=== PATIENT | male | born 1950 | race Caucasian/White ===

== ENCOUNTER 2021-02-21 09:32 | Outpatient (REF) | payer MEDICARE, SELFPAY ==
[2021-02-21 10:58] LABS: MANUAL DIFF FLAG NO
[2021-02-21 11:00] LABS: Basophils Percent Auto 0.7 % (0-2); Eosinophils Absolute Auto 0.1 X10*3/uL (0.0-0.4); Eosinophils Percent Auto 1.5 % (0-4); Hematocrit 41.5 % (42.0-52.0); Hemoglobin 13.9 g/dl (14.0-18.0); Imm Gran Abs Auto 0.01 X10*3/uL (0.00-0.03); Imm Gran Pct Auto 0.2 % (0.0-0.4); Lymphocytes Absolute Auto 1.3 X10*3/uL (1.2-4.9); Lymphocytes Percent Auto 23.9 % (20-40); Mean Corpuscular HGB Conc 33.5 g/dl (31.0-36.0); Mean Corpuscular Hemoglobin 29.6 pg (27.0-33.0); Mean Corpuscular Volume 88.5 fL (80.0-98.0); Mean Platelet Volume 9.7 fL (9.4-12.4); Monocytes Absolute Auto 0.5 X10*3/uL (0.1-1.2); Monocytes Percent Auto 9.1 % (2-11); Neutrophils Absolute Auto 3.5 x10*3/uL (2.0-8.3); Neutrophils Percent Auto 64.6 % (45-73); Platelet Count 215 X10*3/uL (160-400); Red Blood Count 4.69 X10*6/uL (4.60-5.80); Red Cell Distribution Width 12.7 % (11.0-16.0); White Blood Count 5.5 X10*3/uL (4.8-10.8)
[2021-02-21 11:37] LABS: Alanine Aminotransferase 19 U/L (0-40); Albumin Level 4.3 g/dL (3.5-5.0); Alkaline Phosphatase 79 U/L (39-117); Anion Gap 11 (12-20); Aspartate Amino Transferase 19 U/L (5-37); Bilirubin Total 0.6 mg/dL (0.0-1.0); Blood Urea Nitrogen 24 mg/dL (9-16); Calcium 9.6 mg/dL (8.4-10.2); Carbon Dioxide 28 mmol/L (22-29); Chloride 104 mmol/L (96-108); Cholesterol 222 mg/dL; Estimated Glomerular Filt Rate > 60; Glucose Random 83 mg/dL (60-115); HDL Cholesterol 56 mg/dL; LDL Cholesterol Calculated 150 mg/dl; Potassium 4.4 mmol/L (3.3-5.1); Sodium 139 mmol/L (135-145); Total Protein 7.1 g/dL (6.5-8.0); Triglycerides 84 mg/dL
[2021-02-21 11:46] LABS: Prostate Specific Antigen 0.96 ng/mL (<0.05-4.0); Thyroid Stimulating Hormone 1.16 uIU/mL (0.32-4.0); Vitamin D 25-OH Total 52.1 ng/mL (>30)
[2021-02-21 11:47] LABS: ~HepC Num1 0.11 S/CO (0.00-0.79); ~Hepatitis C Antibody Nonreactive (Nonreactive)
[2021-02-21 12:00] LABS: Vitamin B12 850 pg/mL (200-900)
== END 2021-02-21 09:33 | disposition home or self-care (01) ==
LOC: HO.MANLDS 09:32
PROVIDERS: PCP Internal Medicine; Visit Provider Internal Medicine
DX: Z00.00 Encounter for general adult medical examination without abnormal findings (principal); Z12.5 Encounter for screening for malignant neoplasm of prostate
CPT/HCPCS: 36415; 80053; 80061; 82306; 82607; 84153; 84443; 85025; 86803

== ENCOUNTER 2024-07-18 21:19 | Inpatient (IN) | payer MEDICARE, SELFPAY ==
--- NOTE | ~2024-07-18 | XR_ITS ---
CLINICAL HISTORY: SIRS 1 view chest x-ray Comparison: None provided Findings: The lungs are clear. Heart size is normal. No acute fracture. IMPRESSION: 1. No acute findings. This document has been electronically signed by: Marques Morales MD on 11/28/2024 18:56:22
--- NOTE | ~2024-07-18 | US_ITS ---
EXAMINATION: US TRIPLEX LOWER EXTREMITY, BILATERAL CLINICAL INFORMATION: COMPARISON: None available. TECHNIQUE: Color-flow triplex imaging with spectral analysis and compression Doppler were performed on the bilateral lower extremities. FINDINGS: Respiratory variation, normal compression and augmented flow are noted throughout the bilateral lower extremities. The visualized common femoral vein, superficial femoral vein, profunda femoral vein, popliteal vein and posterior tibial venous segments show no evidence of deep venous thrombosis bilaterally. Peroneal veins are not demonstrated. There is no Hough's cyst. US/US venous duplex LE BI IMPRESSION: No evidence of deep venous thrombosis involving the bilateral lower extremities. Electronically signed by: Mason Lorenzo MD 10/08/2024 03:21 PM EDT
--- NOTE | ~2024-07-18 | CT_ITS ---
CLINICAL HISTORY: worsening AMS weeks, wobbly gate CT head without contrast Comparison: None Findings: Scattered subcortical and periventricular hypoattenuation, likely in keeping with chronic small vessel ischemic disease. Global parenchymal volume loss with disproportionate prominence of the ventricles and CSF spaces, can be seen in the setting of normal pressure hydrocephalus and should be correlated clinically. No acute territorial infarction, intracranial hemorrhage or midline shift. Lacunar infarcts in the basal ganglia. The visualized paranasal sinuses and mastoid air cells are normal. The orbits are unremarkable. There is no acute fracture. IMPRESSION: 1. No acute intracranial hemorrhage or territorial infarction. 2. Additional findings as described. This document has been electronically signed by: Aurelio Sofia MD on 07/19/2024 00:17:07
[2024-07-18 21:26] VITALS: BP 130/68; BP 134/80; PULSE 60; PULSE 94; RESP 16; TEMP 36.8; O2SAT 100; O2SAT 98; BMI 24.4
[2024-07-18 21:30] VITALS: BP 130/68; PULSE 94; RESP 16; TEMP 36.8; O2SAT 98
[2024-07-18 21:48] LABS: MANUAL DIFF FLAG NO
[2024-07-18 21:49] LABS: Hematocrit 36.9 % (42.0-52.0); Hemoglobin 12.5 g/dl (14.0-18.0); Imm Gran Abs Auto 0.02 X10*3/uL (0.00-0.03); Imm Gran Pct Auto 0.3 % (0.0-0.4); Lymphocytes Absolute Auto 1.0 X10*3/uL (1.2-4.9); Mean Corpuscular HGB Conc 33.9 g/dl (31.0-36.0); Mean Corpuscular Hemoglobin 29.0 pg (27.0-33.0); Mean Corpuscular Volume 85.6 fL (80.0-98.0); NRBC Abs Auto 0.000 X10*3/uL (0.0-0.012); NRBC Pct Auto 0.0 /100WBC (0.0-0.2); Platelet Count 322 X10*3/uL (160-400); Red Blood Count 4.31 X10*6/uL (4.60-5.80); White Blood Count 6.6 X10*3/uL (4.8-10.8)
[2024-07-18 22:01] LABS: Anion Gap 12 (12-20); Blood Urea Nitrogen 21 mg/dL (9-16); Calcium 9.2 mg/dL (8.4-10.2); Carbon Dioxide 28 mmol/L (22-29); Chloride 108 mmol/L (96-108); Creatinine Clr Calc Pharmacy 87.5; Estimated Glomerular Filt Rate > 60; Potassium 4.1 mmol/L (3.3-5.1); Sodium 144 mmol/L (135-145)
--- NOTE | 2024-07-18 22:30 | PC.NURSE ---
Jaquan Segura [facility] [phone]
[2024-07-18 22:47] LABS: Appearance Urine Clear; Glucose Urine UA Negative (Negative); PH 6.5 (5.0-9.0); Specific Gravity - Urine 1.020 (1.005-1.025)
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
[2024-07-18 23:34] VITALS: BP 133/76; PULSE 58; RESP 16; TEMP 36.5; O2SAT 98
--- NOTE | 2024-07-19 | ECG_ITS ---
Test Reason : BH CLEAREANCE Blood Pressure : */* mmHG Vent. Rate : 56 BPM Atrial Rate : 56 BPM P-R Int : 160 ms QRS Dur : 90 ms QT Int : 420 ms P-R-T Axes : 14 -10 61 degrees QTcB Int : 405 ms Sinus bradycardia with Premature atrial complexes Otherwise normal ECG No previous ECGs available Referred By: Natacha Alves Electronically Signed By: RADHA DREW
[2024-07-19 04:17] VITALS: BP 121/52; PULSE 54; RESP 16; O2SAT 97
[2024-07-19 11:28] VITALS: BP 113/72; PULSE 88; RESP 18; TEMP 36.6; O2SAT 100
--- NOTE | 2024-07-19 11:28 | PC.NURSE ---
Ate well for breakfast, calm and cooperative, ambulated with staff assist on unit, resting comfortably in bed at this time
--- NOTE | 2024-07-19 12:36 | PC.NURSE ---
report given to Caitlyn on [facility]
[2024-07-19 14:15] VITALS: BP 119/69; PULSE 68; RESP 18; TEMP 36; O2SAT 100
[2024-07-19 14:50] VITALS: BMI 24.4
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
[2024-07-19 20:00] VITALS: BP 128/68; PULSE 76; RESP 18; TEMP 36.4; O2SAT 98
[2024-07-20 07:43] LABS: Cholesterol 187 mg/dL (<200); HDL Cholesterol 58 mg/dL (>40); Triglycerides 59 mg/dL (<150)
[2024-07-20 07:54] LABS: Free T4 (Free Thyroxine) 0.97 ng/dL (0.71-1.85); Thyroid Stimulating Hormone 0.98 uIU/mL (0.32-4.0)
[2024-07-20 08:08] LABS: Folate 11.8 ng/mL (> or = 4.0); Vitamin B12 1167 pg/mL (200-900)
[2024-07-20 08:37] VITALS: BP 106/69; PULSE 70; RESP 18; TEMP 36.3; O2SAT 100
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
[2024-07-20 11:06] LABS: Alanine Aminotransferase 26 U/L (0-40); Albumin Level 3.6 g/dL (3.5-5.0); Alkaline Phosphatase 75 U/L (39-117); Anion Gap 12 (12-20); Aspartate Amino Transferase 14 U/L (5-37); Blood Urea Nitrogen 29 mg/dL (9-16); Calcium 9.1 mg/dL (8.4-10.2); Carbon Dioxide 26 mmol/L (22-29); Chloride 106 mmol/L (96-108); Creatinine Clr Calc Pharmacy 64.2; Estimated Glomerular Filt Rate > 60; Potassium 4.4 mmol/L (3.3-5.1); Sodium 140 mmol/L (135-145); Total Protein 6.4 g/dL (6.5-8.0)
[2024-07-20 20:00] VITALS: BP 123/58; PULSE 69; RESP 18; TEMP 36.5; O2SAT 96
[2024-07-21 09:02] VITALS: BP 97/55; PULSE 67; RESP 16; TEMP 36.6; O2SAT 97
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
[2024-07-21 20:00] VITALS: BP 111/57; PULSE 63; RESP 16; TEMP 36.8; O2SAT 97
[2024-07-22 08:00] VITALS: BP 114/62; PULSE 73; RESP 16; TEMP 36.6; O2SAT 96
--- NOTE | 2024-07-22 16:41 | P.PNPSI_ITS ---
Subjective Subjective Date of Service: 07/22/24 Reason For Visit: dementia w/ behavioral disturbance Subjective Notes: Section 12B Interim History: Pt slept through the night. He continues with one to one due to unsteady gait, he is somewhat resistant to care, combative. He is taking medications as prescribed. BP on lower side, minimal oral fluid intake. not on any BP medications. when approached not very talkative, staring at times. poverty of thought Review of Systems Review of Systems Patient has no complaints, patient has history of dementia Yes Other (Dementia) Mental Status Exam Mental Status Exam Narrative: Appearance: wearing hospital gown, fair hygiene, in NAD Behavior: guarded, somewhat irritable Psychomotor: no agitation or retardation noted Speech: mostly mumbling, regular rate/rhythm, soft tone, minimally spontaneous TP: poverty of thought TC: feeling tired Mood: okay Affect: tired SI: none HI: none VH/AH: no overt signs Delusions: no overt signs but confabulating Insight/judgment: impaired x 2. memory/cog: alert oriented only to person. Diagnostics Vital Signs (24Hr): Vital Signs - 24 hr 07/21/24 20:00 07/22/24 08:00 Temperature 98.2 F 97.9 F Pulse Rate 63 73 Respiratory Rate 16 16 Blood Pressure 111/57 L 114/62 Pulse Oximetry 97 96 Oxygen Delivery Method Room Air Room Air BMI result Body Mass Index 24.4 Labs 07/18/24 21:40 07/23/24 10:52 Medications Medications Current Medications Acetaminophen (Acetaminophen 325 Mg Tablet) 650 mg PO Q6H PRN PRN Reason: Headache/Pain, Scale 1-10 Al Hydroxide/Mg Hydroxide (Magnesium Hydrox/Alum Hydrox 30 Ml Oral.Susp) 30 ml PO Q6H PRN PRN Reason: Heartburn/Nausea Donepezil HCl (Donepezil Hcl 10 Mg Tablet) 10 mg PO DAILY [facility] Last Admin: 07/22/24 08:59 Dose: 10 mg Magnesium Hydroxide (Milk Of Magnesia 30 Ml Oral.Susp) 30 ml PO DAILY PRN PRN Reason: Constipation Olanzapine (Olanzapine 5 Mg Tablet) 5 mg PO BID [facility] Last Admin: 07/22/24 08:59 Dose: 5 mg Olanzapine (Olanzapine Odt 10 Mg Tab.Rapdis) 5 mg TRANSLINGU Q4H PRN PRN Reason: agitation Trazodone HCl (Trazodone Hcl 50 Mg Tablet) 50 mg PO BEDTIME MRX1 PRN PRN Reason: Insomnia Last Admin: 07/21/24 21:23 Dose: 50 mg Allergies Allergies Allergy/AdvReac Type Severity Reaction Status Date / Time No Known Allergies Allergy Verified 07/18/24 21:28 Assessment & Plan Assessment & Plan (1) Major neurocognitive disorder: Status: Acute Code(s): F03.90 - Unspecified dementia, unspecified severity, without behavioral disturbance, psychotic disturbance, mood disturbance, and anxiety Plan Mr. Segura is a 73 year-old male with hx of dementia, appears AD type who was brought by family [place] [facility] [place] due to increase combative behaviors attempting to choke while she was providing support with ADLs. He has also eloped home in the past, being loss for 6 hrs and then presenting with hypothermia. This narrative writer attempted to call twice with no response nor able to leave message. Continue current medications including olanzapine 5mg po BID. Aricept at bedtime, instead of daily. PLAN 07/21 continue tx. 07/22 continue tx. on [id number] up on 07/23 may need to file. Reason for continued inpatient stay Substantial Risk for: inability to function Time Spent With Patient Time: Total time managing care of this patient today ____ minutes.
[2024-07-22] MEDS: OLANZapine ODT 10 MG TAB.RAPDIS 5 MG TRANSLINGU (18:56)
--- NOTE | 2024-07-22 19:01 | PC.NURSE ---
Having behavioral issues wanting to put himself on the floor given PRN danica
[2024-07-22 20:00] VITALS: BP 121/79; PULSE 89; RESP 20; TEMP 37.1; O2SAT 96
--- NOTE | 2024-07-22 21:51 | PC.NURSE ---
Addendum entered by Ryan Zavaleta RN 07/23/24 03:29: DOC aware Original Note: at 1999 patient was restless, disorganized and agitated towards sitter, HR 132-141, 121/79, r20, 98.7 SAO2 95%@RA, he had gotten zyprexa 5mg PO PRN at 1856, and was given regularly scheduled zyprexa 5mg PO and PRN trazodone 50, 2034 HR down to 89, SA 96%, patient resting
--- NOTE | 2024-07-22 21:59 | PC.NURSE ---
at 2119 sitter reported patient restless, undressing, hot, 99.8f, given tylenol 650mg PO and trazodone 50mg repeat dose, 2199 patient resting 98.1f
[2024-07-23 09:14] VITALS: BP 94/50; PULSE 60; RESP 16; TEMP 36.5; O2SAT 98
[2024-07-23 11:20] LABS: Alanine Aminotransferase 18 U/L (0-40); Albumin Level 3.6 g/dL (3.5-5.0); Alkaline Phosphatase 72 U/L (39-117); Anion Gap 11 (12-20); Aspartate Amino Transferase 42 U/L (5-37); Blood Urea Nitrogen 24 mg/dL (9-16); Calcium 9.4 mg/dL (8.4-10.2); Carbon Dioxide 25 mmol/L (22-29); Chloride 109 mmol/L (96-108); Creatinine Clr Calc Pharmacy 85.4; Estimated Glomerular Filt Rate > 60; Potassium 3.9 mmol/L (3.3-5.1); Sodium 141 mmol/L (135-145); Total Protein 6.4 g/dL (6.5-8.0)
--- NOTE | 2024-07-23 16:00 | HO.PSYCHPN ---
Subjective Subjective Date of Service: 07/24/24 Reason For Visit: dementia w/ behavioral disturbance Subjective Notes: Section 12B Interim History: Pt slept through the night. He appears less combative with direct care, minimally verbal, one word answer at times unrelated to question asked. He appeared more unsteady after receiving olanzapine. Low BP, not orthostatic, difficult to assess if feeling dizzy or light headed due to advanced dementia. Continue one to one due to risk for fall. not able to show capacity to appoint healthcare proxy. need filing for guardianship. Review of Systems Review of Systems None currently Yes Unobtainable due to mental status and Other (Dementia) Mental Status Exam Mental Status Exam Narrative: Appearance: wearing hospital gown, fair hygiene, in NAD Behavior: guarded, somewhat irritable Psychomotor: no agitation or retardation noted Speech: mostly mumbling, regular rate/rhythm, soft tone, minimally spontaneous TP: poverty of thought TC: feeling tired Mood: okay Affect: tired SI: none HI: none VH/AH: no overt signs Delusions: no overt signs but confabulating Insight/judgment: impaired x 2. memory/cog: alert oriented only to person. Diagnostics Vital Signs (24Hr): Vital Signs - 24 hr 07/22/24 20:00 07/23/24 09:14 Temperature 98.8 F 97.7 F Pulse Rate 89 60 Respiratory Rate 20 16 Blood Pressure 121/79 94/50 L Pulse Oximetry 96 98 Oxygen Delivery Method Room Air Room Air BMI result Body Mass Index 24.4 Labs 07/18/24 21:40 07/23/24 10:52 Labs: Laboratory Results - last 48 hr 07/23/24 10:52 Sodium 141 Potassium 3.9 Chloride 109 H Carbon Dioxide 25 Anion Gap 11 L BUN 24 H Creatinine 0.82 Estim Creat Clear Calc 85.4 Estimated GFR > 60 Random Glucose 84 Calcium 9.4 Total Bilirubin 0.6 AST 42 H ALT 18 Alkaline Phosphatase 72 Total Protein 6.4 L Albumin 3.6 Medications Medications Current Medications Acetaminophen (Acetaminophen 325 Mg Tablet) 650 mg PO Q6H PRN PRN Reason: Headache/Pain, Scale 1-10 Last Admin: 07/22/24 21:33 Dose: 650 mg Al Hydroxide/Mg Hydroxide (Magnesium Hydrox/Alum Hydrox 30 Ml Oral.Susp) 30 ml PO Q6H PRN PRN Reason: Heartburn/Nausea Donepezil HCl (Donepezil Hcl 10 Mg Tablet) 10 mg PO DAILY [facility] Last Admin: 07/23/24 09:20 Dose: 10 mg Magnesium Hydroxide (Milk Of Magnesia 30 Ml Oral.Susp) 30 ml PO DAILY PRN PRN Reason: Constipation Olanzapine (Olanzapine Odt 10 Mg Tab.Rapdis) 5 mg TRANSLINGU Q4H PRN PRN Reason: agitation Last Admin: 07/22/24 18:56 Dose: 5 mg Olanzapine (Olanzapine 5 Mg Tablet) 5 mg PO TID [facility] Last Admin: 07/23/24 15:12 Dose: 5 mg Trazodone HCl (Trazodone Hcl 50 Mg Tablet) 50 mg PO BEDTIME MRX1 PRN PRN Reason: Insomnia Last Admin: 07/22/24 21:34 Dose: 50 mg Allergies Allergies Allergy/AdvReac Type Severity Reaction Status Date / Time No Known Allergies Allergy Verified 07/18/24 21:28 Assessment & Plan Assessment & Plan (1) Major neurocognitive disorder: Status: Acute Code(s): F03.90 - Unspecified dementia, unspecified severity, without behavioral disturbance, psychotic disturbance, mood disturbance, and anxiety Plan Mr. Segura is a 73 year-old male with hx of dementia, appears AD type who was brought by family [place] [facility] due to increase combative behaviors attempting to choke while she was providing support with ADLs. He has also eloped home in the past, being loss for 6 hrs and then presenting with hypothermia. 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 Continue current medications including olanzapine 5mg po BID. Aricept at bedtime, instead of daily. PLAN 07/21 continue tx. 07/22 continue tx. on [id number] up on 07/23 may need to file. 07/23 continue tx. 07/24 switch olanzapine to seroquel as it appears more unsteady with olanzapine. encourage oral intake. Reason for continued inpatient stay Substantial Risk for: inability to function Time Spent With Patient Time: Total time managing care of this patient today ____ minutes.
[2024-07-23 20:00] VITALS: BP 112/68; PULSE 70; RESP 18; TEMP 36.6; O2SAT 97
[2024-07-24 08:00] VITALS: BP 101/60; PULSE 67; RESP 18; TEMP 36.4; O2SAT 98
[2024-07-24 09:05] VITALS: BMI 20.8
[2024-07-24 09:37] VITALS: BP 106/61; PULSE 60
[2024-07-24 20:00] VITALS: BP 123/65; PULSE 66; RESP 16; TEMP 36.8; O2SAT 96
[2024-07-25 08:20] VITALS: BP 92/60; PULSE 72; RESP 20; TEMP 36.8; O2SAT 98
--- NOTE | 2024-07-25 12:33 | P.PNPSI_ITS ---
Subjective Subjective Date of Service: 07/25/24 Reason For Visit: dementia w/ behavioral disturbance Interim History: Pt seen, reviewed with the team. Hot Sealing Machine Operator visiting today. Pt walking today with assistance. Change to Seroquel from Olanzapine appears to be tolerated without adverse effects. No sx of acute distress. Review of Systems Review of Systems None currently Mental Status Exam Mental Status Exam Patient Appearance: Appropriate Patient Orientation: Person Level of Consciousness: Alert Patient Behavior: Cooperative Mood Description: Calm and Constricted Affect Description: Constricted Patient Cognition Impaired: Yes Ability to Follow Directions: Fair Memory Description: Remote Impaired, Immediate Impaired and Recent Impaired Judgement: Poor Diagnostics Vital Signs (24Hr): Vital Signs - 24 hr 07/24/24 20:00 07/25/24 08:20 Temperature 98.2 F 98.2 F Pulse Rate 66 72 Respiratory Rate 16 20 Blood Pressure 123/65 92/60 Pulse Oximetry 96 98 Oxygen Delivery Method Room Air Room Air BMI result Body Mass Index 20.8 Labs 07/18/24 21:40 07/23/24 10:52 Medications Medications Current Medications Acetaminophen (Acetaminophen 325 Mg Tablet) 650 mg PO Q6H PRN PRN Reason: Headache/Pain, Scale 1-10 Last Admin: 07/22/24 21:33 Dose: 650 mg Al Hydroxide/Mg Hydroxide (Magnesium Hydrox/Alum Hydrox 30 Ml Oral.Susp) 30 ml PO Q6H PRN PRN Reason: Heartburn/Nausea Donepezil HCl (Donepezil Hcl 10 Mg Tablet) 10 mg PO DAILY [facility] Last Admin: 07/25/24 08:26 Dose: 10 mg Magnesium Hydroxide (Milk Of Magnesia 30 Ml Oral.Susp) 30 ml PO DAILY PRN PRN Reason: Constipation Quetiapine Fumarate (Quetiapine Fumarate 50 Mg Tablet) 50 mg PO BID [facility] Last Admin: 07/25/24 08:27 Dose: 50 mg Quetiapine Fumarate (Quetiapine Fumarate 50 Mg Tablet) 50 mg PO Q6H PRN PRN Reason: agitation Trazodone HCl (Trazodone Hcl 50 Mg Tablet) 50 mg PO BEDTIME MRX1 PRN PRN Reason: Insomnia Last Admin: 07/23/24 20:10 Dose: 50 mg Allergies Allergies Allergy/AdvReac Type Severity Reaction Status Date / Time No Known Allergies Allergy Verified 07/18/24 21:28 Assessment & Plan Assessment & Plan (1) Major neurocognitive disorder: Status: Acute Code(s): F03.90 - Unspecified dementia, unspecified severity, without behavioral disturbance, psychotic disturbance, mood disturbance, and anxiety Plan Mr. Segura is a 73 year-old male with hx of dementia, appears AD type who was brought by family to [facility] due to increase combative behaviors attempting to choke while she was providing support with ADLs. He has also eloped home in the past, being loss for 6 hrs and then presenting with hypothermia. This teletypewriter installer attempted to call twice with no response nor able to leave message. Continue current medications including olanzapine 5mg po BID. Aricept at bedtime, instead of daily. PLAN 07/21 continue tx. 07/22 continue tx. on [id number] up on 07/23 may need to file. 07/25 Continue tx Reason for continued inpatient stay Substantial Risk for: rapid decompensation Time Spent With Patient Time: Total time managing care of this patient today ____ minutes.
[2024-07-25 20:00] VITALS: BP 123/67; PULSE 75; RESP 16; TEMP 36.6; O2SAT 98
--- NOTE | 2024-07-26 05:55 | P.PNPSI_ITS ---
Subjective Subjective Date of Service: 07/26/24 Reason For Visit: dementia w/ behavioral disturbance Interim History: Pt seen in milieu with his one to one, reviewed with the team. He is looking at a magazine and watching television. He is calm, without agitation or behavioral dyscontrol. Team reports he does not recognize or recall his daughter when she visited. Team reports he does agitate when care is provided Review of Systems Review of Systems Yes Unobtainable due to mental status Mental Status Exam Mental Status Exam Patient Appearance: Appropriate Patient Orientation: Person Level of Consciousness: Alert Patient Behavior: Cooperative Mood Description: Calm and Constricted Affect Description: Constricted Patient Cognition Impaired: Yes Ability to Follow Directions: Fair Memory Description: Remote Impaired, Immediate Impaired and Recent Impaired Judgement: Poor Diagnostics Vital Signs (24Hr): Vital Signs - 24 hr 07/25/24 08:20 07/25/24 20:00 Temperature 98.2 F 97.8 F Pulse Rate 72 75 Respiratory Rate 20 16 Blood Pressure 92/60 123/67 Pulse Oximetry 98 98 Oxygen Delivery Method Room Air Room Air BMI result Body Mass Index 20.8 Labs 07/18/24 21:40 07/23/24 10:52 Medications Medications Current Medications Acetaminophen (Acetaminophen 325 Mg Tablet) 650 mg PO Q6H PRN PRN Reason: Headache/Pain, Scale 1-10 Last Admin: 07/22/24 21:33 Dose: 650 mg Al Hydroxide/Mg Hydroxide (Magnesium Hydrox/Alum Hydrox 30 Ml Oral.Susp) 30 ml PO Q6H PRN PRN Reason: Heartburn/Nausea Donepezil HCl (Donepezil Hcl 10 Mg Tablet) 10 mg PO DAILY [facility] Last Admin: 07/25/24 08:26 Dose: 10 mg Magnesium Hydroxide (Milk Of Magnesia 30 Ml Oral.Susp) 30 ml PO DAILY PRN PRN Reason: Constipation Quetiapine Fumarate (Quetiapine Fumarate 50 Mg Tablet) 50 mg PO BID [facility] Last Admin: 07/25/24 21:24 Dose: 50 mg Quetiapine Fumarate (Quetiapine Fumarate 50 Mg Tablet) 50 mg PO Q6H PRN PRN Reason: agitation Trazodone HCl (Trazodone Hcl 50 Mg Tablet) 50 mg PO BEDTIME MRX1 PRN PRN Reason: Insomnia Last Admin: 07/23/24 20:10 Dose: 50 mg Allergies Allergies Allergy/AdvReac Type Severity Reaction Status Date / Time No Known Allergies Allergy Verified 07/18/24 21:28 Assessment & Plan Assessment & Plan (1) Major neurocognitive disorder: Status: Acute Code(s): F03.90 - Unspecified dementia, unspecified severity, without behavioral disturbance, psychotic disturbance, mood disturbance, and anxiety Plan Mr. Segura is a 73 year-old male with hx of dementia, appears AD type who was brought by family [place] [facility] due to increase combative behaviors attempting to choke while she was providing support with ADLs. He has also eloped home in the past, being loss for 6 hrs and then presenting with hypothermia. This caption writer attempted to call twice with no response nor able to leave message. Continue current medications including olanzapine 5mg po BID. Aricept at bedtime, instead of daily. PLAN 07/21 continue tx. 07/22 continue tx. on [id number] up on 07/23 may need to file. 07/25 Continue tx 07/26 Continue tx Reason for continued inpatient stay Substantial Risk for: rapid decompensation Time Spent With Patient Time: Total time managing care of this patient today ____ minutes.
[2024-07-26 07:52] VITALS: BP 113/64; PULSE 89; RESP 20; TEMP 36.9; O2SAT 98
[2024-07-26 20:00] VITALS: BP 130/69; PULSE 85; RESP 18; TEMP 37.3; O2SAT 96
[2024-07-27 08:00] VITALS: BP 117/66; PULSE 74; RESP 18; TEMP 36.8; O2SAT 97
--- NOTE | 2024-07-27 11:14 | P.PNPSI_ITS ---
Subjective Subjective Date of Service: 07/24/24 Reason For Visit: dementia w/ behavioral disturbance Subjective Notes: Conditional Voluntary Interim History: Late entry 07/24/2024: Pt slept through the night. He appears less combative with direct care, minimally verbal, one word answer at times unrelated to question asked. He appeared more unsteady after receiving olanzapine. Low BP, not orthostatic, difficult to assess if feeling dizzy or light headed due to advanced dementia. Continue one to one due to risk for fall. not able to show capacity to appoint healthcare proxy. need filing for guardianship. Review of Systems Review of Systems None currently Yes Unobtainable due to mental status and Other (Dementia) Mental Status Exam Mental Status Exam Narrative: Appearance: wearing hospital gown, fair hygiene, in NAD Behavior: guarded, somewhat irritable Psychomotor: no agitation or retardation noted Speech: mostly mumbling, regular rate/rhythm, soft tone, minimally spontaneous TP: poverty of thought TC: feeling tired Mood: okay Affect: tired SI: none HI: none VH/AH: no overt signs Delusions: no overt signs but confabulating Insight/judgment: impaired x 2. memory/cog: alert oriented only to person. Diagnostics Vital Signs (24Hr): Vital Signs - 24 hr 07/26/24 20:00 Temperature 99.2 F Pulse Rate 85 Respiratory Rate 18 Blood Pressure 130/69 Pulse Oximetry 96 Oxygen Delivery Method Room Air BMI result Body Mass Index 20.8 Labs 07/18/24 21:40 07/23/24 10:52 Medications Medications Current Medications Acetaminophen (Acetaminophen 325 Mg Tablet) 650 mg PO Q6H PRN PRN Reason: Headache/Pain, Scale 1-10 Last Admin: 07/22/24 21:33 Dose: 650 mg Al Hydroxide/Mg Hydroxide (Magnesium Hydrox/Alum Hydrox 30 Ml Oral.Susp) 30 ml PO Q6H PRN PRN Reason: Heartburn/Nausea Donepezil HCl (Donepezil Hcl 10 Mg Tablet) 10 mg PO DAILY [facility] Last Admin: 07/27/24 10:33 Dose: 10 mg Magnesium Hydroxide (Milk Of Magnesia 30 Ml Oral.Susp) 30 ml PO DAILY PRN PRN Reason: Constipation Quetiapine Fumarate (Quetiapine Fumarate 50 Mg Tablet) 50 mg PO BID [facility] Last Admin: 07/27/24 10:33 Dose: 50 mg Quetiapine Fumarate (Quetiapine Fumarate 50 Mg Tablet) 50 mg PO Q6H PRN PRN Reason: agitation Last Admin: 07/27/24 00:24 Dose: 50 mg Trazodone HCl (Trazodone Hcl 50 Mg Tablet) 50 mg PO BEDTIME MRX1 PRN PRN Reason: Insomnia Last Admin: 07/27/24 00:23 Dose: 50 mg Allergies Allergies Allergy/AdvReac Type Severity Reaction Status Date / Time No Known Allergies Allergy Verified 07/18/24 21:28 Assessment & Plan Assessment & Plan (1) Major neurocognitive disorder: Status: Acute Code(s): F03.90 - Unspecified dementia, unspecified severity, without behavioral disturbance, psychotic disturbance, mood disturbance, and anxiety Plan Mr. Segura is a 73 year-old male with hx of dementia, appears AD type who was brought by family to [facility] due to increase combative behaviors attempting to choke while she was providing support with ADLs. He has also eloped home in the past, being loss for 6 hrs and then presenting with hypothermia. This keno writer attempted to call twice with no response nor able to leave message. Continue current medications including olanzapine 5mg po BID. Aricept at bedtime, instead of daily. PLAN 07/21 continue tx. 07/22 continue tx. on [id number] up on 07/23 may need to file. 07/23 continue tx. 07/24 switch olanzapine to seroquel as it appears more unsteady with olanzapine. encourage oral intake. Reason for continued inpatient stay Substantial Risk for: inability to function Time Spent With Patient Time: Total time managing care of this patient today ____ minutes.
--- NOTE | 2024-07-27 11:32 | HO.PSYCHPN ---
Subjective Subjective Date of Service: 07/27/24 Reason For Visit: dementia w/ behavioral disturbance Subjective Notes: Section 7 Interim History: Pt slept through the night. He has been taking medications. He was off one to one for less than 30 minutes but presented as very disorganized defecating outside the toilet. He was again placed on one to one. He is taking medications as prescribed. VS stable. more stable gait. Review of Systems Review of Systems None currently Yes Unobtainable due to mental status and Other (Dementia) Mental Status Exam Mental Status Exam Narrative: Appearance: wearing hospital gown, fair hygiene, in NAD Behavior: guarded, somewhat irritable Psychomotor: no agitation or retardation noted Speech: mostly mumbling, regular rate/rhythm, soft tone, minimally spontaneous TP: poverty of thought TC: feeling tired Mood: okay Affect: tired SI: none HI: none VH/AH: no overt signs Delusions: no overt signs but confabulating Insight/judgment: impaired x 2. memory/cog: alert oriented only to person. Diagnostics Vital Signs (24Hr): Vital Signs - 24 hr 07/26/24 20:00 07/27/24 08:00 Temperature 99.2 F 98.2 F Pulse Rate 85 74 Respiratory Rate 18 18 Blood Pressure 130/69 117/66 Pulse Oximetry 96 97 Oxygen Delivery Method Room Air Room Air BMI result Body Mass Index 20.8 Labs 07/18/24 21:40 07/23/24 10:52 Medications Medications Current Medications Acetaminophen (Acetaminophen 325 Mg Tablet) 650 mg PO Q6H PRN PRN Reason: Headache/Pain, Scale 1-10 Last Admin: 07/22/24 21:33 Dose: 650 mg Al Hydroxide/Mg Hydroxide (Magnesium Hydrox/Alum Hydrox 30 Ml Oral.Susp) 30 ml PO Q6H PRN PRN Reason: Heartburn/Nausea Donepezil HCl (Donepezil Hcl 10 Mg Tablet) 10 mg PO DAILY [facility] Last Admin: 07/27/24 10:33 Dose: 10 mg Magnesium Hydroxide (Milk Of Magnesia 30 Ml Oral.Susp) 30 ml PO DAILY PRN PRN Reason: Constipation Quetiapine Fumarate (Quetiapine Fumarate 50 Mg Tablet) 50 mg PO BID [facility] Last Admin: 07/27/24 10:33 Dose: 50 mg Quetiapine Fumarate (Quetiapine Fumarate 50 Mg Tablet) 50 mg PO Q6H PRN PRN Reason: agitation Last Admin: 07/27/24 00:24 Dose: 50 mg Trazodone HCl (Trazodone Hcl 50 Mg Tablet) 50 mg PO BEDTIME MRX1 PRN PRN Reason: Insomnia Last Admin: 07/27/24 00:23 Dose: 50 mg Allergies Allergies Allergy/AdvReac Type Severity Reaction Status Date / Time No Known Allergies Allergy Verified 07/18/24 21:28 Assessment & Plan Assessment & Plan (1) Major neurocognitive disorder: Status: Acute Code(s): F03.90 - Unspecified dementia, unspecified severity, without behavioral disturbance, psychotic disturbance, mood disturbance, and anxiety Plan Mr. Segura is a 73 year-old male with hx of dementia, appears AD type who was brought by family [place] [facility] due to increase combative behaviors attempting to choke while she was providing support with ADLs. He has also eloped home in the past, being loss for 6 hrs and then presenting with hypothermia. 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 Continue current medications including olanzapine 5mg po BID. Aricept at bedtime, instead of daily. PLAN 07/21 continue tx. 07/22 continue tx. on [id number] up on 07/23 may need to file. 07/23 continue tx. 07/24 switch olanzapine to seroquel as it appears more unsteady with olanzapine. encourage oral intake. 07/27 continue tx. Reason for continued inpatient stay Substantial Risk for: inability to function Time Spent With Patient Time: Total time managing care of this patient today ____ minutes.
[2024-07-27 20:00] VITALS: BP 129/69; PULSE 67; RESP 16; TEMP 37.1; O2SAT 98
[2024-07-28 08:00] VITALS: BP 116/76; PULSE 86; RESP 18; TEMP 36.6; O2SAT 97
--- NOTE | 2024-07-28 10:15 | HO.PSYCHPN ---
Subjective Subjective Date of Service: 07/28/24 Reason For Visit: dementia w/ behavioral disturbance Subjective Notes: Section 7 Interim History: Pt slept through the night. he was awake for meals. No combative behaviors. he does appear slightly somnolent during the day after breakfast. will monitor sedation with medications. Minimal spontaneous speech. Will complete certificate for guardianship. VS stable, increase oral intake. Diagnostics Vital Signs (24Hr): Vital Signs - 24 hr 07/27/24 20:00 Temperature 98.7 F Pulse Rate 67 Respiratory Rate 16 Blood Pressure 129/69 Pulse Oximetry 98 Oxygen Delivery Method Room Air BMI result Body Mass Index 20.8 Labs 07/18/24 21:40 07/23/24 10:52 Medications Medications Current Medications Acetaminophen (Acetaminophen 325 Mg Tablet) 650 mg PO Q6H PRN PRN Reason: Headache/Pain, Scale 1-10 Last Admin: 07/22/24 21:33 Dose: 650 mg Al Hydroxide/Mg Hydroxide (Magnesium Hydrox/Alum Hydrox 30 Ml Oral.Susp) 30 ml PO Q6H PRN PRN Reason: Heartburn/Nausea Donepezil HCl (Donepezil Hcl 10 Mg Tablet) 10 mg PO DAILY [facility] Last Admin: 07/28/24 08:48 Dose: 10 mg Magnesium Hydroxide (Milk Of Magnesia 30 Ml Oral.Susp) 30 ml PO DAILY PRN PRN Reason: Constipation Quetiapine Fumarate (Quetiapine Fumarate 50 Mg Tablet) 50 mg PO BID [facility] Last Admin: 07/28/24 08:49 Dose: 50 mg Quetiapine Fumarate (Quetiapine Fumarate 50 Mg Tablet) 50 mg PO Q6H PRN PRN Reason: agitation Last Admin: 07/27/24 00:24 Dose: 50 mg Trazodone HCl (Trazodone Hcl 50 Mg Tablet) 50 mg PO BEDTIME MRX1 PRN PRN Reason: Insomnia Last Admin: 07/27/24 21:03 Dose: 50 mg Allergies Allergies Allergy/AdvReac Type Severity Reaction Status Date / Time No Known Allergies Allergy Verified 07/18/24 21:28 Assessment & Plan Assessment & Plan (1) Major neurocognitive disorder: Status: Acute Code(s): F03.90 - Unspecified dementia, unspecified severity, without behavioral disturbance, psychotic disturbance, mood disturbance, and anxiety Plan Mr. Segura is a 73 year-old male with hx of dementia, appears AD type who was brought by family to [facility] due to increase combative behaviors attempting to choke while she was providing support with ADLs. He has also eloped home in the past, being loss for 6 hrs and then presenting with hypothermia. 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 Continue current medications including olanzapine 5mg po BID. Aricept at bedtime, instead of daily. PLAN 07/21 continue tx. 07/22 continue tx. on [id number] up on 07/23 may need to file. 07/23 continue tx. 07/24 switch olanzapine to seroquel as it appears more unsteady with olanzapine. encourage oral intake. 07/27 continue tx. 07/28 continue tx. Reason for continued inpatient stay Substantial Risk for: inability to function Time Spent With Patient Time: Total time managing care of this patient today ____ minutes.
[2024-07-28 20:00] VITALS: BP 127/61; PULSE 84; RESP 18; TEMP 37.2; O2SAT 96
[2024-07-29 08:00] VITALS: BP 111/55; PULSE 78; RESP 18; TEMP 37; O2SAT 97
--- NOTE | 2024-07-29 10:14 | PC.NURSE ---
Patient sleeping at am, VSS, breathing regular, unlabored. Leatha Mullins notified, stated, to give am meds when awake, hold Seroquel. Will continue to monitor.
--- NOTE | 2024-07-29 10:23 | P.PNPSI_ITS ---
Subjective Subjective Date of Service: 07/29/24 Reason For Visit: dementia w/ behavioral disturbance Subjective Notes: Section 7 Healthcare Proxy: No Interim History: Pt slept through the night. He woke up a but later in the morning, held seroquel as he has been presenting as more somnolent during the day. Seen later, appeared with brighter affect. Minimal verbal output, but appeared brighter and calm. He has derailment (answers with one word unrelated to question asked). He had breakfast, and improved oral intake. Diagnostics Vital Signs (24Hr): Vital Signs - 24 hr 07/28/24 20:00 07/29/24 08:00 Temperature 98.9 F 98.6 F Pulse Rate 84 78 Respiratory Rate 18 18 Blood Pressure 127/61 111/55 L Pulse Oximetry 96 97 Oxygen Delivery Method Room Air Room Air BMI result Body Mass Index 20.8 Labs 07/18/24 21:40 07/23/24 10:52 Medications Medications Current Medications Acetaminophen (Acetaminophen 325 Mg Tablet) 650 mg PO Q6H PRN PRN Reason: Headache/Pain, Scale 1-10 Last Admin: 07/22/24 21:33 Dose: 650 mg Al Hydroxide/Mg Hydroxide (Magnesium Hydrox/Alum Hydrox 30 Ml Oral.Susp) 30 ml PO Q6H PRN PRN Reason: Heartburn/Nausea Donepezil HCl (Donepezil Hcl 10 Mg Tablet) 10 mg PO DAILY [facility] Last Admin: 07/28/24 08:48 Dose: 10 mg Magnesium Hydroxide (Milk Of Magnesia 30 Ml Oral.Susp) 30 ml PO DAILY PRN PRN Reason: Constipation Memantine (Memantine Hcl 5 Mg Tablet) 5 mg PO DAILY [facility] Quetiapine Fumarate (Quetiapine Fumarate 50 Mg Tablet) 50 mg PO BID [facility] Last Admin: 07/28/24 21:09 Dose: 50 mg Quetiapine Fumarate (Quetiapine Fumarate 50 Mg Tablet) 50 mg PO Q6H PRN PRN Reason: agitation Last Admin: 07/27/24 00:24 Dose: 50 mg Trazodone HCl (Trazodone Hcl 50 Mg Tablet) 50 mg PO BEDTIME PRN PRN Reason: Insomnia Allergies Allergies Allergy/AdvReac Type Severity Reaction Status Date / Time No Known Allergies Allergy Verified 07/18/24 21:28 Assessment & Plan Assessment & Plan (1) Major neurocognitive disorder: Status: Acute Code(s): F03.90 - Unspecified dementia, unspecified severity, without behavioral disturbance, psychotic disturbance, mood disturbance, and anxiety Plan Mr. Segura is a 73 year-old male with hx of dementia, appears AD type who was brought by family to [facility] due to increase combative behaviors attempting to choke while she was providing support with ADLs. He has also eloped home in the past, being loss for 6 hrs and then presenting with hypothermia. 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 Continue current medications including olanzapine 5mg po BID. Aricept at bedtime, instead of daily. PLAN 07/21 continue tx. 07/22 continue tx. on [id number] up on 07/23 may need to file. 07/23 continue tx. 07/24 switch olanzapine to seroquel as it appears more unsteady with olanzapine. encourage oral intake. 07/27 continue tx. 07/28 continue tx. 07/29 moved seroquel to 1200, 2100, monitor oversedation. Appeared brighter affect today, not combative. completed paperwork to [employer] for guardianship/conservatorship/erin s/s to advanced dementia. Reason for continued inpatient stay Substantial Risk for: inability to function Time Spent With Patient Time: Total time managing care of this patient today ____ minutes.
[2024-07-29 20:00] VITALS: BP 105/56; PULSE 71; RESP 17; TEMP 36.9; O2SAT 93
[2024-07-30 08:00] VITALS: BP 125/76; PULSE 88; RESP 18; TEMP 36.8; O2SAT 96
[2024-07-30 10:27] VITALS: BMI 21.0
--- NOTE | 2024-07-30 16:27 | P.PNPSI_ITS ---
Subjective Subjective Date of Service: 07/30/24 Reason For Visit: dementia w/ behavioral disturbance Interim History: asking for water. otherwise good. Mental Status Exam Mental Status Exam Narrative: Appearance: wearing hospital gown, fair hygiene, in NAD Behavior: guarded Psychomotor: no agitation or retardation noted Speech: mostly mumbling, regular rate/rhythm, soft tone, minimally spontaneous TP: poverty of thought TC: feeling thirsty Mood: okay Affect: tired SI: none expressed HI: none expressed VH/AH: no overt signs Delusions: no overt signs Insight/judgment: impaired x 2. memory/cog: alert oriented only to person. Diagnostics Vital Signs (24Hr): Vital Signs - 24 hr 07/29/24 20:00 07/30/24 08:00 Temperature 98.4 F 98.2 F Pulse Rate 71 88 Respiratory Rate 17 18 Blood Pressure 105/56 L 125/76 Pulse Oximetry 93 96 Oxygen Delivery Method Room Air Room Air BMI result Body Mass Index 21.0 Labs 07/18/24 21:40 07/23/24 10:52 Medications Medications Current Medications Acetaminophen (Acetaminophen 325 Mg Tablet) 650 mg PO Q6H PRN PRN Reason: Headache/Pain, Scale 1-10 Last Admin: 07/22/24 21:33 Dose: 650 mg Al Hydroxide/Mg Hydroxide (Magnesium Hydrox/Alum Hydrox 30 Ml Oral.Susp) 30 ml PO Q6H PRN PRN Reason: Heartburn/Nausea Donepezil HCl (Donepezil Hcl 10 Mg Tablet) 10 mg PO BEDTIME [facility] Magnesium Hydroxide (Milk Of Magnesia 30 Ml Oral.Susp) 30 ml PO DAILY PRN PRN Reason: Constipation Memantine (Memantine Hcl 5 Mg Tablet) 5 mg PO DAILY [facility] Last Admin: 07/30/24 09:10 Dose: 5 mg Quetiapine Fumarate (Quetiapine Fumarate 50 Mg Tablet) 50 mg PO Q6H PRN PRN Reason: agitation Last Admin: 07/27/24 00:24 Dose: 50 mg Quetiapine Fumarate (Quetiapine Fumarate 50 Mg Tablet) 50 mg PO BID@1200,2100 [facility] Last Admin: 07/30/24 12:06 Dose: 50 mg Trazodone HCl (Trazodone Hcl 50 Mg Tablet) 50 mg PO BEDTIME PRN PRN Reason: Insomnia Allergies Allergies Allergy/AdvReac Type Severity Reaction Status Date / Time No Known Allergies Allergy Verified 07/18/24 21:28 Assessment & Plan Assessment & Plan (1) Major neurocognitive disorder: Status: Acute Code(s): F03.90 - Unspecified dementia, unspecified severity, without behavioral disturbance, psychotic disturbance, mood disturbance, and anxiety Plan Mr. Segura is a 73 year-old male with hx of dementia, appears AD type who was brought by family to [facility] due to increase combative behaviors attempting to choke while she was providing support with ADLs. He has also eloped home in the past, being loss for 6 hrs and then presenting with hypothermia. 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 Continue current medications including olanzapine 5mg po BID. Aricept at bedtime, instead of daily. PLAN 07/21 continue tx. 07/22 continue tx. on [id number] up on 07/23 may need to file. 07/23 continue tx. 07/24 switch olanzapine to seroquel as it appears more unsteady with olanzapine. encourage oral intake. 07/27 continue tx. 07/28 continue tx. 07/29 moved seroquel to 1200, 2100, monitor oversedation. Appeared brighter affect today, not combative. completed paperwork to will for guardianship/conservatorship/erin s/s to advanced dementia. 07/30: resting post prandially. thirsty. continue current mgmt. Reason for continued inpatient stay Substantial Risk for: inability to function Time Spent With Patient Time: Total time managing care of this patient today ____ minutes.
[2024-07-30 20:00] VITALS: BP 100/60; PULSE 71; RESP 16; TEMP 37.2; O2SAT 97
[2024-07-31 08:16] VITALS: BP 155/71; PULSE 76; RESP 20; TEMP 36.9; O2SAT 97
--- NOTE | 2024-07-31 14:37 | HO.PSYCHPN ---
Subjective Subjective Date of Service: 07/31/24 Reason For Visit: dementia w/ behavioral disturbance Interim History: paucity of thought. incr JOSE. per staff, slept 8 hours. awaiting guardian consent. Mental Status Exam Mental Status Exam Narrative: Appearance: wearing own attire, fair hygiene, in NAD Behavior: guarded Psychomotor: retardation noted Speech: mostly mumbling, regular rate/rhythm, soft tone, minimally spontaneous TP: poverty of thought TC: unclear Mood: okay Affect: tired SI: none expressed HI: none expressed VH/AH: no overt signs Delusions: no overt signs Insight/judgment: impaired x 2. memory/cog: alert oriented only to person. Diagnostics Vital Signs (24Hr): Vital Signs - 24 hr 07/30/24 20:00 07/31/24 08:16 Temperature 99 F 98.4 F Pulse Rate 71 76 Respiratory Rate 16 20 Blood Pressure 100/60 155/71 H Pulse Oximetry 97 97 Oxygen Delivery Method Room Air Room Air BMI result Body Mass Index 21.0 Labs 07/18/24 21:40 07/23/24 10:52 Medications Medications Current Medications Acetaminophen (Acetaminophen 325 Mg Tablet) 650 mg PO Q6H PRN PRN Reason: Headache/Pain, Scale 1-10 Last Admin: 07/22/24 21:33 Dose: 650 mg Al Hydroxide/Mg Hydroxide (Magnesium Hydrox/Alum Hydrox 30 Ml Oral.Susp) 30 ml PO Q6H PRN PRN Reason: Heartburn/Nausea Donepezil HCl (Donepezil Hcl 10 Mg Tablet) 10 mg PO BEDTIME [facility] Last Admin: 07/30/24 20:17 Dose: 10 mg Magnesium Hydroxide (Milk Of Magnesia 30 Ml Oral.Susp) 30 ml PO DAILY PRN PRN Reason: Constipation Memantine (Memantine Hcl 5 Mg Tablet) 5 mg PO DAILY [facility] Last Admin: 07/31/24 08:18 Dose: 5 mg Quetiapine Fumarate (Quetiapine Fumarate 50 Mg Tablet) 50 mg PO Q6H PRN PRN Reason: agitation Last Admin: 07/27/24 00:24 Dose: 50 mg Quetiapine Fumarate (Quetiapine Fumarate 50 Mg Tablet) 50 mg PO BID@1200,2100 [facility] Last Admin: 07/31/24 12:30 Dose: 50 mg Trazodone HCl (Trazodone Hcl 50 Mg Tablet) 50 mg PO BEDTIME PRN PRN Reason: Insomnia Allergies Allergies Allergy/AdvReac Type Severity Reaction Status Date / Time No Known Allergies Allergy Verified 07/18/24 21:28 Assessment & Plan Assessment & Plan (1) Major neurocognitive disorder: Status: Acute Code(s): F03.90 - Unspecified dementia, unspecified severity, without behavioral disturbance, psychotic disturbance, mood disturbance, and anxiety Plan Mr. Segura is a 73 year-old male with hx of dementia, appears AD type who was brought by family to [facility] due to increase combative behaviors attempting to choke while she was providing support with ADLs. He has also eloped home in the past, being loss for 6 hrs and then presenting with hypothermia. 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 Continue current medications including olanzapine 5mg po BID. Aricept at bedtime, instead of daily. PLAN 07/21 continue tx. 07/22 continue tx. on [id number] up on 07/23 may need to file. 07/23 continue tx. 07/24 switch olanzapine to seroquel as it appears more unsteady with olanzapine. encourage oral intake. 07/27 continue tx. 07/28 continue tx. 07/29 moved seroquel to 1200, 2100, monitor oversedation. Appeared brighter affect today, not combative. completed paperwork to [employer] for guardianship/conservatorship/erin s/s to advanced dementia. 07/30: resting post prandially. thirsty. continue current mgmt. 07/31: PMR, paucity of thought. continue current mgmt. Reason for continued inpatient stay Substantial Risk for: inability to function Time Spent With Patient Time: Total time managing care of this patient today ____ minutes.
[2024-07-31 20:00] VITALS: BP 101/66; PULSE 78; RESP 18; TEMP 36.8; O2SAT 96
[2024-08-01 08:00] VITALS: BP 142/82; PULSE 76; RESP 18; TEMP 36.7; O2SAT 96
--- NOTE | 2024-08-01 16:30 | HO.PSYCHPN ---
Subjective Subjective Date of Service: 08/01/24 Reason For Visit: dementia w/ behavioral disturbance Interim History: met with patient; discussed with team Mild hypertension; otherwise Vitals WNL Difficult with which to engage. On one-to-one; flat affect; cooperative Mental Status Exam Mental Status Exam Narrative: Appearance: wearing own attire, fair hygiene, in NAD Behavior: calm Psychomotor: retardation noted Speech: mostly mumbling, regular rate/rhythm, soft tone, minimally spontaneous TP: poverty of thought TC: unclear Mood: Affect: calm SI: none expressed HI: none expressed VH/AH: no overt signs Delusions: no overt signs Insight/judgment: impaired x 2. memory/cog: alert oriented only to person. Diagnostics Vital Signs (24Hr): Vital Signs - 24 hr 07/31/24 20:00 08/01/24 08:00 Temperature 98.2 F 98.1 F Pulse Rate 78 76 Respiratory Rate 18 18 Blood Pressure 101/66 142/82 H Pulse Oximetry 96 96 Oxygen Delivery Method Room Air Room Air BMI result Body Mass Index 21.0 Labs 08/19/24 07:26 08/19/24 07:26 Medications Medications Current Medications Acetaminophen (Acetaminophen 325 Mg Tablet) 650 mg PO Q6H PRN PRN Reason: Headache/Pain, Scale 1-10 Last Admin: 07/22/24 21:33 Dose: 650 mg Al Hydroxide/Mg Hydroxide (Magnesium Hydrox/Alum Hydrox 30 Ml Oral.Susp) 30 ml PO Q6H PRN PRN Reason: Heartburn/Nausea Donepezil HCl (Donepezil Hcl 10 Mg Tablet) 10 mg PO BEDTIME [facility] Last Admin: 07/31/24 20:45 Dose: 10 mg Magnesium Hydroxide (Milk Of Magnesia 30 Ml Oral.Susp) 30 ml PO DAILY PRN PRN Reason: Constipation Memantine (Memantine Hcl 5 Mg Tablet) 5 mg PO DAILY [facility] Last Admin: 08/01/24 08:36 Dose: 5 mg Quetiapine Fumarate (Quetiapine Fumarate 50 Mg Tablet) 50 mg PO Q6H PRN PRN Reason: agitation Last Admin: 07/27/24 00:24 Dose: 50 mg Quetiapine Fumarate (Quetiapine Fumarate 50 Mg Tablet) 50 mg PO BID@1200,2100 [facility] Last Admin: 08/01/24 13:39 Dose: 50 mg Trazodone HCl (Trazodone Hcl 50 Mg Tablet) 50 mg PO BEDTIME PRN PRN Reason: Insomnia Allergies Allergies Allergy/AdvReac Type Severity Reaction Status Date / Time No Known Allergies Allergy Verified 07/18/24 21:28 Assessment & Plan Assessment & Plan (1) Major neurocognitive disorder: Status: Acute Code(s): F03.90 - Unspecified dementia, unspecified severity, without behavioral disturbance, psychotic disturbance, mood disturbance, and anxiety Plan Mr. Segura is a 73 year-old male with hx of dementia, appears AD type who was brought by family to [facility] due to increase combative behaviors attempting to choke while she was providing support with ADLs. He has also eloped home in the past, being loss for 6 hrs and then presenting with hypothermia. 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 Continue current medications including olanzapine 5mg po BID. Aricept at bedtime, instead of daily. PLAN 07/21 continue tx. 07/22 continue tx. on [id number] up on 07/23 may need to file. 07/23 continue tx. 07/24 switch olanzapine to seroquel as it appears more unsteady with olanzapine. encourage oral intake. 07/27 continue tx. 07/28 continue tx. 07/29 moved seroquel to 1200, 2100, monitor oversedation. Appeared brighter affect today, not combative. completed paperwork to [employer] for guardianship/conservatorship/erin s/s to advanced dementia. 07/30: resting post prandially. thirsty. continue current mgmt. 07/31: PMR, paucity of thought. continue current mgmt. 08/01: Patient mumbles some in audible things on inquiry; staff reports stable; continue treatment plan Reason for continued inpatient stay Substantial Risk for: inability to function Time Spent With Patient Time: Total time managing care of this patient today ____ minutes.
[2024-08-01 20:00] VITALS: BP 105/60; PULSE 68; RESP 16; TEMP 37.1; O2SAT 94
[2024-08-02 08:00] VITALS: BP 92/54; PULSE 73; RESP 14; TEMP 36.4; O2SAT 98
[2024-08-02 09:06] VITALS: BP 94/59; PULSE 91; RESP 20; TEMP 36.7; O2SAT 98
[2024-08-02 20:00] VITALS: BP 123/58; PULSE 70; RESP 18; TEMP 36.7; O2SAT 98
--- NOTE | 2024-08-02 21:19 | P.PNPSI_ITS ---
Subjective Subjective Date of Service: 08/02/24 Reason For Visit: dementia w/ behavioral disturbance Interim History: Met with patient; discussed with team No change in presentation. Limited engagement Mental Status Exam Mental Status Exam Narrative: Appearance: wearing own attire, fair hygiene, in NAD Behavior: calm Psychomotor: retardation noted Speech: mostly mumbling, regular rate/rhythm, soft tone, minimally spontaneous TP: poverty of thought TC: unclear Mood: Affect: calm SI: none expressed HI: none expressed VH/AH: no overt signs Delusions: no overt signs Insight/judgment: impaired x 2. memory/cog: alert oriented only to person. Diagnostics Vital Signs (24Hr): Vital Signs - 24 hr 08/02/24 08:00 08/02/24 09:06 Temperature 97.5 F 98.0 F Pulse Rate 73 91 Respiratory Rate 14 20 Blood Pressure 92/54 L 94/59 L Pulse Oximetry 98 98 Oxygen Delivery Method Room Air Room Air BMI result Body Mass Index 21.0 Labs 08/19/24 07:26 08/19/24 07:26 Medications Medications Current Medications Acetaminophen (Acetaminophen 325 Mg Tablet) 650 mg PO Q6H PRN PRN Reason: Headache/Pain, Scale 1-10 Last Admin: 07/22/24 21:33 Dose: 650 mg Al Hydroxide/Mg Hydroxide (Magnesium Hydrox/Alum Hydrox 30 Ml Oral.Susp) 30 ml PO Q6H PRN PRN Reason: Heartburn/Nausea Donepezil HCl (Donepezil Hcl 10 Mg Tablet) 10 mg PO BEDTIME [facility] Last Admin: 08/02/24 20:29 Dose: 10 mg Magnesium Hydroxide (Milk Of Magnesia 30 Ml Oral.Susp) 30 ml PO DAILY PRN PRN Reason: Constipation Memantine (Memantine Hcl 5 Mg Tablet) 5 mg PO DAILY [facility] Last Admin: 08/02/24 09:03 Dose: 5 mg Quetiapine Fumarate (Quetiapine Fumarate 50 Mg Tablet) 50 mg PO Q6H PRN PRN Reason: agitation Last Admin: 07/27/24 00:24 Dose: 50 mg Quetiapine Fumarate (Quetiapine Fumarate 50 Mg Tablet) 50 mg PO BID@1200,2100 [facility] Last Admin: 08/02/24 20:29 Dose: 50 mg Trazodone HCl (Trazodone Hcl 50 Mg Tablet) 50 mg PO BEDTIME PRN PRN Reason: Insomnia Allergies Allergies Allergy/AdvReac Type Severity Reaction Status Date / Time No Known Allergies Allergy Verified 07/18/24 21:28 Assessment & Plan Assessment & Plan (1) Major neurocognitive disorder: Status: Acute Code(s): F03.90 - Unspecified dementia, unspecified severity, without behavioral disturbance, psychotic disturbance, mood disturbance, and anxiety Plan Mr. Segura is a 73 year-old male with hx of dementia, appears AD type who was brought by family to [facility] due to increase combative behaviors attempting to choke while she was providing support with ADLs. He has also eloped home in the past, being loss for 6 hrs and then presenting with hypothermia. 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 Continue current medications including olanzapine 5mg po BID. Aricept at bedtime, instead of daily. PLAN 07/21 continue tx. 07/22 continue tx. on [id number] up on 07/23 may need to file. 07/23 continue tx. 07/24 switch olanzapine to seroquel as it appears more unsteady with olanzapine. encourage oral intake. 07/27 continue tx. 07/28 continue tx. 07/29 moved seroquel to 1200, 2100, monitor oversedation. Appeared brighter affect today, not combative. completed paperwork to [employer] for guardianship/conservatorship/erin s/s to advanced dementia. 07/30: resting post prandially. thirsty. continue current mgmt. 07/31: PMR, paucity of thought. continue current mgmt. 08/01: Patient mumbles some in audible things on inquiry; staff reports stable; continue treatment plan 08/02: No change in presentation; continue treatment plan Reason for continued inpatient stay Substantial Risk for: inability to function Time Spent With Patient Time: Total time managing care of this patient today ____ minutes.
[2024-08-03 08:22] VITALS: BP 108/64; PULSE 72; RESP 16; TEMP 36.8; O2SAT 96
--- NOTE | 2024-08-03 08:57 | HO.PSYCHPN ---
Subjective Subjective Date of Service: 08/03/24 Reason For Visit: dementia w/ behavioral disturbance Subjective Notes: Section 7 Interim History: Pt slept most of the night. He has not had any combative behaviors but dementia is very advanced. He is not oriented to place, month nor situation. almost mute, single word answer and eventually smiles at this service writer advisor briefly. He is taking medications as prescribed. SBP in 90's. He continues on close obs due to confusion. Review of Systems Review of Systems None currently Yes Unobtainable due to mental status and Other (Dementia) Mental Status Exam Mental Status Exam Narrative: Appearance: wearing own attire, fair hygiene, in NAD Behavior: guarded Psychomotor: retardation noted Speech: mostly mumbling, regular rate/rhythm, soft tone, minimally spontaneous TP: poverty of thought TC: unclear Mood: okay Affect: tired SI: none expressed HI: none expressed VH/AH: no overt signs Delusions: no overt signs Insight/judgment: impaired x 2. memory/cog: alert oriented only to person. Diagnostics Vital Signs (24Hr): Vital Signs - 24 hr 08/02/24 09:06 08/02/24 20:00 08/03/24 08:22 Temperature 98.0 F 98.1 F 98.2 F Pulse Rate 91 70 72 Respiratory Rate 20 18 16 Blood Pressure 94/59 L 123/58 L 108/64 Pulse Oximetry 98 98 96 Oxygen Delivery Method Room Air Room Air Room Air BMI result Body Mass Index 21.0 Labs 07/18/24 21:40 07/23/24 10:52 Medications Medications Current Medications Acetaminophen (Acetaminophen 325 Mg Tablet) 650 mg PO Q6H PRN PRN Reason: Headache/Pain, Scale 1-10 Last Admin: 07/22/24 21:33 Dose: 650 mg Al Hydroxide/Mg Hydroxide (Magnesium Hydrox/Alum Hydrox 30 Ml Oral.Susp) 30 ml PO Q6H PRN PRN Reason: Heartburn/Nausea Donepezil HCl (Donepezil Hcl 10 Mg Tablet) 10 mg PO BEDTIME [facility] Last Admin: 08/02/24 20:29 Dose: 10 mg Magnesium Hydroxide (Milk Of Magnesia 30 Ml Oral.Susp) 30 ml PO DAILY PRN PRN Reason: Constipation Memantine (Memantine Hcl 5 Mg Tablet) 5 mg PO DAILY [facility] Last Admin: 08/03/24 08:23 Dose: 5 mg Quetiapine Fumarate (Quetiapine Fumarate 50 Mg Tablet) 50 mg PO Q6H PRN PRN Reason: agitation Last Admin: 07/27/24 00:24 Dose: 50 mg Quetiapine Fumarate (Quetiapine Fumarate 50 Mg Tablet) 50 mg PO BID@1200,2100 [facility] Last Admin: 08/02/24 20:29 Dose: 50 mg Trazodone HCl (Trazodone Hcl 50 Mg Tablet) 50 mg PO BEDTIME PRN PRN Reason: Insomnia Allergies Allergies Allergy/AdvReac Type Severity Reaction Status Date / Time No Known Allergies Allergy Verified 07/18/24 21:28 Assessment & Plan Assessment & Plan (1) Major neurocognitive disorder: Status: Acute Code(s): F03.90 - Unspecified dementia, unspecified severity, without behavioral disturbance, psychotic disturbance, mood disturbance, and anxiety Plan Mr. Segura is a 73 year-old male with hx of dementia, appears AD type who was brought by family to [facility] ED due to increase combative behaviors attempting to choke while she was providing support with ADLs. He has also eloped home in the past, being loss for 6 hrs and then presenting with hypothermia. This service writer advisor attempted to call twice with no response nor able to leave message. Continue current medications including olanzapine 5mg po BID. Aricept at bedtime, instead of daily. PLAN 07/21 continue tx. 07/22 continue tx. on [id number] up on 07/23 may need to file. 07/23 continue tx. 07/24 switch olanzapine to seroquel as it appears more unsteady with olanzapine. encourage oral intake. 07/27 continue tx. 07/28 continue tx. 07/29 moved seroquel to 1200, 2100, monitor oversedation. Appeared brighter affect today, not combative. completed paperwork to e for guardianship/conservatorship/erin s/s to advanced dementia. 07/30: resting post prandially. thirsty. continue current mgmt. 07/31: PMR, paucity of thought. continue current mgmt. 08/01: Patient mumbles some in audible things on inquiry; staff reports stable; continue treatment plan 08/02: No change in presentation; continue treatment plan 08/03 continue tx. guardianship and conservatorship filed, needed for placement at this time. Reason for continued inpatient stay Substantial Risk for: inability to function Time Spent With Patient Time: Total time managing care of this patient today ____ minutes.
[2024-08-03 20:00] VITALS: BP 125/60; PULSE 63; RESP 16; TEMP 36.3; O2SAT 94
[2024-08-04 08:00] VITALS: BP 98/57; PULSE 72; RESP 16; TEMP 36.6; O2SAT 99
--- NOTE | 2024-08-04 14:22 | HO.PSYCHPN ---
Subjective Subjective Date of Service: 08/04/24 Reason For Visit: dementia w/ behavioral disturbance Subjective Notes: Conditional Voluntary Healthcare Proxy: Yes Interim History: Pt slept most of the night. He continues to be on a one to one due to unsteady gait. He smiles, minimal verbal output. expressive aphasia noted. No behavioral concerns. Taking medications as prescribed. Review of Systems Review of Systems None currently Yes Unobtainable due to mental status and Other (Dementia) Mental Status Exam Mental Status Exam Narrative: Appearance: wearing own attire, fair hygiene, in NAD Behavior: guarded Psychomotor: retardation noted Speech: mostly mumbling, regular rate/rhythm, soft tone, minimally spontaneous TP: poverty of thought TC: unclear Mood: okay Affect: tired SI: none expressed HI: none expressed VH/AH: no overt signs Delusions: no overt signs Insight/judgment: impaired x 2. memory/cog: alert oriented only to person. Diagnostics Vital Signs (24Hr): Vital Signs - 24 hr 08/03/24 20:00 08/04/24 08:00 Temperature 97.4 F 97.9 F Pulse Rate 63 72 Respiratory Rate 16 16 Blood Pressure 125/60 98/57 L Pulse Oximetry 94 99 Oxygen Delivery Method Room Air Room Air BMI result Body Mass Index 21.0 Labs 07/18/24 21:40 07/23/24 10:52 Medications Medications Current Medications Acetaminophen (Acetaminophen 325 Mg Tablet) 650 mg PO Q6H PRN PRN Reason: Headache/Pain, Scale 1-10 Last Admin: 07/22/24 21:33 Dose: 650 mg Al Hydroxide/Mg Hydroxide (Magnesium Hydrox/Alum Hydrox 30 Ml Oral.Susp) 30 ml PO Q6H PRN PRN Reason: Heartburn/Nausea Donepezil HCl (Donepezil Hcl 10 Mg Tablet) 10 mg PO BEDTIME [facility] Last Admin: 08/03/24 20:35 Dose: 10 mg Magnesium Hydroxide (Milk Of Magnesia 30 Ml Oral.Susp) 30 ml PO DAILY PRN PRN Reason: Constipation Memantine (Memantine Hcl 5 Mg Tablet) 5 mg PO DAILY [facility] Last Admin: 08/04/24 08:43 Dose: 5 mg Quetiapine Fumarate (Quetiapine Fumarate 50 Mg Tablet) 50 mg PO Q6H PRN PRN Reason: agitation Last Admin: 07/27/24 00:24 Dose: 50 mg Quetiapine Fumarate (Quetiapine Fumarate 50 Mg Tablet) 50 mg PO BID@1200,2100 [facility] Last Admin: 08/04/24 11:35 Dose: 50 mg Trazodone HCl (Trazodone Hcl 50 Mg Tablet) 50 mg PO BEDTIME PRN PRN Reason: Insomnia Last Admin: 08/03/24 20:39 Dose: 50 mg Allergies Allergies Allergy/AdvReac Type Severity Reaction Status Date / Time No Known Allergies Allergy Verified 07/18/24 21:28 Assessment & Plan Assessment & Plan (1) Major neurocognitive disorder: Status: Acute Code(s): F03.90 - Unspecified dementia, unspecified severity, without behavioral disturbance, psychotic disturbance, mood disturbance, and anxiety Plan Mr. Segura is a 73 year-old male with hx of dementia, appears AD type who was brought by family to [facility] ED due to increase combative behaviors attempting to choke while she was providing support with ADLs. He has also eloped home in the past, being loss for 6 hrs and then presenting with hypothermia. 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 Continue current medications including olanzapine 5mg po BID. Aricept at bedtime, instead of daily. PLAN 07/21 continue tx. 07/22 continue tx. on [id number] up on 07/23 may need to file. 07/23 continue tx. 07/24 switch olanzapine to seroquel as it appears more unsteady with olanzapine. encourage oral intake. 07/27 continue tx. 07/28 continue tx. 07/29 moved seroquel to 1200, 2100, monitor oversedation. Appeared brighter affect today, not combative. completed paperwork to [facility] for guardianship/conservatorship/erin s/s to advanced dementia. 07/30: resting post prandially. thirsty. continue current mgmt. 07/31: PMR, paucity of thought. continue current mgmt. 08/01: Patient mumbles some in audible things on inquiry; staff reports stable; continue treatment plan 08/02: No change in presentation; continue treatment plan 08/03 continue tx. guardianship and conservatorship filed, needed for placement at this time. 08/04 continue tx. Reason for continued inpatient stay Substantial Risk for: inability to function Time Spent With Patient Time: Total time managing care of this patient today ____ minutes.
[2024-08-04 20:00] VITALS: BP 122/60; PULSE 70; RESP 16; TEMP 36.6; O2SAT 96
--- NOTE | 2024-08-05 11:09 | P.PNPSI_ITS ---
Subjective Subjective Date of Service: 08/05/24 Reason For Visit: dementia w/ behavioral disturbance Interim History: Pt slept through the night. He has denies any physical concerns. not oriented to place, month or situation. He has been taking medications as prescribed. No behavioral concerns. Eating and sleeping well. although weight seems to have gone down since admission. will consult process control specialist. Diagnostics Vital Signs (24Hr): Vital Signs - 24 hr 08/04/24 20:00 Temperature 97.8 F Pulse Rate 70 Respiratory Rate 16 Blood Pressure 122/60 Pulse Oximetry 96 Oxygen Delivery Method Room Air BMI result Body Mass Index 21.0 Labs 07/18/24 21:40 07/23/24 10:52 Medications Medications Current Medications Acetaminophen (Acetaminophen 325 Mg Tablet) 650 mg PO Q6H PRN PRN Reason: Headache/Pain, Scale 1-10 Last Admin: 07/22/24 21:33 Dose: 650 mg Al Hydroxide/Mg Hydroxide (Magnesium Hydrox/Alum Hydrox 30 Ml Oral.Susp) 30 ml PO Q6H PRN PRN Reason: Heartburn/Nausea Donepezil HCl (Donepezil Hcl 10 Mg Tablet) 10 mg PO BEDTIME [facility] Last Admin: 08/04/24 20:16 Dose: 10 mg Magnesium Hydroxide (Milk Of Magnesia 30 Ml Oral.Susp) 30 ml PO DAILY PRN PRN Reason: Constipation Memantine (Memantine Hcl 5 Mg Tablet) 5 mg PO DAILY [facility] Last Admin: 08/04/24 08:43 Dose: 5 mg Quetiapine Fumarate (Quetiapine Fumarate 50 Mg Tablet) 50 mg PO Q6H PRN PRN Reason: agitation Last Admin: 07/27/24 00:24 Dose: 50 mg Quetiapine Fumarate (Quetiapine Fumarate 50 Mg Tablet) 50 mg PO BID@1200,2100 [facility] Last Admin: 08/04/24 20:16 Dose: 50 mg Trazodone HCl (Trazodone Hcl 50 Mg Tablet) 50 mg PO BEDTIME PRN PRN Reason: Insomnia Last Admin: 08/04/24 20:16 Dose: 50 mg Allergies Allergies Allergy/AdvReac Type Severity Reaction Status Date / Time No Known Allergies Allergy Verified 07/18/24 21:28 Assessment & Plan Assessment & Plan (1) Major neurocognitive disorder: Status: Acute Code(s): F03.90 - Unspecified dementia, unspecified severity, without behavioral disturbance, psychotic disturbance, mood disturbance, and anxiety Plan Mr. Segura is a 73 year-old male with hx of dementia, appears AD type who was brought by family [place] [facility] [place] due to increase combative behaviors attempting to choke while she was providing support with ADLs. He has also eloped home in the past, being loss for 6 hrs and then presenting with hypothermia. This chart writer attempted to call twice with no response nor able to leave message. Continue current medications including olanzapine 5mg po BID. Aricept at bedtime, instead of daily. PLAN 07/21 continue tx. 07/22 continue tx. on [id number] up on 07/23 may need to file. 07/23 continue tx. 07/24 switch olanzapine to seroquel as it appears more unsteady with olanzapine. encourage oral intake. 07/27 continue tx. 07/28 continue tx. 07/29 moved seroquel to 1200, 2100, monitor oversedation. Appeared brighter affect today, not combative. completed paperwork to [employer] for guardianship/conservatorship/erin s/s to advanced dementia. 07/30: resting post prandially. thirsty. continue current mgmt. 07/31: PMR, paucity of thought. continue current mgmt. 08/01: Patient mumbles some in audible things on inquiry; staff reports stable; continue treatment plan 08/02: No change in presentation; continue treatment plan 08/03 continue tx. guardianship and conservatorship filed, needed for placement at this time. 08/04 continue tx. 08/05 continue tx. Reason for continued inpatient stay Substantial Risk for: inability to function Time Spent With Patient Time: Total time managing care of this patient today ____ minutes.
--- NOTE | 2024-08-05 11:34 | P.PNIM_ITS ---
Subjective Subjective Date of Service: 08/05/24 Interval History: 73-year-old male with past medical history of dementia with behavioral disturbance, past medical history of DVT was admitted to the geropsych unit for further care. He was brought to the ED by his family for aggressive behavior On exam he is quiet and cooperative, denies any pain. No concerns from nursing. Guardianship and conservator have been filed due to need for long-term care placement. Review of Systems Review of systems limited due to dementia. Physical Exam 2 Vital Signs: Vital Signs: Last Vital Signs Temp 97.8 F 08/04/24 20:00 Pulse 70 08/04/24 20:00 Resp 16 08/04/24 20:00 BP 122/60 08/04/24 20:00 Pulse Ox 96 08/04/24 20:00 O2 Del Method Room Air 08/04/24 20:00 BMI result Body Mass Index 21.0 CONST: Alert, in NAD. Resting in bed. HEENT: Normocephalic, atraumatic, MMM RESP: Lungs clear, RRR even and regular HEART:,RRR, S1, S2. No murmur, no edema GI:Abdomen Soft NT, ND. + BS times four :Deferred SKIN: Warm dry and intact, no visible lesions or rashes NEURO:Moves all extremities. PSYCH: Normal affect Objective Data Active Medications Acetaminophen (Acetaminophen 325 Mg Tablet) 650 mg PO Q6H PRN PRN Reason: Headache/Pain, Scale 1-10 Last Admin: 07/22/24 21:33 Dose: 650 mg Documented By: ASHLEIGH Al Hydroxide/Mg Hydroxide (Magnesium Hydrox/Alum Hydrox 30 Ml Oral.Susp) 30 ml PO Q6H PRN PRN Reason: Heartburn/Nausea Donepezil HCl (Donepezil Hcl 10 Mg Tablet) 10 mg PO BEDTIME [facility] Last Admin: 08/04/24 20:16 Dose: 10 mg Documented By: RAFIA Magnesium Hydroxide (Milk Of Magnesia 30 Ml Oral.Susp) 30 ml PO DAILY PRN PRN Reason: Constipation Memantine (Memantine Hcl 5 Mg Tablet) 5 mg PO DAILY [facility] Last Admin: 08/04/24 08:43 Dose: 5 mg Documented By: LJ Quetiapine Fumarate (Quetiapine Fumarate 50 Mg Tablet) 50 mg PO Q6H PRN PRN Reason: agitation Last Admin: 07/27/24 00:24 Dose: 50 mg Documented By: ASHLEIGH Quetiapine Fumarate (Quetiapine Fumarate 50 Mg Tablet) 50 mg PO BID@1200,2100 [facility] Last Admin: 08/04/24 20:16 Dose: 50 mg Documented By: RAFIA Trazodone HCl (Trazodone Hcl 50 Mg Tablet) 50 mg PO BEDTIME PRN PRN Reason: Insomnia Last Admin: 08/04/24 20:16 Dose: 50 mg Documented By: RAFIA Labs 07/18/24 21:40 07/23/24 10:52 Assessment and Plan (1) Dementia: Status: Acute Plan Dementia with behavioral disturbance/ Alzheimer's type Continue memantine and donepezil Management per psych team Quality Stroke Does the patient have a stroke diagnosis?: No VTE Prior VTE?: Yes VTE Risk Level:: Medical - low VTE Device Contraindication: Treatment Not Indicated VTE Drug Contraindication: Treatment Not Indicated
[2024-08-05] MEDS: Magnesium Hydrox/Alum Hydrox 30 ML ORAL.SUSP PO (12:28)
[2024-08-05 12:30] VITALS: BP 163/84; PULSE 66; RESP 16; TEMP 36.2; O2SAT 97
[2024-08-05 20:00] VITALS: BP 123/63; PULSE 63; RESP 17; TEMP 36.1; O2SAT 95
[2024-08-06 07:55] VITALS: BP 92/57; PULSE 77; RESP 16; TEMP 36.6; O2SAT 100
[2024-08-06 12:54] VITALS: BMI 22.6
--- NOTE | 2024-08-06 16:48 | P.PNPSI_ITS ---
Subjective Subjective Date of Service: 08/06/24 Reason For Visit: dementia w/ behavioral disturbance Subjective Notes: Section 7 Interim History: Pt slept through the night. He was out during the day. He is eating well. weight up from 70 Kg to 75Kg. In no distress, minimal verbal output. VS stable. Review of Systems Review of Systems Review of systems limited due to dementia. Yes Unobtainable due to mental status and Other (Dementia) Mental Status Exam Mental Status Exam Narrative: Appearance: wearing own attire, fair hygiene, in NAD Behavior: guarded Psychomotor: retardation noted Speech: mostly mumbling, regular rate/rhythm, soft tone, minimally spontaneous TP: poverty of thought TC: unclear Mood: okay Affect: tired SI: none expressed HI: none expressed VH/AH: no overt signs Delusions: no overt signs Insight/judgment: impaired x 2. memory/cog: alert oriented only to person. Patient Appearance: Appropriate Patient Orientation: Person Level of Consciousness: Alert Patient Behavior: Cooperative Mood Description: Calm and Constricted Affect Description: Constricted Patient Cognition Impaired: Yes Ability to Follow Directions: Fair Memory Description: Remote Impaired, Immediate Impaired and Recent Impaired Diagnostics Vital Signs (24Hr): Vital Signs - 24 hr 08/05/24 20:00 08/06/24 07:55 Temperature 96.9 F 98 F Pulse Rate 63 77 Respiratory Rate 17 16 Blood Pressure 123/63 92/57 L Pulse Oximetry 95 100 Oxygen Delivery Method Room Air Room Air BMI result Body Mass Index 22.6 Labs 07/18/24 21:40 07/23/24 10:52 Medications Medications Current Medications Acetaminophen (Acetaminophen 325 Mg Tablet) 650 mg PO Q6H PRN PRN Reason: Headache/Pain, Scale 1-10 Last Admin: 07/22/24 21:33 Dose: 650 mg Al Hydroxide/Mg Hydroxide (Magnesium Hydrox/Alum Hydrox 30 Ml Oral.Susp) 30 ml PO Q6H PRN PRN Reason: Heartburn/Nausea Last Admin: 08/05/24 12:28 Dose: 30 ml Donepezil HCl (Donepezil Hcl 5 Mg Tablet) 5 mg PO BEDTIME [facility] Magnesium Hydroxide (Milk Of Magnesia 30 Ml Oral.Susp) 30 ml PO DAILY PRN PRN Reason: Constipation Memantine (Memantine Hcl 5 Mg Tablet) 5 mg PO DAILY [facility] Last Admin: 08/06/24 08:04 Dose: 5 mg Quetiapine Fumarate (Quetiapine Fumarate 50 Mg Tablet) 50 mg PO Q6H PRN PRN Reason: agitation Last Admin: 07/27/24 00:24 Dose: 50 mg Quetiapine Fumarate (Quetiapine Fumarate 50 Mg Tablet) 50 mg PO BID@1200,2100 [facility] Last Admin: 08/06/24 11:43 Dose: 50 mg Trazodone HCl (Trazodone Hcl 50 Mg Tablet) 50 mg PO BEDTIME PRN PRN Reason: Insomnia Last Admin: 08/05/24 20:18 Dose: 50 mg Allergies Allergies Allergy/AdvReac Type Severity Reaction Status Date / Time No Known Allergies Allergy Verified 07/18/24 21:28 Assessment & Plan Assessment & Plan (1) Major neurocognitive disorder: Status: Acute Code(s): F03.90 - Unspecified dementia, unspecified severity, without behavioral disturbance, psychotic disturbance, mood disturbance, and anxiety Plan Mr. Segura is a 73 year-old male with hx of dementia, appears AD type who was brought by family to [facility] ED due to increase combative behaviors attempting to choke while she was providing support with ADLs. He has also eloped home in the past, being loss for 6 hrs and then presenting with hypothermia. This mortgage or loan underwriter attempted to call twice with no response nor able to leave message. Continue current medications including olanzapine 5mg po BID. Aricept at bedtime, instead of daily. PLAN 07/21 continue tx. 07/22 continue tx. on [id number] up on 07/23 may need to file. 07/23 continue tx. 07/24 switch olanzapine to seroquel as it appears more unsteady with olanzapine. encourage oral intake. 07/27 continue tx. 07/28 continue tx. 07/29 moved seroquel to 1200, 2100, monitor oversedation. Appeared brighter affect today, not combative. completed paperwork to e for guardianship/conservatorship/erin s/s to advanced dementia. 07/30: resting post prandially. thirsty. continue current mgmt. 07/31: PMR, paucity of thought. continue current mgmt. 08/01: Patient mumbles some in audible things on inquiry; staff reports stable; continue treatment plan 08/02: No change in presentation; continue treatment plan 08/03 continue tx. guardianship and conservatorship filed, needed for placement at this time. 08/04 continue tx. 08/05 continue tx. 08/06 continue tx. Reason for continued inpatient stay Substantial Risk for: inability to function Time Spent With Patient Time: Total time managing care of this patient today ____ minutes.
[2024-08-06 20:00] VITALS: BP 124/60; PULSE 69; RESP 16; TEMP 37.1; O2SAT 96
[2024-08-07 09:00] VITALS: BP 117/53; PULSE 74; RESP 15; TEMP 36.3; O2SAT 100
--- NOTE | 2024-08-07 11:10 | HO.PSYCHPN ---
Subjective Subjective Date of Service: 08/07/24 Reason For Visit: dementia w/ behavioral disturbance Subjective Notes: Section 7 Interim History: Pt slept through the night. He was out during the day. He is eating well. He is on a one to one as he is very confused and not able to find bathroom. In no distress, minimal verbal output. VS stable. Review of Systems Review of Systems Review of systems limited due to dementia. Yes Unobtainable due to mental status and Other (Dementia) Mental Status Exam Mental Status Exam Narrative: Appearance: wearing own attire, fair hygiene, in NAD Behavior: guarded Psychomotor: retardation noted Speech: mostly mumbling, regular rate/rhythm, soft tone, minimally spontaneous TP: poverty of thought TC: unclear Mood: okay Affect: tired SI: none expressed HI: none expressed VH/AH: no overt signs Delusions: no overt signs Insight/judgment: impaired x 2. memory/cog: alert oriented only to person. Diagnostics Vital Signs (24Hr): Vital Signs - 24 hr 08/06/24 20:00 08/07/24 09:00 Temperature 98.8 F 97.3 F Pulse Rate 69 74 Respiratory Rate 16 15 Blood Pressure 124/60 117/53 L Pulse Oximetry 96 100 Oxygen Delivery Method Room Air Room Air BMI result Body Mass Index 22.6 Labs 07/18/24 21:40 07/23/24 10:52 Medications Medications Current Medications Acetaminophen (Acetaminophen 325 Mg Tablet) 650 mg PO Q6H PRN PRN Reason: Headache/Pain, Scale 1-10 Last Admin: 07/22/24 21:33 Dose: 650 mg Al Hydroxide/Mg Hydroxide (Magnesium Hydrox/Alum Hydrox 30 Ml Oral.Susp) 30 ml PO Q6H PRN PRN Reason: Heartburn/Nausea Last Admin: 08/05/24 12:28 Dose: 30 ml Donepezil HCl (Donepezil Hcl 5 Mg Tablet) 5 mg PO BEDTIME [facility] Last Admin: 08/06/24 20:41 Dose: 5 mg Magnesium Hydroxide (Milk Of Magnesia 30 Ml Oral.Susp) 30 ml PO DAILY PRN PRN Reason: Constipation Memantine (Memantine Hcl 5 Mg Tablet) 5 mg PO DAILY [facility] Last Admin: 08/07/24 09:01 Dose: 5 mg Quetiapine Fumarate (Quetiapine Fumarate 50 Mg Tablet) 50 mg PO Q6H PRN PRN Reason: agitation Last Admin: 07/27/24 00:24 Dose: 50 mg Quetiapine Fumarate (Quetiapine Fumarate 50 Mg Tablet) 50 mg PO BID@1200,2100 [facility] Last Admin: 08/06/24 20:41 Dose: 50 mg Trazodone HCl (Trazodone Hcl 50 Mg Tablet) 50 mg PO BEDTIME PRN PRN Reason: Insomnia Last Admin: 08/07/24 03:17 Dose: 50 mg Allergies Allergies Allergy/AdvReac Type Severity Reaction Status Date / Time No Known Allergies Allergy Verified 07/18/24 21:28 Assessment & Plan Assessment & Plan (1) Major neurocognitive disorder: Status: Acute Code(s): F03.90 - Unspecified dementia, unspecified severity, without behavioral disturbance, psychotic disturbance, mood disturbance, and anxiety Plan Mr. Segura is a 73 year-old male with hx of dementia, appears AD type who was brought by family [place] [facility] [place] due to increase combative behaviors attempting to choke while she was providing support with ADLs. He has also eloped home in the past, being loss for 6 hrs and then presenting with hypothermia. This designer writer attempted to call twice with no response nor able to leave message. Continue current medications including olanzapine 5mg po BID. Aricept at bedtime, instead of daily. PLAN 07/21 continue tx. 07/22 continue tx. on [id number] up on 07/23 may need to file. 07/23 continue tx. 07/24 switch olanzapine to seroquel as it appears more unsteady with olanzapine. encourage oral intake. 07/27 continue tx. 07/28 continue tx. 07/29 moved seroquel to 1200, 2100, monitor oversedation. Appeared brighter affect today, not combative. completed paperwork to e for guardianship/conservatorship/erin s/s to advanced dementia. 07/30: resting post prandially. thirsty. continue current mgmt. 07/31: PMR, paucity of thought. continue current mgmt. 08/01: Patient mumbles some in audible things on inquiry; staff reports stable; continue treatment plan 08/02: No change in presentation; continue treatment plan 08/03 continue tx. guardianship and conservatorship filed, needed for placement at this time. 08/04 continue tx. 08/05 continue tx. 08/06 continue tx. 08/07 continue tx. Reason for continued inpatient stay Substantial Risk for: inability to function Time Spent With Patient Time: Total time managing care of this patient today ____ minutes.
--- NOTE | 2024-08-07 14:22 | MHC.CLN ---
NUTRITION CONSULT FOR WEIGHT LOSS. WEIGHT FROM ED 07/18=81.6 KG WITH SAME WEIGHT RECORDED 07/19. WEIGHT ON 07/24=69.67 KG APPEARS TO BE ACTUAL WEIGHT OBTAINED ON [facility]. PATIENT WITH HX VERY GOOD INTAKE SINCE ADM TO UNIT WITH MOST MEALS 100%. CURRENT WEIGHT SUPPORTS VERY GOOD PO INTAKE WITH WEIGHT GAIN SINCE 07/24 +8.4%. DIET=REGULAR. NO ADDITIONAL NUTRITION INTERVENTIONS.
[2024-08-07 20:00] VITALS: BP 107/56; PULSE 73; RESP 18; TEMP 36.9; O2SAT 95
[2024-08-08 08:00] VITALS: BP 103/69; PULSE 78; RESP 20; TEMP 36.6; O2SAT 98
--- NOTE | 2024-08-08 10:03 | P.PNPSI_ITS ---
Subjective Subjective Date of Service: 08/08/24 Reason For Visit: dementia w/ behavioral disturbance Interim History: Pt slept through the night. Patient visible in the milieu. Minimal verbal interaction. 1:1 observation for confusion. No complaints. Takes medications when crushed with apple sauce. VS stable. Review of Systems Review of Systems Review of systems limited due to dementia. Yes Unobtainable due to mental status and Other (Dementia) Mental Status Exam Mental Status Exam Narrative: Appearance: wearing own attire, fair hygiene, in NAD Behavior: guarded Psychomotor: retardation noted Speech: mostly mumbling, regular rate/rhythm, soft tone, minimally spontaneous TP: poverty of thought TC: unclear Mood: okay Affect: tired SI: none expressed HI: none expressed VH/AH: no overt signs Delusions: no overt signs Insight/judgment: impaired x 2. memory/cog: alert oriented only to person. Patient Appearance: Appropriate Patient Orientation: Person Level of Consciousness: Alert Patient Behavior: Cooperative Mood Description: Calm and Constricted Affect Description: Constricted Patient Cognition Impaired: Yes Ability to Follow Directions: Fair Memory Description: Remote Impaired, Immediate Impaired and Recent Impaired Diagnostics Vital Signs (24Hr): Vital Signs - 24 hr 08/07/24 20:00 08/08/24 08:00 Temperature 98.4 F 97.9 F Pulse Rate 73 78 Respiratory Rate 18 20 Blood Pressure 107/56 L 103/69 Pulse Oximetry 95 98 Oxygen Delivery Method Room Air Room Air BMI result Body Mass Index 22.6 Labs 07/18/24 21:40 07/23/24 10:52 Medications Medications Current Medications Acetaminophen (Acetaminophen 325 Mg Tablet) 650 mg PO Q6H PRN PRN Reason: Headache/Pain, Scale 1-10 Last Admin: 07/22/24 21:33 Dose: 650 mg Al Hydroxide/Mg Hydroxide (Magnesium Hydrox/Alum Hydrox 30 Ml Oral.Susp) 30 ml PO Q6H PRN PRN Reason: Heartburn/Nausea Last Admin: 08/05/24 12:28 Dose: 30 ml Donepezil HCl (Donepezil Hcl 5 Mg Tablet) 5 mg PO BEDTIME [facility] Last Admin: 08/07/24 21:20 Dose: 5 mg Magnesium Hydroxide (Milk Of Magnesia 30 Ml Oral.Susp) 30 ml PO DAILY PRN PRN Reason: Constipation Memantine (Memantine Hcl 5 Mg Tablet) 5 mg PO DAILY [facility] Last Admin: 08/08/24 09:06 Dose: 5 mg Quetiapine Fumarate (Quetiapine Fumarate 50 Mg Tablet) 50 mg PO Q6H PRN PRN Reason: agitation Last Admin: 07/27/24 00:24 Dose: 50 mg Quetiapine Fumarate (Quetiapine Fumarate 50 Mg Tablet) 50 mg PO BID@1200,2100 [facility] Last Admin: 08/07/24 21:15 Dose: 50 mg Trazodone HCl (Trazodone Hcl 50 Mg Tablet) 50 mg PO BEDTIME PRN PRN Reason: Insomnia Last Admin: 08/07/24 03:17 Dose: 50 mg Allergies Allergies Allergy/AdvReac Type Severity Reaction Status Date / Time No Known Allergies Allergy Verified 07/18/24 21:28 Assessment & Plan Assessment & Plan (1) Major neurocognitive disorder: Status: Acute Code(s): F03.90 - Unspecified dementia, unspecified severity, without behavioral disturbance, psychotic disturbance, mood disturbance, and anxiety Plan Mr. Segura is a 73 year-old male with hx of dementia, appears AD type who was brought by family to [facility] ED due to increase combative behaviors attempting to choke while she was providing support with ADLs. He has also eloped home in the past, being loss for 6 hrs and then presenting with hypothermia. 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 Continue current medications including olanzapine 5mg po BID. Aricept at bedtime, instead of daily. PLAN 07/21 continue tx. 07/22 continue tx. on [id number] up on 07/23 may need to file. 07/23 continue tx. 07/24 switch olanzapine to seroquel as it appears more unsteady with olanzapine. encourage oral intake. 07/27 continue tx. 07/28 continue tx. 07/29 moved seroquel to 1200, 2100, monitor oversedation. Appeared brighter affect today, not combative. completed paperwork to will for guardianship/conservatorship/erin s/s to advanced dementia. 07/30: resting post prandially. thirsty. continue current mgmt. 07/31: PMR, paucity of thought. continue current mgmt. 08/01: Patient mumbles some in audible things on inquiry; staff reports stable; continue treatment plan 08/02: No change in presentation; continue treatment plan 08/03 continue tx. guardianship and conservatorship filed, needed for placement at this time. 08/04 continue tx. 08/05 continue tx. 08/06 continue tx. 08/07 continue tx. 08/08: continue current management and treatment plan. Reason for continued inpatient stay Substantial Risk for: inability to function and rapid decompensation Time Spent With Patient Time: Total time managing care of this patient today ____ minutes.
[2024-08-08 20:00] VITALS: BP 124/63; PULSE 68; RESP 18; TEMP 37.1; O2SAT 98
[2024-08-09 08:00] VITALS: BP 111/55; PULSE 82; RESP 16; TEMP 36.3; O2SAT 97
--- NOTE | 2024-08-09 14:44 | HO.PSYCHPN ---
Subjective Subjective Date of Service: 08/09/24 Reason For Visit: dementia w/ behavioral disturbance Interim History: Pt slept through the night. Patient visible in the milieu. Says he is feeling fine today. Mood good . Eating and drinking well. No SI. Minimal verbal interaction. 1:1 observation for confusion. No complaints. Takes medications when crushed with apple sauce. VS stable. Review of Systems Review of Systems Review of systems limited due to dementia. Yes Unobtainable due to mental status and Other (Dementia) Mental Status Exam Mental Status Exam Narrative: Appearance: wearing own attire, fair hygiene, in NAD Behavior: guarded Psychomotor: retardation noted Speech: mostly mumbling, regular rate/rhythm, soft tone, minimally spontaneous TP: poverty of thought TC: unclear Mood: okay Affect: tired SI: none expressed HI: none expressed VH/AH: no overt signs Delusions: no overt signs Insight/judgment: impaired x 2. memory/cog: alert oriented only to person. Patient Appearance: Appropriate Patient Orientation: Person Level of Consciousness: Alert Patient Behavior: Cooperative Mood Description: Calm and Constricted Affect Description: Constricted Patient Cognition Impaired: Yes Ability to Follow Directions: Fair Memory Description: Remote Impaired, Immediate Impaired and Recent Impaired Diagnostics Vital Signs (24Hr): Vital Signs - 24 hr 08/08/24 20:00 08/09/24 08:00 Temperature 98.8 F 97.4 F Pulse Rate 68 82 Respiratory Rate 18 16 Blood Pressure 124/63 111/55 L Pulse Oximetry 98 97 Oxygen Delivery Method Room Air Room Air BMI result Body Mass Index 22.6 Labs 07/18/24 21:40 07/23/24 10:52 Medications Medications Current Medications Acetaminophen (Acetaminophen 325 Mg Tablet) 650 mg PO Q6H PRN PRN Reason: Headache/Pain, Scale 1-10 Last Admin: 07/22/24 21:33 Dose: 650 mg Al Hydroxide/Mg Hydroxide (Magnesium Hydrox/Alum Hydrox 30 Ml Oral.Susp) 30 ml PO Q6H PRN PRN Reason: Heartburn/Nausea Last Admin: 08/05/24 12:28 Dose: 30 ml Donepezil HCl (Donepezil Hcl 5 Mg Tablet) 5 mg PO BEDTIME [facility] Last Admin: 08/08/24 20:48 Dose: 5 mg Magnesium Hydroxide (Milk Of Magnesia 30 Ml Oral.Susp) 30 ml PO DAILY PRN PRN Reason: Constipation Memantine (Memantine Hcl 5 Mg Tablet) 5 mg PO DAILY [facility] Last Admin: 08/09/24 09:03 Dose: 5 mg Quetiapine Fumarate (Quetiapine Fumarate 50 Mg Tablet) 50 mg PO Q6H PRN PRN Reason: agitation Last Admin: 07/27/24 00:24 Dose: 50 mg Quetiapine Fumarate (Quetiapine Fumarate 50 Mg Tablet) 50 mg PO BID@1200,2100 [facility] Last Admin: 08/09/24 11:09 Dose: 50 mg Trazodone HCl (Trazodone Hcl 50 Mg Tablet) 50 mg PO BEDTIME PRN PRN Reason: Insomnia Last Admin: 08/07/24 03:17 Dose: 50 mg Allergies Allergies Allergy/AdvReac Type Severity Reaction Status Date / Time No Known Allergies Allergy Verified 07/18/24 21:28 Assessment & Plan Assessment & Plan (1) Major neurocognitive disorder: Status: Acute Code(s): F03.90 - Unspecified dementia, unspecified severity, without behavioral disturbance, psychotic disturbance, mood disturbance, and anxiety Plan Mr. Segura is a 73 year-old male with hx of dementia, appears AD type who was brought by family to [facility] ED due to increase combative behaviors attempting to choke while she was providing support with ADLs. He has also eloped home in the past, being loss for 6 hrs and then presenting with hypothermia. 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 Continue current medications including olanzapine 5mg po BID. Aricept at bedtime, instead of daily. PLAN 07/21 continue tx. 07/22 continue tx. on [id number] up on 07/23 may need to file. 07/23 continue tx. 07/24 switch olanzapine to seroquel as it appears more unsteady with olanzapine. encourage oral intake. 07/27 continue tx. 07/28 continue tx. 07/29 moved seroquel to 1200, 2100, monitor oversedation. Appeared brighter affect today, not combative. completed paperwork to [facility] for guardianship/conservatorship/erin s/s to advanced dementia. 07/30: resting post prandially. thirsty. continue current mgmt. 07/31: PMR, paucity of thought. continue current mgmt. 08/01: Patient mumbles some in audible things on inquiry; staff reports stable; continue treatment plan 08/02: No change in presentation; continue treatment plan 08/03 continue tx. guardianship and conservatorship filed, needed for placement at this time. 08/04 continue tx. 08/05 continue tx. 08/06 continue tx. 08/07 continue tx. 08/08: continue current management and treatment plan. 08/09: continue current management and treatment plan. Reason for continued inpatient stay Substantial Risk for: inability to function and rapid decompensation Time Spent With Patient Time: Total time managing care of this patient today ____ minutes.
[2024-08-09 20:00] VITALS: BP 104/59; PULSE 66; RESP 14; TEMP 36.7; O2SAT 96
--- NOTE | 2024-08-10 09:36 | P.PNPSI_ITS ---
Subjective Subjective Date of Service: 08/10/24 Reason For Visit: dementia w/ behavioral disturbance Interim History: Pt offers no complaints. Says he is feeling well. He slept through the night. Patient visible in the milieu. Reports his mood as good . Eating and drinking well. No SI. Minimal verbal interaction. 1:1 observation for confusion and fall risk. No agitation or behavioral outbursts or concerns. Takes medications when crushed with apple sauce. VS stable. Review of Systems Review of Systems Review of systems limited due to dementia. Yes Unobtainable due to mental status and Other (Dementia) Mental Status Exam Mental Status Exam Narrative: Appearance: wearing own attire, fair hygiene, in NAD Behavior: guarded Psychomotor: retardation noted Speech: mostly mumbling, regular rate/rhythm, soft tone, minimally spontaneous TP: poverty of thought TC: unclear Mood: okay Affect: tired SI: none expressed HI: none expressed VH/AH: no overt signs Delusions: no overt signs Insight/judgment: impaired x 2. memory/cog: alert oriented only to person. Patient Appearance: Appropriate Patient Orientation: Person Level of Consciousness: Alert Patient Behavior: Cooperative Mood Description: Calm and Constricted Affect Description: Constricted Patient Cognition Impaired: Yes Ability to Follow Directions: Fair Memory Description: Remote Impaired, Immediate Impaired and Recent Impaired Diagnostics Vital Signs (24Hr): Vital Signs - 24 hr 08/09/24 20:00 Temperature 98.1 F Pulse Rate 66 Respiratory Rate 14 Blood Pressure 104/59 L Pulse Oximetry 96 Oxygen Delivery Method Room Air BMI result Body Mass Index 22.6 Labs 07/18/24 21:40 07/23/24 10:52 Medications Medications Current Medications Acetaminophen (Acetaminophen 325 Mg Tablet) 650 mg PO Q6H PRN PRN Reason: Headache/Pain, Scale 1-10 Last Admin: 07/22/24 21:33 Dose: 650 mg Al Hydroxide/Mg Hydroxide (Magnesium Hydrox/Alum Hydrox 30 Ml Oral.Susp) 30 ml PO Q6H PRN PRN Reason: Heartburn/Nausea Last Admin: 08/05/24 12:28 Dose: 30 ml Donepezil HCl (Donepezil Hcl 5 Mg Tablet) 5 mg PO BEDTIME [facility] Last Admin: 08/09/24 21:28 Dose: 5 mg Loperamide HCl (Loperamide Hcl 2 Mg Capsule) 2 mg PO Q4H PRN PRN Reason: Diarrhea Magnesium Hydroxide (Milk Of Magnesia 30 Ml Oral.Susp) 30 ml PO DAILY PRN PRN Reason: Constipation Memantine (Memantine Hcl 5 Mg Tablet) 5 mg PO DAILY [facility] Last Admin: 08/09/24 09:03 Dose: 5 mg Quetiapine Fumarate (Quetiapine Fumarate 50 Mg Tablet) 50 mg PO Q6H PRN PRN Reason: agitation Last Admin: 07/27/24 00:24 Dose: 50 mg Quetiapine Fumarate (Quetiapine Fumarate 50 Mg Tablet) 50 mg PO BID@1200,2100 [facility] Last Admin: 08/09/24 21:28 Dose: 50 mg Trazodone HCl (Trazodone Hcl 50 Mg Tablet) 50 mg PO BEDTIME PRN PRN Reason: Insomnia Last Admin: 08/07/24 03:17 Dose: 50 mg Allergies Allergies Allergy/AdvReac Type Severity Reaction Status Date / Time No Known Allergies Allergy Verified 07/18/24 21:28 Assessment & Plan Assessment & Plan (1) Major neurocognitive disorder: Status: Acute Code(s): F03.90 - Unspecified dementia, unspecified severity, without behavioral disturbance, psychotic disturbance, mood disturbance, and anxiety Plan Mr. Segura is a 73 year-old male with hx of dementia, appears AD type who was brought by family to [facility] ED due to increase combative behaviors attempting to choke while she was providing support with ADLs. He has also eloped home in the past, being loss for 6 hrs and then presenting with hypothermia. 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 Continue current medications including olanzapine 5mg po BID. Aricept at bedtime, instead of daily. PLAN 07/21 continue tx. 07/22 continue tx. on [id number] up on 07/23 may need to file. 07/23 continue tx. 07/24 switch olanzapine to seroquel as it appears more unsteady with olanzapine. encourage oral intake. 07/27 continue tx. 07/28 continue tx. 07/29 moved seroquel to 1200, 2100, monitor oversedation. Appeared brighter affect today, not combative. completed paperwork to e for guardianship/conservatorship/erin s/s to advanced dementia. 07/30: resting post prandially. thirsty. continue current mgmt. 07/31: PMR, paucity of thought. continue current mgmt. 08/01: Patient mumbles some in audible things on inquiry; staff reports stable; continue treatment plan 08/02: No change in presentation; continue treatment plan 08/03 continue tx. guardianship and conservatorship filed, needed for placement at this time. 08/04 continue tx. 08/05 continue tx. 08/06 continue tx. 08/07 continue tx. 08/08: continue current management and treatment plan. 08/09: continue current management and treatment plan. 08/10: continue current management and treatment plan. Reason for continued inpatient stay Substantial Risk for: inability to function and rapid decompensation Time Spent With Patient Time: Total time managing care of this patient today ____ minutes.
[2024-08-10 09:38] VITALS: BP 111/56; PULSE 77; RESP 16; TEMP 36.9; O2SAT 100
[2024-08-10 19:57] VITALS: BP 112/59; PULSE 71; RESP 15; TEMP 36.9; O2SAT 97
--- NOTE | 2024-08-11 08:42 | P.PNPSI_ITS ---
Subjective Subjective Date of Service: 08/11/24 Reason For Visit: dementia w/ behavioral disturbance Subjective Notes: Conditional Voluntary Interim History: Pt slept through the night. He is pleasant on approach. no behavioral concerns. taking medications as prescribed. VS stable. confused at baseline, therefore, requires one to one. Review of Systems Review of Systems Review of systems limited due to dementia. Yes Unobtainable due to mental status and Other (Dementia) Mental Status Exam Mental Status Exam Narrative: Appearance: wearing own attire, fair hygiene, in NAD Behavior: guarded Psychomotor: retardation noted Speech: mostly mumbling, regular rate/rhythm, soft tone, minimally spontaneous TP: poverty of thought TC: unclear Mood: okay Affect: tired SI: none expressed HI: none expressed VH/AH: no overt signs Delusions: no overt signs Insight/judgment: impaired x 2. memory/cog: alert oriented only to person. Diagnostics Vital Signs (24Hr): Vital Signs - 24 hr 08/10/24 09:38 08/10/24 19:57 Temperature 98.4 F 98.4 F Pulse Rate 77 71 Respiratory Rate 16 15 Blood Pressure 111/56 L 112/59 L Pulse Oximetry 100 97 Oxygen Delivery Method Room Air Room Air BMI result Body Mass Index 22.6 Labs 07/18/24 21:40 07/23/24 10:52 Medications Medications Current Medications Acetaminophen (Acetaminophen 325 Mg Tablet) 650 mg PO Q6H PRN PRN Reason: Headache/Pain, Scale 1-10 Last Admin: 07/22/24 21:33 Dose: 650 mg Al Hydroxide/Mg Hydroxide (Magnesium Hydrox/Alum Hydrox 30 Ml Oral.Susp) 30 ml PO Q6H PRN PRN Reason: Heartburn/Nausea Last Admin: 08/05/24 12:28 Dose: 30 ml Donepezil HCl (Donepezil Hcl 5 Mg Tablet) 5 mg PO BEDTIME [facility] Last Admin: 08/10/24 20:03 Dose: 5 mg Loperamide HCl (Loperamide Hcl 2 Mg Capsule) 2 mg PO Q4H PRN PRN Reason: Diarrhea Magnesium Hydroxide (Milk Of Magnesia 30 Ml Oral.Susp) 30 ml PO DAILY PRN PRN Reason: Constipation Memantine (Memantine Hcl 5 Mg Tablet) 5 mg PO DAILY [facility] Last Admin: 08/10/24 09:40 Dose: 5 mg Quetiapine Fumarate (Quetiapine Fumarate 50 Mg Tablet) 50 mg PO Q6H PRN PRN Reason: agitation Last Admin: 07/27/24 00:24 Dose: 50 mg Quetiapine Fumarate (Quetiapine Fumarate 50 Mg Tablet) 50 mg PO BID@1200,2100 [facility] Last Admin: 08/10/24 20:03 Dose: 50 mg Trazodone HCl (Trazodone Hcl 50 Mg Tablet) 50 mg PO BEDTIME PRN PRN Reason: Insomnia Last Admin: 08/07/24 03:17 Dose: 50 mg Allergies Allergies Allergy/AdvReac Type Severity Reaction Status Date / Time No Known Allergies Allergy Verified 07/18/24 21:28 Assessment & Plan Assessment & Plan (1) Major neurocognitive disorder: Status: Acute Code(s): F03.90 - Unspecified dementia, unspecified severity, without behavioral disturbance, psychotic disturbance, mood disturbance, and anxiety Plan Mr. Segura is a 73 year-old male with hx of dementia, appears AD type who was brought by family to [facility] ED due to increase combative behaviors attempting to choke while she was providing support with ADLs. He has also eloped home in the past, being loss for 6 hrs and then presenting with hypothermia. 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 Continue current medications including olanzapine 5mg po BID. Aricept at bedtime, instead of daily. PLAN 07/21 continue tx. 07/22 continue tx. on [id number] up on 07/23 may need to file. 07/23 continue tx. 07/24 switch olanzapine to seroquel as it appears more unsteady with olanzapine. encourage oral intake. 07/27 continue tx. 07/28 continue tx. 07/29 moved seroquel to 1200, 2100, monitor oversedation. Appeared brighter affect today, not combative. completed paperwork to will for guardianship/conservatorship/erin s/s to advanced dementia. 07/30: resting post prandially. thirsty. continue current mgmt. 07/31: PMR, paucity of thought. continue current mgmt. 08/01: Patient mumbles some in audible things on inquiry; staff reports stable; continue treatment plan 08/02: No change in presentation; continue treatment plan 08/03 continue tx. guardianship and conservatorship filed, needed for placement at this time. 08/04 continue tx. 08/05 continue tx. 08/06 continue tx. 08/07 continue tx. 08/08: continue current management and treatment plan. 08/09: continue current management and treatment plan. 08/10: continue current management and treatment plan. 08/11 continue tx. Reason for continued inpatient stay Substantial Risk for: inability to function Time Spent With Patient Time: Total time managing care of this patient today ____ minutes.
[2024-08-11 09:15] VITALS: BP 145/61; PULSE 75; RESP 18; TEMP 36.6; O2SAT 98
[2024-08-11 20:00] VITALS: BP 110/58; PULSE 71; RESP 16; TEMP 36.4; O2SAT 94
[2024-08-12 08:00] VITALS: BP 113/67; PULSE 67; RESP 16; TEMP 36.7; O2SAT 99
--- NOTE | 2024-08-12 08:35 | HO.PSYCHPN ---
Subjective Subjective Date of Service: 08/12/24 Reason For Visit: dementia w/ behavioral disturbance Subjective Notes: Conditional Voluntary Interim History: Pt slept through the night. He is pleasant on approach. no change in presentation.no behavioral concerns. taking medications as prescribed. VS stable. confused at baseline, therefore, requires one to one. Review of Systems Review of Systems Review of systems limited due to dementia. Yes Unobtainable due to mental status and Other (Dementia) Mental Status Exam Mental Status Exam Narrative: Appearance: wearing own attire, fair hygiene, in NAD Behavior: guarded Psychomotor: retardation noted Speech: mostly mumbling, regular rate/rhythm, soft tone, minimally spontaneous TP: poverty of thought TC: unclear Mood: okay Affect: tired SI: none expressed HI: none expressed VH/AH: no overt signs Delusions: no overt signs Insight/judgment: impaired x 2. memory/cog: alert oriented only to person. Diagnostics Vital Signs (24Hr): Vital Signs - 24 hr 08/11/24 09:15 08/11/24 20:00 Temperature 98 F 97.5 F Pulse Rate 75 71 Respiratory Rate 18 16 Blood Pressure 145/61 H 110/58 L Pulse Oximetry 98 94 Oxygen Delivery Method Room Air Room Air BMI result Body Mass Index 22.6 Labs 07/18/24 21:40 07/23/24 10:52 Medications Medications Current Medications Acetaminophen (Acetaminophen 325 Mg Tablet) 650 mg PO Q6H PRN PRN Reason: Headache/Pain, Scale 1-10 Last Admin: 07/22/24 21:33 Dose: 650 mg Al Hydroxide/Mg Hydroxide (Magnesium Hydrox/Alum Hydrox 30 Ml Oral.Susp) 30 ml PO Q6H PRN PRN Reason: Heartburn/Nausea Last Admin: 08/05/24 12:28 Dose: 30 ml Donepezil HCl (Donepezil Hcl 5 Mg Tablet) 5 mg PO BEDTIME ADITYA Last Admin: 08/11/24 21:11 Dose: 5 mg Loperamide HCl (Loperamide Hcl 2 Mg Capsule) 2 mg PO Q4H PRN PRN Reason: Diarrhea Magnesium Hydroxide (Milk Of Magnesia 30 Ml Oral.Susp) 30 ml PO DAILY PRN PRN Reason: Constipation Memantine (Memantine Hcl 5 Mg Tablet) 5 mg PO DAILY ADITYA Last Admin: 08/11/24 09:16 Dose: 5 mg Quetiapine Fumarate (Quetiapine Fumarate 50 Mg Tablet) 50 mg PO Q6H PRN PRN Reason: agitation Last Admin: 07/27/24 00:24 Dose: 50 mg Quetiapine Fumarate (Quetiapine Fumarate 50 Mg Tablet) 50 mg PO BID@1200,2100 ADITYA Last Admin: 08/11/24 21:12 Dose: 50 mg Trazodone HCl (Trazodone Hcl 50 Mg Tablet) 50 mg PO BEDTIME PRN PRN Reason: Insomnia Last Admin: 08/07/24 03:17 Dose: 50 mg Allergies Allergies Allergy/AdvReac Type Severity Reaction Status Date / Time No Known Allergies Allergy Verified 07/18/24 21:28 Assessment & Plan Assessment & Plan (1) Major neurocognitive disorder: Status: Acute Code(s): F03.90 - Unspecified dementia, unspecified severity, without behavioral disturbance, psychotic disturbance, mood disturbance, and anxiety Plan Mr. Segura is a 73 year-old male with hx of dementia, appears AD type who was brought by family to [facility] due to increase combative behaviors attempting to choke while she was providing support with ADLs. He has also eloped home in the past, being loss for 6 hrs and then presenting with hypothermia. 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 Continue current medications including olanzapine 5mg po BID. Aricept at bedtime, instead of daily. PLAN 07/21 continue tx. 07/22 continue tx. on [id number] up on 07/23 may need to file. 07/23 continue tx. 07/24 switch olanzapine to seroquel as it appears more unsteady with olanzapine. encourage oral intake. 07/27 continue tx. 07/28 continue tx. 07/29 moved seroquel to 1200, 2100, monitor oversedation. Appeared brighter affect today, not combative. completed paperwork to [facility] for guardianship/conservatorship/erin s/s to advanced dementia. 07/30: resting post prandially. thirsty. continue current mgmt. 07/31: PMR, paucity of thought. continue current mgmt. 08/01: Patient mumbles some in audible things on inquiry; staff reports stable; continue treatment plan 08/02: No change in presentation; continue treatment plan 08/03 continue tx. guardianship and conservatorship filed, needed for placement at this time. 08/04 continue tx. 08/05 continue tx. 08/06 continue tx. 08/07 continue tx. 08/08: continue current management and treatment plan. 08/09: continue current management and treatment plan. 08/10: continue current management and treatment plan. 08/11 continue tx. 08/12 continue tx. Reason for continued inpatient stay Substantial Risk for: inability to function Time Spent With Patient Time: Total time managing care of this patient today ____ minutes.
[2024-08-12 20:00] VITALS: BP 95/50; PULSE 64; RESP 16; TEMP 36; O2SAT 97
[2024-08-13 08:32] VITALS: BP 145/74; PULSE 64; RESP 20; TEMP 36.6; O2SAT 97
[2024-08-13 13:52] VITALS: BMI 22.3
--- NOTE | 2024-08-13 15:22 | P.PNPSI_ITS ---
Subjective Subjective Date of Service: 08/13/24 Reason For Visit: dementia w/ behavioral disturbance Subjective Notes: Conditional Voluntary Interim History: Pt slept through the night. No changes. He is pleasant on approach. No behavioral concerns. taking medications as prescribed. VS stable. confused at baseline, therefore, requires one to one. Review of Systems Review of Systems Review of systems limited due to dementia. Yes Unobtainable due to mental status and Other (Dementia) Mental Status Exam Mental Status Exam Narrative: Appearance: wearing own attire, fair hygiene, in NAD Behavior: guarded Psychomotor: retardation noted Speech: mostly mumbling, regular rate/rhythm, soft tone, minimally spontaneous TP: poverty of thought TC: unclear Mood: okay Affect: tired SI: none expressed HI: none expressed VH/AH: no overt signs Delusions: no overt signs Insight/judgment: impaired x 2. memory/cog: alert oriented only to person. Diagnostics Vital Signs (24Hr): Vital Signs - 24 hr 08/12/24 20:00 08/13/24 08:32 Temperature 96.8 F 97.9 F Pulse Rate 64 64 Respiratory Rate 16 20 Blood Pressure 95/50 L 145/74 H Pulse Oximetry 97 97 Oxygen Delivery Method Room Air Room Air BMI result Body Mass Index 22.3 Labs 07/18/24 21:40 07/23/24 10:52 Medications Medications Current Medications Acetaminophen (Acetaminophen 325 Mg Tablet) 650 mg PO Q6H PRN PRN Reason: Headache/Pain, Scale 1-10 Last Admin: 07/22/24 21:33 Dose: 650 mg Al Hydroxide/Mg Hydroxide (Magnesium Hydrox/Alum Hydrox 30 Ml Oral.Susp) 30 ml PO Q6H PRN PRN Reason: Heartburn/Nausea Last Admin: 08/05/24 12:28 Dose: 30 ml Donepezil HCl (Donepezil Hcl 5 Mg Tablet) 5 mg PO BEDTIME ADITYA Last Admin: 08/12/24 20:57 Dose: 5 mg Loperamide HCl (Loperamide Hcl 2 Mg Capsule) 2 mg PO Q4H PRN PRN Reason: Diarrhea Magnesium Hydroxide (Milk Of Magnesia 30 Ml Oral.Susp) 30 ml PO DAILY PRN PRN Reason: Constipation Memantine (Memantine Hcl 5 Mg Tablet) 5 mg PO DAILY ADITYA Last Admin: 08/13/24 08:34 Dose: 5 mg Quetiapine Fumarate (Quetiapine Fumarate 50 Mg Tablet) 50 mg PO Q6H PRN PRN Reason: agitation Last Admin: 07/27/24 00:24 Dose: 50 mg Quetiapine Fumarate (Quetiapine Fumarate 50 Mg Tablet) 50 mg PO BID@1200,2100 ADITYA Last Admin: 08/13/24 11:51 Dose: 50 mg Trazodone HCl (Trazodone Hcl 50 Mg Tablet) 50 mg PO BEDTIME PRN PRN Reason: Insomnia Last Admin: 08/07/24 03:17 Dose: 50 mg Allergies Allergies Allergy/AdvReac Type Severity Reaction Status Date / Time No Known Allergies Allergy Verified 07/18/24 21:28 Assessment & Plan Assessment & Plan (1) Major neurocognitive disorder: Status: Acute Code(s): F03.90 - Unspecified dementia, unspecified severity, without behavioral disturbance, psychotic disturbance, mood disturbance, and anxiety Plan Mr. Segura is a 73 year-old male with hx of dementia, appears AD type who was brought by family to [facility] due to increase combative behaviors attempting to choke while she was providing support with ADLs. He has also eloped home in the past, being loss for 6 hrs and then presenting with hypothermia. 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 Continue current medications including olanzapine 5mg po BID. Aricept at bedtime, instead of daily. PLAN 07/21 continue tx. 07/22 continue tx. on [id number] up on 07/23 may need to file. 07/23 continue tx. 07/24 switch olanzapine to seroquel as it appears more unsteady with olanzapine. encourage oral intake. 07/27 continue tx. 07/28 continue tx. 07/29 moved seroquel to 1200, 2100, monitor oversedation. Appeared brighter affect today, not combative. completed paperwork to [facility] for guardianship/conservatorship/erin s/s to advanced dementia. 07/30: resting post prandially. thirsty. continue current mgmt. 07/31: PMR, paucity of thought. continue current mgmt. 08/01: Patient mumbles some in audible things on inquiry; staff reports stable; continue treatment plan 08/02: No change in presentation; continue treatment plan 08/03 continue tx. guardianship and conservatorship filed, needed for placement at this time. 08/04 continue tx. 08/05 continue tx. 08/06 continue tx. 08/07 continue tx. 08/08: continue current management and treatment plan. 08/09: continue current management and treatment plan. 08/10: continue current management and treatment plan. 08/11 continue tx. 08/12 continue tx. 08/13 continue tx. Reason for continued inpatient stay Substantial Risk for: inability to function Time Spent With Patient Time: Total time managing care of this patient today ____ minutes.
[2024-08-13 19:58] VITALS: BP 163/77; PULSE 71; RESP 16; TEMP 36.7; O2SAT 99
[2024-08-14 08:05] VITALS: BP 114/70; PULSE 68; RESP 18; TEMP 36.6; O2SAT 98
--- NOTE | 2024-08-14 11:39 | P.PNPSI_ITS ---
Subjective Subjective Date of Service: 08/14/24 Reason For Visit: dementia w/ behavioral disturbance Interim History: Pt slept through the night. No changes. He is pleasant on approach. No behavioral concerns. taking medications as prescribed. VS stable. confused at baseline, therefore, requires one to one. Review of Systems Review of Systems Review of systems limited due to dementia. Yes Unobtainable due to mental status and Other (Dementia) Mental Status Exam Mental Status Exam Narrative: Appearance: wearing own attire, fair hygiene, in NAD Behavior: guarded Psychomotor: retardation noted Speech: mostly mumbling, regular rate/rhythm, soft tone, minimally spontaneous TP: poverty of thought TC: unclear Mood: okay Affect: tired SI: none expressed HI: none expressed VH/AH: no overt signs Delusions: no overt signs Insight/judgment: impaired x 2. memory/cog: alert oriented only to person. Diagnostics Vital Signs (24Hr): Vital Signs - 24 hr 08/13/24 19:58 08/14/24 08:05 Temperature 98.1 F 97.9 F Pulse Rate 71 68 Respiratory Rate 16 18 Blood Pressure 163/77 H 114/70 Pulse Oximetry 99 98 Oxygen Delivery Method Room Air Room Air BMI result Body Mass Index 22.3 Labs 07/18/24 21:40 07/23/24 10:52 Medications Medications Current Medications Acetaminophen (Acetaminophen 325 Mg Tablet) 650 mg PO Q6H PRN PRN Reason: Headache/Pain, Scale 1-10 Last Admin: 07/22/24 21:33 Dose: 650 mg Al Hydroxide/Mg Hydroxide (Magnesium Hydrox/Alum Hydrox 30 Ml Oral.Susp) 30 ml PO Q6H PRN PRN Reason: Heartburn/Nausea Last Admin: 08/05/24 12:28 Dose: 30 ml Donepezil HCl (Donepezil Hcl 5 Mg Tablet) 5 mg PO BEDTIME ADITYA Last Admin: 08/13/24 19:56 Dose: 5 mg Loperamide HCl (Loperamide Hcl 2 Mg Capsule) 2 mg PO Q4H PRN PRN Reason: Diarrhea Magnesium Hydroxide (Milk Of Magnesia 30 Ml Oral.Susp) 30 ml PO DAILY PRN PRN Reason: Constipation Memantine (Memantine Hcl 5 Mg Tablet) 5 mg PO DAILY ADITYA Last Admin: 08/14/24 08:38 Dose: 5 mg Quetiapine Fumarate (Quetiapine Fumarate 50 Mg Tablet) 50 mg PO Q6H PRN PRN Reason: agitation Last Admin: 07/27/24 00:24 Dose: 50 mg Quetiapine Fumarate (Quetiapine Fumarate 50 Mg Tablet) 50 mg PO BID@1200,2100 ADITYA Last Admin: 08/14/24 11:14 Dose: 50 mg Trazodone HCl (Trazodone Hcl 50 Mg Tablet) 50 mg PO BEDTIME PRN PRN Reason: Insomnia Last Admin: 08/07/24 03:17 Dose: 50 mg Allergies Allergies Allergy/AdvReac Type Severity Reaction Status Date / Time No Known Allergies Allergy Verified 07/18/24 21:28 Assessment & Plan Assessment & Plan (1) Major neurocognitive disorder: Status: Acute Code(s): F03.90 - Unspecified dementia, unspecified severity, without behavioral disturbance, psychotic disturbance, mood disturbance, and anxiety Plan Mr. Segura is a 73 year-old male with hx of dementia, appears AD type who was [place] [facility] due to increase combative behaviors attempting to choke while she was providing support with ADLs. He has also eloped home in the past, being loss for 6 hrs and then presenting with hypothermia. This development writer attempted to call twice with no response nor able to leave message. Continue current medications including olanzapine 5mg po BID. Aricept at bedtime, instead of daily. PLAN 07/21 continue tx. 07/22 continue tx. on [id number] up on 07/23 may need to file. 07/23 continue tx. 07/24 switch olanzapine to seroquel as it appears more unsteady with olanzapine. encourage oral intake. 07/27 continue tx. 07/28 continue tx. 07/29 moved seroquel to 1200, 2100, monitor oversedation. Appeared brighter affect today, not combative. completed paperwork to [facility] for guardianship/conservatorship/erin s/s to advanced dementia. 07/30: resting post prandially. thirsty. continue current mgmt. 07/31: PMR, paucity of thought. continue current mgmt. 08/01: Patient mumbles some in audible things on inquiry; staff reports stable; continue treatment plan 08/02: No change in presentation; continue treatment plan 08/03 continue tx. guardianship and conservatorship filed, needed for placement at this time. 08/04 continue tx. 08/05 continue tx. 08/06 continue tx. 08/07 continue tx. 08/08: continue current management and treatment plan. 08/09: continue current management and treatment plan. 08/10: continue current management and treatment plan. 08/11 continue tx. 08/12 continue tx. 08/13 continue tx. 08/14 continue tx. Reason for continued inpatient stay Substantial Risk for: inability to function Time Spent With Patient Time: Total time managing care of this patient today ____ minutes.
[2024-08-14 19:45] VITALS: BP 116/56; PULSE 76; RESP 16; TEMP 37.3; O2SAT 94
[2024-08-15 08:00] VITALS: BP 111/60; PULSE 82; RESP 18; TEMP 36.8; O2SAT 97
--- NOTE | 2024-08-15 17:36 | HO.PSYCHPN ---
Subjective Subjective Date of Service: 08/15/24 Reason For Visit: dementia w/ behavioral disturbance Subjective Notes: Section 7 Interim History: Pt slept through the night. No changes. He is pleasant on approach. No behavioral concerns. taking medications as prescribed. VS stable. confused at baseline, therefore, requires one to one. Review of Systems Review of Systems Review of systems limited due to dementia. Yes Unobtainable due to mental status and Other (Dementia) Mental Status Exam Mental Status Exam Narrative: Appearance: wearing own attire, fair hygiene, in NAD Behavior: guarded Psychomotor: retardation noted Speech: mostly mumbling, regular rate/rhythm, soft tone, minimally spontaneous TP: poverty of thought TC: unclear Mood: okay Affect: tired SI: none expressed HI: none expressed VH/AH: no overt signs Delusions: no overt signs Insight/judgment: impaired x 2. memory/cog: alert oriented only to person. Diagnostics Vital Signs (24Hr): Vital Signs - 24 hr 08/14/24 19:45 08/15/24 08:00 Temperature 99.1 F 98.3 F Pulse Rate 76 82 Respiratory Rate 16 18 Blood Pressure 116/56 L 111/60 Pulse Oximetry 94 97 Oxygen Delivery Method Room Air Room Air BMI result Body Mass Index 22.3 Labs 07/18/24 21:40 07/23/24 10:52 Medications Medications Current Medications Acetaminophen (Acetaminophen 325 Mg Tablet) 650 mg PO Q6H PRN PRN Reason: Headache/Pain, Scale 1-10 Last Admin: 07/22/24 21:33 Dose: 650 mg Al Hydroxide/Mg Hydroxide (Magnesium Hydrox/Alum Hydrox 30 Ml Oral.Susp) 30 ml PO Q6H PRN PRN Reason: Heartburn/Nausea Last Admin: 08/05/24 12:28 Dose: 30 ml Donepezil HCl (Donepezil Hcl 5 Mg Tablet) 5 mg PO BEDTIME ADITYA Last Admin: 08/14/24 19:47 Dose: 5 mg Loperamide HCl (Loperamide Hcl 2 Mg Capsule) 2 mg PO Q4H PRN PRN Reason: Diarrhea Magnesium Hydroxide (Milk Of Magnesia 30 Ml Oral.Susp) 30 ml PO DAILY PRN PRN Reason: Constipation Memantine (Memantine Hcl 5 Mg Tablet) 5 mg PO DAILY ADITYA Last Admin: 08/15/24 09:39 Dose: 5 mg Quetiapine Fumarate (Quetiapine Fumarate 50 Mg Tablet) 50 mg PO Q6H PRN PRN Reason: agitation Last Admin: 07/27/24 00:24 Dose: 50 mg Quetiapine Fumarate (Quetiapine Fumarate 50 Mg Tablet) 50 mg PO BID@1200,2100 ADITYA Last Admin: 08/15/24 13:22 Dose: 50 mg Trazodone HCl (Trazodone Hcl 50 Mg Tablet) 50 mg PO BEDTIME PRN PRN Reason: Insomnia Last Admin: 08/07/24 03:17 Dose: 50 mg Allergies Allergies Allergy/AdvReac Type Severity Reaction Status Date / Time No Known Allergies Allergy Verified 07/18/24 21:28 Assessment & Plan Assessment & Plan (1) Major neurocognitive disorder: Status: Acute Code(s): F03.90 - Unspecified dementia, unspecified severity, without behavioral disturbance, psychotic disturbance, mood disturbance, and anxiety Plan Mr. Segura is a 73 year-old male with hx of dementia, appears AD type who was brought by family [place] [facility] due to increase combative behaviors attempting to choke while she was providing support with ADLs. He has also eloped home in the past, being loss for 6 hrs and then presenting with hypothermia. 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 Continue current medications including olanzapine 5mg po BID. Aricept at bedtime, instead of daily. PLAN 07/21 continue tx. 07/22 continue tx. on [id number] up on 07/23 may need to file. 07/23 continue tx. 07/24 switch olanzapine to seroquel as it appears more unsteady with olanzapine. encourage oral intake. 07/27 continue tx. 07/28 continue tx. 07/29 moved seroquel to 1200, 2100, monitor oversedation. Appeared brighter affect today, not combative. completed paperwork to e for guardianship/conservatorship/erin s/s to advanced dementia. 07/30: resting post prandially. thirsty. continue current mgmt. 07/31: PMR, paucity of thought. continue current mgmt. 08/01: Patient mumbles some in audible things on inquiry; staff reports stable; continue treatment plan 08/02: No change in presentation; continue treatment plan 08/03 continue tx. guardianship and conservatorship filed, needed for placement at this time. 08/04 continue tx. 08/05 continue tx. 08/06 continue tx. 08/07 continue tx. 08/08: continue current management and treatment plan. 08/09: continue current management and treatment plan. 08/10: continue current management and treatment plan. 08/11 continue tx. 08/12 continue tx. 08/13 continue tx. 08/14 continue tx. 08/15 continue tx. Reason for continued inpatient stay Substantial Risk for: inability to function Time Spent With Patient Time: Total time managing care of this patient today ____ minutes.
[2024-08-15 19:38] VITALS: BP 133/72; PULSE 70; RESP 16; TEMP 37.1; O2SAT 99
[2024-08-16 08:00] VITALS: BP 121/62; PULSE 75; RESP 18; TEMP 36.8; O2SAT 98
[2024-08-16 20:00] VITALS: BP 103/53; PULSE 72; TEMP 37.7; O2SAT 94
--- NOTE | 2024-08-16 21:45 | P.PNPSI_ITS ---
Subjective Subjective Date of Service: 08/16/24 Reason For Visit: dementia w/ behavioral disturbance Interim History: Pt slept through the night. No changes. He is pleasant on approach. No behavioral concerns. taking medications as prescribed. VS stable. confused at baseline, therefore, requires one to one. Review of Systems Review of Systems Review of systems limited due to dementia. Yes Unobtainable due to mental status and Other (Dementia) Mental Status Exam Mental Status Exam Narrative: Appearance: wearing own attire, fair hygiene, in NAD Behavior: guarded Psychomotor: retardation noted Speech: mostly mumbling, regular rate/rhythm, soft tone, minimally spontaneous TP: poverty of thought TC: unclear Mood: okay Affect: tired SI: none expressed HI: none expressed VH/AH: no overt signs Delusions: no overt signs Insight/judgment: impaired x 2. memory/cog: alert oriented only to person. Patient Appearance: Appropriate Patient Orientation: Person Level of Consciousness: Alert Patient Behavior: Cooperative Mood Description: Calm and Constricted Affect Description: Constricted Patient Cognition Impaired: Yes Ability to Follow Directions: Fair Memory Description: Remote Impaired, Immediate Impaired and Recent Impaired Diagnostics Vital Signs (24Hr): Vital Signs - 24 hr 08/16/24 08:00 08/16/24 20:00 Temperature 98.2 F 99.8 F Pulse Rate 75 72 Respiratory Rate 18 Blood Pressure 121/62 103/53 L Pulse Oximetry 98 94 Oxygen Delivery Method Room Air Room Air BMI result Body Mass Index 22.3 Labs 07/18/24 21:40 07/23/24 10:52 Medications Medications Current Medications Acetaminophen (Acetaminophen 325 Mg Tablet) 650 mg PO Q6H PRN PRN Reason: Headache/Pain, Scale 1-10 Last Admin: 07/22/24 21:33 Dose: 650 mg Al Hydroxide/Mg Hydroxide (Magnesium Hydrox/Alum Hydrox 30 Ml Oral.Susp) 30 ml PO Q6H PRN PRN Reason: Heartburn/Nausea Last Admin: 08/05/24 12:28 Dose: 30 ml Donepezil HCl (Donepezil Hcl 5 Mg Tablet) 5 mg PO BEDTIME ADTIYA Last Admin: 08/16/24 20:55 Dose: 5 mg Loperamide HCl (Loperamide Hcl 2 Mg Capsule) 2 mg PO Q4H PRN PRN Reason: Diarrhea Magnesium Hydroxide (Milk Of Magnesia 30 Ml Oral.Susp) 30 ml PO DAILY PRN PRN Reason: Constipation Memantine (Memantine Hcl 5 Mg Tablet) 5 mg PO DAILY [facility] Last Admin: 08/16/24 08:19 Dose: 5 mg Quetiapine Fumarate (Quetiapine Fumarate 50 Mg Tablet) 50 mg PO Q6H PRN PRN Reason: agitation Last Admin: 07/27/24 00:24 Dose: 50 mg Quetiapine Fumarate (Quetiapine Fumarate 50 Mg Tablet) 50 mg PO BID@1200,2100 [facility] Last Admin: 08/16/24 20:55 Dose: 50 mg Trazodone HCl (Trazodone Hcl 50 Mg Tablet) 50 mg PO BEDTIME PRN PRN Reason: Insomnia Last Admin: 08/07/24 03:17 Dose: 50 mg Allergies Allergies Allergy/AdvReac Type Severity Reaction Status Date / Time No Known Allergies Allergy Verified 07/18/24 21:28 Assessment & Plan Assessment & Plan (1) Major neurocognitive disorder: Status: Acute Code(s): F03.90 - Unspecified dementia, unspecified severity, without behavioral disturbance, psychotic disturbance, mood disturbance, and anxiety Plan Mr. Segura is a 73 year-old male with hx of dementia, appears AD type who was brought by family to [facility] due to increase combative behaviors attempting to choke while she was providing support with ADLs. He has also eloped home in the past, being loss for 6 hrs and then presenting with hypothermia. This publications writer attempted to call twice with no response nor able to leave message. Continue current medications including olanzapine 5mg po BID. Aricept at bedtime, instead of daily. PLAN 07/21 continue tx. 07/22 continue tx. on [id number] up on 07/23 may need to file. 07/23 continue tx. 07/24 switch olanzapine to seroquel as it appears more unsteady with olanzapine. encourage oral intake. 07/27 continue tx. 07/28 continue tx. 07/29 moved seroquel to 1200, 2100, monitor oversedation. Appeared brighter affect today, not combative. completed paperwork to e for guardianship/conservatorship/erin s/s to advanced dementia. 07/30: resting post prandially. thirsty. continue current mgmt. 07/31: PMR, paucity of thought. continue current mgmt. 08/01: Patient mumbles some in audible things on inquiry; staff reports stable; continue treatment plan 08/02: No change in presentation; continue treatment plan 08/03 continue tx. guardianship and conservatorship filed, needed for placement at this time. 08/04 continue tx. 08/05 continue tx. 08/06 continue tx. 08/07 continue tx. 08/08: continue current management and treatment plan. 08/09: continue current management and treatment plan. 08/10: continue current management and treatment plan. 08/11 continue tx. 08/12 continue tx. 08/13 continue tx. 08/14 continue tx. 08/15 continue tx. 08/16 continue tx. Reason for continued inpatient stay Substantial Risk for: inability to function Time Spent With Patient Time: Total time managing care of this patient today ____ minutes.
[2024-08-17 07:55] VITALS: BP 130/72; PULSE 76; RESP 18; TEMP 36.8; O2SAT 97
--- NOTE | 2024-08-17 11:11 | P.PNPSI_ITS ---
Subjective Subjective Date of Service: 08/17/24 Reason For Visit: dementia w/ behavioral disturbance Subjective Notes: Conditional Voluntary Interim History: Pt slept through the night. No changes. He is pleasant on approach. No behavioral concerns. taking medications as prescribed. VS stable. confused at baseline, therefore, requires one to one. Review of Systems Review of Systems Review of systems limited due to dementia. Yes Unobtainable due to mental status and Other (Dementia) Mental Status Exam Mental Status Exam Narrative: Appearance: wearing own attire, fair hygiene, in NAD Behavior: guarded Psychomotor: retardation noted Speech: mostly mumbling, regular rate/rhythm, soft tone, minimally spontaneous TP: poverty of thought TC: unclear Mood: okay Affect: tired SI: none expressed HI: none expressed VH/AH: no overt signs Delusions: no overt signs Insight/judgment: impaired x 2. memory/cog: alert oriented only to person. Diagnostics Vital Signs (24Hr): Vital Signs - 24 hr 08/16/24 20:00 08/17/24 07:55 Temperature 99.8 F 98.3 F Pulse Rate 72 76 Respiratory Rate 18 Blood Pressure 103/53 L 130/72 Pulse Oximetry 94 97 Oxygen Delivery Method Room Air Room Air BMI result Body Mass Index 22.3 Labs 07/18/24 21:40 07/23/24 10:52 Medications Medications Current Medications Acetaminophen (Acetaminophen 325 Mg Tablet) 650 mg PO Q6H PRN PRN Reason: Headache/Pain, Scale 1-10 Last Admin: 07/22/24 21:33 Dose: 650 mg Al Hydroxide/Mg Hydroxide (Magnesium Hydrox/Alum Hydrox 30 Ml Oral.Susp) 30 ml PO Q6H PRN PRN Reason: Heartburn/Nausea Last Admin: 08/05/24 12:28 Dose: 30 ml Donepezil HCl (Donepezil Hcl 5 Mg Tablet) 5 mg PO BEDTIME ADITYA Last Admin: 08/16/24 20:55 Dose: 5 mg Loperamide HCl (Loperamide Hcl 2 Mg Capsule) 2 mg PO Q4H PRN PRN Reason: Diarrhea Magnesium Hydroxide (Milk Of Magnesia 30 Ml Oral.Susp) 30 ml PO DAILY PRN PRN Reason: Constipation Memantine (Memantine Hcl 5 Mg Tablet) 5 mg PO DAILY ADITYA Last Admin: 08/17/24 08:16 Dose: 5 mg Quetiapine Fumarate (Quetiapine Fumarate 50 Mg Tablet) 50 mg PO Q6H PRN PRN Reason: agitation Last Admin: 07/27/24 00:24 Dose: 50 mg Quetiapine Fumarate (Quetiapine Fumarate 50 Mg Tablet) 50 mg PO BID@1200,2100 ADITYA Last Admin: 08/16/24 20:55 Dose: 50 mg Trazodone HCl (Trazodone Hcl 50 Mg Tablet) 50 mg PO BEDTIME PRN PRN Reason: Insomnia Last Admin: 08/07/24 03:17 Dose: 50 mg Allergies Allergies Allergy/AdvReac Type Severity Reaction Status Date / Time No Known Allergies Allergy Verified 07/18/24 21:28 Assessment & Plan Assessment & Plan (1) Major neurocognitive disorder: Status: Acute Code(s): F03.90 - Unspecified dementia, unspecified severity, without behavioral disturbance, psychotic disturbance, mood disturbance, and anxiety Plan Mr. Segura is a 73 year-old male with hx of dementia, appears AD type who was brought by family to [facility] ED due to increase combative behaviors attempting to choke while she was providing support with ADLs. He has also eloped home in the past, being loss for 6 hrs and then presenting with hypothermia. 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 Continue current medications including olanzapine 5mg po BID. Aricept at bedtime, instead of daily. PLAN 07/21 continue tx. 07/22 continue tx. on [id number] up on 07/23 may need to file. 07/23 continue tx. 07/24 switch olanzapine to seroquel as it appears more unsteady with olanzapine. encourage oral intake. 07/27 continue tx. 07/28 continue tx. 07/29 moved seroquel to 1200, 2100, monitor oversedation. Appeared brighter affect today, not combative. completed paperwork to e for guardianship/conservatorship/erin s/s to advanced dementia. 07/30: resting post prandially. thirsty. continue current mgmt. 07/31: PMR, paucity of thought. continue current mgmt. 08/01: Patient mumbles some in audible things on inquiry; staff reports stable; continue treatment plan 08/02: No change in presentation; continue treatment plan 08/03 continue tx. guardianship and conservatorship filed, needed for placement at this time. 08/04 continue tx. 08/05 continue tx. 08/06 continue tx. 08/07 continue tx. 08/08: continue current management and treatment plan. 08/09: continue current management and treatment plan. 08/10: continue current management and treatment plan. 08/11 continue tx. 08/12 continue tx. 08/13 continue tx. 08/14 continue tx. 08/15 continue tx. 08/16 continue tx. 08/17 continue tx. Reason for continued inpatient stay Substantial Risk for: inability to function Time Spent With Patient Time: Total time managing care of this patient today ____ minutes.
[2024-08-17 19:41] VITALS: BP 132/69; PULSE 70; RESP 16; TEMP 36.8; O2SAT 97
[2024-08-18 08:00] VITALS: BP 127/74; PULSE 74; RESP 18; TEMP 36.6; O2SAT 97
--- NOTE | 2024-08-18 16:51 | HO.PSYCHPN ---
Subjective Subjective Date of Service: 08/18/24 Reason For Visit: dementia w/ behavioral disturbance Subjective Notes: Conditional Voluntary Healthcare Proxy: Yes Interim History: Pt slept through the night. He is not oriented to place, month or situation. He is taking medications as prescribed. No behavioral concerns. VS stable. encourage fluids. Review of Systems Review of Systems Review of systems limited due to dementia. Yes Unobtainable due to mental status and Other (Dementia) Mental Status Exam Mental Status Exam Narrative: Appearance: wearing own attire, fair hygiene, in NAD Behavior: guarded Psychomotor: retardation noted Speech: mostly mumbling, regular rate/rhythm, soft tone, minimally spontaneous TP: poverty of thought TC: unclear Mood: okay Affect: tired SI: none expressed HI: none expressed VH/AH: no overt signs Delusions: no overt signs Insight/judgment: impaired x 2. memory/cog: alert oriented only to person. Diagnostics Vital Signs (24Hr): Vital Signs - 24 hr 08/17/24 19:41 08/18/24 08:00 Temperature 98.2 F 97.9 F Pulse Rate 70 74 Respiratory Rate 16 18 Blood Pressure 132/69 127/74 Pulse Oximetry 97 97 Oxygen Delivery Method Room Air Room Air BMI result Body Mass Index 22.3 Labs 08/19/24 07:26 08/19/24 07:26 Medications Medications Current Medications Acetaminophen (Acetaminophen 325 Mg Tablet) 650 mg PO Q6H PRN PRN Reason: Headache/Pain, Scale 1-10 Last Admin: 07/22/24 21:33 Dose: 650 mg Al Hydroxide/Mg Hydroxide (Magnesium Hydrox/Alum Hydrox 30 Ml Oral.Susp) 30 ml PO Q6H PRN PRN Reason: Heartburn/Nausea Last Admin: 08/05/24 12:28 Dose: 30 ml Donepezil HCl (Donepezil Hcl 5 Mg Tablet) 5 mg PO BEDTIME ADITYA Last Admin: 08/17/24 19:43 Dose: 5 mg Loperamide HCl (Loperamide Hcl 2 Mg Capsule) 2 mg PO Q4H PRN PRN Reason: Diarrhea Magnesium Hydroxide (Milk Of Magnesia 30 Ml Oral.Susp) 30 ml PO DAILY PRN PRN Reason: Constipation Memantine (Memantine Hcl 5 Mg Tablet) 5 mg PO DAILY ADITYA Last Admin: 08/18/24 07:59 Dose: 5 mg Quetiapine Fumarate (Quetiapine Fumarate 50 Mg Tablet) 50 mg PO Q6H PRN PRN Reason: agitation Last Admin: 07/27/24 00:24 Dose: 50 mg Quetiapine Fumarate (Quetiapine Fumarate 50 Mg Tablet) 50 mg PO BID@1200,2100 ADITYA Last Admin: 08/18/24 11:30 Dose: 50 mg Trazodone HCl (Trazodone Hcl 50 Mg Tablet) 50 mg PO BEDTIME PRN PRN Reason: Insomnia Last Admin: 08/07/24 03:17 Dose: 50 mg Allergies Allergies Allergy/AdvReac Type Severity Reaction Status Date / Time No Known Allergies Allergy Verified 07/18/24 21:28 Assessment & Plan Assessment & Plan (1) Major neurocognitive disorder: Status: Acute Code(s): F03.90 - Unspecified dementia, unspecified severity, without behavioral disturbance, psychotic disturbance, mood disturbance, and anxiety Plan Mr. Segura is a 73 year-old male with hx of dementia, appears AD type who was brought by family to [facility] due to increase combative behaviors attempting to choke while she was providing support with ADLs. He has also eloped home in the past, being loss for 6 hrs and then presenting with hypothermia. 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 Continue current medications including olanzapine 5mg po BID. Aricept at bedtime, instead of daily. PLAN 07/21 continue tx. 07/22 continue tx. on [id number] up on 07/23 may need to file. 07/23 continue tx. 07/24 switch olanzapine to seroquel as it appears more unsteady with olanzapine. encourage oral intake. 07/27 continue tx. 07/28 continue tx. 07/29 moved seroquel to 1200, 2100, monitor oversedation. Appeared brighter affect today, not combative. completed paperwork to will for guardianship/conservatorship/erin s/s to advanced dementia. 07/30: resting post prandially. thirsty. continue current mgmt. 07/31: PMR, paucity of thought. continue current mgmt. 08/01: Patient mumbles some in audible things on inquiry; staff reports stable; continue treatment plan 08/02: No change in presentation; continue treatment plan 08/03 continue tx. guardianship and conservatorship filed, needed for placement at this time. 08/04 continue tx. 08/05 continue tx. 08/06 continue tx. 08/07 continue tx. 08/08: continue current management and treatment plan. 08/09: continue current management and treatment plan. 08/10: continue current management and treatment plan. 08/11 continue tx. 08/12 continue tx. 08/13 continue tx. 08/14 continue tx. 08/15 continue tx. 08/16 continue tx. 08/17 continue tx. 08/18 continue tx. Reason for continued inpatient stay Substantial Risk for: inability to function Time Spent With Patient Time: Total time managing care of this patient today ____ minutes.
[2024-08-18 19:42] VITALS: BP 115/63; PULSE 69; RESP 16; TEMP 36.9; O2SAT 95
[2024-08-19 07:38] LABS: MANUAL DIFF FLAG NO
[2024-08-19 07:44] LABS: Hematocrit 35.6 % (42.0-52.0); Hemoglobin 11.4 g/dl (14.0-18.0); Imm Gran Abs Auto 0.01 X10*3/uL (0.00-0.03); Imm Gran Pct Auto 0.2 % (0.0-0.4); Lymphocytes Absolute Auto 1.1 X10*3/uL (1.2-4.9); Mean Corpuscular HGB Conc 32.0 g/dl (31.0-36.0); Mean Corpuscular Hemoglobin 28.4 pg (27.0-33.0); Mean Corpuscular Volume 88.6 fL (80.0-98.0); NRBC Abs Auto 0.000 X10*3/uL (0.0-0.012); NRBC Pct Auto 0.0 /100WBC (0.0-0.2); Platelet Count 239 X10*3/uL (160-400); Red Blood Count 4.02 X10*6/uL (4.60-5.80); White Blood Count 4.9 X10*3/uL (4.8-10.8)
[2024-08-19 07:55] VITALS: BP 127/68; PULSE 74; RESP 18; TEMP 36.6; O2SAT 97
[2024-08-19 08:09] LABS: Alanine Aminotransferase 21 U/L (0-40); Albumin Level 3.4 g/dL (3.5-5.0); Anion Gap 11 (12-20); Aspartate Amino Transferase 20 U/L (5-37); Blood Urea Nitrogen 18 mg/dL (9-16); Calcium 8.9 mg/dL (8.4-10.2); Carbon Dioxide 30 mmol/L (22-29); Chloride 107 mmol/L (96-108); Creatinine Clr Calc Pharmacy 73.3; Estimated Glomerular Filt Rate > 60; Potassium 4.3 mmol/L (3.3-5.1); Sodium 144 mmol/L (135-145); Total Protein 5.9 g/dL (6.5-8.0)
--- NOTE | 2024-08-19 12:47 | P.PNPSI_ITS ---
Subjective Subjective Date of Service: 08/19/24 Reason For Visit: dementia w/ behavioral disturbance Interim History: Pt seen, reviewed with team who report pt is improving, changing safety status from one to one to five minute checks. Pt reportedly is eating, able to sleep, responds in one word answers. Pt in bed, awake, calm, smiling when seen. Medication Compliance: Yes Side effects from medications: No Review of Systems Acute medical concerns: No Review of Systems Review of Systems Yes Unobtainable due to mental status Mental Status Exam Mental Status Exam Patient Appearance: Appropriate Patient Orientation: Person Level of Consciousness: Awake and Alert Patient Behavior: Passive Mood Description: Calm Affect Description: Calm Patient Cognition Impaired: Yes Ability to Follow Directions: Fair Speech Pattern: No Speech Memory Description: Remote Impaired Judgement: Poor Diagnostics Vital Signs (24Hr): Vital Signs - 24 hr 08/18/24 19:42 08/19/24 07:55 Temperature 98.5 F 97.9 F Pulse Rate 69 74 Respiratory Rate 16 18 Blood Pressure 115/63 127/68 Pulse Oximetry 95 97 Oxygen Delivery Method Room Air Room Air BMI result Body Mass Index 22.3 Labs 08/19/24 07:26 08/19/24 07:26 Labs: Laboratory Results - last 48 hr 08/19/24 07:26 WBC 4.9 RBC 4.02 L Hgb 11.4 L Hct 35.6 L MCV 88.6 MCH 28.4 MCHC 32.0 RDW 14.5 Plt Count 239 D MPV 9.0 L Immature Gran % (Auto) 0.2 Neut % (Auto) 60.5 Lymph % (Auto) 23.2 [place] % (Auto) 12.2 H Eos % (Auto) 3.1 Baso % (Auto) 0.8 Lymph # (Auto) 1.1 L [place] # (Auto) 0.6 Eos # (Auto) 0.2 Baso # (Auto) 0.0 Abs Immat Gran (auto) 0.01 Absolute Neuts (auto) 3.0 Absolute Nucleated RBC 0.000 Nucleated RBC % (auto) 0.0 Sodium 144 Potassium 4.3 Chloride 107 Carbon Dioxide 30 H Anion Gap 11 L BUN 18 H Creatinine 0.92 Estim Creat Clear Calc 73.3 Estimated GFR > 60 Random Glucose 87 Calcium 8.9 Total Bilirubin 0.3 AST 20 ALT 21 Total Protein 5.9 L Albumin 3.4 L Medications Medications Current Medications Acetaminophen (Acetaminophen 325 Mg Tablet) 650 mg PO Q6H PRN PRN Reason: Headache/Pain, Scale 1-10 Last Admin: 07/22/24 21:33 Dose: 650 mg Al Hydroxide/Mg Hydroxide (Magnesium Hydrox/Alum Hydrox 30 Ml Oral.Susp) 30 ml PO Q6H PRN PRN Reason: Heartburn/Nausea Last Admin: 08/05/24 12:28 Dose: 30 ml Donepezil HCl (Donepezil Hcl 5 Mg Tablet) 5 mg PO BEDTIME ADITYA Last Admin: 08/18/24 19:45 Dose: 5 mg Loperamide HCl (Loperamide Hcl 2 Mg Capsule) 2 mg PO Q4H PRN PRN Reason: Diarrhea Magnesium Hydroxide (Milk Of Magnesia 30 Ml Oral.Susp) 30 ml PO DAILY PRN PRN Reason: Constipation Memantine (Memantine Hcl 5 Mg Tablet) 5 mg PO DAILY [facility] Last Admin: 08/19/24 08:05 Dose: 5 mg Quetiapine Fumarate (Quetiapine Fumarate 50 Mg Tablet) 50 mg PO Q6H PRN PRN Reason: agitation Last Admin: 07/27/24 00:24 Dose: 50 mg Quetiapine Fumarate (Quetiapine Fumarate 50 Mg Tablet) 50 mg PO BID@1200,2100 [facility] Last Admin: 08/19/24 12:05 Dose: 50 mg Trazodone HCl (Trazodone Hcl 50 Mg Tablet) 50 mg PO BEDTIME PRN PRN Reason: Insomnia Last Admin: 08/07/24 03:17 Dose: 50 mg Allergies Allergies Allergy/AdvReac Type Severity Reaction Status Date / Time No Known Allergies Allergy Verified 07/18/24 21:28 Assessment & Plan Assessment & Plan (1) Major neurocognitive disorder: Status: Acute Code(s): F03.90 - Unspecified dementia, unspecified severity, without behavioral disturbance, psychotic disturbance, mood disturbance, and anxiety Plan Mr. Segura is a 73 year-old male with hx of dementia, appears AD type who was brought by family to [facility] [place] [facility] due to increase combative behaviors attempting to choke while she was providing support with ADLs. He has also eloped home in the past, being loss for 6 hrs and then presenting with hypothermia. This clinical writer attempted to call twice with no response nor able to leave message. Continue current medications including olanzapine 5mg po BID. Aricept at bedtime, instead of daily. PLAN 07/21 continue tx. 07/22 continue tx. on [id number] up on 07/23 may need to file. 07/23 continue tx. 07/24 switch olanzapine to seroquel as it appears more unsteady with olanzapine. encourage oral intake. 07/27 continue tx. 07/28 continue tx. 07/29 moved seroquel to 1200, 2100, monitor oversedation. Appeared brighter affect today, not combative. completed paperwork to fie for guardianship/conservatorship/erin s/s to advanced dementia. 07/30: resting post prandially. thirsty. continue current mgmt. 07/31: PMR, paucity of thought. continue current mgmt. 08/01: Patient mumbles some in audible things on inquiry; staff reports stable; continue treatment plan 08/02: No change in presentation; continue treatment plan 08/03 continue tx. guardianship and conservatorship filed, needed for placement at this time. 08/04 continue tx. 08/05 continue tx. 08/06 continue tx. 08/07 continue tx. 08/08: continue current management and treatment plan. 08/09: continue current management and treatment plan. 08/10: continue current management and treatment plan. 08/11 continue tx. 08/12 continue tx. 08/13 continue tx. 08/14 continue tx. 08/15 continue tx. 08/16 continue tx. 08/17 continue tx. 08/19: RBC, HGB, HCT, ALB, TPROT decreasing. Continue to monitor, continue plan. Reason for continued inpatient stay Substantial Risk for: rapid decompensation Time Spent With Patient Time: Total time managing care of this patient today ____ minutes.
[2024-08-19 12:55] LABS: Alkaline Phosphatase 69 U/L (39-117)
[2024-08-19 20:00] VITALS: BP 110/57; PULSE 70; RESP 16; TEMP 36.6; O2SAT 93
[2024-08-20 08:00] VITALS: BP 106/60; PULSE 74; RESP 18; TEMP 36.4; O2SAT 99
--- NOTE | 2024-08-20 12:23 | P.PNPSI_ITS ---
Subjective Subjective Date of Service: 08/20/24 Reason For Visit: dementia w/ behavioral disturbance Subjective Notes: Section 7 Interim History: Pt slept through the night. He is not oriented to place, month or situation. He is taking medications as prescribed. No behavioral concerns. VS stable. encourage fluids. No change. Review of Systems Review of Systems Review of systems limited due to dementia. Yes Unobtainable due to mental status and Other (Dementia) Mental Status Exam Mental Status Exam Narrative: Appearance: wearing own attire, fair hygiene, in NAD Behavior: guarded Psychomotor: retardation noted Speech: mostly mumbling, regular rate/rhythm, soft tone, minimally spontaneous TP: poverty of thought TC: unclear Mood: okay Affect: tired SI: none expressed HI: none expressed VH/AH: no overt signs Delusions: no overt signs Insight/judgment: impaired x 2. memory/cog: alert oriented only to person. Diagnostics Vital Signs (24Hr): Vital Signs - 24 hr 08/19/24 20:00 08/20/24 08:00 Temperature 98 F 97.5 F Pulse Rate 70 74 Respiratory Rate 16 18 Blood Pressure 110/57 L 106/60 Pulse Oximetry 93 99 Oxygen Delivery Method Room Air Room Air BMI result Body Mass Index 22.3 Labs 08/19/24 07:26 08/19/24 07:26 Labs: Laboratory Results - last 48 hr 08/19/24 07:26 WBC 4.9 RBC 4.02 L Hgb 11.4 L Hct 35.6 L MCV 88.6 MCH 28.4 MCHC 32.0 RDW 14.5 Plt Count 239 D MPV 9.0 L Immature Gran % (Auto) 0.2 Neut % (Auto) 60.5 Lymph % (Auto) 23.2 [place] % (Auto) 12.2 H Eos % (Auto) 3.1 Baso % (Auto) 0.8 Lymph # (Auto) 1.1 L [place] # (Auto) 0.6 Eos # (Auto) 0.2 Baso # (Auto) 0.0 Abs Immat Gran (auto) 0.01 Absolute Neuts (auto) 3.0 Absolute Nucleated RBC 0.000 Nucleated RBC % (auto) 0.0 Sodium 144 Potassium 4.3 Chloride 107 Carbon Dioxide 30 H Anion Gap 11 L BUN 18 H Creatinine 0.92 Estim Creat Clear Calc 73.3 Estimated GFR > 60 Random Glucose 87 Calcium 8.9 Total Bilirubin 0.3 AST 20 ALT 21 Alkaline Phosphatase 69 Total Protein 5.9 L Albumin 3.4 L Medications Medications Current Medications Acetaminophen (Acetaminophen 325 Mg Tablet) 650 mg PO Q6H PRN PRN Reason: Headache/Pain, Scale 1-10 Last Admin: 07/22/24 21:33 Dose: 650 mg Al Hydroxide/Mg Hydroxide (Magnesium Hydrox/Alum Hydrox 30 Ml Oral.Susp) 30 ml PO Q6H PRN PRN Reason: Heartburn/Nausea Last Admin: 08/05/24 12:28 Dose: 30 ml Donepezil HCl (Donepezil Hcl 5 Mg Tablet) 5 mg PO BEDTIME [facility] Last Admin: 08/19/24 21:13 Dose: 5 mg Loperamide HCl (Loperamide Hcl 2 Mg Capsule) 2 mg PO Q4H PRN PRN Reason: Diarrhea Magnesium Hydroxide (Milk Of Magnesia 30 Ml Oral.Susp) 30 ml PO DAILY PRN PRN Reason: Constipation Memantine (Memantine Hcl 5 Mg Tablet) 5 mg PO DAILY [facility] Last Admin: 08/20/24 08:51 Dose: 5 mg Quetiapine Fumarate (Quetiapine Fumarate 50 Mg Tablet) 50 mg PO Q6H PRN PRN Reason: agitation Last Admin: 07/27/24 00:24 Dose: 50 mg Quetiapine Fumarate (Quetiapine Fumarate 50 Mg Tablet) 50 mg PO BID@1200,2100 [facility] Last Admin: 08/20/24 12:18 Dose: 50 mg Trazodone HCl (Trazodone Hcl 50 Mg Tablet) 50 mg PO BEDTIME PRN PRN Reason: Insomnia Last Admin: 08/07/24 03:17 Dose: 50 mg Allergies Allergies Allergy/AdvReac Type Severity Reaction Status Date / Time No Known Allergies Allergy Verified 07/18/24 21:28 Assessment & Plan Assessment & Plan (1) Major neurocognitive disorder: Status: Acute Code(s): F03.90 - Unspecified dementia, unspecified severity, without behavioral disturbance, psychotic disturbance, mood disturbance, and anxiety Plan Mr. Segura is a 73 year-old male with hx of dementia, appears AD type who was brought by family [place] [facility] [place] due to increase combative behaviors attempting to choke while she was providing support with ADLs. He has also eloped home in the past, being loss for 6 hrs and then presenting with hypothermia. 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 Continue current medications including olanzapine 5mg po BID. Aricept at bedtime, instead of daily. PLAN 07/21 continue tx. 07/22 continue tx. on [id number] up on 07/23 may need to file. 07/23 continue tx. 07/24 switch olanzapine to seroquel as it appears more unsteady with olanzapine. encourage oral intake. 07/27 continue tx. 07/28 continue tx. 07/29 moved seroquel to 1200, 2100, monitor oversedation. Appeared brighter affect today, not combative. completed paperwork to will for guardianship/conservatorship/erin s/s to advanced dementia. 07/30: resting post prandially. thirsty. continue current mgmt. 07/31: PMR, paucity of thought. continue current mgmt. 08/01: Patient mumbles some in audible things on inquiry; staff reports stable; continue treatment plan 08/02: No change in presentation; continue treatment plan 08/03 continue tx. guardianship and conservatorship filed, needed for placement at this time. 08/04 continue tx. 08/05 continue tx. 08/06 continue tx. 08/07 continue tx. 08/08: continue current management and treatment plan. 08/09: continue current management and treatment plan. 08/10: continue current management and treatment plan. 08/11 continue tx. 08/12 continue tx. 08/13 continue tx. 08/14 continue tx. 08/15 continue tx. 08/16 continue tx. 08/17 continue tx. 08/18 continue tx. 08/19 continue tx. Reason for continued inpatient stay Substantial Risk for: inability to function Time Spent With Patient Time: Total time managing care of this patient today ____ minutes.
[2024-08-20 19:48] VITALS: BP 119/65; PULSE 69; TEMP 36.8; O2SAT 98
[2024-08-21 08:00] VITALS: BP 142/81; PULSE 73; RESP 18; TEMP 2.4; TEMP 36.4; O2SAT 98
--- NOTE | 2024-08-21 10:48 | HO.PSYCHPN ---
Subjective Subjective Date of Service: 08/21/24 Reason For Visit: dementia w/ behavioral disturbance Subjective Notes: Section 7 Guardianship: Yes Interim History: Pt slept through the night. He is not oriented to place, month or situation. He is taking medications as prescribed. No behavioral concerns. VS stable. encourage fluids. No change. Medication Compliance: Yes Side effects from medications: No Review of Systems Review of Systems Review of systems limited due to dementia. Yes Unobtainable due to mental status and Other (Dementia) Mental Status Exam Mental Status Exam Narrative: Appearance: wearing own attire, fair hygiene, in NAD Behavior: guarded Psychomotor: retardation noted Speech: mostly mumbling, regular rate/rhythm, soft tone, minimally spontaneous TP: poverty of thought TC: unclear Mood: okay Affect: tired SI: none expressed HI: none expressed VH/AH: no overt signs Delusions: no overt signs Insight/judgment: impaired x 2. memory/cog: alert oriented only to person. Diagnostics Vital Signs (24Hr): Vital Signs - 24 hr 08/20/24 19:48 Temperature 98.2 F Pulse Rate 69 Blood Pressure 119/65 Pulse Oximetry 98 Oxygen Delivery Method Room Air BMI result Body Mass Index 22.3 Labs 08/19/24 07:26 08/19/24 07:26 Labs: Laboratory Results - last 48 hr 08/19/24 07:26 Alkaline Phosphatase 69 Medications Medications Current Medications Acetaminophen (Acetaminophen 325 Mg Tablet) 650 mg PO Q6H PRN PRN Reason: Headache/Pain, Scale 1-10 Last Admin: 07/22/24 21:33 Dose: 650 mg Al Hydroxide/Mg Hydroxide (Magnesium Hydrox/Alum Hydrox 30 Ml Oral.Susp) 30 ml PO Q6H PRN PRN Reason: Heartburn/Nausea Last Admin: 08/05/24 12:28 Dose: 30 ml Donepezil HCl (Donepezil Hcl 5 Mg Tablet) 5 mg PO BEDTIME [facility] Last Admin: 08/20/24 20:07 Dose: 5 mg Loperamide HCl (Loperamide Hcl 2 Mg Capsule) 2 mg PO Q4H PRN PRN Reason: Diarrhea Magnesium Hydroxide (Milk Of Magnesia 30 Ml Oral.Susp) 30 ml PO DAILY PRN PRN Reason: Constipation Memantine (Memantine Hcl 5 Mg Tablet) 5 mg PO DAILY [facility] Last Admin: 08/21/24 08:46 Dose: 5 mg Quetiapine Fumarate (Quetiapine Fumarate 50 Mg Tablet) 50 mg PO Q6H PRN PRN Reason: agitation Last Admin: 07/27/24 00:24 Dose: 50 mg Quetiapine Fumarate (Quetiapine Fumarate 50 Mg Tablet) 50 mg PO BID@1200,2100 [facility] Last Admin: 08/20/24 20:07 Dose: 50 mg Trazodone HCl (Trazodone Hcl 50 Mg Tablet) 50 mg PO BEDTIME PRN PRN Reason: Insomnia Last Admin: 08/07/24 03:17 Dose: 50 mg Allergies Allergies Allergy/AdvReac Type Severity Reaction Status Date / Time No Known Allergies Allergy Verified 07/18/24 21:28 Assessment & Plan Assessment & Plan (1) Major neurocognitive disorder: Status: Acute Code(s): F03.90 - Unspecified dementia, unspecified severity, without behavioral disturbance, psychotic disturbance, mood disturbance, and anxiety Plan Mr. Segura is a 73 year-old male with hx of dementia, appears AD type who was brought by family [place] [facility] due to increase combative behaviors attempting to choke while she was providing support with ADLs. He has also eloped home in the past, being loss for 6 hrs and then presenting with hypothermia. 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 Continue current medications including olanzapine 5mg po BID. Aricept at bedtime, instead of daily. PLAN 07/21 continue tx. 07/22 continue tx. on [id number] up on 07/23 may need to file. 07/23 continue tx. 07/24 switch olanzapine to seroquel as it appears more unsteady with olanzapine. encourage oral intake. 07/27 continue tx. 07/28 continue tx. 07/29 moved seroquel to 1200, 2100, monitor oversedation. Appeared brighter affect today, not combative. completed paperwork to [facility] for guardianship/conservatorship/erin s/s to advanced dementia. 07/30: resting post prandially. thirsty. continue current mgmt. 07/31: PMR, paucity of thought. continue current mgmt. 08/01: Patient mumbles some in audible things on inquiry; staff reports stable; continue treatment plan 08/02: No change in presentation; continue treatment plan 08/03 continue tx. guardianship and conservatorship filed, needed for placement at this time. 08/04 continue tx. 08/05 continue tx. 08/06 continue tx. 08/07 continue tx. 08/08: continue current management and treatment plan. 08/09: continue current management and treatment plan. 08/10: continue current management and treatment plan. 08/11 continue tx. 08/12 continue tx. 08/13 continue tx. 08/14 continue tx. 08/15 continue tx. 08/16 continue tx. 08/17 continue tx. 08/18 continue tx. 08/19 continue tx. ' 08/20 continue tx 08/21 continue tx.awaiting placement. Reason for continued inpatient stay Substantial Risk for: inability to function Time Spent With Patient Time: Total time managing care of this patient today ____ minutes.
[2024-08-21 20:00] VITALS: BP 112/58; PULSE 70; RESP 18; TEMP 36.6; O2SAT 94
[2024-08-22 07:55] VITALS: BP 105/72; PULSE 71; RESP 18; TEMP 36.8; O2SAT 97
--- NOTE | 2024-08-22 10:12 | P.PNPSI_ITS ---
Subjective Subjective Date of Service: 08/22/24 Reason For Visit: dementia w/ behavioral disturbance Interim History: i'm pretty good. seated in milieu watching ghost hunters. no questions or complaints. per staff, pleasant, calm. taking meds. sweet. Mental Status Exam Mental Status Exam Narrative: Appearance: wearing own attire, fair hygiene, in NAD Behavior: guarded Psychomotor: retardation noted Speech: mostly mumbling, regular rate/rhythm, soft tone, minimally spontaneous TP: poverty of thought TC: no complaints Mood: i'm pretty good Affect: blunted SI: none expressed HI: none expressed VH/AH: no overt signs Delusions: no overt signs Insight/judgment: impaired x 2. memory/cog: alert oriented only to person. Diagnostics Vital Signs (24Hr): Vital Signs - 24 hr 08/21/24 20:00 08/22/24 07:55 Temperature 97.9 F 98.2 F Pulse Rate 70 71 Respiratory Rate 18 18 Blood Pressure 112/58 L 105/72 Pulse Oximetry 94 97 Oxygen Delivery Method Room Air Room Air BMI result Body Mass Index 22.3 Labs 08/19/24 07:26 08/19/24 07:26 Medications Medications Current Medications Acetaminophen (Acetaminophen 325 Mg Tablet) 650 mg PO Q6H PRN PRN Reason: Headache/Pain, Scale 1-10 Last Admin: 07/22/24 21:33 Dose: 650 mg Al Hydroxide/Mg Hydroxide (Magnesium Hydrox/Alum Hydrox 30 Ml Oral.Susp) 30 ml PO Q6H PRN PRN Reason: Heartburn/Nausea Last Admin: 08/05/24 12:28 Dose: 30 ml Donepezil HCl (Donepezil Hcl 5 Mg Tablet) 5 mg PO BEDTIME [facility] Last Admin: 08/21/24 20:35 Dose: 5 mg Loperamide HCl (Loperamide Hcl 2 Mg Capsule) 2 mg PO Q4H PRN PRN Reason: Diarrhea Magnesium Hydroxide (Milk Of Magnesia 30 Ml Oral.Susp) 30 ml PO DAILY PRN PRN Reason: Constipation Memantine (Memantine Hcl 5 Mg Tablet) 5 mg PO DAILY [facility] Last Admin: 08/22/24 07:59 Dose: 5 mg Quetiapine Fumarate (Quetiapine Fumarate 50 Mg Tablet) 50 mg PO Q6H PRN PRN Reason: agitation Last Admin: 07/27/24 00:24 Dose: 50 mg Quetiapine Fumarate (Quetiapine Fumarate 50 Mg Tablet) 50 mg PO BID@1200,2100 [facility] Last Admin: 08/21/24 20:35 Dose: 50 mg Trazodone HCl (Trazodone Hcl 50 Mg Tablet) 50 mg PO BEDTIME PRN PRN Reason: Insomnia Last Admin: 08/07/24 03:17 Dose: 50 mg Allergies Allergies Allergy/AdvReac Type Severity Reaction Status Date / Time No Known Allergies Allergy Verified 07/18/24 21:28 Assessment & Plan Assessment & Plan (1) Major neurocognitive disorder: Status: Acute Code(s): F03.90 - Unspecified dementia, unspecified severity, without behavioral disturbance, psychotic disturbance, mood disturbance, and anxiety Plan Mr. Segura is a 73 year-old male with hx of dementia, appears AD type who was brought by family to [facility] due to increase combative behaviors attempting to choke while she was providing support with ADLs. He has also eloped home in the past, being loss for 6 hrs and then presenting with hypothermia. This manual writer attempted to call twice with no response nor able to leave message. Continue current medications including olanzapine 5mg po BID. Aricept at bedtime, instead of daily. PLAN 07/21 continue tx. 07/22 continue tx. on [id number] up on 07/23 may need to file. 07/23 continue tx. 07/24 switch olanzapine to seroquel as it appears more unsteady with olanzapine. encourage oral intake. 07/27 continue tx. 07/28 continue tx. 07/29 moved seroquel to 1200, 2100, monitor oversedation. Appeared brighter affect today, not combative. completed paperwork to [facility] for guardianship/conservatorship/erin s/s to advanced dementia. 07/30: resting post prandially. thirsty. continue current mgmt. 07/31: PMR, paucity of thought. continue current mgmt. 08/01: Patient mumbles some in audible things on inquiry; staff reports stable; continue treatment plan 08/02: No change in presentation; continue treatment plan 08/03 continue tx. guardianship and conservatorship filed, needed for placement at this time. 08/04 continue tx. 08/05 continue tx. 08/06 continue tx. 08/07 continue tx. 08/08: continue current management and treatment plan. 08/09: continue current management and treatment plan. 08/10: continue current management and treatment plan. 08/11 continue tx. 08/12 continue tx. 08/13 continue tx. 08/14 continue tx. 08/15 continue tx. 08/16 continue tx. 08/17 continue tx. 08/18 continue tx. 08/19 continue tx. ' 08/20 continue tx 08/21 continue tx.awaiting placement. 08/22: continue current mgmt. Reason for continued inpatient stay Substantial Risk for: inability to function Time Spent With Patient Time: Total time managing care of this patient today ____ minutes.
[2024-08-22 20:00] VITALS: BP 117/57; PULSE 71; RESP 18; TEMP 36.9; O2SAT 94
[2024-08-23 07:55] VITALS: BP 137/78; PULSE 73; RESP 18; TEMP 36.6; O2SAT 97
--- NOTE | 2024-08-23 15:40 | HO.PSYCHPN ---
Subjective Subjective Date of Service: 08/23/24 Reason For Visit: dementia w/ behavioral disturbance Interim History: no issues. watching TV. per staff, brighter, eating his own food and that of others. Mental Status Exam Mental Status Exam Narrative: Appearance: wearing own attire, fair hygiene, in NAD Behavior: guarded Psychomotor: retardation noted Speech: mostly mumbling, regular rate/rhythm, soft tone, minimally spontaneous TP: poverty of thought TC: no complaints Mood: i'm pretty good Affect: blunted SI: none expressed HI: none expressed VH/AH: no overt signs Delusions: no overt signs Insight/judgment: impaired x 2. memory/cog: alert oriented only to person. Diagnostics Vital Signs (24Hr): Vital Signs - 24 hr 08/22/24 20:00 08/23/24 07:55 Temperature 98.4 F 97.9 F Pulse Rate 71 73 Respiratory Rate 18 18 Blood Pressure 117/57 L 137/78 Pulse Oximetry 94 97 Oxygen Delivery Method Room Air Room Air BMI result Body Mass Index 22.3 Labs 08/19/24 07:26 08/19/24 07:26 Medications Medications Current Medications Acetaminophen (Acetaminophen 325 Mg Tablet) 650 mg PO Q6H PRN PRN Reason: Headache/Pain, Scale 1-10 Last Admin: 07/22/24 21:33 Dose: 650 mg Al Hydroxide/Mg Hydroxide (Magnesium Hydrox/Alum Hydrox 30 Ml Oral.Susp) 30 ml PO Q6H PRN PRN Reason: Heartburn/Nausea Last Admin: 08/05/24 12:28 Dose: 30 ml Donepezil HCl (Donepezil Hcl 5 Mg Tablet) 5 mg PO BEDTIME [facility] Last Admin: 08/22/24 20:28 Dose: 5 mg Loperamide HCl (Loperamide Hcl 2 Mg Capsule) 2 mg PO Q4H PRN PRN Reason: Diarrhea Magnesium Hydroxide (Milk Of Magnesia 30 Ml Oral.Susp) 30 ml PO DAILY PRN PRN Reason: Constipation Memantine (Memantine Hcl 5 Mg Tablet) 5 mg PO DAILY [facility] Last Admin: 08/23/24 08:09 Dose: 5 mg Quetiapine Fumarate (Quetiapine Fumarate 50 Mg Tablet) 50 mg PO Q6H PRN PRN Reason: agitation Last Admin: 07/27/24 00:24 Dose: 50 mg Quetiapine Fumarate (Quetiapine Fumarate 50 Mg Tablet) 50 mg PO BID@1200,2100 [facility] Last Admin: 08/23/24 11:36 Dose: 50 mg Trazodone HCl (Trazodone Hcl 50 Mg Tablet) 50 mg PO BEDTIME PRN PRN Reason: Insomnia Last Admin: 08/07/24 03:17 Dose: 50 mg Allergies Allergies Allergy/AdvReac Type Severity Reaction Status Date / Time No Known Allergies Allergy Verified 07/18/24 21:28 Assessment & Plan Assessment & Plan (1) Major neurocognitive disorder: Status: Acute Code(s): F03.90 - Unspecified dementia, unspecified severity, without behavioral disturbance, psychotic disturbance, mood disturbance, and anxiety Plan Mr. Segura is a 73 year-old male with hx of dementia, appears AD type who was [place] by [place] [facility] [place] to increase combative behaviors attempting to choke while she was providing support with ADLs. He has also eloped home in the past, being loss for 6 hrs and then presenting with hypothermia. 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 Continue current medications including olanzapine 5mg po BID. Aricept at bedtime, instead of daily. PLAN 07/21 continue tx. 07/22 continue tx. on [id number] up on 07/23 may need to file. 07/23 continue tx. 07/24 switch olanzapine to seroquel as it appears more unsteady with olanzapine. encourage oral intake. 07/27 continue tx. 07/28 continue tx. 07/29 moved seroquel to 1200, 2100, monitor oversedation. Appeared brighter affect today, not combative. completed paperwork to [facility] for guardianship/conservatorship/erin s/s to advanced dementia. 07/30: resting post prandially. thirsty. continue current mgmt. 07/31: PMR, paucity of thought. continue current mgmt. 08/01: Patient mumbles some in audible things on inquiry; staff reports stable; continue treatment plan 08/02: No change in presentation; continue treatment plan 08/03 continue tx. guardianship and conservatorship filed, needed for placement at this time. 08/04 continue tx. 08/05 continue tx. 08/06 continue tx. 08/07 continue tx. 08/08: continue current management and treatment plan. 08/09: continue current management and treatment plan. 08/10: continue current management and treatment plan. 08/11 continue tx. 08/12 continue tx. 08/13 continue tx. 08/14 continue tx. 08/15 continue tx. 08/16 continue tx. 08/17 continue tx. 08/18 continue tx. 08/19 continue tx. ' 08/20 continue tx 08/21 continue tx.awaiting placement. 08/22: continue current mgmt. 08/23: stable, continue current mgmt. Reason for continued inpatient stay Substantial Risk for: inability to function Time Spent With Patient Time: Total time managing care of this patient today ____ minutes.
[2024-08-23 20:00] VITALS: BP 107/54; PULSE 82; TEMP 37.1; O2SAT 97
[2024-08-24 08:00] VITALS: BP 116/68; PULSE 78; RESP 18; O2SAT 95
--- NOTE | 2024-08-24 09:26 | HO.PSYCHPN ---
Subjective Subjective Date of Service: 08/24/24 Reason For Visit: dementia w/ behavioral disturbance Subjective Notes: Section 7 Guardianship: Yes Interim History: Pt slept through the night. He is pleasant on approach. Does not speak much. No aggression towards self or others. VS stable. Medication Compliance: Yes Review of Systems Review of Systems Review of systems limited due to dementia. Yes Unobtainable due to mental status and Other (Dementia) Mental Status Exam Mental Status Exam Narrative: Appearance: wearing own attire, fair hygiene, in NAD Behavior: guarded Psychomotor: retardation noted Speech: mostly mumbling, regular rate/rhythm, soft tone, minimally spontaneous TP: poverty of thought TC: no complaints Mood: i'm pretty good Affect: blunted SI: none expressed HI: none expressed VH/AH: no overt signs Delusions: no overt signs Insight/judgment: impaired x 2. memory/cog: alert oriented only to person. Diagnostics Vital Signs (24Hr): Vital Signs - 24 hr 08/23/24 20:00 08/24/24 08:00 Temperature 98.8 F Pulse Rate 82 78 Respiratory Rate 18 Blood Pressure 107/54 L 116/68 Pulse Oximetry 97 95 Oxygen Delivery Method Room Air Room Air BMI result Body Mass Index 22.3 Labs 08/19/24 07:26 08/19/24 07:26 Medications Medications Current Medications Acetaminophen (Acetaminophen 325 Mg Tablet) 650 mg PO Q6H PRN PRN Reason: Headache/Pain, Scale 1-10 Last Admin: 07/22/24 21:33 Dose: 650 mg Al Hydroxide/Mg Hydroxide (Magnesium Hydrox/Alum Hydrox 30 Ml Oral.Susp) 30 ml PO Q6H PRN PRN Reason: Heartburn/Nausea Last Admin: 08/05/24 12:28 Dose: 30 ml Donepezil HCl (Donepezil Hcl 5 Mg Tablet) 5 mg PO BEDTIME [facility] Last Admin: 08/23/24 19:59 Dose: 5 mg Loperamide HCl (Loperamide Hcl 2 Mg Capsule) 2 mg PO Q4H PRN PRN Reason: Diarrhea Magnesium Hydroxide (Milk Of Magnesia 30 Ml Oral.Susp) 30 ml PO DAILY PRN PRN Reason: Constipation Memantine (Memantine Hcl 5 Mg Tablet) 5 mg PO DAILY [facility] Last Admin: 08/24/24 08:39 Dose: 5 mg Quetiapine Fumarate (Quetiapine Fumarate 50 Mg Tablet) 50 mg PO Q6H PRN PRN Reason: agitation Last Admin: 07/27/24 00:24 Dose: 50 mg Quetiapine Fumarate (Quetiapine Fumarate 50 Mg Tablet) 50 mg PO BID@1200,2100 [facility] Last Admin: 08/23/24 19:59 Dose: 50 mg Trazodone HCl (Trazodone Hcl 50 Mg Tablet) 50 mg PO BEDTIME PRN PRN Reason: Insomnia Last Admin: 08/07/24 03:17 Dose: 50 mg Allergies Allergies Allergy/AdvReac Type Severity Reaction Status Date / Time No Known Allergies Allergy Verified 07/18/24 21:28 Assessment & Plan Assessment & Plan (1) Major neurocognitive disorder: Status: Acute Code(s): F03.90 - Unspecified dementia, unspecified severity, without behavioral disturbance, psychotic disturbance, mood disturbance, and anxiety Plan Mr. Segura is a 73 year-old male with hx of dementia, appears AD type who was brought by family to [facility] [place] [facility] due to increase combative behaviors attempting to choke while she was providing support with ADLs. He has also eloped home in the past, being loss for 6 hrs and then presenting with hypothermia. 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 Continue current medications including olanzapine 5mg po BID. Aricept at bedtime, instead of daily. PLAN 07/21 continue tx. 07/22 continue tx. on [id number] up on 07/23 may need to file. 07/23 continue tx. 07/24 switch olanzapine to seroquel as it appears more unsteady with olanzapine. encourage oral intake. 07/27 continue tx. 07/28 continue tx. 07/29 moved seroquel to 1200, 2100, monitor oversedation. Appeared brighter affect today, not combative. completed paperwork to [facility] for guardianship/conservatorship/erin s/s to advanced dementia. 07/30: resting post prandially. thirsty. continue current mgmt. 07/31: PMR, paucity of thought. continue current mgmt. 08/01: Patient mumbles some in audible things on inquiry; staff reports stable; continue treatment plan 08/02: No change in presentation; continue treatment plan 08/03 continue tx. guardianship and conservatorship filed, needed for placement at this time. 08/04 continue tx. 08/05 continue tx. 08/06 continue tx. 08/07 continue tx. 08/08: continue current management and treatment plan. 08/09: continue current management and treatment plan. 08/10: continue current management and treatment plan. 08/11 continue tx. 08/12 continue tx. 08/13 continue tx. 08/14 continue tx. 08/15 continue tx. 08/16 continue tx. 08/17 continue tx. 08/18 continue tx. 08/19 continue tx. ' 08/20 continue tx 08/21 continue tx.awaiting placement. 08/22: continue current mgmt. 08/23: stable, continue current mgmt. 08/24 continue tx. Reason for continued inpatient stay Substantial Risk for: inability to function Time Spent With Patient Time: Total time managing care of this patient today ____ minutes.
--- NOTE | 2024-08-24 18:17 | PC.NURSE ---
Pt has BL ankle non-pitting edema. Reported to banquet set up person provider.
[2024-08-24 20:00] VITALS: BP 94/50; PULSE 69; TEMP 37.4; O2SAT 95
[2024-08-25 07:00] VITALS: BP 125/62; PULSE 64; RESP 18; TEMP 36.4; O2SAT 97
--- NOTE | 2024-08-25 11:02 | P.PNPSI_ITS ---
Subjective Subjective Date of Service: 08/25/24 Reason For Visit: dementia w/ behavioral disturbance Subjective Notes: Section 7 Guardianship: Yes Interim History: Pt slept through the night. He is pleasant on approach. Does not speak much. No aggression towards self or others. VS stable. confused. Review of Systems Review of Systems Review of systems limited due to dementia. Yes Unobtainable due to mental status and Other (Dementia) Mental Status Exam Mental Status Exam Narrative: Appearance: wearing own attire, fair hygiene, in NAD Behavior: guarded Psychomotor: retardation noted Speech: mostly mumbling, regular rate/rhythm, soft tone, minimally spontaneous TP: poverty of thought TC: no complaints Mood: i'm pretty good Affect: blunted SI: none expressed HI: none expressed VH/AH: no overt signs Delusions: no overt signs Insight/judgment: impaired x 2. memory/cog: alert oriented only to person. Diagnostics Vital Signs (24Hr): Vital Signs - 24 hr 08/24/24 20:00 08/25/24 07:00 Temperature 99.3 F 97.6 F Pulse Rate 69 64 Respiratory Rate 18 Blood Pressure 94/50 L 125/62 Pulse Oximetry 95 97 Oxygen Delivery Method Room Air Room Air BMI result Body Mass Index 22.3 Labs 08/19/24 07:26 08/19/24 07:26 Medications Medications Current Medications Acetaminophen (Acetaminophen 325 Mg Tablet) 650 mg PO Q6H PRN PRN Reason: Headache/Pain, Scale 1-10 Last Admin: 07/22/24 21:33 Dose: 650 mg Al Hydroxide/Mg Hydroxide (Magnesium Hydrox/Alum Hydrox 30 Ml Oral.Susp) 30 ml PO Q6H PRN PRN Reason: Heartburn/Nausea Last Admin: 08/05/24 12:28 Dose: 30 ml Donepezil HCl (Donepezil Hcl 5 Mg Tablet) 5 mg PO BEDTIME [facility] Last Admin: 08/24/24 20:57 Dose: 5 mg Loperamide HCl (Loperamide Hcl 2 Mg Capsule) 2 mg PO Q4H PRN PRN Reason: Diarrhea Magnesium Hydroxide (Milk Of Magnesia 30 Ml Oral.Susp) 30 ml PO DAILY PRN PRN Reason: Constipation Memantine (Memantine Hcl 5 Mg Tablet) 5 mg PO DAILY [facility] Last Admin: 08/25/24 08:12 Dose: 5 mg Quetiapine Fumarate (Quetiapine Fumarate 50 Mg Tablet) 50 mg PO Q6H PRN PRN Reason: agitation Last Admin: 07/27/24 00:24 Dose: 50 mg Quetiapine Fumarate (Quetiapine Fumarate 50 Mg Tablet) 50 mg PO BID@1200,2100 [facility] Last Admin: 08/24/24 20:57 Dose: 50 mg Trazodone HCl (Trazodone Hcl 50 Mg Tablet) 50 mg PO BEDTIME PRN PRN Reason: Insomnia Last Admin: 08/07/24 03:17 Dose: 50 mg Allergies Allergies Allergy/AdvReac Type Severity Reaction Status Date / Time No Known Allergies Allergy Verified 07/18/24 21:28 Assessment & Plan Assessment & Plan (1) Major neurocognitive disorder: Status: Acute Code(s): F03.90 - Unspecified dementia, unspecified severity, without behavioral disturbance, psychotic disturbance, mood disturbance, and anxiety Plan Mr. Segura is a 73 year-old male with hx of dementia, appears AD type who was brought by family [place] [facility] due to increase combative behaviors attempting to choke while she was providing support with ADLs. He has also eloped home in the past, being loss for 6 hrs and then presenting with hypothermia. This technical writer attempted to call twice with no response nor able to leave message. Continue current medications including olanzapine 5mg po BID. Aricept at bedtime, instead of daily. PLAN 07/21 continue tx. 07/22 continue tx. on [id number] up on 07/23 may need to file. 07/23 continue tx. 07/24 switch olanzapine to seroquel as it appears more unsteady with olanzapine. encourage oral intake. 07/27 continue tx. 07/28 continue tx. 07/29 moved seroquel to 1200, 2100, monitor oversedation. Appeared brighter affect today, not combative. completed paperwork to [facility] for guardianship/conservatorship/erin s/s to advanced dementia. 07/30: resting post prandially. thirsty. continue current mgmt. 07/31: PMR, paucity of thought. continue current mgmt. 08/01: Patient mumbles some in audible things on inquiry; staff reports stable; continue treatment plan 08/02: No change in presentation; continue treatment plan 08/03 continue tx. guardianship and conservatorship filed, needed for placement at this time. 08/04 continue tx. 08/05 continue tx. 08/06 continue tx. 08/07 continue tx. 08/08: continue current management and treatment plan. 08/09: continue current management and treatment plan. 08/10: continue current management and treatment plan. 08/11 continue tx. 08/12 continue tx. 08/13 continue tx. 08/14 continue tx. 08/15 continue tx. 08/16 continue tx. 08/17 continue tx. 08/18 continue tx. 08/19 continue tx. ' 08/20 continue tx 08/21 continue tx.awaiting placement. 08/22: continue current mgmt. 08/23: stable, continue current mgmt. 08/24 continue tx. 08/25 continue tx. Reason for continued inpatient stay Substantial Risk for: inability to function Time Spent With Patient Time: Total time managing care of this patient today ____ minutes.
[2024-08-25 19:41] VITALS: BP 107/53; PULSE 77; RESP 16; TEMP 37; O2SAT 97
[2024-08-26 08:00] VITALS: BP 122/68; PULSE 76; RESP 18; TEMP 36.8; O2SAT 97
[2024-08-26 20:00] VITALS: BP 126/57; PULSE 69; RESP 16; TEMP 37.3; O2SAT 98
--- NOTE | 2024-08-26 20:57 | HO.PSYCHPN ---
Subjective Subjective Date of Service: 08/26/24 Reason For Visit: dementia w/ behavioral disturbance Interim History: Pt slept through the night. He is pleasant on approach. Does not speak much. No aggression towards self or others. VS stable. confused. Review of Systems Review of Systems Review of systems limited due to dementia. Yes Unobtainable due to mental status and Other (Dementia) Mental Status Exam Mental Status Exam Narrative: Appearance: wearing own attire, fair hygiene, in NAD Behavior: guarded Psychomotor: retardation noted Speech: mostly mumbling, regular rate/rhythm, soft tone, minimally spontaneous TP: poverty of thought TC: no complaints Mood: i'm pretty good Affect: blunted SI: none expressed HI: none expressed VH/AH: no overt signs Delusions: no overt signs Insight/judgment: impaired x 2. memory/cog: alert oriented only to person. Diagnostics Vital Signs (24Hr): Vital Signs - 24 hr 08/26/24 08:00 08/26/24 20:00 Temperature 98.2 F 99.1 F Pulse Rate 76 69 Respiratory Rate 18 16 Blood Pressure 122/68 126/57 L Pulse Oximetry 97 98 Oxygen Delivery Method Room Air Room Air BMI result Body Mass Index 22.3 Labs 08/19/24 07:26 08/19/24 07:26 Medications Medications Current Medications Acetaminophen (Acetaminophen 325 Mg Tablet) 650 mg PO Q6H PRN PRN Reason: Headache/Pain, Scale 1-10 Last Admin: 07/22/24 21:33 Dose: 650 mg Al Hydroxide/Mg Hydroxide (Magnesium Hydrox/Alum Hydrox 30 Ml Oral.Susp) 30 ml PO Q6H PRN PRN Reason: Heartburn/Nausea Last Admin: 08/05/24 12:28 Dose: 30 ml Donepezil HCl (Donepezil Hcl 5 Mg Tablet) 5 mg PO BEDTIME ADITYA Last Admin: 08/26/24 20:48 Dose: 5 mg Loperamide HCl (Loperamide Hcl 2 Mg Capsule) 2 mg PO Q4H PRN PRN Reason: Diarrhea Magnesium Hydroxide (Milk Of Magnesia 30 Ml Oral.Susp) 30 ml PO DAILY PRN PRN Reason: Constipation Memantine (Memantine Hcl 5 Mg Tablet) 5 mg PO DAILY ADITYA Last Admin: 08/26/24 08:09 Dose: 5 mg Quetiapine Fumarate (Quetiapine Fumarate 50 Mg Tablet) 50 mg PO Q6H PRN PRN Reason: agitation Last Admin: 07/27/24 00:24 Dose: 50 mg Quetiapine Fumarate (Quetiapine Fumarate 50 Mg Tablet) 50 mg PO BID@1200,2100 ADITYA Last Admin: 08/26/24 20:48 Dose: 50 mg Trazodone HCl (Trazodone Hcl 50 Mg Tablet) 50 mg PO BEDTIME PRN PRN Reason: Insomnia Last Admin: 08/07/24 03:17 Dose: 50 mg Allergies Allergies Allergy/AdvReac Type Severity Reaction Status Date / Time No Known Allergies Allergy Verified 07/18/24 21:28 Assessment & Plan Assessment & Plan (1) Major neurocognitive disorder: Status: Acute Code(s): F03.90 - Unspecified dementia, unspecified severity, without behavioral disturbance, psychotic disturbance, mood disturbance, and anxiety Plan Mr. Segura is a 73 year-old male with hx of dementia, appears AD type who was brought by family to [facility] ED due to increase combative behaviors attempting to choke while she was providing support with ADLs. He has also eloped home in the past, being loss for 6 hrs and then presenting with hypothermia. 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 Continue current medications including olanzapine 5mg po BID. Aricept at bedtime, instead of daily. PLAN 07/21 continue tx. 07/22 continue tx. on [id number] up on 07/23 may need to file. 07/23 continue tx. 07/24 switch olanzapine to seroquel as it appears more unsteady with olanzapine. encourage oral intake. 07/27 continue tx. 07/28 continue tx. 07/29 moved seroquel to 1200, 2100, monitor oversedation. Appeared brighter affect today, not combative. completed paperwork to will for guardianship/conservatorship/erin s/s to advanced dementia. 07/30: resting post prandially. thirsty. continue current mgmt. 07/31: PMR, paucity of thought. continue current mgmt. 08/01: Patient mumbles some in audible things on inquiry; staff reports stable; continue treatment plan 08/02: No change in presentation; continue treatment plan 08/03 continue tx. guardianship and conservatorship filed, needed for placement at this time. 08/04 continue tx. 08/05 continue tx. 08/06 continue tx. 08/07 continue tx. 08/08: continue current management and treatment plan. 08/09: continue current management and treatment plan. 08/10: continue current management and treatment plan. 08/11 continue tx. 08/12 continue tx. 08/13 continue tx. 08/14 continue tx. 08/15 continue tx. 08/16 continue tx. 08/17 continue tx. 08/18 continue tx. 08/19 continue tx. ' 08/20 continue tx 08/21 continue tx.awaiting placement. 08/22: continue current mgmt. 08/23: stable, continue current mgmt. 08/24 continue tx. 08/25 continue tx. 08/26 continue tx. Reason for continued inpatient stay Substantial Risk for: inability to function Time Spent With Patient Time: Total time managing care of this patient today ____ minutes.
--- NOTE | 2024-08-27 07:47 | HO.PSYCHPN ---
Subjective Subjective Date of Service: 08/27/24 Reason For Visit: dementia w/ behavioral disturbance Subjective Notes: Section 7 Guardianship: Yes Interim History: Pt slept through the night. No change. He is pleasant on approach. Does not speak much. No aggression towards self or others. VS stable. confused. Review of Systems Review of Systems Review of systems limited due to dementia. Yes Unobtainable due to mental status and Other (Dementia) Mental Status Exam Mental Status Exam Narrative: Appearance: wearing own attire, fair hygiene, in NAD Behavior: guarded Psychomotor: retardation noted Speech: mostly mumbling, regular rate/rhythm, soft tone, minimally spontaneous TP: poverty of thought TC: no complaints Mood: i'm pretty good Affect: blunted SI: none expressed HI: none expressed VH/AH: no overt signs Delusions: no overt signs Insight/judgment: impaired x 2. memory/cog: alert oriented only to person. Diagnostics Vital Signs (24Hr): Vital Signs - 24 hr 08/26/24 08:00 08/26/24 20:00 Temperature 98.2 F 99.1 F Pulse Rate 76 69 Respiratory Rate 18 16 Blood Pressure 122/68 126/57 L Pulse Oximetry 97 98 Oxygen Delivery Method Room Air Room Air BMI result Body Mass Index 22.3 Labs 08/19/24 07:26 08/19/24 07:26 Medications Medications Current Medications Acetaminophen (Acetaminophen 325 Mg Tablet) 650 mg PO Q6H PRN PRN Reason: Headache/Pain, Scale 1-10 Last Admin: 07/22/24 21:33 Dose: 650 mg Al Hydroxide/Mg Hydroxide (Magnesium Hydrox/Alum Hydrox 30 Ml Oral.Susp) 30 ml PO Q6H PRN PRN Reason: Heartburn/Nausea Last Admin: 08/05/24 12:28 Dose: 30 ml Donepezil HCl (Donepezil Hcl 5 Mg Tablet) 5 mg PO BEDTIME ADITYA Last Admin: 08/26/24 20:48 Dose: 5 mg Loperamide HCl (Loperamide Hcl 2 Mg Capsule) 2 mg PO Q4H PRN PRN Reason: Diarrhea Magnesium Hydroxide (Milk Of Magnesia 30 Ml Oral.Susp) 30 ml PO DAILY PRN PRN Reason: Constipation Memantine (Memantine Hcl 5 Mg Tablet) 5 mg PO DAILY ADITYA Last Admin: 08/26/24 08:09 Dose: 5 mg Quetiapine Fumarate (Quetiapine Fumarate 50 Mg Tablet) 50 mg PO Q6H PRN PRN Reason: agitation Last Admin: 07/27/24 00:24 Dose: 50 mg Quetiapine Fumarate (Quetiapine Fumarate 50 Mg Tablet) 50 mg PO BID@1200,2100 ADITYA Last Admin: 08/26/24 20:48 Dose: 50 mg Trazodone HCl (Trazodone Hcl 50 Mg Tablet) 50 mg PO BEDTIME PRN PRN Reason: Insomnia Last Admin: 08/07/24 03:17 Dose: 50 mg Allergies Allergies Allergy/AdvReac Type Severity Reaction Status Date / Time No Known Allergies Allergy Verified 07/18/24 21:28 Assessment & Plan Assessment & Plan (1) Major neurocognitive disorder: Status: Acute Code(s): F03.90 - Unspecified dementia, unspecified severity, without behavioral disturbance, psychotic disturbance, mood disturbance, and anxiety Plan Mr. Segura is a 73 year-old male with hx of dementia, appears AD type who was brought by family to [facility] due to increase combative behaviors attempting to choke while she was providing support with ADLs. He has also eloped home in the past, being loss for 6 hrs and then presenting with hypothermia. 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 Continue current medications including olanzapine 5mg po BID. Aricept at bedtime, instead of daily. PLAN 07/21 continue tx. 07/22 continue tx. on [id number] up on 07/23 may need to file. 07/23 continue tx. 07/24 switch olanzapine to seroquel as it appears more unsteady with olanzapine. encourage oral intake. 07/27 continue tx. 07/28 continue tx. 07/29 moved seroquel to 1200, 2100, monitor oversedation. Appeared brighter affect today, not combative. completed paperwork to e for guardianship/conservatorship/erin s/s to advanced dementia. 07/30: resting post prandially. thirsty. continue current mgmt. 07/31: PMR, paucity of thought. continue current mgmt. 08/01: Patient mumbles some in audible things on inquiry; staff reports stable; continue treatment plan 08/02: No change in presentation; continue treatment plan 08/03 continue tx. guardianship and conservatorship filed, needed for placement at this time. 08/04 continue tx. 08/05 continue tx. 08/06 continue tx. 08/07 continue tx. 08/08: continue current management and treatment plan. 08/09: continue current management and treatment plan. 08/10: continue current management and treatment plan. 08/11 continue tx. 08/12 continue tx. 08/13 continue tx. 08/14 continue tx. 08/15 continue tx. 08/16 continue tx. 08/17 continue tx. 08/18 continue tx. 08/19 continue tx. ' 08/20 continue tx 08/21 continue tx.awaiting placement. 08/22: continue current mgmt. 08/23: stable, continue current mgmt. 08/24 continue tx. 08/25 continue tx. 08/26 continue tx. 08/27 continue tx. Reason for continued inpatient stay Substantial Risk for: inability to function Time Spent With Patient Time: Total time managing care of this patient today ____ minutes.
[2024-08-27 08:29] VITALS: BP 122/65; PULSE 70; RESP 16; TEMP 36.8; O2SAT 99
[2024-08-27 11:20] VITALS: BMI 23.1
[2024-08-27 19:47] VITALS: BP 146/88; PULSE 66; RESP 15; TEMP 36.7; O2SAT 96
[2024-08-28 08:00] VITALS: BP 104/58; PULSE 63; RESP 14; TEMP 36.4; O2SAT 93
--- NOTE | 2024-08-28 09:24 | P.PNPSI_ITS ---
Subjective Subjective Date of Service: 08/28/24 Reason For Visit: dementia w/ behavioral disturbance Interim History: Pt slept through the night. No change. He is pleasant on approach. Does not speak much. No aggression towards self or others. VS stable. confused. Review of Systems Review of Systems Review of systems limited due to dementia. Yes Unobtainable due to mental status and Other (Dementia) Mental Status Exam Mental Status Exam Narrative: Appearance: wearing own attire, fair hygiene, in NAD Behavior: guarded Psychomotor: retardation noted Speech: mostly mumbling, regular rate/rhythm, soft tone, minimally spontaneous TP: poverty of thought TC: no complaints Mood: i'm pretty good Affect: blunted SI: none expressed HI: none expressed VH/AH: no overt signs Delusions: no overt signs Insight/judgment: impaired x 2. memory/cog: alert oriented only to person. Diagnostics Vital Signs (24Hr): Vital Signs - 24 hr 08/27/24 19:47 Temperature 98.1 F Pulse Rate 66 Respiratory Rate 15 Blood Pressure 146/88 H Pulse Oximetry 96 Oxygen Delivery Method Room Air BMI result Body Mass Index 23.1 Labs 08/19/24 07:26 08/19/24 07:26 Medications Medications Current Medications Acetaminophen (Acetaminophen 325 Mg Tablet) 650 mg PO Q6H PRN PRN Reason: Headache/Pain, Scale 1-10 Last Admin: 07/22/24 21:33 Dose: 650 mg Al Hydroxide/Mg Hydroxide (Magnesium Hydrox/Alum Hydrox 30 Ml Oral.Susp) 30 ml PO Q6H PRN PRN Reason: Heartburn/Nausea Last Admin: 08/05/24 12:28 Dose: 30 ml Donepezil HCl (Donepezil Hcl 5 Mg Tablet) 5 mg PO BEDTIME [facility] Last Admin: 08/27/24 19:49 Dose: 5 mg Loperamide HCl (Loperamide Hcl 2 Mg Capsule) 2 mg PO Q4H PRN PRN Reason: Diarrhea Magnesium Hydroxide (Milk Of Magnesia 30 Ml Oral.Susp) 30 ml PO DAILY PRN PRN Reason: Constipation Memantine (Memantine Hcl 5 Mg Tablet) 5 mg PO DAILY ADITYA Last Admin: 08/28/24 08:30 Dose: 5 mg Quetiapine Fumarate (Quetiapine Fumarate 50 Mg Tablet) 50 mg PO Q6H PRN PRN Reason: agitation Last Admin: 07/27/24 00:24 Dose: 50 mg Quetiapine Fumarate (Quetiapine Fumarate 50 Mg Tablet) 50 mg PO BID@1200,2100 ADITYA Last Admin: 08/27/24 19:49 Dose: 50 mg Trazodone HCl (Trazodone Hcl 50 Mg Tablet) 50 mg PO BEDTIME PRN PRN Reason: Insomnia Last Admin: 08/07/24 03:17 Dose: 50 mg Allergies Allergies Allergy/AdvReac Type Severity Reaction Status Date / Time No Known Allergies Allergy Verified 07/18/24 21:28 Assessment & Plan Assessment & Plan (1) Major neurocognitive disorder: Status: Acute Code(s): F03.90 - Unspecified dementia, unspecified severity, without behavioral disturbance, psychotic disturbance, mood disturbance, and anxiety Plan Mr. Segura is a 73 year-old male with hx of dementia, appears AD type who was brought by family [place] [facility] due to increase combative behaviors attempting to choke while she was providing support with ADLs. He has also eloped home in the past, being loss for 6 hrs and then presenting with hypothermia. 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 Continue current medications including olanzapine 5mg po BID. Aricept at bedtime, instead of daily. PLAN 07/21 continue tx. 07/22 continue tx. on [id number] up on 07/23 may need to file. 07/23 continue tx. 07/24 switch olanzapine to seroquel as it appears more unsteady with olanzapine. encourage oral intake. 07/27 continue tx. 07/28 continue tx. 07/29 moved seroquel to 1200, 2100, monitor oversedation. Appeared brighter affect today, not combative. completed paperwork to will for guardianship/conservatorship/erin s/s to advanced dementia. 07/30: resting post prandially. thirsty. continue current mgmt. 07/31: PMR, paucity of thought. continue current mgmt. 08/01: Patient mumbles some in audible things on inquiry; staff reports stable; continue treatment plan 08/02: No change in presentation; continue treatment plan 08/03 continue tx. guardianship and conservatorship filed, needed for placement at this time. 08/04 continue tx. 08/05 continue tx. 08/06 continue tx. 08/07 continue tx. 08/08: continue current management and treatment plan. 08/09: continue current management and treatment plan. 08/10: continue current management and treatment plan. 08/11 continue tx. 08/12 continue tx. 08/13 continue tx. 08/14 continue tx. 08/15 continue tx. 08/16 continue tx. 08/17 continue tx. 08/18 continue tx. 08/19 continue tx. ' 08/20 continue tx 08/21 continue tx.awaiting placement. 08/22: continue current mgmt. 08/23: stable, continue current mgmt. 08/24 continue tx. 08/25 continue tx. 08/26 continue tx. 08/27 continue tx. 08/28 continue tx. Reason for continued inpatient stay Substantial Risk for: inability to function Time Spent With Patient Time: Total time managing care of this patient today ____ minutes.
[2024-08-28 19:55] VITALS: BP 133/60; PULSE 69; RESP 15; TEMP 36.9; O2SAT 95
[2024-08-29 09:05] VITALS: BP 131/78; PULSE 72; RESP 18; TEMP 36.4; O2SAT 100
[2024-08-29 20:00] VITALS: BP 115/55; PULSE 75; RESP 18; TEMP 37; O2SAT 98
--- NOTE | 2024-08-29 23:21 | HO.PSYCHPN ---
Subjective Subjective Date of Service: 08/29/24 Reason For Visit: dementia w/ behavioral disturbance Interim History: on approach pt sleeping and sports book writer thought best to let him continue to do so staff reports no change in presentation Vitals WNL Mental Status Exam Mental Status Exam Narrative: currently sleeping on approach Appearance: wearing own attire, fair hygiene, in NAD Behavior: guarded Psychomotor: retardation noted Speech: mostly mumbling, regular rate/rhythm, soft tone, minimally spontaneous TP: poverty of thought TC: no complaints Mood: Affect: blunted SI: none expressed HI: none expressed VH/AH: no overt signs Delusions: no overt signs Insight/judgment: impaired x 2. memory/cog: alert oriented only to person. Diagnostics Vital Signs (24Hr): Vital Signs - 24 hr 08/29/24 09:05 08/29/24 20:00 Temperature 97.5 F 98.6 F Pulse Rate 72 75 Respiratory Rate 18 18 Blood Pressure 131/78 115/55 L Pulse Oximetry 100 98 Oxygen Delivery Method Room Air Room Air BMI result Body Mass Index 23.1 Labs 08/19/24 07:26 08/19/24 07:26 Medications Medications Current Medications Acetaminophen (Acetaminophen 325 Mg Tablet) 650 mg PO Q6H PRN PRN Reason: Headache/Pain, Scale 1-10 Last Admin: 07/22/24 21:33 Dose: 650 mg Al Hydroxide/Mg Hydroxide (Magnesium Hydrox/Alum Hydrox 30 Ml Oral.Susp) 30 ml PO Q6H PRN PRN Reason: Heartburn/Nausea Last Admin: 08/05/24 12:28 Dose: 30 ml Donepezil HCl (Donepezil Hcl 5 Mg Tablet) 5 mg PO BEDTIME ADITYA Last Admin: 08/29/24 21:08 Dose: 5 mg Loperamide HCl (Loperamide Hcl 2 Mg Capsule) 2 mg PO Q4H PRN PRN Reason: Diarrhea Magnesium Hydroxide (Milk Of Magnesia 30 Ml Oral.Susp) 30 ml PO DAILY PRN PRN Reason: Constipation Memantine (Memantine Hcl 5 Mg Tablet) 5 mg PO DAILY [facility] Last Admin: 08/29/24 09:08 Dose: 5 mg Quetiapine Fumarate (Quetiapine Fumarate 50 Mg Tablet) 50 mg PO Q6H PRN PRN Reason: agitation Last Admin: 07/27/24 00:24 Dose: 50 mg Quetiapine Fumarate (Quetiapine Fumarate 50 Mg Tablet) 50 mg PO BID@1200,2100 ADITYA Last Admin: 08/29/24 21:08 Dose: 50 mg Trazodone HCl (Trazodone Hcl 50 Mg Tablet) 50 mg PO BEDTIME PRN PRN Reason: Insomnia Last Admin: 08/07/24 03:17 Dose: 50 mg Allergies Allergies Allergy/AdvReac Type Severity Reaction Status Date / Time No Known Allergies Allergy Verified 07/18/24 21:28 Assessment & Plan Assessment & Plan (1) Major neurocognitive disorder: Status: Acute Code(s): F03.90 - Unspecified dementia, unspecified severity, without behavioral disturbance, psychotic disturbance, mood disturbance, and anxiety Plan Mr. Segura is a 73 year-old male with hx of dementia, appears AD type who was brought by family to [facility] ED due to increase combative behaviors attempting to choke while she was providing support with ADLs. He has also eloped home in the past, being loss for 6 hrs and then presenting with hypothermia. This sports book writer attempted to call twice with no response nor able to leave message. Continue current medications including olanzapine 5mg po BID. Aricept at bedtime, instead of daily. PLAN 07/21 continue tx. 07/22 continue tx. on [id number] up on 07/23 may need to file. 07/23 continue tx. 07/24 switch olanzapine to seroquel as it appears more unsteady with olanzapine. encourage oral intake. 07/27 continue tx. 07/28 continue tx. 07/29 moved seroquel to 1200, 2100, monitor oversedation. Appeared brighter affect today, not combative. completed paperwork to [employer] for guardianship/conservatorship/erin s/s to advanced dementia. 07/30: resting post prandially. thirsty. continue current mgmt. 07/31: PMR, paucity of thought. continue current mgmt. 08/01: Patient mumbles some in audible things on inquiry; staff reports stable; continue treatment plan 08/02: No change in presentation; continue treatment plan 08/03 continue tx. guardianship and conservatorship filed, needed for placement at this time. 08/21 continue tx.awaiting placement. 08/22: continue current mgmt. 08/23: stable, continue current mgmt. 08/28 continue tx 08/29 continue tx plan. Reason for continued inpatient stay Substantial Risk for: inability to function Time Spent With Patient Time: Total time managing care of this patient today ____ minutes.
[2024-08-30 10:10] VITALS: BP 117/64; PULSE 63; RESP 18; TEMP 36.4; O2SAT 98
--- NOTE | 2024-08-30 13:46 | HO.PSYCHPN ---
Subjective Subjective Date of Service: 08/30/24 Reason For Visit: dementia w/ behavioral disturbance Interim History: Met with patient; discussed with team Patient no change in presentation. Says hello. Otherwise difficult with which to engage. Discussed further with nursing who feels patient is okay to go to 15 Mental Status Exam Mental Status Exam Narrative: currently sleeping on approach Appearance: wearing own attire, fair hygiene, in NAD Behavior: guarded Psychomotor: retardation noted Speech: mostly mumbling, regular rate/rhythm, soft tone, minimally spontaneous TP: poverty of thought TC: no complaints Mood: Affect: blunted SI: none expressed HI: none expressed VH/AH: no overt signs Delusions: no overt signs Insight/judgment: impaired x 2. memory/cog: alert oriented only to person. Diagnostics Vital Signs (24Hr): Vital Signs - 24 hr 08/29/24 20:00 08/30/24 10:10 Temperature 98.6 F 97.5 F Pulse Rate 75 63 Respiratory Rate 18 18 Blood Pressure 115/55 L 117/64 Pulse Oximetry 98 98 Oxygen Delivery Method Room Air Room Air BMI result Body Mass Index 23.1 Labs 08/19/24 07:26 08/19/24 07:26 Medications Medications Current Medications Acetaminophen (Acetaminophen 325 Mg Tablet) 650 mg PO Q6H PRN PRN Reason: Headache/Pain, Scale 1-10 Last Admin: 07/22/24 21:33 Dose: 650 mg Al Hydroxide/Mg Hydroxide (Magnesium Hydrox/Alum Hydrox 30 Ml Oral.Susp) 30 ml PO Q6H PRN PRN Reason: Heartburn/Nausea Last Admin: 08/05/24 12:28 Dose: 30 ml Donepezil HCl (Donepezil Hcl 5 Mg Tablet) 5 mg PO BEDTIME ADITYA Last Admin: 08/29/24 21:08 Dose: 5 mg Loperamide HCl (Loperamide Hcl 2 Mg Capsule) 2 mg PO Q4H PRN PRN Reason: Diarrhea Magnesium Hydroxide (Milk Of Magnesia 30 Ml Oral.Susp) 30 ml PO DAILY PRN PRN Reason: Constipation Memantine (Memantine Hcl 5 Mg Tablet) 5 mg PO DAILY ADITYA Last Admin: 08/30/24 10:15 Dose: 5 mg Quetiapine Fumarate (Quetiapine Fumarate 50 Mg Tablet) 50 mg PO Q6H PRN PRN Reason: agitation Last Admin: 07/27/24 00:24 Dose: 50 mg Quetiapine Fumarate (Quetiapine Fumarate 50 Mg Tablet) 50 mg PO BID@1200,2100 ADITYA Last Admin: 08/30/24 11:56 Dose: 50 mg Trazodone HCl (Trazodone Hcl 50 Mg Tablet) 50 mg PO BEDTIME PRN PRN Reason: Insomnia Last Admin: 08/07/24 03:17 Dose: 50 mg Allergies Allergies Allergy/AdvReac Type Severity Reaction Status Date / Time No Known Allergies Allergy Verified 07/18/24 21:28 Assessment & Plan Assessment & Plan (1) Major neurocognitive disorder: Status: Acute Code(s): F03.90 - Unspecified dementia, unspecified severity, without behavioral disturbance, psychotic disturbance, mood disturbance, and anxiety Plan Mr. Segura is a 73 year-old male with hx of dementia, appears AD type who was brought by family to [facility] due to increase combative behaviors attempting to choke while she was providing support with ADLs. He has also eloped home in the past, being loss for 6 hrs and then presenting with hypothermia. 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 Continue current medications including olanzapine 5mg po BID. Aricept at bedtime, instead of daily. PLAN 07/21 continue tx. 07/22 continue tx. on [id number] up on 07/23 may need to file. 07/23 continue tx. 07/24 switch olanzapine to seroquel as it appears more unsteady with olanzapine. encourage oral intake. 07/27 continue tx. 07/28 continue tx. 07/29 moved seroquel to 1200, 2100, monitor oversedation. Appeared brighter affect today, not combative. completed paperwork to will for guardianship/conservatorship/erin s/s to advanced dementia. 07/30: resting post prandially. thirsty. continue current mgmt. 07/31: PMR, paucity of thought. continue current mgmt. 08/01: Patient mumbles some in audible things on inquiry; staff reports stable; continue treatment plan 08/02: No change in presentation; continue treatment plan 08/03 continue tx. guardianship and conservatorship filed, needed for placement at this time. 08/21 continue tx.awaiting placement. 08/22: continue current mgmt. 08/23: stable, continue current mgmt. 08/28 continue tx 08/29 continue tx plan. 08/30 Patient no change in presentation. Says yosvany. Otherwise difficult with which to engage. Discussed further with nursing who feels patient is okay to go to 15 Reason for continued inpatient stay Substantial Risk for: inability to function Time Spent With Patient Time: Total time managing care of this patient today ____ minutes.
[2024-08-30 20:00] VITALS: BP 116/57; PULSE 62; RESP 16; TEMP 36.9; O2SAT 98
[2024-08-31 08:00] VITALS: BP 125/73; PULSE 63; RESP 16; TEMP 36.5; O2SAT 98
--- NOTE | 2024-08-31 08:52 | HO.PSYCHPN ---
Subjective Subjective Date of Service: 08/31/24 Reason For Visit: dementia w/ behavioral disturbance Subjective Notes: Conditional Voluntary Interim History: Pt slept through the night. he is taking medications as prescribed. He is pleasant on approach. He is currently on 15 minutes checks for safety. He is not oriented to place, month nor situation at baseline. minimally talks. Review of Systems Review of Systems Review of systems limited due to dementia. Yes Unobtainable due to mental status and Other (Dementia) Mental Status Exam Mental Status Exam Narrative: Appearance: wearing own attire, fair hygiene, in NAD Behavior: calm Psychomotor: retardation noted Speech: mostly mumbling, regular rate/rhythm, soft tone, minimally spontaneous TP: poverty of thought TC: unclear Mood: Affect: calm SI: none expressed HI: none expressed VH/AH: no overt signs Delusions: no overt signs Insight/judgment: impaired x 2. memory/cog: alert oriented only to person. Patient Appearance: Appropriate Patient Orientation: Person Level of Consciousness: Awake and Alert Patient Behavior: Passive Mood Description: Calm Affect Description: Calm Patient Cognition Impaired: Yes Ability to Follow Directions: Fair Speech Pattern: No Speech Memory Description: Remote Impaired Diagnostics Vital Signs (24Hr): Vital Signs - 24 hr 08/30/24 10:10 08/30/24 20:00 Temperature 97.5 F 98.4 F Pulse Rate 63 62 Respiratory Rate 18 16 Blood Pressure 117/64 116/57 L Pulse Oximetry 98 98 Oxygen Delivery Method Room Air Room Air BMI result Body Mass Index 23.1 Labs 08/19/24 07:26 08/19/24 07:26 Medications Medications Current Medications Acetaminophen (Acetaminophen 325 Mg Tablet) 650 mg PO Q6H PRN PRN Reason: Headache/Pain, Scale 1-10 Last Admin: 07/22/24 21:33 Dose: 650 mg Al Hydroxide/Mg Hydroxide (Magnesium Hydrox/Alum Hydrox 30 Ml Oral.Susp) 30 ml PO Q6H PRN PRN Reason: Heartburn/Nausea Last Admin: 08/05/24 12:28 Dose: 30 ml Donepezil HCl (Donepezil Hcl 5 Mg Tablet) 5 mg PO BEDTIME [facility] Last Admin: 08/30/24 20:56 Dose: 5 mg Loperamide HCl (Loperamide Hcl 2 Mg Capsule) 2 mg PO Q4H PRN PRN Reason: Diarrhea Magnesium Hydroxide (Milk Of Magnesia 30 Ml Oral.Susp) 30 ml PO DAILY PRN PRN Reason: Constipation Memantine (Memantine Hcl 5 Mg Tablet) 5 mg PO DAILY [facility] Last Admin: 08/30/24 10:15 Dose: 5 mg Quetiapine Fumarate (Quetiapine Fumarate 50 Mg Tablet) 50 mg PO Q6H PRN PRN Reason: agitation Last Admin: 07/27/24 00:24 Dose: 50 mg Quetiapine Fumarate (Quetiapine Fumarate 50 Mg Tablet) 50 mg PO BID@1200,2100 [facility] Last Admin: 08/30/24 20:56 Dose: 50 mg Trazodone HCl (Trazodone Hcl 50 Mg Tablet) 50 mg PO BEDTIME PRN PRN Reason: Insomnia Last Admin: 08/07/24 03:17 Dose: 50 mg Allergies Allergies Allergy/AdvReac Type Severity Reaction Status Date / Time No Known Allergies Allergy Verified 07/18/24 21:28 Assessment & Plan Assessment & Plan (1) Major neurocognitive disorder: Status: Acute Code(s): F03.90 - Unspecified dementia, unspecified severity, without behavioral disturbance, psychotic disturbance, mood disturbance, and anxiety Plan Mr. Segura is a 73 year-old male with hx of dementia, appears AD type who was brought by family to [facility] ED due to increase combative behaviors attempting to choke while she was providing support with ADLs. He has also eloped home in the past, being loss for 6 hrs and then presenting with hypothermia. 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 Continue current medications including olanzapine 5mg po BID. Aricept at bedtime, instead of daily. PLAN 08/31 continue tx. awaiting placement, pending [employer] application. Reason for continued inpatient stay Substantial Risk for: inability to function Time Spent With Patient Time: Total time managing care of this patient today ____ minutes.
[2024-08-31 20:00] VITALS: BP 102/53; PULSE 73; RESP 16; TEMP 36.7; O2SAT 95
[2024-09-01 08:00] VITALS: BP 138/77; PULSE 71; RESP 16; TEMP 36.4; O2SAT 97
--- NOTE | 2024-09-01 09:19 | P.PNPSI_ITS ---
Subjective Subjective Date of Service: 09/01/24 Reason For Visit: dementia w/ behavioral disturbance Subjective Notes: Section 7 Interim History: Pt slept through the night. Pt ambulating, confused at baseline. No aggression. taking medications as prescribed. Review of Systems Review of Systems Review of systems limited due to dementia. Yes Unobtainable due to mental status and Other (Dementia) Mental Status Exam Mental Status Exam Narrative: Appearance: wearing own attire, fair hygiene, in NAD Behavior: calm Psychomotor: retardation noted Speech: mostly mumbling, regular rate/rhythm, soft tone, minimally spontaneous TP: poverty of thought TC: unclear Mood: Affect: calm SI: none expressed HI: none expressed VH/AH: no overt signs Delusions: no overt signs Insight/judgment: impaired x 2. memory/cog: alert oriented only to person. Diagnostics Vital Signs (24Hr): Vital Signs - 24 hr 08/31/24 20:00 Temperature 98.1 F Pulse Rate 73 Respiratory Rate 16 Blood Pressure 102/53 L Pulse Oximetry 95 Oxygen Delivery Method Room Air BMI result Body Mass Index 23.1 Labs 08/19/24 07:26 08/19/24 07:26 Medications Medications Current Medications Acetaminophen (Acetaminophen 325 Mg Tablet) 650 mg PO Q6H PRN PRN Reason: Headache/Pain, Scale 1-10 Last Admin: 07/22/24 21:33 Dose: 650 mg Al Hydroxide/Mg Hydroxide (Magnesium Hydrox/Alum Hydrox 30 Ml Oral.Susp) 30 ml PO Q6H PRN PRN Reason: Heartburn/Nausea Last Admin: 08/05/24 12:28 Dose: 30 ml Donepezil HCl (Donepezil Hcl 5 Mg Tablet) 5 mg PO BEDTIME [facility] Last Admin: 08/31/24 20:13 Dose: 5 mg Loperamide HCl (Loperamide Hcl 2 Mg Capsule) 2 mg PO Q4H PRN PRN Reason: Diarrhea Magnesium Hydroxide (Milk Of Magnesia 30 Ml Oral.Susp) 30 ml PO DAILY PRN PRN Reason: Constipation Memantine (Memantine Hcl 5 Mg Tablet) 5 mg PO DAILY [facility] Last Admin: 09/01/24 09:15 Dose: 5 mg Quetiapine Fumarate (Quetiapine Fumarate 50 Mg Tablet) 50 mg PO Q6H PRN PRN Reason: agitation Last Admin: 07/27/24 00:24 Dose: 50 mg Quetiapine Fumarate (Quetiapine Fumarate 50 Mg Tablet) 50 mg PO BID@1200,2100 [facility] Last Admin: 08/31/24 20:13 Dose: 50 mg Trazodone HCl (Trazodone Hcl 50 Mg Tablet) 50 mg PO BEDTIME PRN PRN Reason: Insomnia Last Admin: 08/07/24 03:17 Dose: 50 mg Allergies Allergies Allergy/AdvReac Type Severity Reaction Status Date / Time No Known Allergies Allergy Verified 07/18/24 21:28 Assessment & Plan Assessment & Plan (1) Major neurocognitive disorder: Status: Acute Code(s): F03.90 - Unspecified dementia, unspecified severity, without behavioral disturbance, psychotic disturbance, mood disturbance, and anxiety Plan Mr. Segura is a 73 year-old male with hx of dementia, appears AD type who was brought by family to [facility] ED due to increase combative behaviors attempting to choke while she was providing support with ADLs. He has also eloped home in the past, being loss for 6 hrs and then presenting with hypothermia. 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 Continue current medications including olanzapine 5mg po BID. Aricept at bedtime, instead of daily. PLAN 08/31 continue tx. awaiting placement, pending [employer] application. 09/01 continue tx. Reason for continued inpatient stay Substantial Risk for: inability to function Time Spent With Patient Time: Total time managing care of this patient today ____ minutes.
[2024-09-01 20:00] VITALS: BP 122/57; PULSE 72; RESP 16; TEMP 36.7; O2SAT 95
[2024-09-02 08:00] VITALS: BP 139/78; PULSE 73; RESP 16; TEMP 36.3; O2SAT 96
[2024-09-02 20:00] VITALS: BP 132/64; PULSE 64; RESP 18; TEMP 36.7; O2SAT 96
--- NOTE | 2024-09-02 20:40 | HO.PSYCHPN ---
Subjective Subjective Date of Service: 09/02/24 Reason For Visit: dementia w/ behavioral disturbance Interim History: Pt slept through the night. Pt ambulating, confused at baseline. No aggression. taking medications as prescribed. Review of Systems Review of Systems Review of systems limited due to dementia. Yes Unobtainable due to mental status and Other (Dementia) Mental Status Exam Mental Status Exam Narrative: Appearance: wearing own attire, fair hygiene, in NAD Behavior: calm Psychomotor: retardation noted Speech: mostly mumbling, regular rate/rhythm, soft tone, minimally spontaneous TP: poverty of thought TC: unclear Mood: Affect: calm SI: none expressed HI: none expressed VH/AH: no overt signs Delusions: no overt signs Insight/judgment: impaired x 2. memory/cog: alert oriented only to person. Diagnostics Vital Signs (24Hr): Vital Signs - 24 hr 09/02/24 08:00 09/02/24 20:00 Temperature 97.3 F 98.1 F Pulse Rate 73 64 Respiratory Rate 16 18 Blood Pressure 139/78 132/64 Pulse Oximetry 96 96 Oxygen Delivery Method Room Air Room Air BMI result Body Mass Index 23.1 Labs 08/19/24 07:26 08/19/24 07:26 Medications Medications Current Medications Acetaminophen (Acetaminophen 325 Mg Tablet) 650 mg PO Q6H PRN PRN Reason: Headache/Pain, Scale 1-10 Last Admin: 09/02/24 09:08 Dose: 650 mg Al Hydroxide/Mg Hydroxide (Magnesium Hydrox/Alum Hydrox 30 Ml Oral.Susp) 30 ml PO Q6H PRN PRN Reason: Heartburn/Nausea Last Admin: 08/05/24 12:28 Dose: 30 ml Donepezil HCl (Donepezil Hcl 5 Mg Tablet) 5 mg PO BEDTIME [facility] Last Admin: 09/01/24 21:00 Dose: 5 mg Loperamide HCl (Loperamide Hcl 2 Mg Capsule) 2 mg PO Q4H PRN PRN Reason: Diarrhea Magnesium Hydroxide (Milk Of Magnesia 30 Ml Oral.Susp) 30 ml PO DAILY PRN PRN Reason: Constipation Memantine (Memantine Hcl 5 Mg Tablet) 5 mg PO DAILY [facility] Last Admin: 09/02/24 09:00 Dose: 5 mg Quetiapine Fumarate (Quetiapine Fumarate 50 Mg Tablet) 50 mg PO Q6H PRN PRN Reason: agitation Last Admin: 07/27/24 00:24 Dose: 50 mg Quetiapine Fumarate (Quetiapine Fumarate 50 Mg Tablet) 50 mg PO BID@1200,2100 [facility] Last Admin: 09/02/24 13:05 Dose: 50 mg Trazodone HCl (Trazodone Hcl 50 Mg Tablet) 50 mg PO BEDTIME PRN PRN Reason: Insomnia Last Admin: 09/01/24 21:00 Dose: 50 mg Allergies Allergies Allergy/AdvReac Type Severity Reaction Status Date / Time No Known Allergies Allergy Verified 07/18/24 21:28 Assessment & Plan Assessment & Plan (1) Major neurocognitive disorder: Status: Acute Code(s): F03.90 - Unspecified dementia, unspecified severity, without behavioral disturbance, psychotic disturbance, mood disturbance, and anxiety Plan Mr. Segura is a 73 year-old male with hx of dementia, appears AD type who was brought by family to [facility] due to increase combative behaviors attempting to choke while she was providing support with ADLs. He has also eloped home in the past, being loss for 6 hrs and then presenting with hypothermia. 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 Continue current medications including olanzapine 5mg po BID. Aricept at bedtime, instead of daily. PLAN 08/31 continue tx. awaiting placement, pending [employer] application. 09/01 continue tx. 09/02 continue tx. Reason for continued inpatient stay Substantial Risk for: inability to function Time Spent With Patient Time: Total time managing care of this patient today ____ minutes.
[2024-09-03 08:00] VITALS: BP 138/77; PULSE 68; RESP 18; TEMP 36.5; O2SAT 100
[2024-09-03 13:48] VITALS: BMI 23.6
[2024-09-03 20:00] VITALS: BP 118/53; PULSE 65; RESP 17; TEMP 37.2; O2SAT 96
--- NOTE | 2024-09-03 21:41 | HO.PSYCHPN ---
Subjective Subjective Date of Service: 09/03/24 Reason For Visit: dementia w/ behavioral disturbance Interim History: Pt slept through the night. Pt ambulating, confused at baseline. No aggression. taking medications as prescribed. Review of Systems Review of Systems Review of systems limited due to dementia. Yes Unobtainable due to mental status and Other (Dementia) Mental Status Exam Mental Status Exam Narrative: Appearance: wearing own attire, fair hygiene, in NAD Behavior: calm Psychomotor: retardation noted Speech: mostly mumbling, regular rate/rhythm, soft tone, minimally spontaneous TP: poverty of thought TC: unclear Mood: Affect: calm SI: none expressed HI: none expressed VH/AH: no overt signs Delusions: no overt signs Insight/judgment: impaired x 2. memory/cog: alert oriented only to person. Diagnostics Vital Signs (24Hr): Vital Signs - 24 hr 09/03/24 08:00 09/03/24 20:00 Temperature 97.7 F 99.0 F Pulse Rate 68 65 Respiratory Rate 18 17 Blood Pressure 138/77 118/53 L Pulse Oximetry 100 96 Oxygen Delivery Method Room Air Room Air BMI result Body Mass Index 23.6 Labs 08/19/24 07:26 08/19/24 07:26 Medications Medications Current Medications Acetaminophen (Acetaminophen 325 Mg Tablet) 650 mg PO Q6H PRN PRN Reason: Headache/Pain, Scale 1-10 Last Admin: 09/02/24 09:08 Dose: 650 mg Al Hydroxide/Mg Hydroxide (Magnesium Hydrox/Alum Hydrox 30 Ml Oral.Susp) 30 ml PO Q6H PRN PRN Reason: Heartburn/Nausea Last Admin: 08/05/24 12:28 Dose: 30 ml Donepezil HCl (Donepezil Hcl 5 Mg Tablet) 5 mg PO BEDTIME [facility] Last Admin: 09/03/24 20:20 Dose: 5 mg Loperamide HCl (Loperamide Hcl 2 Mg Capsule) 2 mg PO Q4H PRN PRN Reason: Diarrhea Magnesium Hydroxide (Milk Of Magnesia 30 Ml Oral.Susp) 30 ml PO DAILY PRN PRN Reason: Constipation Memantine (Memantine Hcl 5 Mg Tablet) 5 mg PO DAILY [facility] Last Admin: 09/03/24 08:30 Dose: 5 mg Quetiapine Fumarate (Quetiapine Fumarate 50 Mg Tablet) 50 mg PO Q6H PRN PRN Reason: agitation Last Admin: 07/27/24 00:24 Dose: 50 mg Quetiapine Fumarate (Quetiapine Fumarate 50 Mg Tablet) 50 mg PO BID@1200,2100 [facility] Last Admin: 09/03/24 20:20 Dose: 50 mg Trazodone HCl (Trazodone Hcl 50 Mg Tablet) 50 mg PO BEDTIME PRN PRN Reason: Insomnia Last Admin: 09/02/24 21:03 Dose: 50 mg Allergies Allergies Allergy/AdvReac Type Severity Reaction Status Date / Time No Known Allergies Allergy Verified 07/18/24 21:28 Assessment & Plan Assessment & Plan (1) Major neurocognitive disorder: Status: Acute Code(s): F03.90 - Unspecified dementia, unspecified severity, without behavioral disturbance, psychotic disturbance, mood disturbance, and anxiety Plan Mr. Segura is a 73 year-old male with hx of dementia, appears AD type who was brought by family to [facility] due to increase combative behaviors attempting to choke while she was providing support with ADLs. He has also eloped home in the past, being loss for 6 hrs and then presenting with hypothermia. 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 Continue current medications including olanzapine 5mg po BID. Aricept at bedtime, instead of daily. PLAN 08/31 continue tx. awaiting placement, pending [employer] application. 09/01 continue tx. 09/02 continue tx. Reason for continued inpatient stay Substantial Risk for: inability to function Time Spent With Patient Time: Total time managing care of this patient today ____ minutes.
[2024-09-04 08:00] VITALS: BP 98/54; PULSE 65; RESP 18; TEMP 37; O2SAT 96
--- NOTE | 2024-09-04 08:58 | P.PNPSI_ITS ---
Subjective Subjective Date of Service: 09/04/24 Reason For Visit: dementia w/ behavioral disturbance Subjective Notes: Conditional Voluntary Interim History: Pt slept through the night. Pt ambulating, confused at baseline. No aggression. taking medications as prescribed. Review of Systems Review of Systems Review of systems limited due to dementia. Yes Unobtainable due to mental status and Other (Dementia) Mental Status Exam Mental Status Exam Narrative: Appearance: wearing own attire, fair hygiene, in NAD Behavior: calm Psychomotor: retardation noted Speech: mostly mumbling, regular rate/rhythm, soft tone, minimally spontaneous TP: poverty of thought TC: unclear Mood: Affect: calm SI: none expressed HI: none expressed VH/AH: no overt signs Delusions: no overt signs Insight/judgment: impaired x 2. memory/cog: alert oriented only to person. Diagnostics Vital Signs (24Hr): Vital Signs - 24 hr 09/03/24 20:00 Temperature 99.0 F Pulse Rate 65 Respiratory Rate 17 Blood Pressure 118/53 L Pulse Oximetry 96 Oxygen Delivery Method Room Air BMI result Body Mass Index 23.6 Labs 08/19/24 07:26 08/19/24 07:26 Medications Medications Current Medications Acetaminophen (Acetaminophen 325 Mg Tablet) 650 mg PO Q6H PRN PRN Reason: Headache/Pain, Scale 1-10 Last Admin: 09/02/24 09:08 Dose: 650 mg Al Hydroxide/Mg Hydroxide (Magnesium Hydrox/Alum Hydrox 30 Ml Oral.Susp) 30 ml PO Q6H PRN PRN Reason: Heartburn/Nausea Last Admin: 08/05/24 12:28 Dose: 30 ml Donepezil HCl (Donepezil Hcl 5 Mg Tablet) 5 mg PO BEDTIME [facility] Last Admin: 09/03/24 20:20 Dose: 5 mg Loperamide HCl (Loperamide Hcl 2 Mg Capsule) 2 mg PO Q4H PRN PRN Reason: Diarrhea Magnesium Hydroxide (Milk Of Magnesia 30 Ml Oral.Susp) 30 ml PO DAILY PRN PRN Reason: Constipation Memantine (Memantine Hcl 5 Mg Tablet) 5 mg PO DAILY [facility] Last Admin: 09/04/24 08:37 Dose: 5 mg Quetiapine Fumarate (Quetiapine Fumarate 50 Mg Tablet) 50 mg PO Q6H PRN PRN Reason: agitation Last Admin: 07/27/24 00:24 Dose: 50 mg Quetiapine Fumarate (Quetiapine Fumarate 50 Mg Tablet) 50 mg PO BID@1200,2100 [facility] Last Admin: 09/03/24 20:20 Dose: 50 mg Trazodone HCl (Trazodone Hcl 50 Mg Tablet) 50 mg PO BEDTIME PRN PRN Reason: Insomnia Last Admin: 09/02/24 21:03 Dose: 50 mg Allergies Allergies Allergy/AdvReac Type Severity Reaction Status Date / Time No Known Allergies Allergy Verified 07/18/24 21:28 Assessment & Plan Assessment & Plan (1) Major neurocognitive disorder: Status: Acute Code(s): F03.90 - Unspecified dementia, unspecified severity, without behavioral disturbance, psychotic disturbance, mood disturbance, and anxiety Plan Mr. Segura is a 73 year-old male with hx of dementia, appears AD type who was brought by family to [facility] due to increase combative behaviors attempting to choke while she was providing support with ADLs. He has also eloped home in the past, being loss for 6 hrs and then presenting with hypothermia. 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 Continue current medications including olanzapine 5mg po BID. Aricept at bedtime, instead of daily. PLAN 08/31 continue tx. awaiting placement, pending [employer] application. 09/01 continue tx. 09/04 continue tx. VS stable. needs assistance when eating. Reason for continued inpatient stay Substantial Risk for: inability to function Time Spent With Patient Time: Total time managing care of this patient today ____ minutes.
[2024-09-04 20:00] VITALS: BP 115/53; PULSE 73; RESP 16; TEMP 36.9; O2SAT 94
[2024-09-05 08:30] VITALS: BP 125/66; PULSE 68
[2024-09-05 08:35] VITALS: BP 116/70; PULSE 75
[2024-09-05 08:40] VITALS: BP 128/77; PULSE 83
[2024-09-05 20:00] VITALS: BP 117/67; PULSE 71; RESP 18; TEMP 36.3; O2SAT 96
--- NOTE | 2024-09-06 05:24 | HO.PSYCHPN ---
Subjective Subjective Date of Service: 09/05/24 Reason For Visit: dementia w/ behavioral disturbance Interim History: Pt seen and discussed with his team who reports no issues of concern. Pt calm, attentive, cooperative, passive in joining his peers in discussion this a.m. and with room-mate as well. Side effects from medications: No Attending Groups: Yes Review of Systems Acute medical concerns: No Review of Systems Review of Systems Yes Unobtainable due to mental status Mental Status Exam Mental Status Exam Patient Appearance: Disheveled Patient Orientation: Person Level of Consciousness: Alert Patient Behavior: Appropriate and Confused Mood Description: Calm Affect Description: Calm Patient Cognition Impaired: Yes Ability to Follow Directions: Fair Speech Pattern: Impoverished Memory Description: Remote Impaired, Immediate Impaired, Episodic Impaired, Recent Impaired and Working Impaired Thought Process: Confusion Judgement: Poor Diagnostics Vital Signs (24Hr): Vital Signs - 24 hr 09/05/24 08:30 09/05/24 08:35 09/05/24 08:40 Temperature Pulse Rate 68 75 83 Respiratory Rate Blood Pressure 125/66 116/70 128/77 Pulse Oximetry Oxygen Delivery Method 09/05/24 20:00 Temperature 97.3 F Pulse Rate 71 Respiratory Rate 18 Blood Pressure 117/67 Pulse Oximetry 96 Oxygen Delivery Method Room Air BMI result Body Mass Index 23.6 Labs 08/19/24 07:26 08/19/24 07:26 Medications Medications Current Medications Acetaminophen (Acetaminophen 325 Mg Tablet) 650 mg PO Q6H PRN PRN Reason: Headache/Pain, Scale 1-10 Last Admin: 09/02/24 09:08 Dose: 650 mg Al Hydroxide/Mg Hydroxide (Magnesium Hydrox/Alum Hydrox 30 Ml Oral.Susp) 30 ml PO Q6H PRN PRN Reason: Heartburn/Nausea Last Admin: 08/05/24 12:28 Dose: 30 ml Donepezil HCl (Donepezil Hcl 5 Mg Tablet) 5 mg PO BEDTIME [facility] Last Admin: 09/05/24 20:11 Dose: 5 mg Loperamide HCl (Loperamide Hcl 2 Mg Capsule) 2 mg PO Q4H PRN PRN Reason: Diarrhea Magnesium Hydroxide (Milk Of Magnesia 30 Ml Oral.Susp) 30 ml PO DAILY PRN PRN Reason: Constipation Memantine (Memantine Hcl 5 Mg Tablet) 5 mg PO DAILY [facility] Last Admin: 09/05/24 09:33 Dose: 5 mg Quetiapine Fumarate (Quetiapine Fumarate 50 Mg Tablet) 50 mg PO Q6H PRN PRN Reason: agitation Last Admin: 07/27/24 00:24 Dose: 50 mg Quetiapine Fumarate (Quetiapine Fumarate 50 Mg Tablet) 50 mg PO BID@1200,2100 [facility] Last Admin: 09/05/24 20:11 Dose: 50 mg Trazodone HCl (Trazodone Hcl 50 Mg Tablet) 50 mg PO BEDTIME PRN PRN Reason: Insomnia Last Admin: 09/02/24 21:03 Dose: 50 mg Allergies Allergies Allergy/AdvReac Type Severity Reaction Status Date / Time No Known Allergies Allergy Verified 07/18/24 21:28 Assessment & Plan Assessment & Plan (1) Major neurocognitive disorder: Status: Acute Code(s): F03.90 - Unspecified dementia, unspecified severity, without behavioral disturbance, psychotic disturbance, mood disturbance, and anxiety Plan Mr. Segura is a 73 year-old male with hx of dementia, appears AD type who was brought by family to [facility] due to increase combative behaviors attempting to choke while she was providing support with ADLs. He has also eloped home in the past, being loss for 6 hrs and then presenting with hypothermia. 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 Continue current medications including olanzapine 5mg po BID. Aricept at bedtime, instead of daily. PLAN 08/31 continue tx. awaiting placement, pending [employer] application. 09/01 continue tx. 09/04 continue tx. VS stable. needs assistance when eating. 09/05 Continue tx Reason for continued inpatient stay Substantial Risk for: rapid decompensation Time Spent With Patient Time: Total time managing care of this patient today ____ minutes.
--- NOTE | 2024-09-06 05:27 | P.PNPSI_ITS ---
Subjective Subjective Date of Service: 09/06/24 Reason For Visit: dementia w/ behavioral disturbance Interim History: Met with pt and reviewed with his team. Watching TV with the group, interacting with the team. Team reports no issues of concern today. Medication Compliance: Yes Side effects from medications: No Attending Groups: Yes Review of Systems Acute medical concerns: No Review of Systems Review of Systems Yes Unobtainable due to mental status Mental Status Exam Mental Status Exam Patient Appearance: Disheveled Patient Orientation: Person Level of Consciousness: Alert Patient Behavior: Appropriate and Confused Mood Description: Calm Affect Description: Calm Patient Cognition Impaired: Yes Ability to Follow Directions: Fair Speech Pattern: Impoverished Memory Description: Remote Impaired, Immediate Impaired, Episodic Impaired, Recent Impaired and Working Impaired Thought Process: Confusion Judgement: Poor Diagnostics Vital Signs (24Hr): Vital Signs - 24 hr 09/05/24 08:30 09/05/24 08:35 09/05/24 08:40 Temperature Pulse Rate 68 75 83 Respiratory Rate Blood Pressure 125/66 116/70 128/77 Pulse Oximetry Oxygen Delivery Method 09/05/24 20:00 Temperature 97.3 F Pulse Rate 71 Respiratory Rate 18 Blood Pressure 117/67 Pulse Oximetry 96 Oxygen Delivery Method Room Air BMI result Body Mass Index 23.6 Labs 08/19/24 07:26 08/19/24 07:26 Medications Medications Current Medications Acetaminophen (Acetaminophen 325 Mg Tablet) 650 mg PO Q6H PRN PRN Reason: Headache/Pain, Scale 1-10 Last Admin: 09/02/24 09:08 Dose: 650 mg Al Hydroxide/Mg Hydroxide (Magnesium Hydrox/Alum Hydrox 30 Ml Oral.Susp) 30 ml PO Q6H PRN PRN Reason: Heartburn/Nausea Last Admin: 08/05/24 12:28 Dose: 30 ml Donepezil HCl (Donepezil Hcl 5 Mg Tablet) 5 mg PO BEDTIME [facility] Last Admin: 09/05/24 20:11 Dose: 5 mg Loperamide HCl (Loperamide Hcl 2 Mg Capsule) 2 mg PO Q4H PRN PRN Reason: Diarrhea Magnesium Hydroxide (Milk Of Magnesia 30 Ml Oral.Susp) 30 ml PO DAILY PRN PRN Reason: Constipation Memantine (Memantine Hcl 5 Mg Tablet) 5 mg PO DAILY [facility] Last Admin: 09/05/24 09:33 Dose: 5 mg Quetiapine Fumarate (Quetiapine Fumarate 50 Mg Tablet) 50 mg PO Q6H PRN PRN Reason: agitation Last Admin: 07/27/24 00:24 Dose: 50 mg Quetiapine Fumarate (Quetiapine Fumarate 50 Mg Tablet) 50 mg PO BID@1200,2100 [facility] Last Admin: 09/05/24 20:11 Dose: 50 mg Trazodone HCl (Trazodone Hcl 50 Mg Tablet) 50 mg PO BEDTIME PRN PRN Reason: Insomnia Last Admin: 09/02/24 21:03 Dose: 50 mg Allergies Allergies Allergy/AdvReac Type Severity Reaction Status Date / Time No Known Allergies Allergy Verified 07/18/24 21:28 Assessment & Plan Assessment & Plan (1) Major neurocognitive disorder: Status: Acute Code(s): F03.90 - Unspecified dementia, unspecified severity, without behavioral disturbance, psychotic disturbance, mood disturbance, and anxiety Plan Mr. Segura is a 73 year-old male with hx of dementia, appears AD type who was brought by family to [facility] due to increase combative behaviors attempting to choke while she was providing support with ADLs. He has also eloped home in the past, being loss for 6 hrs and then presenting with hypothermia. 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 Continue current medications including olanzapine 5mg po BID. Aricept at bedtime, instead of daily. PLAN 08/31 continue tx. awaiting placement, pending [employer] application. 09/01 continue tx. 09/04 continue tx. VS stable. needs assistance when eating. 09/06 Continut tx Reason for continued inpatient stay Substantial Risk for: rapid decompensation Time Spent With Patient Time: Total time managing care of this patient today ____ minutes.
[2024-09-06 08:00] VITALS: BP 123/71; PULSE 60; RESP 16; TEMP 36.4; O2SAT 97
[2024-09-06 19:39] VITALS: BP 120/72; PULSE 81; RESP 16; TEMP 35.9; O2SAT 97
[2024-09-06 20:33] VITALS: BMI 23.1
[2024-09-07 08:00] VITALS: BP 112/72; PULSE 76; RESP 18; TEMP 37; O2SAT 95
--- NOTE | 2024-09-07 11:03 | HO.PSYCHPN ---
Subjective Subjective Date of Service: 09/07/24 Reason For Visit: dementia w/ behavioral disturbance Subjective Notes: Conditional Voluntary Guardianship: Yes Interim History: Pt slept through the night. He ambulates on his own. not oriented to place, month nor situation. pleasant on approach. VS stable. Taking medications. Review of Systems Review of Systems Review of systems limited due to dementia. Yes Unobtainable due to mental status and Other (Dementia) Mental Status Exam Mental Status Exam Narrative: Appearance: wearing own attire, fair hygiene, in NAD Behavior: calm Psychomotor: retardation noted Speech: mostly mumbling, regular rate/rhythm, soft tone, minimally spontaneous TP: poverty of thought TC: unclear Mood: Affect: calm SI: none expressed HI: none expressed VH/AH: no overt signs Delusions: no overt signs Insight/judgment: impaired x 2. memory/cog: alert oriented only to person. Diagnostics Vital Signs (24Hr): Vital Signs - 24 hr 09/06/24 19:39 Temperature 96.6 F L Pulse Rate 81 Respiratory Rate 16 Blood Pressure 120/72 Pulse Oximetry 97 Oxygen Delivery Method Room Air BMI result Body Mass Index 23.1 Labs 08/19/24 07:26 08/19/24 07:26 Medications Medications Current Medications Acetaminophen (Acetaminophen 325 Mg Tablet) 650 mg PO Q6H PRN PRN Reason: Headache/Pain, Scale 1-10 Last Admin: 09/02/24 09:08 Dose: 650 mg Al Hydroxide/Mg Hydroxide (Magnesium Hydrox/Alum Hydrox 30 Ml Oral.Susp) 30 ml PO Q6H PRN PRN Reason: Heartburn/Nausea Last Admin: 08/05/24 12:28 Dose: 30 ml Donepezil HCl (Donepezil Hcl 5 Mg Tablet) 5 mg PO BEDTIME [facility] Last Admin: 09/06/24 19:42 Dose: 5 mg Loperamide HCl (Loperamide Hcl 2 Mg Capsule) 2 mg PO Q4H PRN PRN Reason: Diarrhea Magnesium Hydroxide (Milk Of Magnesia 30 Ml Oral.Susp) 30 ml PO DAILY PRN PRN Reason: Constipation Memantine (Memantine Hcl 5 Mg Tablet) 5 mg PO DAILY [facility] Last Admin: 09/06/24 08:54 Dose: 5 mg Quetiapine Fumarate (Quetiapine Fumarate 50 Mg Tablet) 50 mg PO Q6H PRN PRN Reason: agitation Last Admin: 07/27/24 00:24 Dose: 50 mg Quetiapine Fumarate (Quetiapine Fumarate 50 Mg Tablet) 50 mg PO BID@1200,2100 [facility] Last Admin: 09/06/24 19:42 Dose: 50 mg Trazodone HCl (Trazodone Hcl 50 Mg Tablet) 50 mg PO BEDTIME PRN PRN Reason: Insomnia Last Admin: 09/02/24 21:03 Dose: 50 mg Allergies Allergies Allergy/AdvReac Type Severity Reaction Status Date / Time No Known Allergies Allergy Verified 07/18/24 21:28 Assessment & Plan Assessment & Plan (1) Major neurocognitive disorder: Status: Acute Code(s): F03.90 - Unspecified dementia, unspecified severity, without behavioral disturbance, psychotic disturbance, mood disturbance, and anxiety Plan Mr. Segura is a 73 year-old male with hx of dementia, appears AD type who was brought by family to [facility] due to increase combative behaviors attempting to choke while she was providing support with ADLs. He has also eloped home in the past, being loss for 6 hrs and then presenting with hypothermia. 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 Continue current medications including olanzapine 5mg po BID. Aricept at bedtime, instead of daily. PLAN 08/31 continue tx. awaiting placement, pending [email or web address] application. 09/01 continue tx. 09/04 continue tx. VS stable. needs assistance when eating. 09/06 Continut tx 09/07 continue tx. Reason for continued inpatient stay Substantial Risk for: inability to function Time Spent With Patient Time: Total time managing care of this patient today ____ minutes.
[2024-09-07 20:00] VITALS: BP 110/60; PULSE 71; RESP 16; TEMP 36.8; O2SAT 95
[2024-09-08 08:00] VITALS: BP 118/62; PULSE 77; RESP 16; TEMP 36.4; O2SAT 95
[2024-09-08 20:00] VITALS: BP 119/65; PULSE 73; RESP 18; TEMP 2.8; TEMP 37.1; O2SAT 95
[2024-09-09 08:00] VITALS: BP 118/75; PULSE 80; RESP 14; TEMP 2.3; TEMP 36.2; O2SAT 94
--- NOTE | 2024-09-09 09:56 | P.PNPSI_ITS ---
Subjective Subjective Date of Service: 09/08/24 Reason For Visit: dementia w/ behavioral disturbance Subjective Notes: Section 7 Guardianship: Yes Interim History: Pt slept through the night. He ambulates on his own. not oriented to place, month nor situation. pleasant on approach. VS stable. Taking medications. no behavioral concers. Medication Compliance: Yes Review of Systems Review of Systems Review of systems limited due to dementia. Yes Unobtainable due to mental status and Other (Dementia) Mental Status Exam Mental Status Exam Narrative: Appearance: wearing own attire, fair hygiene, in NAD Behavior: calm Psychomotor: retardation noted Speech: mostly mumbling, regular rate/rhythm, soft tone, minimally spontaneous TP: poverty of thought TC: unclear Mood: Affect: calm SI: none expressed HI: none expressed VH/AH: no overt signs Delusions: no overt signs Insight/judgment: impaired x 2. memory/cog: alert oriented only to person. Diagnostics Vital Signs (24Hr): Vital Signs - 24 hr 09/08/24 20:00 09/09/24 08:00 Temperature 37.1 F L 36.2 F L Pulse Rate 73 80 Respiratory Rate 18 14 Blood Pressure 119/65 118/75 Pulse Oximetry 95 94 Oxygen Delivery Method Room Air Room Air BMI result Body Mass Index 23.1 Labs 08/19/24 07:26 08/19/24 07:26 Medications Medications Current Medications Acetaminophen (Acetaminophen 325 Mg Tablet) 650 mg PO Q6H PRN PRN Reason: Headache/Pain, Scale 1-10 Last Admin: 09/02/24 09:08 Dose: 650 mg Al Hydroxide/Mg Hydroxide (Magnesium Hydrox/Alum Hydrox 30 Ml Oral.Susp) 30 ml PO Q6H PRN PRN Reason: Heartburn/Nausea Last Admin: 08/05/24 12:28 Dose: 30 ml Donepezil HCl (Donepezil Hcl 5 Mg Tablet) 5 mg PO BEDTIME [facility] Last Admin: 09/08/24 20:13 Dose: 5 mg Loperamide HCl (Loperamide Hcl 2 Mg Capsule) 2 mg PO Q4H PRN PRN Reason: Diarrhea Magnesium Hydroxide (Milk Of Magnesia 30 Ml Oral.Susp) 30 ml PO DAILY PRN PRN Reason: Constipation Memantine (Memantine Hcl 5 Mg Tablet) 5 mg PO DAILY [facility] Last Admin: 09/09/24 08:38 Dose: 5 mg Quetiapine Fumarate (Quetiapine Fumarate 50 Mg Tablet) 50 mg PO Q6H PRN PRN Reason: agitation Last Admin: 07/27/24 00:24 Dose: 50 mg Quetiapine Fumarate (Quetiapine Fumarate 50 Mg Tablet) 50 mg PO BID@1200,2100 [facility] Last Admin: 09/08/24 20:11 Dose: 50 mg Trazodone HCl (Trazodone Hcl 50 Mg Tablet) 50 mg PO BEDTIME PRN PRN Reason: Insomnia Last Admin: 09/02/24 21:03 Dose: 50 mg Allergies Allergies Allergy/AdvReac Type Severity Reaction Status Date / Time No Known Allergies Allergy Verified 07/18/24 21:28 Assessment & Plan Assessment & Plan (1) Major neurocognitive disorder: Status: Acute Code(s): F03.90 - Unspecified dementia, unspecified severity, without behavioral disturbance, psychotic disturbance, mood disturbance, and anxiety Plan Mr. Segura is a 73 year-old male with hx of dementia, appears AD type who was brought by family to [facility] due to increase combative behaviors attempting to choke while she was providing support with ADLs. He has also eloped home in the past, being loss for 6 hrs and then presenting with hypothermia. 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 Continue current medications including olanzapine 5mg po BID. Aricept at bedtime, instead of daily. PLAN 08/31 continue tx. awaiting placement, pending [employer] application. 09/01 continue tx. 09/04 continue tx. VS stable. needs assistance when eating. 09/06 Continut tx 09/07 continue tx. 09/08 continue tx. Reason for continued inpatient stay Substantial Risk for: inability to function Time Spent With Patient Time: Total time managing care of this patient today ____ minutes.
--- NOTE | 2024-09-09 13:41 | HO.PSYCHPN ---
Subjective Subjective Date of Service: 09/09/24 Reason For Visit: dementia w/ behavioral disturbance Interim History: severe dementia. lying in bed. this one right here, referring to his right leg. then, it's good. no complaints or requests. Mental Status Exam Mental Status Exam Narrative: Appearance: wearing own attire, fair hygiene, in NAD Behavior: calm Psychomotor: retardation noted Speech: mostly mumbling, regular rate/rhythm, soft tone, minimally spontaneous TP: poverty of thought TC: unclear Mood: not assessed Affect: calm SI: none expressed HI: none expressed VH/AH: no overt signs Delusions: no overt signs Insight/judgment: impaired x 2. memory/cog: alert oriented only to person. Diagnostics Vital Signs (24Hr): Vital Signs - 24 hr 09/08/24 20:00 09/09/24 08:00 Temperature 37.1 F L 36.2 F L Pulse Rate 73 80 Respiratory Rate 18 14 Blood Pressure 119/65 118/75 Pulse Oximetry 95 94 Oxygen Delivery Method Room Air Room Air BMI result Body Mass Index 23.1 Labs 08/19/24 07:26 08/19/24 07:26 Medications Medications Current Medications Acetaminophen (Acetaminophen 325 Mg Tablet) 650 mg PO Q6H PRN PRN Reason: Headache/Pain, Scale 1-10 Last Admin: 09/02/24 09:08 Dose: 650 mg Al Hydroxide/Mg Hydroxide (Magnesium Hydrox/Alum Hydrox 30 Ml Oral.Susp) 30 ml PO Q6H PRN PRN Reason: Heartburn/Nausea Last Admin: 08/05/24 12:28 Dose: 30 ml Donepezil HCl (Donepezil Hcl 5 Mg Tablet) 5 mg PO BEDTIME [facility] Last Admin: 09/08/24 20:13 Dose: 5 mg Loperamide HCl (Loperamide Hcl 2 Mg Capsule) 2 mg PO Q4H PRN PRN Reason: Diarrhea Magnesium Hydroxide (Milk Of Magnesia 30 Ml Oral.Susp) 30 ml PO DAILY PRN PRN Reason: Constipation Memantine (Memantine Hcl 5 Mg Tablet) 5 mg PO DAILY [facility] Last Admin: 09/09/24 08:38 Dose: 5 mg Quetiapine Fumarate (Quetiapine Fumarate 50 Mg Tablet) 50 mg PO Q6H PRN PRN Reason: agitation Last Admin: 07/27/24 00:24 Dose: 50 mg Quetiapine Fumarate (Quetiapine Fumarate 50 Mg Tablet) 50 mg PO BID@1200,2100 [facility] Last Admin: 09/09/24 11:54 Dose: 50 mg Trazodone HCl (Trazodone Hcl 50 Mg Tablet) 50 mg PO BEDTIME PRN PRN Reason: Insomnia Last Admin: 09/02/24 21:03 Dose: 50 mg Allergies Allergies Allergy/AdvReac Type Severity Reaction Status Date / Time No Known Allergies Allergy Verified 07/18/24 21:28 Assessment & Plan Assessment & Plan (1) Major neurocognitive disorder: Status: Acute Code(s): F03.90 - Unspecified dementia, unspecified severity, without behavioral disturbance, psychotic disturbance, mood disturbance, and anxiety Plan Mr. Segura is a 73 year-old male with hx of dementia, appears AD type who was brought by family to [facility] due to increase combative behaviors attempting to choke while she was providing support with ADLs. He has also eloped home in the past, being loss for 6 hrs and then presenting with hypothermia. This senior writer attempted to call twice with no response nor able to leave message. Continue current medications including olanzapine 5mg po BID. Aricept at bedtime, instead of daily. PLAN 08/31 continue tx. awaiting placement, pending [employer] application. 09/01 continue tx. 09/04 continue tx. VS stable. needs assistance when eating. 09/06 Continut tx 09/07 continue tx. 09/08 continue tx. 09/09: stable. awaiting placement. continue current mgmt. Reason for continued inpatient stay Substantial Risk for: inability to function Time Spent With Patient Time: Total time managing care of this patient today ____ minutes.
[2024-09-09 20:00] VITALS: BP 118/52; PULSE 74; RESP 18; TEMP 36.9; O2SAT 94
[2024-09-10 09:12] VITALS: BP 133/76; PULSE 79; RESP 18; TEMP 37; O2SAT 98
[2024-09-10 10:30] VITALS: BMI 23.7
--- NOTE | 2024-09-10 12:48 | P.PNPSI_ITS ---
Subjective Subjective Date of Service: 09/10/24 Reason For Visit: dementia w/ behavioral disturbance Interim History: ambulating, calm, cooperative. getting back in bed. no complaints or requests. per staff, no notable events or behaviors overnight. Mental Status Exam Mental Status Exam Narrative: Appearance: wearing own attire, fair hygiene, in NAD Behavior: calm Psychomotor: retardation noted Speech: mostly mumbling, regular rate/rhythm, soft tone, minimally spontaneous TP: poverty of thought TC: unclear Mood: not assessed Affect: calm SI: none expressed HI: none expressed VH/AH: no overt signs Delusions: no overt signs Insight/judgment: impaired x 2. memory/cog: alert oriented only to person. Diagnostics Vital Signs (24Hr): Vital Signs - 24 hr 09/09/24 20:00 09/10/24 09:12 Temperature 98.4 F 98.6 F Pulse Rate 74 79 Respiratory Rate 18 18 Blood Pressure 118/52 L 133/76 Pulse Oximetry 94 98 Oxygen Delivery Method Room Air Room Air BMI result Body Mass Index 23.1 Labs 08/19/24 07:26 08/19/24 07:26 Medications Medications Current Medications Acetaminophen (Acetaminophen 325 Mg Tablet) 650 mg PO Q6H PRN PRN Reason: Headache/Pain, Scale 1-10 Last Admin: 09/02/24 09:08 Dose: 650 mg Al Hydroxide/Mg Hydroxide (Magnesium Hydrox/Alum Hydrox 30 Ml Oral.Susp) 30 ml PO Q6H PRN PRN Reason: Heartburn/Nausea Last Admin: 08/05/24 12:28 Dose: 30 ml Donepezil HCl (Donepezil Hcl 5 Mg Tablet) 5 mg PO BEDTIME [facility] Last Admin: 09/09/24 20:26 Dose: 5 mg Loperamide HCl (Loperamide Hcl 2 Mg Capsule) 2 mg PO Q4H PRN PRN Reason: Diarrhea Magnesium Hydroxide (Milk Of Magnesia 30 Ml Oral.Susp) 30 ml PO DAILY PRN PRN Reason: Constipation Memantine (Memantine Hcl 5 Mg Tablet) 5 mg PO DAILY [facility] Last Admin: 09/10/24 08:47 Dose: 5 mg Quetiapine Fumarate (Quetiapine Fumarate 50 Mg Tablet) 50 mg PO Q6H PRN PRN Reason: agitation Last Admin: 07/27/24 00:24 Dose: 50 mg Quetiapine Fumarate (Quetiapine Fumarate 50 Mg Tablet) 50 mg PO BID@1200,2100 [facility] Last Admin: 09/10/24 11:12 Dose: 50 mg Trazodone HCl (Trazodone Hcl 50 Mg Tablet) 50 mg PO BEDTIME PRN PRN Reason: Insomnia Last Admin: 09/02/24 21:03 Dose: 50 mg Allergies Allergies Allergy/AdvReac Type Severity Reaction Status Date / Time No Known Allergies Allergy Verified 07/18/24 21:28 Assessment & Plan Assessment & Plan (1) Major neurocognitive disorder: Status: Acute Code(s): F03.90 - Unspecified dementia, unspecified severity, without behavioral disturbance, psychotic disturbance, mood disturbance, and anxiety Plan Mr. Segura is a 73 year-old male with hx of dementia, appears AD type who was brought by family to [facility] due to increase combative behaviors attempting to choke while she was providing support with ADLs. He has also eloped home in the past, being loss for 6 hrs and then presenting with hypothermia. 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 Continue current medications including olanzapine 5mg po BID. Aricept at bedtime, instead of daily. PLAN 08/31 continue tx. awaiting placement, pending [employer] application. 09/01 continue tx. 09/04 continue tx. VS stable. needs assistance when eating. 09/06 Continut tx 09/07 continue tx. 09/08 continue tx. 09/09: stable. awaiting placement. continue current mgmt. 09/10: stable. awaiting placement. continue current mgmt. Reason for continued inpatient stay Substantial Risk for: inability to function Time Spent With Patient Time: Total time managing care of this patient today ____ minutes.
--- NOTE | 2024-09-10 17:15 | HO.PSYCHPN ---
Subjective Subjective Reason For Visit: dementia w/ behavioral disturbance Diagnostics Vital Signs (24Hr): Vital Signs - 24 hr 09/09/24 20:00 09/10/24 09:12 Temperature 98.4 F 98.6 F Pulse Rate 74 79 Respiratory Rate 18 18 Blood Pressure 118/52 L 133/76 Pulse Oximetry 94 98 Oxygen Delivery Method Room Air Room Air BMI result Body Mass Index 23.7 Labs 08/19/24 07:26 08/19/24 07:26 Medications Medications Current Medications Acetaminophen (Acetaminophen 325 Mg Tablet) 650 mg PO Q6H PRN PRN Reason: Headache/Pain, Scale 1-10 Last Admin: 09/02/24 09:08 Dose: 650 mg Al Hydroxide/Mg Hydroxide (Magnesium Hydrox/Alum Hydrox 30 Ml Oral.Susp) 30 ml PO Q6H PRN PRN Reason: Heartburn/Nausea Last Admin: 08/05/24 12:28 Dose: 30 ml Donepezil HCl (Donepezil Hcl 5 Mg Tablet) 5 mg PO BEDTIME [facility] Last Admin: 09/09/24 20:26 Dose: 5 mg Loperamide HCl (Loperamide Hcl 2 Mg Capsule) 2 mg PO Q4H PRN PRN Reason: Diarrhea Magnesium Hydroxide (Milk Of Magnesia 30 Ml Oral.Susp) 30 ml PO DAILY PRN PRN Reason: Constipation Memantine (Memantine Hcl 5 Mg Tablet) 5 mg PO DAILY [facility] Last Admin: 09/10/24 08:47 Dose: 5 mg Quetiapine Fumarate (Quetiapine Fumarate 50 Mg Tablet) 50 mg PO Q6H PRN PRN Reason: agitation Last Admin: 07/27/24 00:24 Dose: 50 mg Quetiapine Fumarate (Quetiapine Fumarate 50 Mg Tablet) 50 mg PO BID@1200,2100 [facility] Last Admin: 09/10/24 11:12 Dose: 50 mg Trazodone HCl (Trazodone Hcl 50 Mg Tablet) 50 mg PO BEDTIME PRN PRN Reason: Insomnia Last Admin: 09/02/24 21:03 Dose: 50 mg Allergies Allergies Allergy/AdvReac Type Severity Reaction Status Date / Time No Known Allergies Allergy Verified 07/18/24 21:28 Assessment & Plan Assessment & Plan (1) Major neurocognitive disorder: Status: Acute Code(s): F03.90 - Unspecified dementia, unspecified severity, without behavioral disturbance, psychotic disturbance, mood disturbance, and anxiety Plan Mr. Segura is a 73 year-old male with hx of dementia, appears AD type who was brought by family to [facility] due to increase combative behaviors attempting to choke while she was providing support with ADLs. He has also eloped home in the past, being loss for 6 hrs and then presenting with hypothermia. 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 Continue current medications including olanzapine 5mg po BID. Aricept at bedtime, instead of daily. PLAN 08/31 continue tx. awaiting placement, pending [employer] application. 09/01 continue tx. 09/04 continue tx. VS stable. needs assistance when eating. 09/06 Continut tx 09/07 continue tx. 09/08 continue tx. 09/09: stable. awaiting placement. continue current mgmt. 09/10: stable. awaiting placement. continue current mgmt. Time Spent With Patient Time: Total time managing care of this patient today ____ minutes.
[2024-09-10 20:12] VITALS: BP 129/60; PULSE 78; RESP 16; TEMP 35.9; O2SAT 94
[2024-09-11 07:55] VITALS: BP 137/79; PULSE 73; RESP 18; TEMP 36.6; O2SAT 95
--- NOTE | 2024-09-11 11:59 | HO.PSYCHPN ---
Subjective Subjective Date of Service: 09/11/24 Reason For Visit: dementia w/ behavioral disturbance Subjective Notes: [facility] [employer] Proxy: Yes Interim History: Pt sleeping through the night. visible on the unit. denies any concerns. taking medications, VS stable. no behavioral concerns. Medication Compliance: Yes Review of Systems Review of Systems Review of systems limited due to dementia. Yes Unobtainable due to mental status and Other (Dementia) Mental Status Exam Mental Status Exam Narrative: Appearance: wearing own attire, fair hygiene, in NAD Behavior: calm Psychomotor: retardation noted Speech: mostly mumbling, regular rate/rhythm, soft tone, minimally spontaneous TP: poverty of thought TC: unclear Mood: not assessed Affect: calm SI: none expressed HI: none expressed VH/AH: no overt signs Delusions: no overt signs Insight/judgment: impaired x 2. memory/cog: alert oriented only to person. Diagnostics Vital Signs (24Hr): Vital Signs - 24 hr 09/10/24 20:12 09/11/24 07:55 Temperature 96.6 F L 98 F Pulse Rate 78 73 Respiratory Rate 16 18 Blood Pressure 129/60 137/79 Pulse Oximetry 94 95 Oxygen Delivery Method Room Air Room Air BMI result Body Mass Index 23.7 Labs 08/19/24 07:26 08/19/24 07:26 Medications Medications Current Medications Acetaminophen (Acetaminophen 325 Mg Tablet) 650 mg PO Q6H PRN PRN Reason: Headache/Pain, Scale 1-10 Last Admin: 09/02/24 09:08 Dose: 650 mg Al Hydroxide/Mg Hydroxide (Magnesium Hydrox/Alum Hydrox 30 Ml Oral.Susp) 30 ml PO Q6H PRN PRN Reason: Heartburn/Nausea Last Admin: 08/05/24 12:28 Dose: 30 ml Donepezil HCl (Donepezil Hcl 5 Mg Tablet) 5 mg PO BEDTIME [facility] Last Admin: 09/10/24 19:35 Dose: 5 mg Loperamide HCl (Loperamide Hcl 2 Mg Capsule) 2 mg PO Q4H PRN PRN Reason: Diarrhea Magnesium Hydroxide (Milk Of Magnesia 30 Ml Oral.Susp) 30 ml PO DAILY PRN PRN Reason: Constipation Memantine (Memantine Hcl 5 Mg Tablet) 5 mg PO DAILY [facility] Last Admin: 09/11/24 08:33 Dose: 5 mg Quetiapine Fumarate (Quetiapine Fumarate 50 Mg Tablet) 50 mg PO Q6H PRN PRN Reason: agitation Last Admin: 07/27/24 00:24 Dose: 50 mg Quetiapine Fumarate (Quetiapine Fumarate 50 Mg Tablet) 50 mg PO BID@1200,2100 [facility] Last Admin: 09/11/24 11:40 Dose: 50 mg Trazodone HCl (Trazodone Hcl 50 Mg Tablet) 50 mg PO BEDTIME PRN PRN Reason: Insomnia Last Admin: 09/02/24 21:03 Dose: 50 mg Allergies Allergies Allergy/AdvReac Type Severity Reaction Status Date / Time No Known Allergies Allergy Verified 07/18/24 21:28 Assessment & Plan Assessment & Plan (1) Major neurocognitive disorder: Status: Acute Code(s): F03.90 - Unspecified dementia, unspecified severity, without behavioral disturbance, psychotic disturbance, mood disturbance, and anxiety Plan 09/11 continue tx. Reason for continued inpatient stay Substantial Risk for: inability to function Time Spent With Patient Time: Total time managing care of this patient today ____ minutes.
[2024-09-11 19:48] VITALS: BP 109/55; PULSE 72; RESP 16; TEMP 37; O2SAT 96
[2024-09-12 08:00] VITALS: BP 128/65; PULSE 73; RESP 12; TEMP 2.6; TEMP 36.6; O2SAT 95
--- NOTE | 2024-09-12 19:24 | HO.PSYCHPN ---
Subjective Subjective Date of Service: 09/12/24 Reason For Visit: dementia w/ behavioral disturbance Subjective Notes: Conditional Voluntary Interim History: Pt sleeping through the night. visible on the unit. denies any concerns. taking medications, VS stable. no behavioral concerns. Review of Systems Review of Systems Review of systems limited due to dementia. Yes Unobtainable due to mental status and Other (Dementia) Mental Status Exam Mental Status Exam Narrative: Appearance: wearing own attire, fair hygiene, in NAD Behavior: calm Psychomotor: retardation noted Speech: mostly mumbling, regular rate/rhythm, soft tone, minimally spontaneous TP: poverty of thought TC: unclear Mood: not assessed Affect: calm SI: none expressed HI: none expressed VH/AH: no overt signs Delusions: no overt signs Insight/judgment: impaired x 2. memory/cog: alert oriented only to person. Diagnostics Vital Signs (24Hr): Vital Signs - 24 hr 09/11/24 19:48 09/12/24 08:00 Temperature 98.6 F 36.6 F L Pulse Rate 72 73 Respiratory Rate 16 12 Blood Pressure 109/55 L 128/65 Pulse Oximetry 96 95 Oxygen Delivery Method Room Air Room Air BMI result Body Mass Index 23.7 Labs 08/19/24 07:26 08/19/24 07:26 Medications Medications Current Medications Acetaminophen (Acetaminophen 325 Mg Tablet) 650 mg PO Q6H PRN PRN Reason: Headache/Pain, Scale 1-10 Last Admin: 09/02/24 09:08 Dose: 650 mg Al Hydroxide/Mg Hydroxide (Magnesium Hydrox/Alum Hydrox 30 Ml Oral.Susp) 30 ml PO Q6H PRN PRN Reason: Heartburn/Nausea Last Admin: 08/05/24 12:28 Dose: 30 ml Donepezil HCl (Donepezil Hcl 5 Mg Tablet) 5 mg PO BEDTIME [facility] Last Admin: 09/11/24 19:51 Dose: 5 mg Loperamide HCl (Loperamide Hcl 2 Mg Capsule) 2 mg PO Q4H PRN PRN Reason: Diarrhea Magnesium Hydroxide (Milk Of Magnesia 30 Ml Oral.Susp) 30 ml PO DAILY PRN PRN Reason: Constipation Memantine (Memantine Hcl 5 Mg Tablet) 5 mg PO DAILY [facility] Last Admin: 09/12/24 09:27 Dose: 5 mg Quetiapine Fumarate (Quetiapine Fumarate 50 Mg Tablet) 50 mg PO Q6H PRN PRN Reason: agitation Last Admin: 07/27/24 00:24 Dose: 50 mg Quetiapine Fumarate (Quetiapine Fumarate 50 Mg Tablet) 50 mg PO BID@1200,2100 [facility] Last Admin: 09/12/24 12:37 Dose: 50 mg Trazodone HCl (Trazodone Hcl 50 Mg Tablet) 50 mg PO BEDTIME PRN PRN Reason: Insomnia Last Admin: 09/02/24 21:03 Dose: 50 mg Allergies Allergies Allergy/AdvReac Type Severity Reaction Status Date / Time No Known Allergies Allergy Verified 07/18/24 21:28 Assessment & Plan Assessment & Plan (1) Major neurocognitive disorder: Status: Acute Code(s): F03.90 - Unspecified dementia, unspecified severity, without behavioral disturbance, psychotic disturbance, mood disturbance, and anxiety Plan 09/12 continue tx. Reason for continued inpatient stay Substantial Risk for: inability to function Time Spent With Patient Time: Total time managing care of this patient today ____ minutes.
[2024-09-12 19:51] VITALS: BP 123/61; PULSE 72; RESP 16; TEMP 37; O2SAT 98
[2024-09-13 07:55] VITALS: BP 126/73; PULSE 78; RESP 16; TEMP 36.7; O2SAT 97
--- NOTE | 2024-09-13 17:28 | HO.PSYCHPN ---
Subjective Subjective Date of Service: 09/13/24 Reason For Visit: dementia w/ behavioral disturbance Interim History: Pt sleeping through the night. visible on the unit. denies any concerns. taking medications, VS stable. no behavioral concerns. Review of Systems Review of Systems Review of systems limited due to dementia. Yes Unobtainable due to mental status and Other (Dementia) Mental Status Exam Mental Status Exam Narrative: Appearance: wearing own attire, fair hygiene, in NAD Behavior: calm Psychomotor: retardation noted Speech: mostly mumbling, regular rate/rhythm, soft tone, minimally spontaneous TP: poverty of thought TC: unclear Mood: not assessed Affect: calm SI: none expressed HI: none expressed VH/AH: no overt signs Delusions: no overt signs Insight/judgment: impaired x 2. memory/cog: alert oriented only to person. Diagnostics Vital Signs (24Hr): Vital Signs - 24 hr 09/12/24 19:51 09/13/24 07:55 Temperature 98.6 F 98.1 F Pulse Rate 72 78 Respiratory Rate 16 16 Blood Pressure 123/61 126/73 Pulse Oximetry 98 97 Oxygen Delivery Method Room Air Room Air BMI result Body Mass Index 23.7 Labs 08/19/24 07:26 08/19/24 07:26 Medications Medications Current Medications Acetaminophen (Acetaminophen 325 Mg Tablet) 650 mg PO Q6H PRN PRN Reason: Headache/Pain, Scale 1-10 Last Admin: 09/02/24 09:08 Dose: 650 mg Al Hydroxide/Mg Hydroxide (Magnesium Hydrox/Alum Hydrox 30 Ml Oral.Susp) 30 ml PO Q6H PRN PRN Reason: Heartburn/Nausea Last Admin: 08/05/24 12:28 Dose: 30 ml Donepezil HCl (Donepezil Hcl 5 Mg Tablet) 5 mg PO BEDTIME [facility] Last Admin: 09/12/24 19:54 Dose: 5 mg Loperamide HCl (Loperamide Hcl 2 Mg Capsule) 2 mg PO Q4H PRN PRN Reason: Diarrhea Magnesium Hydroxide (Milk Of Magnesia 30 Ml Oral.Susp) 30 ml PO DAILY PRN PRN Reason: Constipation Memantine (Memantine Hcl 5 Mg Tablet) 5 mg PO DAILY [facility] Last Admin: 09/13/24 08:12 Dose: 5 mg Quetiapine Fumarate (Quetiapine Fumarate 50 Mg Tablet) 50 mg PO Q6H PRN PRN Reason: agitation Last Admin: 07/27/24 00:24 Dose: 50 mg Quetiapine Fumarate (Quetiapine Fumarate 50 Mg Tablet) 50 mg PO BID@1200,2100 [facility] Last Admin: 09/13/24 11:31 Dose: 50 mg Trazodone HCl (Trazodone Hcl 50 Mg Tablet) 50 mg PO BEDTIME PRN PRN Reason: Insomnia Last Admin: 09/02/24 21:03 Dose: 50 mg Allergies Allergies Allergy/AdvReac Type Severity Reaction Status Date / Time No Known Allergies Allergy Verified 07/18/24 21:28 Assessment & Plan Assessment & Plan (1) Major neurocognitive disorder: Status: Acute Code(s): F03.90 - Unspecified dementia, unspecified severity, without behavioral disturbance, psychotic disturbance, mood disturbance, and anxiety Plan 09/12 continue tx. 09/13 continue tx. Reason for continued inpatient stay Substantial Risk for: inability to function Time Spent With Patient Time: Total time managing care of this patient today ____ minutes.
[2024-09-13 20:00] VITALS: BP 113/60; PULSE 70; RESP 18; TEMP 36.2; O2SAT 96
[2024-09-14 08:24] VITALS: BP 137/69; PULSE 70; RESP 16; TEMP 36.2; O2SAT 95
--- NOTE | 2024-09-14 11:13 | HO.PSYCHPN ---
Subjective Subjective Date of Service: 09/14/24 Reason For Visit: dementia w/ behavioral disturbance Interim History: Pt sleeping through the night. visible on the unit. denies any concerns. taking medications, VS stable. no behavioral concerns. Review of Systems Review of Systems Review of systems limited due to dementia. Yes Unobtainable due to mental status and Other (Dementia) Mental Status Exam Mental Status Exam Narrative: Appearance: wearing own attire, fair hygiene, in NAD Behavior: calm Psychomotor: retardation noted Speech: mostly mumbling, regular rate/rhythm, soft tone, minimally spontaneous TP: poverty of thought TC: unclear Mood: not assessed Affect: calm SI: none expressed HI: none expressed VH/AH: no overt signs Delusions: no overt signs Insight/judgment: impaired x 2. memory/cog: alert oriented only to person. Diagnostics Vital Signs (24Hr): Vital Signs - 24 hr 09/13/24 20:00 09/14/24 08:24 Temperature 97.2 F 97.2 F Pulse Rate 70 70 Respiratory Rate 18 16 Blood Pressure 113/60 137/69 Pulse Oximetry 96 95 Oxygen Delivery Method Room Air Room Air BMI result Body Mass Index 23.7 Labs 08/19/24 07:26 08/19/24 07:26 Medications Medications Current Medications Acetaminophen (Acetaminophen 325 Mg Tablet) 650 mg PO Q6H PRN PRN Reason: Headache/Pain, Scale 1-10 Last Admin: 09/02/24 09:08 Dose: 650 mg Al Hydroxide/Mg Hydroxide (Magnesium Hydrox/Alum Hydrox 30 Ml Oral.Susp) 30 ml PO Q6H PRN PRN Reason: Heartburn/Nausea Last Admin: 08/05/24 12:28 Dose: 30 ml Donepezil HCl (Donepezil Hcl 5 Mg Tablet) 5 mg PO BEDTIME [facility] Last Admin: 09/13/24 20:32 Dose: 5 mg Loperamide HCl (Loperamide Hcl 2 Mg Capsule) 2 mg PO Q4H PRN PRN Reason: Diarrhea Magnesium Hydroxide (Milk Of Magnesia 30 Ml Oral.Susp) 30 ml PO DAILY PRN PRN Reason: Constipation Memantine (Memantine Hcl 5 Mg Tablet) 5 mg PO DAILY [facility] Last Admin: 09/14/24 08:22 Dose: 5 mg Quetiapine Fumarate (Quetiapine Fumarate 50 Mg Tablet) 50 mg PO Q6H PRN PRN Reason: agitation Last Admin: 07/27/24 00:24 Dose: 50 mg Quetiapine Fumarate (Quetiapine Fumarate 50 Mg Tablet) 50 mg PO BID@1200,2100 [facility] Last Admin: 09/13/24 20:31 Dose: 50 mg Trazodone HCl (Trazodone Hcl 50 Mg Tablet) 50 mg PO BEDTIME PRN PRN Reason: Insomnia Last Admin: 09/02/24 21:03 Dose: 50 mg Allergies Allergies Allergy/AdvReac Type Severity Reaction Status Date / Time No Known Allergies Allergy Verified 07/18/24 21:28 Assessment & Plan Assessment & Plan (1) Major neurocognitive disorder: Status: Acute Code(s): F03.90 - Unspecified dementia, unspecified severity, without behavioral disturbance, psychotic disturbance, mood disturbance, and anxiety Plan 09/12 continue tx. 09/13 continue tx. Reason for continued inpatient stay Substantial Risk for: inability to function Time Spent With Patient Time: Total time managing care of this patient today ____ minutes.
[2024-09-14 20:00] VITALS: BP 99/52; PULSE 71; RESP 17; TEMP 36.6; O2SAT 95
[2024-09-15 08:00] VITALS: BP 115/65; PULSE 72; TEMP 36.8; O2SAT 99
[2024-09-15 12:18] VITALS: RESP 18
--- NOTE | 2024-09-15 18:58 | HO.PSYCHPN ---
Subjective Subjective Date of Service: 09/15/24 Reason For Visit: dementia w/ behavioral disturbance Interim History: Pt sleeping through the night. visible on the unit. denies any concerns. taking medications, VS stable. no behavioral concerns. Review of Systems Review of Systems Review of systems limited due to dementia. Yes Unobtainable due to mental status and Other (Dementia) Mental Status Exam Mental Status Exam Narrative: Appearance: wearing own attire, fair hygiene, in NAD Behavior: calm Psychomotor: retardation noted Speech: mostly mumbling, regular rate/rhythm, soft tone, minimally spontaneous TP: poverty of thought TC: unclear Mood: not assessed Affect: calm SI: none expressed HI: none expressed VH/AH: no overt signs Delusions: no overt signs Insight/judgment: impaired x 2. memory/cog: alert oriented only to person. Diagnostics Vital Signs (24Hr): Vital Signs - 24 hr 09/14/24 20:00 09/15/24 08:00 09/15/24 12:18 Temperature 97.9 F 98.2 F Pulse Rate 71 72 Respiratory Rate 17 18 Blood Pressure 99/52 L 115/65 Pulse Oximetry 95 99 Oxygen Delivery Method Room Air Room Air BMI result Body Mass Index 23.7 Labs 08/19/24 07:26 08/19/24 07:26 Medications Medications Current Medications Acetaminophen (Acetaminophen 325 Mg Tablet) 650 mg PO Q6H PRN PRN Reason: Headache/Pain, Scale 1-10 Last Admin: 09/02/24 09:08 Dose: 650 mg Al Hydroxide/Mg Hydroxide (Magnesium Hydrox/Alum Hydrox 30 Ml Oral.Susp) 30 ml PO Q6H PRN PRN Reason: Heartburn/Nausea Last Admin: 08/05/24 12:28 Dose: 30 ml Donepezil HCl (Donepezil Hcl 5 Mg Tablet) 5 mg PO BEDTIME [facility] Last Admin: 09/14/24 20:32 Dose: 5 mg Loperamide HCl (Loperamide Hcl 2 Mg Capsule) 2 mg PO Q4H PRN PRN Reason: Diarrhea Magnesium Hydroxide (Milk Of Magnesia 30 Ml Oral.Susp) 30 ml PO DAILY PRN PRN Reason: Constipation Memantine (Memantine Hcl 5 Mg Tablet) 5 mg PO DAILY [facility] Last Admin: 09/15/24 08:51 Dose: 5 mg Quetiapine Fumarate (Quetiapine Fumarate 50 Mg Tablet) 50 mg PO Q6H PRN PRN Reason: agitation Last Admin: 07/27/24 00:24 Dose: 50 mg Quetiapine Fumarate (Quetiapine Fumarate 50 Mg Tablet) 50 mg PO BID@1200,2100 [facility] Last Admin: 09/15/24 12:25 Dose: 50 mg Trazodone HCl (Trazodone Hcl 50 Mg Tablet) 50 mg PO BEDTIME PRN PRN Reason: Insomnia Last Admin: 09/02/24 21:03 Dose: 50 mg Allergies Allergies Allergy/AdvReac Type Severity Reaction Status Date / Time No Known Allergies Allergy Verified 07/18/24 21:28 Assessment & Plan Assessment & Plan (1) Major neurocognitive disorder: Status: Acute Code(s): F03.90 - Unspecified dementia, unspecified severity, without behavioral disturbance, psychotic disturbance, mood disturbance, and anxiety Plan 09/12 continue tx. 09/13 continue tx. 09/15 continue tx. Reason for continued inpatient stay Substantial Risk for: inability to function Time Spent With Patient Time: Total time managing care of this patient today ____ minutes.
[2024-09-15 20:00] VITALS: BP 116/60; PULSE 69; RESP 18; TEMP 36.5; O2SAT 94
[2024-09-16 09:04] VITALS: BP 124/69; PULSE 74; RESP 18; TEMP 36.3; O2SAT 98
--- NOTE | 2024-09-16 16:04 | P.PNPSI_ITS ---
Subjective Subjective Date of Service: 09/16/24 Reason For Visit: dementia w/ behavioral disturbance Interim History: calm, cooperative. no questions or complaints. per staff, no change in presentation. wandering, intrusive at times. difficult to redirect. Mental Status Exam Mental Status Exam Narrative: Appearance: wearing own attire, fair hygiene, in NAD Behavior: calm Psychomotor: retardation noted Speech: mostly mumbling, regular rate/rhythm, soft tone, minimally spontaneous TP: poverty of thought TC: unclear Mood: not assessed Affect: calm SI: none expressed HI: none expressed VH/AH: no overt signs Delusions: no overt signs Insight/judgment: impaired x 2. memory/cog: alert oriented only to person. Diagnostics Vital Signs (24Hr): Vital Signs - 24 hr 09/15/24 20:00 09/16/24 09:04 Temperature 97.7 F 97.3 F Pulse Rate 69 74 Respiratory Rate 18 18 Blood Pressure 116/60 124/69 Pulse Oximetry 94 98 Oxygen Delivery Method Room Air Room Air BMI result Body Mass Index 23.7 Labs 08/19/24 07:26 08/19/24 07:26 Medications Medications Current Medications Acetaminophen (Acetaminophen 325 Mg Tablet) 650 mg PO Q6H PRN PRN Reason: Headache/Pain, Scale 1-10 Last Admin: 09/02/24 09:08 Dose: 650 mg Al Hydroxide/Mg Hydroxide (Magnesium Hydrox/Alum Hydrox 30 Ml Oral.Susp) 30 ml PO Q6H PRN PRN Reason: Heartburn/Nausea Last Admin: 08/05/24 12:28 Dose: 30 ml Donepezil HCl (Donepezil Hcl 5 Mg Tablet) 5 mg PO BEDTIME [facility] Last Admin: 09/15/24 20:27 Dose: 5 mg Loperamide HCl (Loperamide Hcl 2 Mg Capsule) 2 mg PO Q4H PRN PRN Reason: Diarrhea Magnesium Hydroxide (Milk Of Magnesia 30 Ml Oral.Susp) 30 ml PO DAILY PRN PRN Reason: Constipation Memantine (Memantine Hcl 5 Mg Tablet) 5 mg PO DAILY [facility] Last Admin: 09/16/24 09:05 Dose: 5 mg Quetiapine Fumarate (Quetiapine Fumarate 50 Mg Tablet) 50 mg PO Q6H PRN PRN Reason: agitation Last Admin: 07/27/24 00:24 Dose: 50 mg Quetiapine Fumarate (Quetiapine Fumarate 50 Mg Tablet) 50 mg PO BID@1200,2100 [facility] Last Admin: 09/16/24 11:40 Dose: 50 mg Trazodone HCl (Trazodone Hcl 50 Mg Tablet) 50 mg PO BEDTIME PRN PRN Reason: Insomnia Last Admin: 09/02/24 21:03 Dose: 50 mg Allergies Allergies Allergy/AdvReac Type Severity Reaction Status Date / Time No Known Allergies Allergy Verified 07/18/24 21:28 Assessment & Plan Assessment & Plan (1) Major neurocognitive disorder: Status: Acute Code(s): F03.90 - Unspecified dementia, unspecified severity, without behavioral disturbance, psychotic disturbance, mood disturbance, and anxiety Plan 09/12 continue tx. 09/13 continue tx. 09/15 continue tx. 09/16: stable presentation. continue current mgmt. Reason for continued inpatient stay Substantial Risk for: inability to function Time Spent With Patient Time: Total time managing care of this patient today ____ minutes.
[2024-09-16 20:00] VITALS: BP 128/62; PULSE 75; RESP 18; TEMP 37.1; O2SAT 95
[2024-09-17 08:47] VITALS: BP 144/68; PULSE 72; RESP 16; TEMP 36.9; O2SAT 98
--- NOTE | 2024-09-17 14:33 | P.PNPSI_ITS ---
Subjective Subjective Date of Service: 09/17/24 Reason For Visit: dementia w/ behavioral disturbance Interim History: observed pacing in the [place] with staff, apparently incontinent of bowels. per staff, stable presentation. Mental Status Exam Mental Status Exam Narrative: Appearance: wearing own attire, fair hygiene, in NAD Behavior: calm Psychomotor: retardation noted Speech: mostly mumbling, regular rate/rhythm, soft tone, minimally spontaneous TP: poverty of thought TC: unclear Mood: not assessed Affect: calm SI: none expressed HI: none expressed VH/AH: no overt signs Delusions: no overt signs Insight/judgment: impaired x 2. memory/cog: alert oriented only to person. Diagnostics Vital Signs (24Hr): Vital Signs - 24 hr 09/16/24 20:00 09/17/24 08:47 Temperature 98.8 F 98.5 F Pulse Rate 75 72 Respiratory Rate 18 16 Blood Pressure 128/62 144/68 H Pulse Oximetry 95 98 Oxygen Delivery Method Room Air Room Air BMI result Body Mass Index 23.7 Labs 08/19/24 07:26 08/19/24 07:26 Medications Medications Current Medications Acetaminophen (Acetaminophen 325 Mg Tablet) 650 mg PO Q6H PRN PRN Reason: Headache/Pain, Scale 1-10 Last Admin: 09/02/24 09:08 Dose: 650 mg Al Hydroxide/Mg Hydroxide (Magnesium Hydrox/Alum Hydrox 30 Ml Oral.Susp) 30 ml PO Q6H PRN PRN Reason: Heartburn/Nausea Last Admin: 08/05/24 12:28 Dose: 30 ml Donepezil HCl (Donepezil Hcl 5 Mg Tablet) 5 mg PO BEDTIME [facility] Last Admin: 09/16/24 20:00 Dose: 5 mg Loperamide HCl (Loperamide Hcl 2 Mg Capsule) 2 mg PO Q4H PRN PRN Reason: Diarrhea Magnesium Hydroxide (Milk Of Magnesia 30 Ml Oral.Susp) 30 ml PO DAILY PRN PRN Reason: Constipation Memantine (Memantine Hcl 5 Mg Tablet) 5 mg PO DAILY [facility] Last Admin: 09/17/24 08:48 Dose: 5 mg Quetiapine Fumarate (Quetiapine Fumarate 50 Mg Tablet) 50 mg PO Q6H PRN PRN Reason: agitation Last Admin: 07/27/24 00:24 Dose: 50 mg Quetiapine Fumarate (Quetiapine Fumarate 50 Mg Tablet) 50 mg PO BID@1200,2100 [facility] Last Admin: 09/17/24 13:30 Dose: 50 mg Trazodone HCl (Trazodone Hcl 50 Mg Tablet) 50 mg PO BEDTIME PRN PRN Reason: Insomnia Last Admin: 09/02/24 21:03 Dose: 50 mg Allergies Allergies Allergy/AdvReac Type Severity Reaction Status Date / Time No Known Allergies Allergy Verified 07/18/24 21:28 Assessment & Plan Assessment & Plan (1) Major neurocognitive disorder: Status: Acute Code(s): F03.90 - Unspecified dementia, unspecified severity, without behavioral disturbance, psychotic disturbance, mood disturbance, and anxiety Plan 09/12 continue tx. 09/13 continue tx. 09/15 continue tx. 09/16: stable presentation. continue current mgmt. 09/17: stable presentation. incontinent of bowel in the [place] today. continue current mgmt. Reason for continued inpatient stay Substantial Risk for: inability to function Time Spent With Patient Time: Total time managing care of this patient today ____ minutes.
--- NOTE | 2024-09-17 19:08 | HO.PSYCHPN ---
Subjective Subjective Date of Service: 09/17/24 Reason For Visit: dementia w/ behavioral disturbance Subjective Notes: Conditional Voluntary Interim History: Pt sleeping. VS stable. eating well. visible on the unit. not oriented to situation, month nor place. awaiting placement. Medication Compliance: Yes Review of Systems Review of Systems Review of systems limited due to dementia. Yes Unobtainable due to mental status and Other (Dementia) Mental Status Exam Mental Status Exam Narrative: Appearance: wearing own attire, fair hygiene, in NAD Behavior: calm Psychomotor: retardation noted Speech: mostly mumbling, regular rate/rhythm, soft tone, minimally spontaneous TP: poverty of thought TC: unclear Mood: not assessed Affect: calm SI: none expressed HI: none expressed VH/AH: no overt signs Delusions: no overt signs Insight/judgment: impaired x 2. memory/cog: alert oriented only to person. Diagnostics Vital Signs (24Hr): Vital Signs - 24 hr 09/16/24 20:00 09/17/24 08:47 Temperature 98.8 F 98.5 F Pulse Rate 75 72 Respiratory Rate 18 16 Blood Pressure 128/62 144/68 H Pulse Oximetry 95 98 Oxygen Delivery Method Room Air Room Air BMI result Body Mass Index 23.7 Labs 08/19/24 07:26 08/19/24 07:26 Medications Medications Current Medications Acetaminophen (Acetaminophen 325 Mg Tablet) 650 mg PO Q6H PRN PRN Reason: Headache/Pain, Scale 1-10 Last Admin: 09/02/24 09:08 Dose: 650 mg Al Hydroxide/Mg Hydroxide (Magnesium Hydrox/Alum Hydrox 30 Ml Oral.Susp) 30 ml PO Q6H PRN PRN Reason: Heartburn/Nausea Last Admin: 08/05/24 12:28 Dose: 30 ml Donepezil HCl (Donepezil Hcl 5 Mg Tablet) 5 mg PO BEDTIME [facility] Last Admin: 09/16/24 20:00 Dose: 5 mg Loperamide HCl (Loperamide Hcl 2 Mg Capsule) 2 mg PO Q4H PRN PRN Reason: Diarrhea Magnesium Hydroxide (Milk Of Magnesia 30 Ml Oral.Susp) 30 ml PO DAILY PRN PRN Reason: Constipation Memantine (Memantine Hcl 5 Mg Tablet) 5 mg PO DAILY [facility] Last Admin: 09/17/24 08:48 Dose: 5 mg Quetiapine Fumarate (Quetiapine Fumarate 50 Mg Tablet) 50 mg PO Q6H PRN PRN Reason: agitation Last Admin: 07/27/24 00:24 Dose: 50 mg Quetiapine Fumarate (Quetiapine Fumarate 50 Mg Tablet) 50 mg PO BID@1200,2100 [facility] Last Admin: 09/17/24 13:30 Dose: 50 mg Trazodone HCl (Trazodone Hcl 50 Mg Tablet) 50 mg PO BEDTIME PRN PRN Reason: Insomnia Last Admin: 09/02/24 21:03 Dose: 50 mg Allergies Allergies Allergy/AdvReac Type Severity Reaction Status Date / Time No Known Allergies Allergy Verified 07/18/24 21:28 Assessment & Plan Assessment & Plan (1) Major neurocognitive disorder: Status: Acute Code(s): F03.90 - Unspecified dementia, unspecified severity, without behavioral disturbance, psychotic disturbance, mood disturbance, and anxiety Plan 09/12 continue tx. 09/13 continue tx. 09/15 continue tx. 09/16: stable presentation. continue current mgmt. 7/3: stable presentation. incontinent of bowel in the [place] today. continue current mgmt. 7/ continue tx. Reason for continued inpatient stay Substantial Risk for: inability to function Time Spent With Patient Time: Total time managing care of this patient today ____ minutes.
[2024-09-17 19:59] VITALS: PULSE 76; RESP 16; TEMP 36.6; O2SAT 96
[2024-09-17 22:58] VITALS: BMI 24.3
[2024-09-18 07:43] VITALS: BP 151/69; PULSE 75; RESP 20; TEMP 37.1; O2SAT 99
[2024-09-18 20:00] VITALS: BP 116/62; PULSE 73; RESP 16; TEMP 36.8; O2SAT 95
--- NOTE | 2024-09-18 21:40 | P.PNPSI_ITS ---
Subjective Subjective Date of Service: 09/18/24 Reason For Visit: dementia w/ behavioral disturbance Interim History: no questions or complaints. per staff, no change in presentation. wandering, eating. slept 7 hours. Mental Status Exam Mental Status Exam Narrative: Appearance: wearing own attire, fair hygiene, in NAD Behavior: calm Psychomotor: retardation noted Speech: mostly mumbling, regular rate/rhythm, soft tone, minimally spontaneous TP: poverty of thought TC: unclear Mood: not assessed Affect: calm SI: none expressed HI: none expressed VH/AH: no overt signs Delusions: no overt signs Insight/judgment: impaired x 2. memory/cog: alert oriented only to person. Diagnostics Vital Signs (24Hr): Vital Signs - 24 hr 09/18/24 07:43 Temperature 98.8 F Pulse Rate 75 Respiratory Rate 20 Blood Pressure 151/69 H Pulse Oximetry 99 Oxygen Delivery Method Room Air BMI result Body Mass Index 24.3 Labs 08/19/24 07:26 08/19/24 07:26 Medications Medications Current Medications Acetaminophen (Acetaminophen 325 Mg Tablet) 650 mg PO Q6H PRN PRN Reason: Headache/Pain, Scale 1-10 Last Admin: 09/02/24 09:08 Dose: 650 mg Al Hydroxide/Mg Hydroxide (Magnesium Hydrox/Alum Hydrox 30 Ml Oral.Susp) 30 ml PO Q6H PRN PRN Reason: Heartburn/Nausea Last Admin: 08/05/24 12:28 Dose: 30 ml Donepezil HCl (Donepezil Hcl 5 Mg Tablet) 5 mg PO BEDTIME [facility] Last Admin: 09/18/24 21:03 Dose: 5 mg Loperamide HCl (Loperamide Hcl 2 Mg Capsule) 2 mg PO Q4H PRN PRN Reason: Diarrhea Magnesium Hydroxide (Milk Of Magnesia 30 Ml Oral.Susp) 30 ml PO DAILY PRN PRN Reason: Constipation Memantine (Memantine Hcl 5 Mg Tablet) 5 mg PO DAILY [facility] Last Admin: 09/18/24 07:47 Dose: 5 mg Quetiapine Fumarate (Quetiapine Fumarate 50 Mg Tablet) 50 mg PO Q6H PRN PRN Reason: agitation Last Admin: 07/27/24 00:24 Dose: 50 mg Quetiapine Fumarate (Quetiapine Fumarate 50 Mg Tablet) 50 mg PO BID@1200,2100 [facility] Last Admin: 09/18/24 21:03 Dose: 50 mg Trazodone HCl (Trazodone Hcl 50 Mg Tablet) 50 mg PO BEDTIME PRN PRN Reason: Insomnia Last Admin: 09/02/24 21:03 Dose: 50 mg Allergies Allergies Allergy/AdvReac Type Severity Reaction Status Date / Time No Known Allergies Allergy Verified 07/18/24 21:28 Assessment & Plan Assessment & Plan (1) Major neurocognitive disorder: Status: Acute Code(s): F03.90 - Unspecified dementia, unspecified severity, without behavioral disturbance, psychotic disturbance, mood disturbance, and anxiety Plan 09/12 continue tx. 09/13 continue tx. 09/15 continue tx. 09/16: stable presentation. continue current mgmt. 7: stable presentation. incontinent of bowel in the duarte today. continue current mgmt. 09/18 continue tx. Reason for continued inpatient stay Substantial Risk for: inability to function Time Spent With Patient Time: Total time managing care of this patient today ____ minutes.
[2024-09-19 08:05] VITALS: BP 125/70; PULSE 71; RESP 20; TEMP 36.9; O2SAT 98
--- NOTE | 2024-09-19 13:09 | P.PNPSI_ITS ---
Subjective Subjective Date of Service: 09/19/24 Reason For Visit: dementia w/ behavioral disturbance Interim History: no change in presentation. severely demented. incontinent of stool while ambulating. per staff, no change in presentation. Mental Status Exam Mental Status Exam Narrative: Appearance: wearing own attire, fair hygiene, in NAD Behavior: calm Psychomotor: retardation noted Speech: mostly mumbling, regular rate/rhythm, soft tone, minimally spontaneous TP: poverty of thought TC: unclear Mood: not assessed Affect: calm SI: none expressed HI: none expressed VH/AH: no overt signs Delusions: no overt signs Insight/judgment: impaired x 2. memory/cog: alert oriented only to person. Diagnostics Vital Signs (24Hr): Vital Signs - 24 hr 09/18/24 20:00 09/19/24 08:05 Temperature 98.2 F 98.4 F Pulse Rate 73 71 Respiratory Rate 16 20 Blood Pressure 116/62 125/70 Pulse Oximetry 95 98 Oxygen Delivery Method Room Air Room Air BMI result Body Mass Index 24.3 Labs 08/19/24 07:26 08/19/24 07:26 Medications Medications Current Medications Acetaminophen (Acetaminophen 325 Mg Tablet) 650 mg PO Q6H PRN PRN Reason: Headache/Pain, Scale 1-10 Last Admin: 09/02/24 09:08 Dose: 650 mg Al Hydroxide/Mg Hydroxide (Magnesium Hydrox/Alum Hydrox 30 Ml Oral.Susp) 30 ml PO Q6H PRN PRN Reason: Heartburn/Nausea Last Admin: 08/05/24 12:28 Dose: 30 ml Donepezil HCl (Donepezil Hcl 5 Mg Tablet) 5 mg PO BEDTIME [facility] Last Admin: 09/18/24 21:03 Dose: 5 mg Loperamide HCl (Loperamide Hcl 2 Mg Capsule) 2 mg PO Q4H PRN PRN Reason: Diarrhea Magnesium Hydroxide (Milk Of Magnesia 30 Ml Oral.Susp) 30 ml PO DAILY PRN PRN Reason: Constipation Memantine (Memantine Hcl 5 Mg Tablet) 5 mg PO DAILY [facility] Last Admin: 09/19/24 08:04 Dose: 5 mg Quetiapine Fumarate (Quetiapine Fumarate 50 Mg Tablet) 50 mg PO Q6H PRN PRN Reason: agitation Last Admin: 07/27/24 00:24 Dose: 50 mg Quetiapine Fumarate (Quetiapine Fumarate 50 Mg Tablet) 50 mg PO BID@1200,2100 [facility] Last Admin: 09/19/24 11:54 Dose: 50 mg Trazodone HCl (Trazodone Hcl 50 Mg Tablet) 50 mg PO BEDTIME PRN PRN Reason: Insomnia Last Admin: 09/02/24 21:03 Dose: 50 mg Allergies Allergies Allergy/AdvReac Type Severity Reaction Status Date / Time No Known Allergies Allergy Verified 07/18/24 21:28 Assessment & Plan Assessment & Plan (1) Major neurocognitive disorder: Status: Acute Code(s): F03.90 - Unspecified dementia, unspecified severity, without behavioral disturbance, psychotic disturbance, mood disturbance, and anxiety Plan 09/12 continue tx. 09/13 continue tx. 09/15 continue tx. 09/16: stable presentation. continue current mgmt. 09/17: stable presentation. incontinent of bowel in the duarte today. continue current mgmt. / continue tx. 09/19: incontinent of stool while ambulating. severly demented. continue current mgmt. Reason for continued inpatient stay Substantial Risk for: inability to function Time Spent With Patient Time: Total time managing care of this patient today ____ minutes.
[2024-09-19 20:00] VITALS: BP 145/71; PULSE 70; RESP 18; TEMP 36.7; O2SAT 96
[2024-09-20 08:00] VITALS: BP 122/68; PULSE 72; RESP 20; TEMP 36.7; O2SAT 97
--- NOTE | 2024-09-20 10:06 | HO.PSYCHPN ---
Subjective Subjective Date of Service: 09/20/24 Reason For Visit: dementia w/ behavioral disturbance Interim History: no complaints or requests. i'm fine. per staff, no change in presentation. Mental Status Exam Mental Status Exam Narrative: Appearance: wearing own attire, fair hygiene, in NAD Behavior: calm Psychomotor: retardation noted Speech: mostly mumbling, regular rate/rhythm, soft tone, minimally spontaneous TP: poverty of thought TC: unclear Mood: not assessed Affect: calm SI: none expressed HI: none expressed VH/AH: no overt signs Delusions: no overt signs Insight/judgment: impaired x 2. memory/cog: alert oriented only to person. Diagnostics Vital Signs (24Hr): Vital Signs - 24 hr 09/19/24 20:00 09/20/24 08:00 Temperature 98.1 F 98.1 F Pulse Rate 70 72 Respiratory Rate 18 20 Blood Pressure 145/71 H 122/68 Pulse Oximetry 96 97 Oxygen Delivery Method Room Air Room Air BMI result Body Mass Index 24.3 Labs 08/19/24 07:26 08/19/24 07:26 Medications Medications Current Medications Acetaminophen (Acetaminophen 325 Mg Tablet) 650 mg PO Q6H PRN PRN Reason: Headache/Pain, Scale 1-10 Last Admin: 09/02/24 09:08 Dose: 650 mg Al Hydroxide/Mg Hydroxide (Magnesium Hydrox/Alum Hydrox 30 Ml Oral.Susp) 30 ml PO Q6H PRN PRN Reason: Heartburn/Nausea Last Admin: 08/05/24 12:28 Dose: 30 ml Donepezil HCl (Donepezil Hcl 5 Mg Tablet) 5 mg PO BEDTIME [facility] Last Admin: 09/19/24 20:14 Dose: 5 mg Loperamide HCl (Loperamide Hcl 2 Mg Capsule) 2 mg PO Q4H PRN PRN Reason: Diarrhea Magnesium Hydroxide (Milk Of Magnesia 30 Ml Oral.Susp) 30 ml PO DAILY PRN PRN Reason: Constipation Memantine (Memantine Hcl 5 Mg Tablet) 5 mg PO DAILY [facility] Last Admin: 09/20/24 08:03 Dose: 5 mg Quetiapine Fumarate (Quetiapine Fumarate 50 Mg Tablet) 50 mg PO Q6H PRN PRN Reason: agitation Last Admin: 07/27/24 00:24 Dose: 50 mg Quetiapine Fumarate (Quetiapine Fumarate 50 Mg Tablet) 50 mg PO BID@1200,2100 [facility] Last Admin: 09/19/24 20:14 Dose: 50 mg Trazodone HCl (Trazodone Hcl 50 Mg Tablet) 50 mg PO BEDTIME PRN PRN Reason: Insomnia Last Admin: 09/02/24 21:03 Dose: 50 mg Allergies Allergies Allergy/AdvReac Type Severity Reaction Status Date / Time No Known Allergies Allergy Verified 07/18/24 21:28 Assessment & Plan Assessment & Plan (1) Major neurocognitive disorder: Status: Acute Code(s): F03.90 - Unspecified dementia, unspecified severity, without behavioral disturbance, psychotic disturbance, mood disturbance, and anxiety Plan 09/12 continue tx. 09/13 continue tx. 09/15 continue tx. 09/16: stable presentation. continue current mgmt. 7/3: stable presentation. incontinent of bowel in the duarte today. continue current mgmt. 7/4 continue tx. 7/5: incontinent of stool while ambulating. severely demented. continue current mgmt. 7/6: no change. Reason for continued inpatient stay Substantial Risk for: inability to function Time Spent With Patient Time: Total time managing care of this patient today ____ minutes.
[2024-09-20 20:00] VITALS: BP 101/57; PULSE 71; RESP 16; TEMP 37.3; O2SAT 94
[2024-09-21 07:55] VITALS: BP 132/70; PULSE 78; RESP 18; TEMP 36.8; O2SAT 95
--- NOTE | 2024-09-21 11:35 | P.PNPSI_ITS ---
Subjective Subjective Date of Service: 09/21/24 Reason For Visit: dementia w/ behavioral disturbance Interim History: inert, poverty of thought, increased JOSE. no complaints or requests. per staff, flat, withdrawn. eating 100%. periodically agitated (when hands are placed on for care, for the most part). slept well overnight. Mental Status Exam Mental Status Exam Narrative: Appearance: wearing own attire, fair hygiene, in NAD Behavior: calm Psychomotor: retardation noted Speech: mostly mumbling, regular rate/rhythm, soft tone, minimally spontaneous TP: poverty of thought TC: unclear Mood: not assessed Affect: calm SI: none expressed HI: none expressed VH/AH: no overt signs Delusions: no overt signs Insight/judgment: impaired x 2. memory/cog: alert oriented only to person. Diagnostics Vital Signs (24Hr): Vital Signs - 24 hr 09/20/24 20:00 09/21/24 07:55 Temperature 99.1 F 98.2 F Pulse Rate 71 78 Respiratory Rate 16 18 Blood Pressure 101/57 L 132/70 Pulse Oximetry 94 95 Oxygen Delivery Method Room Air Room Air BMI result Body Mass Index 24.3 Labs 08/19/24 07:26 08/19/24 07:26 Medications Medications Current Medications Acetaminophen (Acetaminophen 325 Mg Tablet) 650 mg PO Q6H PRN PRN Reason: Headache/Pain, Scale 1-10 Last Admin: 09/02/24 09:08 Dose: 650 mg Al Hydroxide/Mg Hydroxide (Magnesium Hydrox/Alum Hydrox 30 Ml Oral.Susp) 30 ml PO Q6H PRN PRN Reason: Heartburn/Nausea Last Admin: 08/05/24 12:28 Dose: 30 ml Donepezil HCl (Donepezil Hcl 5 Mg Tablet) 5 mg PO BEDTIME [facility] Last Admin: 09/20/24 19:59 Dose: 5 mg Loperamide HCl (Loperamide Hcl 2 Mg Capsule) 2 mg PO Q4H PRN PRN Reason: Diarrhea Magnesium Hydroxide (Milk Of Magnesia 30 Ml Oral.Susp) 30 ml PO DAILY PRN PRN Reason: Constipation Memantine (Memantine Hcl 5 Mg Tablet) 5 mg PO DAILY [facility] Last Admin: 09/21/24 08:20 Dose: 5 mg Quetiapine Fumarate (Quetiapine Fumarate 50 Mg Tablet) 50 mg PO Q6H PRN PRN Reason: agitation Last Admin: 07/27/24 00:24 Dose: 50 mg Quetiapine Fumarate (Quetiapine Fumarate 50 Mg Tablet) 50 mg PO BID@1200,2100 [facility] Last Admin: 09/20/24 20:00 Dose: 50 mg Trazodone HCl (Trazodone Hcl 50 Mg Tablet) 50 mg PO BEDTIME PRN PRN Reason: Insomnia Last Admin: 09/02/24 21:03 Dose: 50 mg Allergies Allergies Allergy/AdvReac Type Severity Reaction Status Date / Time No Known Allergies Allergy Verified 07/18/24 21:28 Assessment & Plan Assessment & Plan (1) Major neurocognitive disorder: Status: Acute Code(s): F03.90 - Unspecified dementia, unspecified severity, without behavioral disturbance, psychotic disturbance, mood disturbance, and anxiety Plan 09/12 continue tx. 09/13 continue tx. 09/15 continue tx. 09/16: stable presentation. continue current mgmt. 09/17: stable presentation. incontinent of bowel in the duarte today. continue current mgmt. 09/18 continue tx. 09/19: incontinent of stool while ambulating. severely demented. continue current mgmt. 09/20: no change. 09/21: no change. continue current mgmt. awaiting placement. Reason for continued inpatient stay Substantial Risk for: inability to function Time Spent With Patient Time: Total time managing care of this patient today ____ minutes.
[2024-09-21 20:20] VITALS: BP 114/59; PULSE 65; RESP 16; TEMP 36.3; O2SAT 95
[2024-09-22 08:14] VITALS: BP 163/85; PULSE 84; RESP 18; TEMP 36.3; O2SAT 98
--- NOTE | 2024-09-22 12:14 | HO.PSYCHPN ---
Subjective Subjective Date of Service: 09/22/24 Reason For Visit: dementia w/ behavioral disturbance Interim History: lying in bed. reports he is feeling fine and has no questions or complaints. per staff, confused. follows commands. slept well. Mental Status Exam Mental Status Exam Narrative: Appearance: wearing own attire, fair hygiene, in NAD Behavior: calm Psychomotor: retardation noted Speech: mostly mumbling, regular rate/rhythm, soft tone, minimally spontaneous TP: poverty of thought TC: unclear Mood: not assessed Affect: calm SI: none expressed HI: none expressed VH/AH: no overt signs Delusions: no overt signs Insight/judgment: impaired x 2. memory/cog: alert oriented only to person. Diagnostics Vital Signs (24Hr): Vital Signs - 24 hr 09/21/24 20:20 09/22/24 08:14 Temperature 97.4 F 97.3 F Pulse Rate 65 84 Respiratory Rate 16 18 Blood Pressure 114/59 L 163/85 H Pulse Oximetry 95 98 Oxygen Delivery Method Room Air Room Air BMI result Body Mass Index 24.3 Labs 08/19/24 07:26 08/19/24 07:26 Medications Medications Current Medications Acetaminophen (Acetaminophen 325 Mg Tablet) 650 mg PO Q6H PRN PRN Reason: Headache/Pain, Scale 1-10 Last Admin: 09/02/24 09:08 Dose: 650 mg Al Hydroxide/Mg Hydroxide (Magnesium Hydrox/Alum Hydrox 30 Ml Oral.Susp) 30 ml PO Q6H PRN PRN Reason: Heartburn/Nausea Last Admin: 08/05/24 12:28 Dose: 30 ml Donepezil HCl (Donepezil Hcl 5 Mg Tablet) 5 mg PO BEDTIME [facility] Last Admin: 09/21/24 19:36 Dose: 5 mg Loperamide HCl (Loperamide Hcl 2 Mg Capsule) 2 mg PO Q4H PRN PRN Reason: Diarrhea Magnesium Hydroxide (Milk Of Magnesia 30 Ml Oral.Susp) 30 ml PO DAILY PRN PRN Reason: Constipation Memantine (Memantine Hcl 5 Mg Tablet) 5 mg PO DAILY [facility] Last Admin: 09/22/24 08:27 Dose: 5 mg Quetiapine Fumarate (Quetiapine Fumarate 50 Mg Tablet) 50 mg PO Q6H PRN PRN Reason: agitation Last Admin: 07/27/24 00:24 Dose: 50 mg Quetiapine Fumarate (Quetiapine Fumarate 50 Mg Tablet) 50 mg PO BID@1200,2100 [facility] Last Admin: 09/22/24 11:33 Dose: 50 mg Trazodone HCl (Trazodone Hcl 50 Mg Tablet) 50 mg PO BEDTIME PRN PRN Reason: Insomnia Last Admin: 09/02/24 21:03 Dose: 50 mg Allergies Allergies Allergy/AdvReac Type Severity Reaction Status Date / Time No Known Allergies Allergy Verified 07/18/24 21:28 Assessment & Plan Assessment & Plan (1) Major neurocognitive disorder: Status: Acute Code(s): F03.90 - Unspecified dementia, unspecified severity, without behavioral disturbance, psychotic disturbance, mood disturbance, and anxiety Plan 09/12 continue tx. 09/13 continue tx. 09/15 continue tx. 09/16: stable presentation. continue current mgmt. 09/17: stable presentation. incontinent of bowel in the [place]arte today. continue current mgmt. 09/18 continue tx. 09/19: incontinent of stool while ambulating. severely demented. continue current mgmt. 09/20: no change. 09/21: no change. continue current mgmt. awaiting placement. 09/22: stable presentation. continue current mgmt. Reason for continued inpatient stay Substantial Risk for: inability to function Time Spent With Patient Time: Total time managing care of this patient today ____ minutes.
--- NOTE | 2024-09-22 16:52 | HO.PSYCHPN ---
Subjective Subjective Date of Service: 09/22/24 Reason For Visit: dementia w/ behavioral disturbance Subjective Notes: Conditional Voluntary Interim History: Pt sleeping through the night. He takes medications as prescribed. reports he is feeling fine and has no questions or complaints. not oriented to place, month, year nor situation at baseline. Review of Systems Review of Systems Review of systems limited due to dementia. Yes Unobtainable due to mental status and Other (Dementia) Mental Status Exam Mental Status Exam Narrative: Appearance: wearing own attire, fair hygiene, in NAD Behavior: calm Psychomotor: retardation noted Speech: mostly mumbling, regular rate/rhythm, soft tone, minimally spontaneous TP: poverty of thought TC: unclear Mood: not assessed Affect: calm SI: none expressed HI: none expressed VH/AH: no overt signs Delusions: no overt signs Insight/judgment: impaired x 2. memory/cog: alert oriented only to person. Diagnostics Vital Signs (24Hr): Vital Signs - 24 hr 09/21/24 20:20 09/22/24 08:14 Temperature 97.4 F 97.3 F Pulse Rate 65 84 Respiratory Rate 16 18 Blood Pressure 114/59 L 163/85 H Pulse Oximetry 95 98 Oxygen Delivery Method Room Air Room Air BMI result Body Mass Index 24.3 Labs 08/19/24 07:26 08/19/24 07:26 Medications Medications Current Medications Acetaminophen (Acetaminophen 325 Mg Tablet) 650 mg PO Q6H PRN PRN Reason: Headache/Pain, Scale 1-10 Last Admin: 09/02/24 09:08 Dose: 650 mg Al Hydroxide/Mg Hydroxide (Magnesium Hydrox/Alum Hydrox 30 Ml Oral.Susp) 30 ml PO Q6H PRN PRN Reason: Heartburn/Nausea Last Admin: 08/05/24 12:28 Dose: 30 ml Donepezil HCl (Donepezil Hcl 5 Mg Tablet) 5 mg PO BEDTIME [facility] Last Admin: 09/21/24 19:36 Dose: 5 mg Loperamide HCl (Loperamide Hcl 2 Mg Capsule) 2 mg PO Q4H PRN PRN Reason: Diarrhea Magnesium Hydroxide (Milk Of Magnesia 30 Ml Oral.Susp) 30 ml PO DAILY PRN PRN Reason: Constipation Memantine (Memantine Hcl 5 Mg Tablet) 5 mg PO DAILY [facility] Last Admin: 09/22/24 08:27 Dose: 5 mg Quetiapine Fumarate (Quetiapine Fumarate 50 Mg Tablet) 50 mg PO Q6H PRN PRN Reason: agitation Last Admin: 07/27/24 00:24 Dose: 50 mg Quetiapine Fumarate (Quetiapine Fumarate 50 Mg Tablet) 50 mg PO BID@1200,2100 [facility] Last Admin: 09/22/24 11:33 Dose: 50 mg Trazodone HCl (Trazodone Hcl 50 Mg Tablet) 50 mg PO BEDTIME PRN PRN Reason: Insomnia Last Admin: 09/02/24 21:03 Dose: 50 mg Allergies Allergies Allergy/AdvReac Type Severity Reaction Status Date / Time No Known Allergies Allergy Verified 07/18/24 21:28 Assessment & Plan Assessment & Plan (1) Major neurocognitive disorder: Status: Acute Code(s): F03.90 - Unspecified dementia, unspecified severity, without behavioral disturbance, psychotic disturbance, mood disturbance, and anxiety Plan 09/12 continue tx. 09/13 continue tx. 09/15 continue tx. 09/16: stable presentation. continue current mgmt. 09/17: stable presentation. incontinent of bowel in the [place] today. continue current mgmt. 09/18 continue tx. 09/19: incontinent of stool while ambulating. severely demented. continue current mgmt. 09/20: no change. 09/21: no change. continue current mgmt. awaiting placement. 09/22: stable presentation. continue current mgmt. Reason for continued inpatient stay Substantial Risk for: inability to function Time Spent With Patient Time: Total time managing care of this patient today ____ minutes.
[2024-09-22 19:39] VITALS: BP 132/67; PULSE 72; RESP 15; TEMP 37.1; O2SAT 94
[2024-09-23 08:08] VITALS: BP 133/80; PULSE 78; RESP 16; TEMP 35.9; O2SAT 92
--- NOTE | 2024-09-23 14:10 | HO.PSYCHPN ---
Subjective Subjective Date of Service: 09/23/24 Reason For Visit: dementia w/ behavioral disturbance Subjective Notes: Section 7 and Section 8 Medical Problems Affecting Mental Status: No Interim History: Medical record and nursing notes reviewed; case discussed during rounds with team, and met with patient for supportive therapy/psychoeducation, as well as medication management. Per chart review patient slept for 8 hours last night, good appetite. He is medication compliant. Not able to reports if he has any side effects. No signs symptoms of side effects observed. No medication change today. Observed him eating lunch in day room with other peers. He does not fully engaged in the conversation, sometimes talking but mom think to himself. Reports he feels okay . Say yes to the question if he slept well last. He walking very slowly from the day room to the group room. Wearing the reading glasses. Staff reminds him that this is the reading classes will make is hard for him to walk when he has it on. However he does not want to take it off Per nursing patient needs redirection, wondering around the unit and need to remind patient to do the bedroom to prevent incontinence. He does not having any aggressive behavior. Medication Compliance: Yes Review of Systems Acute medical concerns: No Medical Review of Systems: unchanged Review of Systems Review of Systems Review of systems limited due to dementia. Yes Unobtainable due to mental status and Other (Dementia) Mental Status Exam Mental Status Exam Narrative: Appearance: wearing own attire, fair hygiene, in NAD Behavior: calm Psychomotor: retardation noted Speech: mostly mumbling, regular rate/rhythm, soft tone, minimally spontaneous TP: poverty of thought TC: unclear, not fully engaging in conversation. No self harm behavior or homicidal thoughts observed. Mood: not assessed. Appears anxious. Affect: calm SI: none expressed HI: none expressed VH/AH: no overt signs Delusions: no overt signs Insight/judgment: impaired . memory/cog: alert oriented only to person. Diagnostics Vital Signs (24Hr): Vital Signs - 24 hr 09/22/24 19:39 09/23/24 08:08 Temperature 98.8 F 96.7 F L Pulse Rate 72 78 Respiratory Rate 15 16 Blood Pressure 132/67 133/80 Pulse Oximetry 94 92 Oxygen Delivery Method Room Air Room Air BMI result Body Mass Index 24.3 Labs 08/19/24 07:26 08/19/24 07:26 Medications Medications Current Medications Acetaminophen (Acetaminophen 325 Mg Tablet) 650 mg PO Q6H PRN PRN Reason: Headache/Pain, Scale 1-10 Last Admin: 09/02/24 09:08 Dose: 650 mg Al Hydroxide/Mg Hydroxide (Magnesium Hydrox/Alum Hydrox 30 Ml Oral.Susp) 30 ml PO Q6H PRN PRN Reason: Heartburn/Nausea Last Admin: 08/05/24 12:28 Dose: 30 ml Donepezil HCl (Donepezil Hcl 5 Mg Tablet) 5 mg PO BEDTIME [facility] Last Admin: 09/22/24 19:41 Dose: 5 mg Loperamide HCl (Loperamide Hcl 2 Mg Capsule) 2 mg PO Q4H PRN PRN Reason: Diarrhea Magnesium Hydroxide (Milk Of Magnesia 30 Ml Oral.Susp) 30 ml PO DAILY PRN PRN Reason: Constipation Memantine (Memantine Hcl 5 Mg Tablet) 5 mg PO DAILY [facility] Last Admin: 09/23/24 08:10 Dose: 5 mg Quetiapine Fumarate (Quetiapine Fumarate 50 Mg Tablet) 50 mg PO Q6H PRN PRN Reason: agitation Last Admin: 07/27/24 00:24 Dose: 50 mg Quetiapine Fumarate (Quetiapine Fumarate 50 Mg Tablet) 50 mg PO BID@1200,2100 [facility] Last Admin: 09/23/24 11:19 Dose: 50 mg Trazodone HCl (Trazodone Hcl 50 Mg Tablet) 50 mg PO BEDTIME PRN PRN Reason: Insomnia Last Admin: 09/02/24 21:03 Dose: 50 mg Allergies Allergies Allergy/AdvReac Type Severity Reaction Status Date / Time No Known Allergies Allergy Verified 07/18/24 21:28 Assessment & Plan Assessment & Plan (1) Major neurocognitive disorder: Status: Acute Code(s): F03.90 - Unspecified dementia, unspecified severity, without behavioral disturbance, psychotic disturbance, mood disturbance, and anxiety Plan 09/12 continue tx. 09/13 continue tx. 09/15 continue tx. 09/16: stable presentation. continue current mgmt. /3: stable presentation. incontinent of bowel in the duarte today. continue current mgmt. 7/4 continue tx. /5: incontinent of stool while ambulating. severely demented. continue current mgmt. 7/6: no change. 09/21: no change. continue current mgmt. awaiting placement. 09/22: stable presentation. continue current mgmt. 09/23/24: Slowly walk in the duarte, not fully engaged in conversation. Reports feeling okay , wearing reading glasses whlie walking the duarte. Staff to remind patient to use the bathroom to prevent incontinence. No side effects from medication observed. No behavior issues. Continue with current plan Patient educated on: medication risk/benefits and therapeutic strategies Informed Consent: further education needed Reason for continued inpatient stay Substantial Risk for: med/psych decompensation Time Spent With Patient Time: Total time managing care of this patient today ____ minutes.
--- NOTE | 2024-09-23 16:43 | HO.PSYCHPN ---
Subjective Subjective Reason For Visit: dementia w/ behavioral disturbance Diagnostics Vital Signs (24Hr): Vital Signs - 24 hr 09/22/24 19:39 09/23/24 08:08 Temperature 98.8 F 96.7 F L Pulse Rate 72 78 Respiratory Rate 15 16 Blood Pressure 132/67 133/80 Pulse Oximetry 94 92 Oxygen Delivery Method Room Air Room Air BMI result Body Mass Index 24.3 Labs 08/19/24 07:26 08/19/24 07:26 Medications Medications Current Medications Acetaminophen (Acetaminophen 325 Mg Tablet) 650 mg PO Q6H PRN PRN Reason: Headache/Pain, Scale 1-10 Last Admin: 09/02/24 09:08 Dose: 650 mg Al Hydroxide/Mg Hydroxide (Magnesium Hydrox/Alum Hydrox 30 Ml Oral.Susp) 30 ml PO Q6H PRN PRN Reason: Heartburn/Nausea Last Admin: 08/05/24 12:28 Dose: 30 ml Donepezil HCl (Donepezil Hcl 5 Mg Tablet) 5 mg PO BEDTIME [facility] Last Admin: 09/22/24 19:41 Dose: 5 mg Loperamide HCl (Loperamide Hcl 2 Mg Capsule) 2 mg PO Q4H PRN PRN Reason: Diarrhea Magnesium Hydroxide (Milk Of Magnesia 30 Ml Oral.Susp) 30 ml PO DAILY PRN PRN Reason: Constipation Memantine (Memantine Hcl 5 Mg Tablet) 5 mg PO DAILY [facility] Last Admin: 09/23/24 08:10 Dose: 5 mg Quetiapine Fumarate (Quetiapine Fumarate 50 Mg Tablet) 50 mg PO Q6H PRN PRN Reason: agitation Last Admin: 07/27/24 00:24 Dose: 50 mg Quetiapine Fumarate (Quetiapine Fumarate 50 Mg Tablet) 50 mg PO BID@1200,2100 [facility] Last Admin: 09/23/24 11:19 Dose: 50 mg Trazodone HCl (Trazodone Hcl 50 Mg Tablet) 50 mg PO BEDTIME PRN PRN Reason: Insomnia Last Admin: 09/02/24 21:03 Dose: 50 mg Allergies Allergies Allergy/AdvReac Type Severity Reaction Status Date / Time No Known Allergies Allergy Verified 07/18/24 21:28 Assessment & Plan Assessment & Plan (1) Major neurocognitive disorder: Status: Acute Code(s): F03.90 - Unspecified dementia, unspecified severity, without behavioral disturbance, psychotic disturbance, mood disturbance, and anxiety Plan 09/12 continue tx. 09/13 continue tx. 09/15 continue tx. 09/16: stable presentation. continue current mgmt. 09/17: stable presentation. incontinent of bowel in the duarte today. continue current mgmt. 09/18 continue tx. 09/19: incontinent of stool while ambulating. severely demented. continue current mgmt. 09/20: no change. 09/21: no change. continue current mgmt. awaiting placement. 09/22: stable presentation. continue current mgmt. 09/23/24: Slowly walk in the duarte, not fully engaged in conversation. Reports feeling okay , wearing reading glasses whlie walking the duarte. Staff to remind patient to use the bathroom to prevent incontinence. No side effects from medication observed. No behavior issues. Continue with current plan Time Spent With Patient Time: Total time managing care of this patient today ____ minutes.
[2024-09-23 19:44] VITALS: BP 136/71; PULSE 71; RESP 16; TEMP 36.9; O2SAT 95
[2024-09-24 08:00] VITALS: BP 120/70; PULSE 81; RESP 18; TEMP 36.3; O2SAT 97
--- NOTE | 2024-09-24 14:04 | HO.PSYCHPN ---
Subjective Subjective Date of Service: 09/24/24 Reason For Visit: dementia w/ behavioral disturbance Interim History: in bed, soft-spoken, paucity of content. no questions or concerns. per staff, no change in presentation. Mental Status Exam Mental Status Exam Narrative: Appearance: wearing own attire, fair hygiene, in NAD Behavior: calm Psychomotor: retardation noted Speech: mostly mumbling, regular rate/rhythm, soft tone, minimally spontaneous TP: poverty of thought TC: unclear Mood: not assessed Affect: calm SI: none expressed HI: none expressed VH/AH: no overt signs Delusions: no overt signs Insight/judgment: impaired x 2. memory/cog: alert oriented only to person. Diagnostics Vital Signs (24Hr): Vital Signs - 24 hr 09/23/24 19:44 09/24/24 08:00 Temperature 98.4 F 97.3 F Pulse Rate 71 81 Respiratory Rate 16 18 Blood Pressure 136/71 120/70 Pulse Oximetry 95 97 Oxygen Delivery Method Room Air Room Air BMI result Body Mass Index 24.3 Labs 08/19/24 07:26 08/19/24 07:26 Medications Medications Current Medications Acetaminophen (Acetaminophen 325 Mg Tablet) 650 mg PO Q6H PRN PRN Reason: Headache/Pain, Scale 1-10 Last Admin: 09/02/24 09:08 Dose: 650 mg Al Hydroxide/Mg Hydroxide (Magnesium Hydrox/Alum Hydrox 30 Ml Oral.Susp) 30 ml PO Q6H PRN PRN Reason: Heartburn/Nausea Last Admin: 08/05/24 12:28 Dose: 30 ml Donepezil HCl (Donepezil Hcl 5 Mg Tablet) 5 mg PO BEDTIME [facility] Last Admin: 09/23/24 19:47 Dose: 5 mg Loperamide HCl (Loperamide Hcl 2 Mg Capsule) 2 mg PO Q4H PRN PRN Reason: Diarrhea Magnesium Hydroxide (Milk Of Magnesia 30 Ml Oral.Susp) 30 ml PO DAILY PRN PRN Reason: Constipation Memantine (Memantine Hcl 5 Mg Tablet) 5 mg PO DAILY [facility] Last Admin: 09/24/24 08:13 Dose: 5 mg Quetiapine Fumarate (Quetiapine Fumarate 50 Mg Tablet) 50 mg PO Q6H PRN PRN Reason: agitation Last Admin: 07/27/24 00:24 Dose: 50 mg Quetiapine Fumarate (Quetiapine Fumarate 50 Mg Tablet) 50 mg PO BID@1200,2100 [facility] Last Admin: 09/24/24 11:58 Dose: 50 mg Trazodone HCl (Trazodone Hcl 50 Mg Tablet) 50 mg PO BEDTIME PRN PRN Reason: Insomnia Last Admin: 09/02/24 21:03 Dose: 50 mg Allergies Allergies Allergy/AdvReac Type Severity Reaction Status Date / Time No Known Allergies Allergy Verified 07/18/24 21:28 Assessment & Plan Assessment & Plan (1) Major neurocognitive disorder: Status: Acute Code(s): F03.90 - Unspecified dementia, unspecified severity, without behavioral disturbance, psychotic disturbance, mood disturbance, and anxiety Plan 09/12 continue tx. 09/13 continue tx. 09/15 continue tx. 09/16: stable presentation. continue current mgmt. 09/17: stable presentation. incontinent of bowel in the duarte today. continue current mgmt. 09/18 continue tx. 09/19: incontinent of stool while ambulating. severely demented. continue current mgmt. 09/20: no change. 09/21: no change. continue current mgmt. awaiting placement. 09/22: stable presentation. continue current mgmt. 09/23: severely demented. awaiting placement. stable. Reason for continued inpatient stay Substantial Risk for: inability to function Time Spent With Patient Time: Total time managing care of this patient today ____ minutes.
[2024-09-24 19:55] VITALS: BP 118/57; PULSE 63; TEMP 36.9; O2SAT 95
[2024-09-25 08:55] VITALS: BP 139/70; PULSE 61; RESP 18; TEMP 36.4; O2SAT 99
[2024-09-25 21:03] VITALS: BP 123/63; PULSE 74; RESP 18; TEMP 36.2; O2SAT 94
[2024-09-26 08:00] VITALS: BP 125/68; PULSE 80; RESP 18; TEMP 36.5; O2SAT 96
--- NOTE | 2024-09-26 08:42 | P.PNPSI_ITS ---
Subjective Subjective Date of Service: 09/25/24 Reason For Visit: dementia w/ behavioral disturbance Interim History: late entry note for patient seen on 09/25/24; discussed with team Initially patient says that he is pretty good but on further inquiry patient able to articulate thoughts, mumbles my mind is my mind.. Mental Status Exam Mental Status Exam Narrative: Appearance: wearing own attire, fair hygiene, in NAD Behavior: calm Psychomotor: retardation noted Speech: mostly mumbling, regular rate/rhythm, soft tone, minimally spontaneous TP: poverty of thought TC: unclear Mood: pretty good Affect: calm SI: none expressed HI: none expressed VH/AH: no overt signs Delusions: no overt signs Insight/judgment: impaired x 2. memory/cog: alert oriented only to person. Diagnostics Vital Signs (24Hr): Vital Signs - 24 hr 09/25/24 08:55 09/25/24 21:03 Temperature 97.5 F 97.2 F Pulse Rate 61 74 Respiratory Rate 18 18 Blood Pressure 139/70 123/63 Pulse Oximetry 99 94 Oxygen Delivery Method Room Air Room Air BMI result Body Mass Index 24.3 Labs 08/19/24 07:26 08/19/24 07:26 Medications Medications Current Medications Acetaminophen (Acetaminophen 325 Mg Tablet) 650 mg PO Q6H PRN PRN Reason: Headache/Pain, Scale 1-10 Last Admin: 09/02/24 09:08 Dose: 650 mg Al Hydroxide/Mg Hydroxide (Magnesium Hydrox/Alum Hydrox 30 Ml Oral.Susp) 30 ml PO Q6H PRN PRN Reason: Heartburn/Nausea Last Admin: 08/05/24 12:28 Dose: 30 ml Donepezil HCl (Donepezil Hcl 5 Mg Tablet) 5 mg PO BEDTIME [facility] Last Admin: 09/25/24 21:05 Dose: 5 mg Loperamide HCl (Loperamide Hcl 2 Mg Capsule) 2 mg PO Q4H PRN PRN Reason: Diarrhea Magnesium Hydroxide (Milk Of Magnesia 30 Ml Oral.Susp) 30 ml PO DAILY PRN PRN Reason: Constipation Memantine (Memantine Hcl 5 Mg Tablet) 5 mg PO DAILY [facility] Last Admin: 09/26/24 08:24 Dose: 5 mg Quetiapine Fumarate (Quetiapine Fumarate 50 Mg Tablet) 50 mg PO Q6H PRN PRN Reason: agitation Last Admin: 07/27/24 00:24 Dose: 50 mg Quetiapine Fumarate (Quetiapine Fumarate 50 Mg Tablet) 50 mg PO BID@1200,2100 [facility] Last Admin: 09/25/24 21:05 Dose: 50 mg Trazodone HCl (Trazodone Hcl 50 Mg Tablet) 50 mg PO BEDTIME PRN PRN Reason: Insomnia Last Admin: 09/24/24 20:38 Dose: 50 mg Allergies Allergies Allergy/AdvReac Type Severity Reaction Status Date / Time No Known Allergies Allergy Verified 07/18/24 21:28 Assessment & Plan Assessment & Plan (1) Major neurocognitive disorder: Status: Acute Code(s): F03.90 - Unspecified dementia, unspecified severity, without behavioral disturbance, psychotic disturbance, mood disturbance, and anxiety Plan 09/12 continue tx. 09/13 continue tx. 09/15 continue tx. 09/16: stable presentation. continue current mgmt. 09/17: stable presentation. incontinent of bowel in the duarte today. continue current mgmt. 09/18 continue tx. 09/19: incontinent of stool while ambulating. severely demented. continue current mgmt. 09/20: no change. 09/21: no change. continue current mgmt. awaiting placement. 09/22: stable presentation. continue current mgmt. 09/23: severely demented. awaiting placement. stable. 09/25 continue current treatment plan Informed Consent: does not understand Reason for continued inpatient stay Substantial Risk for: inability to function Time Spent With Patient Time: Total time managing care of this patient today ____ minutes.
--- NOTE | 2024-09-26 15:44 | P.PNPSI_ITS ---
Subjective Subjective Date of Service: 09/26/24 Reason For Visit: dementia w/ behavioral disturbance Interim History: Met with patient; discussed with team Calm; sitting in chair, taking medications; staff reports no change in presentation. Difficult with which to engage Mental Status Exam Mental Status Exam Narrative: Appearance: wearing own attire, fair hygiene, in NAD Behavior: calm Psychomotor: retardation noted Speech: mostly mumbling, regular rate/rhythm, soft tone, minimally spontaneous TP: poverty of thought TC: unclear Mood: Calm Affect: calm SI: none expressed HI: none expressed VH/AH: no overt signs Delusions: no overt signs Insight/judgment: impaired x 2. memory/cog: alert oriented only to person. Diagnostics Vital Signs (24Hr): Vital Signs - 24 hr 09/25/24 21:03 09/26/24 08:00 Temperature 97.2 F 97.7 F Pulse Rate 74 80 Respiratory Rate 18 18 Blood Pressure 123/63 125/68 Pulse Oximetry 94 96 Oxygen Delivery Method Room Air Room Air BMI result Body Mass Index 24.3 Labs 09/27/24 14:21 09/27/24 14:21 Medications Medications Current Medications Acetaminophen (Acetaminophen 325 Mg Tablet) 650 mg PO Q6H PRN PRN Reason: Headache/Pain, Scale 1-10 Last Admin: 09/02/24 09:08 Dose: 650 mg Al Hydroxide/Mg Hydroxide (Magnesium Hydrox/Alum Hydrox 30 Ml Oral.Susp) 30 ml PO Q6H PRN PRN Reason: Heartburn/Nausea Last Admin: 08/05/24 12:28 Dose: 30 ml Donepezil HCl (Donepezil Hcl 5 Mg Tablet) 5 mg PO BEDTIME [facility] Last Admin: 09/25/24 21:05 Dose: 5 mg Loperamide HCl (Loperamide Hcl 2 Mg Capsule) 2 mg PO Q4H PRN PRN Reason: Diarrhea Magnesium Hydroxide (Milk Of Magnesia 30 Ml Oral.Susp) 30 ml PO DAILY PRN PRN Reason: Constipation Memantine (Memantine Hcl 5 Mg Tablet) 5 mg PO DAILY [facility] Last Admin: 09/26/24 08:24 Dose: 5 mg Quetiapine Fumarate (Quetiapine Fumarate 50 Mg Tablet) 50 mg PO Q6H PRN PRN Reason: agitation Last Admin: 07/27/24 00:24 Dose: 50 mg Quetiapine Fumarate (Quetiapine Fumarate 50 Mg Tablet) 50 mg PO BID@1200,2100 [facility] Last Admin: 09/26/24 12:05 Dose: 50 mg Trazodone HCl (Trazodone Hcl 50 Mg Tablet) 50 mg PO BEDTIME PRN PRN Reason: Insomnia Last Admin: 09/24/24 20:38 Dose: 50 mg Allergies Allergies Allergy/AdvReac Type Severity Reaction Status Date / Time No Known Allergies Allergy Verified 07/18/24 21:28 Assessment & Plan Assessment & Plan (1) Major neurocognitive disorder: Status: Acute Code(s): F03.90 - Unspecified dementia, unspecified severity, without behavioral disturbance, psychotic disturbance, mood disturbance, and anxiety Plan 09/12 continue tx. 09/13 continue tx. 09/15 continue tx. 09/16: stable presentation. continue current mgmt. 09/17: stable presentation. incontinent of bowel in the duarte today. continue current mgmt. 09/18 continue tx. 09/19: incontinent of stool while ambulating. severely demented. continue current mgmt. 09/20: no change. 09/21: no change. continue current mgmt. awaiting placement. 09/22: stable presentation. continue current mgmt. 09/23: severely demented. awaiting placement. stable. 09/25 continue current treatment plan 09/26 continue current treatment plan Reason for continued inpatient stay Substantial Risk for: inability to function Time Spent With Patient Time: Total time managing care of this patient today ____ minutes.
[2024-09-26 19:34] VITALS: BP 144/76; PULSE 62; RESP 16; TEMP 36.8; O2SAT 97
[2024-09-27 08:00] VITALS: BP 121/69; PULSE 60; RESP 16; TEMP 36.8; O2SAT 99
--- NOTE | 2024-09-27 13:09 | PC.NURSE ---
Changes in mental status, auditory hallucinations and generalized decline observed. Patient urinated in a hallway. Incontinent of bowels. VSS. New order for urine culture. Urine sample collected and in labs. Awaiting results.
[2024-09-27 14:26] LABS: MANUAL DIFF FLAG NO
[2024-09-27 14:27] LABS: Hematocrit 35.8 % (42.0-52.0); Hemoglobin 12.0 g/dl (14.0-18.0); Imm Gran Abs Auto 0.01 X10*3/uL (0.00-0.03); Imm Gran Pct Auto 0.2 % (0.0-0.4); Lymphocytes Absolute Auto 1.0 X10*3/uL (1.2-4.9); Mean Corpuscular HGB Conc 33.5 g/dl (31.0-36.0); Mean Corpuscular Hemoglobin 29.1 pg (27.0-33.0); Mean Corpuscular Volume 86.9 fL (80.0-98.0); NRBC Abs Auto 0.000 X10*3/uL (0.0-0.012); NRBC Pct Auto 0.0 /100WBC (0.0-0.2); Platelet Count 224 X10*3/uL (160-400); Red Blood Count 4.12 X10*6/uL (4.60-5.80); White Blood Count 6.0 X10*3/uL (4.8-10.8)
[2024-09-27 14:35] LABS: Ammonia 34 umol/L (13-55)
[2024-09-27 14:43] LABS: Alanine Aminotransferase 30 U/L (0-40); Albumin Level 4.0 g/dL (3.5-5.0); Alkaline Phosphatase 67 U/L (39-117); Anion Gap 11 (12-20); Aspartate Amino Transferase 23 U/L (5-37); Blood Urea Nitrogen 21 mg/dL (9-16); Calcium 9.1 mg/dL (8.4-10.2); Carbon Dioxide 26 mmol/L (22-29); Chloride 107 mmol/L (96-108); Creatinine Clr Calc Pharmacy 63.8; Estimated Glomerular Filt Rate > 60; Potassium 4.6 mmol/L (3.3-5.1); Sodium 139 mmol/L (135-145); Total Protein 6.6 g/dL (6.5-8.0)
[2024-09-27 19:49] VITALS: BP 130/64; PULSE 66; RESP 16; TEMP 37.4; O2SAT 93
--- NOTE | 2024-09-27 20:02 | HO.PSYCHPN ---
Subjective Subjective Date of Service: 09/27/24 Reason For Visit: dementia w/ behavioral disturbance Interim History: Met with patient; discussed with team Today nursing report that patient had an odd moment where he expressed a delusional thought and looked as if he was off balance however this was momentary and fully resolved. On approach patient presents at baseline. Vitals WNL; ordered labs, UA Mental Status Exam Mental Status Exam Narrative: Appearance: wearing own attire, fair hygiene, in NAD Behavior: calm Psychomotor: retardation noted Speech: mostly mumbling, regular rate/rhythm, soft tone, minimally spontaneous TP: poverty of thought TC: unclear; delusion/confused thought Mood: Calm Affect: calm SI: none expressed HI: none expressed VH/AH: no overt signs Delusions: no overt signs Insight/judgment: impaired x 2. memory/cog: alert oriented only to person. Diagnostics Vital Signs (24Hr): Vital Signs - 24 hr 09/27/24 08:00 09/27/24 19:49 Temperature 98.2 F 99.3 F Pulse Rate 60 66 Respiratory Rate 16 16 Blood Pressure 121/69 130/64 Pulse Oximetry 99 93 Oxygen Delivery Method Room Air Room Air BMI result Body Mass Index 24.3 Labs 09/27/24 14:21 09/27/24 14:21 Labs: Laboratory Results - last 48 hr 09/27/24 14:21 WBC 6.0 RBC 4.12 L Hgb 12.0 L Hct 35.8 L MCV 86.9 MCH 29.1 MCHC 33.5 RDW 14.4 Plt Count 224 MPV 8.9 L Immature Gran % (Auto) 0.2 Neut % (Auto) 68.2 Lymph % (Auto) 17.2 L [place] % (Auto) 11.7 H Eos % (Auto) 2.2 Baso % (Auto) 0.5 Lymph # (Auto) 1.0 L [place] # (Auto) 0.7 Eos # (Auto) 0.1 Baso # (Auto) 0.0 Abs Immat Gran (auto) 0.01 Absolute Neuts (auto) 4.1 Absolute Nucleated RBC 0.000 Nucleated RBC % (auto) 0.0 Sodium 139 Potassium 4.6 Chloride 107 Carbon Dioxide 26 Anion Gap 11 L BUN 21 H Creatinine 1.08 Estim Creat Clear Calc 63.8 Estimated GFR > 60 Random Glucose 109 Calcium 9.1 Total Bilirubin 0.2 AST 23 ALT 30 Alkaline Phosphatase 67 Ammonia 34 Total Protein 6.6 Albumin 4.0 Medications Medications Current Medications Acetaminophen (Acetaminophen 325 Mg Tablet) 650 mg PO Q6H PRN PRN Reason: Headache/Pain, Scale 1-10 Last Admin: 09/02/24 09:08 Dose: 650 mg Al Hydroxide/Mg Hydroxide (Magnesium Hydrox/Alum Hydrox 30 Ml Oral.Susp) 30 ml PO Q6H PRN PRN Reason: Heartburn/Nausea Last Admin: 08/05/24 12:28 Dose: 30 ml Donepezil HCl (Donepezil Hcl 5 Mg Tablet) 5 mg PO BEDTIME [facility] Last Admin: 09/27/24 19:52 Dose: 5 mg Loperamide HCl (Loperamide Hcl 2 Mg Capsule) 2 mg PO Q4H PRN PRN Reason: Diarrhea Magnesium Hydroxide (Milk Of Magnesia 30 Ml Oral.Susp) 30 ml PO DAILY PRN PRN Reason: Constipation Memantine (Memantine Hcl 5 Mg Tablet) 5 mg PO DAILY [facility] Last Admin: 09/27/24 08:02 Dose: 5 mg Quetiapine Fumarate (Quetiapine Fumarate 50 Mg Tablet) 50 mg PO Q6H PRN PRN Reason: agitation Last Admin: 07/27/24 00:24 Dose: 50 mg Quetiapine Fumarate (Quetiapine Fumarate 50 Mg Tablet) 50 mg PO BID@1200,2100 [facility] Last Admin: 09/27/24 19:51 Dose: 50 mg Trazodone HCl (Trazodone Hcl 50 Mg Tablet) 50 mg PO BEDTIME PRN PRN Reason: Insomnia Last Admin: 09/24/24 20:38 Dose: 50 mg Allergies Allergies Allergy/AdvReac Type Severity Reaction Status Date / Time No Known Allergies Allergy Verified 07/18/24 21:28 Assessment & Plan Assessment & Plan (1) Major neurocognitive disorder: Status: Acute Code(s): F03.90 - Unspecified dementia, unspecified severity, without behavioral disturbance, psychotic disturbance, mood disturbance, and anxiety Plan 09/12 continue tx. 09/13 continue tx. 09/15 continue tx. 09/16: stable presentation. continue current mgmt. /3: stable presentation. incontinent of bowel in the duarte today. continue current mgmt. 7/4 continue tx. 5: incontinent of stool while ambulating. severely demented. continue current mgmt. 7/6: no change. 09/21: no change. continue current mgmt. awaiting placement. 09/22: stable presentation. continue current mgmt. 09/23: severely demented. awaiting placement. stable. 09/25 continue current treatment plan 09/26 continue current treatment plan 09/27 Today nursing report that patient had an odd moment where he expressed a delusional thought and looked as if he was off balance however this was momentary and fully resolved. On approach patient presents at baseline. -although patient quickly returned to baseline, ordered UA/labs which are unremarkable; vitals WNL Informed Consent: does not understand Reason for continued inpatient stay Substantial Risk for: inability to function Time Spent With Patient Time: Total time managing care of this patient today ____ minutes.
[2024-09-28 07:43] LABS: Appearance Urine Turbid; Glucose Urine UA Negative (Negative); PH 5.5 (5.0-9.0); Specific Gravity - Urine 1.025 (1.005-1.025)
[2024-09-28 08:00] VITALS: BP 137/73; PULSE 62; RESP 16; TEMP 36.7; O2SAT 98
--- NOTE | 2024-09-28 10:47 | P.PNPSI_ITS ---
Subjective Subjective Date of Service: 09/28/24 Reason For Visit: dementia w/ behavioral disturbance Subjective Notes: Conditional Voluntary Guardianship: Yes Interim History: Pt slept through the night. He is not oriented to place, month, year nor situation. He is ambulating without an issue, smiles as this screenplay writer asks how is he doing. VS stable. He is taking medications as prescribed. No behavioral concerns. Medication Compliance: Yes Side effects from medications: No Review of Systems Review of Systems Review of systems limited due to dementia. Yes Unobtainable due to mental status and Other (Dementia) Mental Status Exam Mental Status Exam Narrative: Appearance: wearing own attire, fair hygiene, in NAD Behavior: calm Psychomotor: retardation noted Speech: mostly mumbling, regular rate/rhythm, soft tone, minimally spontaneous TP: poverty of thought TC: unclear; delusion/confused thought Mood: Calm Affect: calm SI: none expressed HI: none expressed VH/AH: no overt signs Delusions: no overt signs Insight/judgment: impaired x 2. memory/cog: alert oriented only to person. Diagnostics Vital Signs (24Hr): Vital Signs - 24 hr 09/27/24 19:49 09/28/24 08:00 Temperature 99.3 F 98.1 F Pulse Rate 66 62 Respiratory Rate 16 16 Blood Pressure 130/64 137/73 Pulse Oximetry 93 98 Oxygen Delivery Method Room Air Room Air BMI result Body Mass Index 24.3 Labs 09/27/24 14:21 09/27/24 14:21 Labs: Laboratory Results - last 48 hr 09/27/24 09/27/24 12:40 14:21 WBC 6.0 RBC 4.12 L Hgb 12.0 L Hct 35.8 L MCV 86.9 MCH 29.1 MCHC 33.5 RDW 14.4 Plt Count 224 MPV 8.9 L Immature Gran % (Auto) 0.2 Neut % (Auto) 68.2 Lymph % (Auto) 17.2 L [place] % (Auto) 11.7 H Eos % (Auto) 2.2 Baso % (Auto) 0.5 Lymph # (Auto) 1.0 L [place] # (Auto) 0.7 Eos # (Auto) 0.1 Baso # (Auto) 0.0 Abs Immat Gran (auto) 0.01 Absolute Neuts (auto) 4.1 Absolute Nucleated RBC 0.000 Nucleated RBC % (auto) 0.0 Sodium 139 Potassium 4.6 Chloride 107 Carbon Dioxide 26 Anion Gap 11 L BUN 21 H Creatinine 1.08 Estim Creat Clear Calc 63.8 Estimated GFR > 60 Random Glucose 109 Calcium 9.1 Total Bilirubin 0.2 AST 23 ALT 30 Alkaline Phosphatase 67 Ammonia 34 Total Protein 6.6 Albumin 4.0 Urine Color Yellow Urine Appearance Turbid Urine pH 5.5 Ur Specific [place] 1.025 Urine Protein Negative Urine Glucose (UA) Negative Urine Ketones Trace Urine Blood Negative Urine Nitrite Negative Ur Leukocyte Esterase Negative Urine RBC 0-2 Urine WBC 0-5 Ur Squamous Epith Cells 0-2 Urine Bacteria None Seen Hyaline Casts 0-2 Medications Medications Current Medications Acetaminophen (Acetaminophen 325 Mg Tablet) 650 mg PO Q6H PRN PRN Reason: Headache/Pain, Scale 1-10 Last Admin: 09/02/24 09:08 Dose: 650 mg Al Hydroxide/Mg Hydroxide (Magnesium Hydrox/Alum Hydrox 30 Ml Oral.Susp) 30 ml PO Q6H PRN PRN Reason: Heartburn/Nausea Last Admin: 08/05/24 12:28 Dose: 30 ml Donepezil HCl (Donepezil Hcl 5 Mg Tablet) 5 mg PO BEDTIME [facility] BEDS AT [facility] Last Admin: 09/27/24 19:52 Dose: 5 mg Loperamide HCl (Loperamide Hcl 2 Mg Capsule) 2 mg PO Q4H PRN PRN Reason: Diarrhea Magnesium Hydroxide (Milk Of Magnesia 30 Ml Oral.Susp) 30 ml PO DAILY PRN PRN Reason: Constipation Memantine (Memantine Hcl 5 Mg Tablet) 5 mg PO DAILY [facility]S [facility] 234 BEDS AT THE [facility] Last Admin: 09/28/24 08:55 Dose: 5 mg Quetiapine Fumarate (Quetiapine Fumarate 50 Mg Tablet) 50 mg PO Q6H PRN PRN Reason: agitation Last Admin: 07/27/24 00:24 Dose: 50 mg Quetiapine Fumarate (Quetiapine Fumarate 50 Mg Tablet) 50 mg PO BID@1200,2100 [facility]S [facility]CLUDE 234 BEDS AT THE [facility] Last Admin: 09/27/24 19:51 Dose: 50 mg Trazodone HCl (Trazodone Hcl 50 Mg Tablet) 50 mg PO BEDTIME PRN PRN Reason: Insomnia Last Admin: 09/24/24 20:38 Dose: 50 mg Allergies Allergies Allergy/AdvReac Type Severity Reaction Status Date / Time No Known Allergies Allergy Verified 07/18/24 21:28 Assessment & Plan Assessment & Plan (1) Major neurocognitive disorder: Status: Acute Code(s): F03.90 - Unspecified dementia, unspecified severity, without behavioral disturbance, psychotic disturbance, mood disturbance, and anxiety Plan 09/12 continue tx. 09/13 continue tx. 09/15 continue tx. 09/16: stable presentation. continue current mgmt. 09/17: stable presentation. incontinent of bowel in the duarte today. continue current mgmt. 09/18 continue tx. 09/19: incontinent of stool while ambulating. severely demented. continue current mgmt. 09/20: no change. 09/21: no change. continue current mgmt. awaiting placement. 09/22: stable presentation. continue current mgmt. 09/23: severely demented. awaiting placement. stable. 09/25 continue current treatment plan 09/26 continue current treatment plan 09/27 Today nursing report that patient had an odd moment where he expressed a delusional thought and looked as if he was off balance however this was momentary and fully resolved. On approach patient presents at baseline. -although patient quickly returned to baseline, ordered UA/labs which are unremarkable; vitals WNL 09/28 continue tx. Reason for continued inpatient stay Substantial Risk for: inability to function Time Spent With Patient Time: Total time managing care of this patient today ____ minutes.
[2024-09-28 20:00] VITALS: BP 129/78; PULSE 73; RESP 16; TEMP 36.7; O2SAT 94
[2024-09-29 08:28] VITALS: BP 124/69; PULSE 68; RESP 18; TEMP 36.4; O2SAT 100
--- NOTE | 2024-09-29 16:31 | P.PNPSI_ITS ---
Subjective Subjective Date of Service: 09/29/24 Reason For Visit: dementia w/ behavioral disturbance Subjective Notes: Conditional Voluntary Healthcare Proxy: Yes Interim History: Pt slept through the night. He is not oriented to place, month, year nor situation. He is ambulating without an issue, smiles as this ghost writer asks how is he doing. VS stable. He is taking medications as prescribed. No behavioral concerns. Review of Systems Review of Systems Review of systems limited due to dementia. Yes Unobtainable due to mental status and Other (Dementia) Mental Status Exam Mental Status Exam Narrative: Appearance: wearing own attire, fair hygiene, in NAD Behavior: calm Psychomotor: retardation noted Speech: mostly mumbling, regular rate/rhythm, soft tone, minimally spontaneous TP: poverty of thought TC: unclear; delusion/confused thought Mood: Calm Affect: calm SI: none expressed HI: none expressed VH/AH: no overt signs Delusions: no overt signs Insight/judgment: impaired x 2. memory/cog: alert oriented only to person. Diagnostics Vital Signs (24Hr): Vital Signs - 24 hr 09/28/24 20:00 09/29/24 08:28 Temperature 98.1 F 97.5 F Pulse Rate 73 68 Respiratory Rate 16 18 Blood Pressure 129/78 124/69 Pulse Oximetry 94 100 Oxygen Delivery Method Room Air Room Air BMI result Body Mass Index 24.3 Labs 09/27/24 14:21 09/27/24 14:21 Labs: Laboratory Results - last 48 hr 09/27/24 12:40 Urine Color Yellow Urine Appearance Turbid Urine pH 5.5 Ur Specific [place] 1.025 Urine Protein Negative Urine Glucose (UA) Negative Urine Ketones Trace Urine Blood Negative Urine Nitrite Negative Ur Leukocyte Esterase Negative Urine RBC 0-2 Urine WBC 0-5 Ur Squamous Epith Cells 0-2 Urine Bacteria None Seen Hyaline Casts 0-2 Medications Medications Current Medications Acetaminophen (Acetaminophen 325 Mg Tablet) 650 mg PO Q6H PRN PRN Reason: Headache/Pain, Scale 1-10 Last Admin: 09/02/24 09:08 Dose: 650 mg Al Hydroxide/Mg Hydroxide (Magnesium Hydrox/Alum Hydrox 30 Ml Oral.Susp) 30 ml PO Q6H PRN PRN Reason: Heartburn/Nausea Last Admin: 08/05/24 12:28 Dose: 30 ml Donepezil HCl (Donepezil Hcl 5 Mg Tablet) 5 mg PO BEDTIME [facility] Last Admin: 09/28/24 20:38 Dose: 5 mg Loperamide HCl (Loperamide Hcl 2 Mg Capsule) 2 mg PO Q4H PRN PRN Reason: Diarrhea Magnesium Hydroxide (Milk Of Magnesia 30 Ml Oral.Susp) 30 ml PO DAILY PRN PRN Reason: Constipation Memantine (Memantine Hcl 5 Mg Tablet) 5 mg PO DAILY [facility] Last Admin: 09/29/24 08:29 Dose: 5 mg Quetiapine Fumarate (Quetiapine Fumarate 50 Mg Tablet) 50 mg PO Q6H PRN PRN Reason: agitation Last Admin: 07/27/24 00:24 Dose: 50 mg Quetiapine Fumarate (Quetiapine Fumarate 50 Mg Tablet) 50 mg PO BID@1200,2100 [facility] Last Admin: 09/29/24 11:39 Dose: 50 mg Trazodone HCl (Trazodone Hcl 50 Mg Tablet) 50 mg PO BEDTIME PRN PRN Reason: Insomnia Last Admin: 09/24/24 20:38 Dose: 50 mg Allergies Allergies Allergy/AdvReac Type Severity Reaction Status Date / Time No Known Allergies Allergy Verified 07/18/24 21:28 Assessment & Plan Assessment & Plan (1) Major neurocognitive disorder: Status: Acute Code(s): F03.90 - Unspecified dementia, unspecified severity, without behavioral disturbance, psychotic disturbance, mood disturbance, and anxiety Plan 09/12 continue tx. 09/13 continue tx. 09/15 continue tx. 09/16: stable presentation. continue current mgmt. 7/3: stable presentation. incontinent of bowel in the [place] today. continue current mgmt. / continue tx. 5: incontinent of stool while ambulating. severely demented. continue current mgmt. 7/6: no change. 09/21: no change. continue current mgmt. awaiting placement. 09/22: stable presentation. continue current mgmt. /: severely demented. awaiting placement. stable. 09/25 continue current treatment plan 09/26 continue current treatment plan 09/27 Today nursing report that patient had an odd moment where he expressed a delusional thought and looked as if he was off balance however this was momentary and fully resolved. On approach patient presents at baseline. -although patient quickly returned to baseline, ordered UA/labs which are unremarkable; vitals WNL 09/28 continue tx. 09/29 continue tx. Reason for continued inpatient stay Substantial Risk for: inability to function Time Spent With Patient Time: Total time managing care of this patient today ____ minutes.
[2024-09-29 20:00] VITALS: BP 120/61; PULSE 71; RESP 17; TEMP 36.6; O2SAT 94
[2024-09-30 08:43] VITALS: BP 129/70; PULSE 69; RESP 16; TEMP 36.8; O2SAT 97
--- NOTE | 2024-09-30 16:23 | P.PNPSI_ITS ---
Subjective Subjective Date of Service: 09/30/24 Reason For Visit: dementia w/ behavioral disturbance Subjective Notes: Conditional Voluntary Interim History: Pt slept through the night. He is not oriented to place, month, year nor situation. He is ambulating without an issue, smiles as this consumer loan underwriter asks how is he doing. VS stable. He is taking medications as prescribed. No behavioral concerns. Review of Systems Review of Systems Review of systems limited due to dementia. Yes Unobtainable due to mental status and Other (Dementia) Mental Status Exam Mental Status Exam Narrative: Appearance: wearing own attire, fair hygiene, in NAD Behavior: calm Psychomotor: retardation noted Speech: mostly mumbling, regular rate/rhythm, soft tone, minimally spontaneous TP: poverty of thought TC: unclear; delusion/confused thought Mood: Calm Affect: calm SI: none expressed HI: none expressed VH/AH: no overt signs Delusions: no overt signs Insight/judgment: impaired x 2. memory/cog: alert oriented only to person. Diagnostics Vital Signs (24Hr): Vital Signs - 24 hr 09/29/24 20:00 09/30/24 08:43 Temperature 97.8 F 98.2 F Pulse Rate 71 69 Respiratory Rate 17 16 Blood Pressure 120/61 129/70 Pulse Oximetry 94 97 Oxygen Delivery Method Room Air Room Air BMI result Body Mass Index 24.3 Labs 09/27/24 14:21 09/27/24 14:21 Medications Medications Current Medications Acetaminophen (Acetaminophen 325 Mg Tablet) 650 mg PO Q6H PRN PRN Reason: Headache/Pain, Scale 1-10 Last Admin: 09/02/24 09:08 Dose: 650 mg Al Hydroxide/Mg Hydroxide (Magnesium Hydrox/Alum Hydrox 30 Ml Oral.Susp) 30 ml PO Q6H PRN PRN Reason: Heartburn/Nausea Last Admin: 08/05/24 12:28 Dose: 30 ml Donepezil HCl (Donepezil Hcl 5 Mg Tablet) 5 mg PO BEDTIME [facility] Last Admin: 09/29/24 19:58 Dose: 5 mg Loperamide HCl (Loperamide Hcl 2 Mg Capsule) 2 mg PO Q4H PRN PRN Reason: Diarrhea Magnesium Hydroxide (Milk Of Magnesia 30 Ml Oral.Susp) 30 ml PO DAILY PRN PRN Reason: Constipation Memantine (Memantine Hcl 5 Mg Tablet) 5 mg PO DAILY [facility] Last Admin: 09/30/24 08:44 Dose: 5 mg Quetiapine Fumarate (Quetiapine Fumarate 50 Mg Tablet) 50 mg PO Q6H PRN PRN Reason: agitation Last Admin: 07/27/24 00:24 Dose: 50 mg Quetiapine Fumarate (Quetiapine Fumarate 50 Mg Tablet) 50 mg PO BID@1200,2100 [facility] Last Admin: 09/30/24 11:22 Dose: 50 mg Trazodone HCl (Trazodone Hcl 50 Mg Tablet) 50 mg PO BEDTIME PRN PRN Reason: Insomnia Last Admin: 09/29/24 19:58 Dose: 50 mg Allergies Allergies Allergy/AdvReac Type Severity Reaction Status Date / Time No Known Allergies Allergy Verified 07/18/24 21:28 Assessment & Plan Assessment & Plan (1) Major neurocognitive disorder: Status: Acute Code(s): F03.90 - Unspecified dementia, unspecified severity, without behavioral disturbance, psychotic disturbance, mood disturbance, and anxiety Plan 09/12 continue tx. 09/13 continue tx. 09/15 continue tx. 09/16: stable presentation. continue current mgmt. /3: stable presentation. incontinent of bowel in the [place] today. continue current mgmt. / continue tx. 09/19: incontinent of stool while ambulating. severely demented. continue current mgmt. /: no change. 09/21: no change. continue current mgmt. awaiting placement. 09/22: stable presentation. continue current mgmt. /: severely demented. awaiting placement. stable. 09/25 continue current treatment plan 09/26 continue current treatment plan 09/27 Today nursing report that patient had an odd moment where he expressed a delusional thought and looked as if he was off balance however this was momentary and fully resolved. On approach patient presents at baseline. -although patient quickly returned to baseline, ordered UA/labs which are unremarkable; vitals WNL 09/28 continue tx. 09/29 continue tx. 09/30 continue tx. Reason for continued inpatient stay Substantial Risk for: inability to function Time Spent With Patient Time: Total time managing care of this patient today ____ minutes.
[2024-09-30 20:00] VITALS: BP 126/53; PULSE 83; RESP 16; TEMP 36.8; O2SAT 97
[2024-10-01 08:00] VITALS: BP 136/67; PULSE 66; RESP 14; TEMP 2.6; TEMP 36.6; O2SAT 95
[2024-10-01 08:21] VITALS: BP 116/70; PULSE 69; RESP 15; TEMP 36.7; O2SAT 95
--- NOTE | 2024-10-01 15:27 | P.PNPSI_ITS ---
Subjective Subjective Date of Service: 10/01/24 Reason For Visit: dementia w/ behavioral disturbance Subjective Notes: Conditional Voluntary Guardianship: Yes Interim History: Pt slept through the night. He is not oriented to place, month, year nor situation. He is ambulating without an issue, smiles as this science writer asks how is he doing. No changes in presentation. VS stable. He is taking medications as prescribed. No behavioral concerns. Review of Systems Review of Systems Review of systems limited due to dementia. Yes Unobtainable due to mental status and Other (Dementia) Mental Status Exam Mental Status Exam Narrative: Appearance: wearing own attire, fair hygiene, in NAD Behavior: calm Psychomotor: retardation noted Speech: mostly mumbling, regular rate/rhythm, soft tone, minimally spontaneous TP: poverty of thought TC: unclear; delusion/confused thought Mood: Calm Affect: calm SI: none expressed HI: none expressed VH/AH: no overt signs Delusions: no overt signs Insight/judgment: impaired x 2. memory/cog: alert oriented only to person. Diagnostics Vital Signs (24Hr): Vital Signs - 24 hr 09/30/24 20:00 10/01/24 08:00 10/01/24 08:21 Temperature 98.3 F 36.6 F L 98.1 F Pulse Rate 83 66 69 Respiratory Rate 16 14 15 Blood Pressure 126/53 L 136/67 116/70 Pulse Oximetry 97 95 95 Oxygen Delivery Method Room Air Room Air Room Air BMI result Body Mass Index 24.3 Labs 09/27/24 14:21 09/27/24 14:21 Medications Medications Current Medications Acetaminophen (Acetaminophen 325 Mg Tablet) 650 mg PO Q6H PRN PRN Reason: Headache/Pain, Scale 1-10 Last Admin: 09/02/24 09:08 Dose: 650 mg Al Hydroxide/Mg Hydroxide (Magnesium Hydrox/Alum Hydrox 30 Ml Oral.Susp) 30 ml PO Q6H PRN PRN Reason: Heartburn/Nausea Last Admin: 08/05/24 12:28 Dose: 30 ml Donepezil HCl (Donepezil Hcl 5 Mg Tablet) 5 mg PO BEDTIME [facility] Last Admin: 09/30/24 19:56 Dose: 5 mg Loperamide HCl (Loperamide Hcl 2 Mg Capsule) 2 mg PO Q4H PRN PRN Reason: Diarrhea Magnesium Hydroxide (Milk Of Magnesia 30 Ml Oral.Susp) 30 ml PO DAILY PRN PRN Reason: Constipation Memantine (Memantine Hcl 5 Mg Tablet) 5 mg PO DAILY [facility] Last Admin: 10/01/24 08:19 Dose: 5 mg Quetiapine Fumarate (Quetiapine Fumarate 50 Mg Tablet) 50 mg PO Q6H PRN PRN Reason: agitation Last Admin: 07/27/24 00:24 Dose: 50 mg Quetiapine Fumarate (Quetiapine Fumarate 50 Mg Tablet) 50 mg PO BID@1200,2100 [facility] Last Admin: 10/01/24 12:05 Dose: 50 mg Trazodone HCl (Trazodone Hcl 50 Mg Tablet) 50 mg PO BEDTIME PRN PRN Reason: Insomnia Last Admin: 09/29/24 19:58 Dose: 50 mg Allergies Allergies Allergy/AdvReac Type Severity Reaction Status Date / Time No Known Allergies Allergy Verified 07/18/24 21:28 Assessment & Plan Assessment & Plan (1) Major neurocognitive disorder: Status: Acute Code(s): F03.90 - Unspecified dementia, unspecified severity, without behavioral disturbance, psychotic disturbance, mood disturbance, and anxiety Plan 09/12 continue tx. 09/13 continue tx. 09/15 continue tx. 09/16: stable presentation. continue current mgmt. 09/17: stable presentation. incontinent of bowel in the [place] today. continue current mgmt. 09/18 continue tx. 09/19: incontinent of stool while ambulating. severely demented. continue current mgmt. 09/20: no change. 09/21: no change. continue current mgmt. awaiting placement. 09/22: stable presentation. continue current mgmt. 09/23: severely demented. awaiting placement. stable. 09/25 continue current treatment plan 09/26 continue current treatment plan 09/27 Today nursing report that patient had an odd moment where he expressed a delusional thought and looked as if he was off balance however this was momentary and fully resolved. On approach patient presents at baseline. -although patient quickly returned to baseline, ordered UA/labs which are unremarkable; vitals WNL 09/28 continue tx. 09/29 continue tx. 09/30 continue tx. 10/01 continue tx. Reason for continued inpatient stay Substantial Risk for: inability to function Time Spent With Patient Time: Total time managing care of this patient today ____ minutes.
[2024-10-01 20:00] VITALS: BP 134/73; PULSE 63; RESP 16; TEMP 36.9; O2SAT 97
[2024-10-02 08:00] VITALS: BP 117/69; PULSE 60; RESP 16; TEMP 36.4; O2SAT 96
--- NOTE | 2024-10-02 14:20 | P.PNPSI_ITS ---
Subjective Subjective Date of Service: 10/02/24 Reason For Visit: dementia w/ behavioral disturbance Subjective Notes: Conditional Voluntary Healthcare Proxy: Yes Interim History: Pt slept through the night. He is not oriented to place, month, year nor situation. He is ambulating without an issue, smiles as this group underwriter asks how is he doing. No changes in presentation. VS stable. He is taking medications as prescribed. No behavioral concerns. Review of Systems Review of Systems Review of systems limited due to dementia. Yes Unobtainable due to mental status and Other (Dementia) Mental Status Exam Mental Status Exam Narrative: Appearance: wearing own attire, fair hygiene, in NAD Behavior: calm Psychomotor: retardation noted Speech: mostly mumbling, regular rate/rhythm, soft tone, minimally spontaneous TP: poverty of thought TC: unclear; delusion/confused thought Mood: Calm Affect: calm SI: none expressed HI: none expressed VH/AH: no overt signs Delusions: no overt signs Insight/judgment: impaired x 2. memory/cog: alert oriented only to person. Patient Appearance: Disheveled Patient Orientation: Person Level of Consciousness: Alert Patient Behavior: Appropriate and Confused Mood Description: Calm Affect Description: Calm Patient Cognition Impaired: Yes Ability to Follow Directions: Fair Speech Pattern: Impoverished Memory Description: Remote Impaired, Immediate Impaired, Episodic Impaired, Recent Impaired and Working Impaired Diagnostics Vital Signs (24Hr): Vital Signs - 24 hr 10/01/24 20:00 10/02/24 08:00 Temperature 98.4 F 97.5 F Pulse Rate 63 60 Respiratory Rate 16 16 Blood Pressure 134/73 117/69 Pulse Oximetry 97 96 Oxygen Delivery Method Room Air Room Air BMI result Body Mass Index 24.3 Labs 09/27/24 14:21 09/27/24 14:21 Medications Medications Current Medications Acetaminophen (Acetaminophen 325 Mg Tablet) 650 mg PO Q6H PRN PRN Reason: Headache/Pain, Scale 1-10 Last Admin: 09/02/24 09:08 Dose: 650 mg Al Hydroxide/Mg Hydroxide (Magnesium Hydrox/Alum Hydrox 30 Ml Oral.Susp) 30 ml PO Q6H PRN PRN Reason: Heartburn/Nausea Last Admin: 08/05/24 12:28 Dose: 30 ml Donepezil HCl (Donepezil Hcl 5 Mg Tablet) 5 mg PO BEDTIME [facility] Last Admin: 10/01/24 20:06 Dose: 5 mg Loperamide HCl (Loperamide Hcl 2 Mg Capsule) 2 mg PO Q4H PRN PRN Reason: Diarrhea Magnesium Hydroxide (Milk Of Magnesia 30 Ml Oral.Susp) 30 ml PO DAILY PRN PRN Reason: Constipation Memantine (Memantine Hcl 5 Mg Tablet) 5 mg PO DAILY [facility] Last Admin: 10/02/24 08:49 Dose: 5 mg Quetiapine Fumarate (Quetiapine Fumarate 50 Mg Tablet) 50 mg PO Q6H PRN PRN Reason: agitation Last Admin: 07/27/24 00:24 Dose: 50 mg Quetiapine Fumarate (Quetiapine Fumarate 50 Mg Tablet) 50 mg PO BID@1200,2100 [facility] Last Admin: 10/02/24 13:33 Dose: 50 mg Trazodone HCl (Trazodone Hcl 50 Mg Tablet) 50 mg PO BEDTIME PRN PRN Reason: Insomnia Last Admin: 09/29/24 19:58 Dose: 50 mg Allergies Allergies Allergy/AdvReac Type Severity Reaction Status Date / Time No Known Allergies Allergy Verified 07/18/24 21:28 Assessment & Plan Assessment & Plan (1) Major neurocognitive disorder: Status: Acute Code(s): F03.90 - Unspecified dementia, unspecified severity, without behavioral disturbance, psychotic disturbance, mood disturbance, and anxiety Plan 09/12 continue tx. 09/13 continue tx. 09/15 continue tx. 09/16: stable presentation. continue current mgmt. 09/17: stable presentation. incontinent of bowel in the [place] today. continue current mgmt. / continue tx. 09/19: incontinent of stool while ambulating. severely demented. continue current mgmt. 09/20: no change. 09/21: no change. continue current mgmt. awaiting placement. 09/22: stable presentation. continue current mgmt. /: severely demented. awaiting placement. stable. 09/25 continue current treatment plan 09/26 continue current treatment plan 09/27 Today nursing report that patient had an odd moment where he expressed a delusional thought and looked as if he was off balance however this was momentary and fully resolved. On approach patient presents at baseline. -although patient quickly returned to baseline, ordered UA/labs which are unremarkable; vitals WNL 09/28 continue tx. 09/29 continue tx. 09/30 continue tx. 7/17 continue tx. 10/02 continue tx. VS stable, taking medications as prescribed. Reason for continued inpatient stay Substantial Risk for: inability to function Time Spent With Patient Time: Total time managing care of this patient today ____ minutes.
[2024-10-02 19:28] VITALS: BP 146/76; PULSE 79; RESP 15; TEMP 36.3; O2SAT 96
[2024-10-03 07:58] VITALS: BP 138/75; PULSE 68; RESP 18; TEMP 37.4; O2SAT 98
--- NOTE | 2024-10-03 09:39 | HO.PSYCHPN ---
Subjective Subjective Date of Service: 10/03/24 Reason For Visit: dementia w/ behavioral disturbance Interim History: Pt seen in milieu and reviewed with his team who report increase in confusion, less dialogue. Pt has a good appetite, taking medications, continues to ambulate. Today vital signs are stable and pt is incontinent, team reports urinating in his room at times. Team is monitoring him. Diagnostics 09/27 reviewed. Medication Compliance: Yes Review of Systems Review of Systems as noted in HPI Mental Status Exam Mental Status Exam Patient Appearance: Fatigued Patient Orientation: Person Level of Consciousness: Alert Patient Behavior: Cooperative Mood Description: Calm and Withdrawn Affect Description: Calm Patient Cognition Impaired: Yes Ability to Follow Directions: Fair Speech Pattern: Impoverished Memory Description: Remote Impaired, Immediate Impaired, Penitentiary Impaired, Recent Impaired, Working Impaired and Semantic Impaired Thought Process: Confusion Judgement: Poor Diagnostics Vital Signs (24Hr): Vital Signs - 24 hr 10/02/24 19:28 10/03/24 07:58 Temperature 97.3 F 99.3 F Pulse Rate 79 68 Respiratory Rate 15 18 Blood Pressure 146/76 H 138/75 Pulse Oximetry 96 98 Oxygen Delivery Method Room Air Room Air BMI result Body Mass Index 24.3 Labs 09/27/24 14:21 09/27/24 14:21 Medications Medications Current Medications Acetaminophen (Acetaminophen 325 Mg Tablet) 650 mg PO Q6H PRN PRN Reason: Headache/Pain, Scale 1-10 Last Admin: 09/02/24 09:08 Dose: 650 mg Al Hydroxide/Mg Hydroxide (Magnesium Hydrox/Alum Hydrox 30 Ml Oral.Susp) 30 ml PO Q6H PRN PRN Reason: Heartburn/Nausea Last Admin: 08/05/24 12:28 Dose: 30 ml Donepezil HCl (Donepezil Hcl 5 Mg Tablet) 5 mg PO BEDTIME [facility] Last Admin: 10/02/24 19:31 Dose: 5 mg Loperamide HCl (Loperamide Hcl 2 Mg Capsule) 2 mg PO Q4H PRN PRN Reason: Diarrhea Magnesium Hydroxide (Milk Of Magnesia 30 Ml Oral.Susp) 30 ml PO DAILY PRN PRN Reason: Constipation Memantine (Memantine Hcl 5 Mg Tablet) 5 mg PO DAILY [facility] Last Admin: 10/03/24 08:11 Dose: 5 mg Quetiapine Fumarate (Quetiapine Fumarate 50 Mg Tablet) 50 mg PO Q6H PRN PRN Reason: agitation Last Admin: 07/27/24 00:24 Dose: 50 mg Quetiapine Fumarate (Quetiapine Fumarate 50 Mg Tablet) 50 mg PO BID@1200,2100 [facility] Last Admin: 10/02/24 19:30 Dose: 50 mg Trazodone HCl (Trazodone Hcl 50 Mg Tablet) 50 mg PO BEDTIME PRN PRN Reason: Insomnia Last Admin: 09/29/24 19:58 Dose: 50 mg Allergies Allergies Allergy/AdvReac Type Severity Reaction Status Date / Time No Known Allergies Allergy Verified 07/18/24 21:28 Assessment & Plan Assessment & Plan (1) Major neurocognitive disorder: Status: Acute Code(s): F03.90 - Unspecified dementia, unspecified severity, without behavioral disturbance, psychotic disturbance, mood disturbance, and anxiety Plan 09/12 continue tx. 09/13 continue tx. 09/15 continue tx. 09/16: stable presentation. continue current mgmt. 3: stable presentation. incontinent of bowel in the [place] today. continue current mgmt. 09/18 continue tx. 09/19: incontinent of stool while ambulating. severely demented. continue current mgmt. 09/20: no change. 09/21: no change. continue current mgmt. awaiting placement. 09/22: stable presentation. continue current mgmt. 09/23: severely demented. awaiting placement. stable. 09/25 continue current treatment plan 09/26 continue current treatment plan 09/27 Today nursing report that patient had an odd moment where he expressed a delusional thought and looked as if he was off balance however this was momentary and fully resolved. On approach patient presents at baseline. -although patient quickly returned to baseline, ordered UA/labs which are unremarkable; vitals WNL 09/28 continue tx. 09/29 continue tx. 09/30 continue tx. 10/01 continue tx. 10/02 continue tx. VS stable, taking medications as prescribed. 10/03 continue tx Reason for continued inpatient stay Substantial Risk for: rapid decompensation and med/psych decompensation Time Spent With Patient Time: Total time managing care of this patient today ____ minutes.
[2024-10-03 19:44] VITALS: BP 137/63; PULSE 67; RESP 18; TEMP 36.7; O2SAT 95
--- NOTE | 2024-10-04 | ECG_ITS ---
Test Reason : BLE, decline in functioning Blood Pressure : */* mmHG Vent. Rate : 66 BPM Atrial Rate : 66 BPM P-R Int : 158 ms QRS Dur : 92 ms QT Int : 408 ms P-R-T Axes : 40 -46 42 degrees QTcB Int : 427 ms Normal sinus rhythm Left anterior fascicular block Abnormal ECG When compared with ECG of 19-Jul-2024 11:20, Premature atrial complexes are no longer Present QRS axis Shifted left Referred By: Roxanne Covarrubias Electronically Signed By: Saqib Ledesma
[2024-10-04 08:00] VITALS: BP 144/67; PULSE 64; RESP 12; TEMP 36.1; O2SAT 99
--- NOTE | 2024-10-04 13:30 | HO.PSYCHPN ---
Subjective Subjective Date of Service: 10/04/24 Reason For Visit: dementia w/ behavioral disturbance Interim History: Pt seen, reviewed with the team. BLE edema, increased in left ankle. Talks with team today about going home, incontinent, described as a bit edgy . Appears to be falling asleep when having his lunch Medication Compliance: Yes Side effects from medications: No Attending Groups: Intermittent Review of Systems as noted Review of Systems Review of Systems as noted Mental Status Exam Mental Status Exam Patient Appearance: Fatigued Patient Orientation: Person Level of Consciousness: Alert Patient Behavior: Cooperative Mood Description: Calm and Withdrawn Affect Description: Calm Patient Cognition Impaired: Yes Ability to Follow Directions: Fair Speech Pattern: Impoverished Memory Description: Remote Impaired, Immediate Impaired, Long-Term Impaired, Recent Impaired, Working Impaired and Semantic Impaired Thought Process: Confusion Judgement: Poor Diagnostics Vital Signs (24Hr): Vital Signs - 24 hr 10/03/24 19:44 10/04/24 08:00 Temperature 98.1 F 97 F Pulse Rate 67 64 Respiratory Rate 18 12 Blood Pressure 137/63 144/67 H Pulse Oximetry 95 99 Oxygen Delivery Method Room Air Room Air BMI result Body Mass Index 24.3 Labs 09/27/24 14:21 09/27/24 14:21 Medications Medications Current Medications Acetaminophen (Acetaminophen 325 Mg Tablet) 650 mg PO Q6H PRN PRN Reason: Headache/Pain, Scale 1-10 Last Admin: 09/02/24 09:08 Dose: 650 mg Al Hydroxide/Mg Hydroxide (Magnesium Hydrox/Alum Hydrox 30 Ml Oral.Susp) 30 ml PO Q6H PRN PRN Reason: Heartburn/Nausea Last Admin: 08/05/24 12:28 Dose: 30 ml Donepezil HCl (Donepezil Hcl 5 Mg Tablet) 5 mg PO BEDTIME [facility] Last Admin: 10/03/24 19:46 Dose: 5 mg Loperamide HCl (Loperamide Hcl 2 Mg Capsule) 2 mg PO Q4H PRN PRN Reason: Diarrhea Magnesium Hydroxide (Milk Of Magnesia 30 Ml Oral.Susp) 30 ml PO DAILY PRN PRN Reason: Constipation Memantine (Memantine Hcl 5 Mg Tablet) 5 mg PO DAILY [facility] Last Admin: 10/04/24 08:16 Dose: 5 mg Quetiapine Fumarate (Quetiapine Fumarate 50 Mg Tablet) 50 mg PO Q6H PRN PRN Reason: agitation Last Admin: 07/27/24 00:24 Dose: 50 mg Quetiapine Fumarate (Quetiapine Fumarate 50 Mg Tablet) 50 mg PO BID@1200,2100 [facility] Last Admin: 10/04/24 11:24 Dose: 50 mg Trazodone HCl (Trazodone Hcl 50 Mg Tablet) 50 mg PO BEDTIME PRN PRN Reason: Insomnia Last Admin: 09/29/24 19:58 Dose: 50 mg Allergies Allergies Allergy/AdvReac Type Severity Reaction Status Date / Time No Known Allergies Allergy Verified 07/18/24 21:28 Assessment & Plan Assessment & Plan (1) Major neurocognitive disorder: Status: Acute Code(s): F03.90 - Unspecified dementia, unspecified severity, without behavioral disturbance, psychotic disturbance, mood disturbance, and anxiety Plan 09/12 continue tx. 09/13 continue tx. 09/15 continue tx. 09/16: stable presentation. continue current mgmt. 7/3: stable presentation. incontinent of bowel in the duarte today. continue current mgmt. / continue tx. 09/19: incontinent of stool while ambulating. severely demented. continue current mgmt. 6: no change. 09/21: no change. continue current mgmt. awaiting placement. 09/22: stable presentation. continue current mgmt. /: severely demented. awaiting placement. stable. 09/25 continue current treatment plan 09/26 continue current treatment plan 09/27 Today nursing report that patient had an odd moment where he expressed a delusional thought and looked as if he was off balance however this was momentary and fully resolved. On approach patient presents at baseline. -although patient quickly returned to baseline, ordered UA/labs which are unremarkable; vitals WNL 09/28 continue tx. 09/29 continue tx. 09/30 continue tx. 10/01 continue tx. 10/02 continue tx. VS stable, taking medications as prescribed. 10/04 team is seeing a status change with BLE edema, focused on left side, increase in confusion and decline. Will ask hospitalist to evaluate. EKG Reason for continued inpatient stay Substantial Risk for: med/psych decompensation Time Spent With Patient Time: Total time managing care of this patient today ____ minutes.
--- NOTE | 2024-10-04 14:52 | PC.NURSE ---
EKG showed Normal Sinus Rhythm with Left anterior fascicular block, abnormal EKG, results sent to Melissa Covarrubias NP.
--- NOTE | 2024-10-04 16:15 | PC.NURSE ---
Clean catch urine obtained today, patient voided 60 cc slightly cloudy straw colored urine. Patient tolerated procedure well.
--- NOTE | 2024-10-04 19:56 | PM.EVENT ---
Event Note Date of Service: 10/04/24 Event Note: Request per Psychiatry to see patient for lower extremity edema and decline in function. Patient had been seen earlier on admission by hospitalist for admission H&P. Patient unable to provide any history but did ambulate with a mild shuffle not using an assistive device with no loss of balance. Patient was able to follow minimal commands. Patient denied any chest pain, shortness of breath at rest or with exertion. Patient stated no issues with abdominal pain or dizziness. Patient denies any burning with urination or inability urinate. Patient has poor memory and recall. Patient requires redirection as he was about to enter the wrong patient room.. Patient handles redirection well. Patient did have some mild edema nonpitting in both extremities. No murmur heard on exam. Lungs clear to auscultation bilaterally diminished at the base. UA done on 09/28/2019 5- for UTI. No record of chest x-ray since admission in 07/20/2024. Patient is not requiring oxygen is not hypoxic. Vital signs are otherwise stable. Patient has no leukocytosis as of CBC done on 09/27. EKG normal sinus rhythm with a left anterior fascicular block done earlier today. No issues no issues seen with arrhythmia, Lower leg edema Labs ordered for the a.m. include CBC, CMP, magnesium and BNP. If BNP is elevated patient will require an echocardiogram. No indication to do chest x-ray at this time. No indication for ABG as patient is not hypoxic and shows no signs of sepsis or infection. No murmur on exam. No indication for repeat UA this time as patient denies any symptoms related to urinary tract infection or issues with urination. Lasix 20 mg p.o. daily ordered for the a.m.. Requested labs to be checked 1st prior to administering to ensure that potassium and renal function is normal. Blood pressure at times has been elevated but rarely. Recommend that Lasix will help control this. Decline in function Recommend PT OT for further evaluation, to include recommendations for assistive device as a safety measure This may be related to patient's issues with dementia and major neurocognitive disorder Do not suspect Parkinson's as there is no essential tremor at rest but patient does have a mild shuffling when walking Can consider neurology consult if indicated Hospitalist will follow regarding labs and if there is further indication for intervention including echocardiogram, we will order. Please reach out with any questions or concerns. Time Spent With Patient Time: Total time managing care of this patient today ____ minutes.
[2024-10-04 21:25] VITALS: BP 126/70; PULSE 87; RESP 18; TEMP 36.7; O2SAT 95
[2024-10-04 21:43] LABS: B Type Natriuretic Peptide 58 pg/mL (<100)
--- NOTE | 2024-10-05 08:52 | P.PNPSI_ITS ---
Subjective Subjective Date of Service: 10/05/24 Reason For Visit: dementia w/ behavioral disturbance Subjective Notes: Conditional Voluntary Interim History: Pt slept through the night. He has been up for meals as usual. No much verbal output, looks at this marketing copywriter and smiles. reports doing good. VS stable. taking medications as prescribed. Review of Systems Review of Systems as noted Yes Unobtainable due to mental status and Other (Dementia) Mental Status Exam Mental Status Exam Narrative: Appearance: wearing own attire, fair hygiene, in NAD Behavior: calm Psychomotor: retardation noted Speech: mostly mumbling, regular rate/rhythm, soft tone, minimally spontaneous TP: poverty of thought TC: unclear; delusion/confused thought Mood: Calm Affect: calm SI: none expressed HI: none expressed VH/AH: no overt signs Delusions: no overt signs Insight/judgment: impaired x 2. memory/cog: alert oriented only to person. Diagnostics Vital Signs (24Hr): Vital Signs - 24 hr 10/04/24 21:25 Temperature 98.1 F Pulse Rate 87 Respiratory Rate 18 Blood Pressure 126/70 Pulse Oximetry 95 Oxygen Delivery Method Room Air BMI result Body Mass Index 24.3 Labs 10/05/24 09:23 10/05/24 09:23 Labs: Laboratory Results - last 48 hr 10/04/24 21:09 B-Natriuretic Peptide 58 Medications Medications Current Medications Acetaminophen (Acetaminophen 325 Mg Tablet) 650 mg PO Q6H PRN PRN Reason: Headache/Pain, Scale 1-10 Last Admin: 09/02/24 09:08 Dose: 650 mg Al Hydroxide/Mg Hydroxide (Magnesium Hydrox/Alum Hydrox 30 Ml Oral.Susp) 30 ml PO Q6H PRN PRN Reason: Heartburn/Nausea Last Admin: 08/05/24 12:28 Dose: 30 ml Donepezil HCl (Donepezil Hcl 5 Mg Tablet) 5 mg PO BEDTIME [facility] Last Admin: 10/04/24 20:05 Dose: 5 mg Furosemide (Furosemide 20 Mg Tablet) 20 mg PO DAILY [facility]; Protocol Loperamide HCl (Loperamide Hcl 2 Mg Capsule) 2 mg PO Q4H PRN PRN Reason: Diarrhea Magnesium Hydroxide (Milk Of Magnesia 30 Ml Oral.Susp) 30 ml PO DAILY PRN PRN Reason: Constipation Memantine (Memantine Hcl 5 Mg Tablet) 5 mg PO DAILY [facility] Last Admin: 10/04/24 08:16 Dose: 5 mg Quetiapine Fumarate (Quetiapine Fumarate 50 Mg Tablet) 50 mg PO Q6H PRN PRN Reason: agitation Last Admin: 07/27/24 00:24 Dose: 50 mg Quetiapine Fumarate (Quetiapine Fumarate 50 Mg Tablet) 50 mg PO BID@1200,2100 [facility] Last Admin: 10/04/24 20:05 Dose: 50 mg Trazodone HCl (Trazodone Hcl 50 Mg Tablet) 50 mg PO BEDTIME PRN PRN Reason: Insomnia Last Admin: 09/29/24 19:58 Dose: 50 mg Allergies Allergies Allergy/AdvReac Type Severity Reaction Status Date / Time No Known Allergies Allergy Verified 07/18/24 21:28 Assessment & Plan Assessment & Plan (1) Major neurocognitive disorder: Status: Acute Code(s): F03.90 - Unspecified dementia, unspecified severity, without behavioral disturbance, psychotic disturbance, mood disturbance, and anxiety Plan 09/12 continue tx. 09/13 continue tx. 09/15 continue tx. 09/16: stable presentation. continue current mgmt. 09/17: stable presentation. incontinent of bowel in the duarte today. continue current mgmt. 09/18 continue tx. 09/19: incontinent of stool while ambulating. severely demented. continue current mgmt. 09/20: no change. 09/21: no change. continue current mgmt. awaiting placement. 09/22: stable presentation. continue current mgmt. 09/23: severely demented. awaiting placement. stable. 09/25 continue current treatment plan 09/26 continue current treatment plan 09/27 Today nursing report that patient had an odd moment where he expressed a delusional thought and looked as if he was off balance however this was momentary and fully resolved. On approach patient presents at baseline. -although patient quickly returned to baseline, ordered UA/labs which are unremarkable; vitals WNL 09/28 continue tx. 09/29 continue tx. 09/30 continue tx. 10/01 continue tx. 10/02 continue tx. VS stable, taking medications as prescribed. 10/04 team is seeing a status change with BLE edema, focused on left side, increase in confusion and decline. Will ask hospitalist to evaluate. EKG 10/05 continue tx. Reason for continued inpatient stay Substantial Risk for: inability to function Time Spent With Patient Time: Total time managing care of this patient today ____ minutes.
[2024-10-05 09:27] LABS: MANUAL DIFF FLAG NO
[2024-10-05 09:29] VITALS: BP 140/69; PULSE 66; RESP 18; TEMP 35.9; O2SAT 97
[2024-10-05 09:30] LABS: Hematocrit 38.2 % (42.0-52.0); Hemoglobin 12.4 g/dl (14.0-18.0); Imm Gran Abs Auto 0.01 X10*3/uL (0.00-0.03); Imm Gran Pct Auto 0.2 % (0.0-0.4); Lymphocytes Absolute Auto 1.0 X10*3/uL (1.2-4.9); Mean Corpuscular HGB Conc 32.5 g/dl (31.0-36.0); Mean Corpuscular Hemoglobin 28.9 pg (27.0-33.0); Mean Corpuscular Volume 89.0 fL (80.0-98.0); NRBC Abs Auto 0.000 X10*3/uL (0.0-0.012); NRBC Pct Auto 0.0 /100WBC (0.0-0.2); Platelet Count 210 X10*3/uL (160-400); Red Blood Count 4.29 X10*6/uL (4.60-5.80); White Blood Count 4.7 X10*3/uL (4.8-10.8)
[2024-10-05 09:53] LABS: Alanine Aminotransferase 17 U/L (0-40); Albumin Level 3.8 g/dL (3.5-5.0); Alkaline Phosphatase 68 U/L (39-117); Anion Gap 11 (12-20); Aspartate Amino Transferase 18 U/L (5-37); Blood Urea Nitrogen 18 mg/dL (9-16); Calcium 8.9 mg/dL (8.4-10.2); Carbon Dioxide 29 mmol/L (22-29); Chloride 108 mmol/L (96-108); Creatinine Clr Calc Pharmacy 62.7; Estimated Glomerular Filt Rate > 60; Magnesium 2.3 mg/dL (1.6-2.6); Potassium 4.3 mmol/L (3.3-5.1); Sodium 144 mmol/L (135-145); Total Protein 6.4 g/dL (6.5-8.0)
--- NOTE | 2024-10-05 12:10 | MHC.CLN ---
NUTRITION 2 GRAM SODIUM DIET PER PROVIDER. STARTED FUROSEMIDE DUE TO LOWER EXTREMITY EDEMA.
--- NOTE | 2024-10-05 15:22 | PM.EVENT ---
Event Note Date of Service: 10/05/24 Event Note: Labs reviewed, BNP within normal range, CBC and BMP within normal limits. Per psychiatric provider who is overseeing in patient's care, patient is at baseline. Time Spent With Patient Time: Total time managing care of this patient today ____ minutes.
[2024-10-05 19:54] VITALS: BP 122/71; PULSE 64; RESP 16; TEMP 36.2; O2SAT 98
[2024-10-06 07:51] VITALS: BP 154/82; PULSE 74; RESP 18; TEMP 36.7; O2SAT 95
--- NOTE | 2024-10-06 18:18 | HO.PSYCHPN ---
Subjective Subjective Date of Service: 10/06/24 Reason For Visit: dementia w/ behavioral disturbance Subjective Notes: Conditional Voluntary Healthcare Proxy: Yes Interim History: Pt slept through the night. He has been up for meals as usual. No much verbal output, looks at this resume writer and smiles. At times loud when staff helping with hygiene. VS stable. taking medications as prescribed. Review of Systems Review of Systems as noted Yes Unobtainable due to mental status and Other (Dementia) Mental Status Exam Mental Status Exam Narrative: Appearance: wearing own attire, fair hygiene, in NAD Behavior: calm Psychomotor: retardation noted Speech: mostly mumbling, regular rate/rhythm, soft tone, minimally spontaneous TP: poverty of thought TC: unclear; delusion/confused thought Mood: Calm Affect: calm SI: none expressed HI: none expressed VH/AH: no overt signs Delusions: no overt signs Insight/judgment: impaired x 2. memory/cog: alert oriented only to person. Diagnostics Vital Signs (24Hr): Vital Signs - 24 hr 10/05/24 19:54 10/06/24 07:51 Temperature 97.1 F 98.1 F Pulse Rate 64 74 Respiratory Rate 16 18 Blood Pressure 122/71 154/82 H Pulse Oximetry 98 95 Oxygen Delivery Method Room Air Room Air BMI result Body Mass Index 24.3 Labs 10/05/24 09:23 10/05/24 09:23 Labs: Laboratory Results - last 48 hr 10/04/24 10/05/24 21:09 09:23 WBC 4.7 L RBC 4.29 L Hgb 12.4 L Hct 38.2 L MCV 89.0 MCH 28.9 MCHC 32.5 RDW 14.2 Plt Count 210 MPV 9.2 L Immature Gran % (Auto) 0.2 Neut % (Auto) 62.2 Lymph % (Auto) 22.1 [place] % (Auto) 11.4 H Eos % (Auto) 3.2 Baso % (Auto) 0.9 Lymph # (Auto) 1.0 L [place] # (Auto) 0.5 Eos # (Auto) 0.2 Baso # (Auto) 0.0 Abs Immat Gran (auto) 0.01 Absolute Neuts (auto) 2.9 Absolute Nucleated RBC 0.000 Nucleated RBC % (auto) 0.0 Sodium 144 Potassium 4.3 Chloride 108 Carbon Dioxide 29 Anion Gap 11 L BUN 18 H Creatinine 1.10 Estim Creat Clear Calc 62.7 Estimated GFR > 60 Random Glucose 114 Calcium 8.9 Magnesium 2.3 Total Bilirubin 0.4 AST 18 ALT 17 Alkaline Phosphatase 68 B-Natriuretic Peptide 58 Total Protein 6.4 L Albumin 3.8 Medications Medications Current Medications Acetaminophen (Acetaminophen 325 Mg Tablet) 650 mg PO Q6H PRN PRN Reason: Headache/Pain, Scale 1-10 Last Admin: 09/02/24 09:08 Dose: 650 mg Al Hydroxide/Mg Hydroxide (Magnesium Hydrox/Alum Hydrox 30 Ml Oral.Susp) 30 ml PO Q6H PRN PRN Reason: Heartburn/Nausea Last Admin: 08/05/24 12:28 Dose: 30 ml Donepezil HCl (Donepezil Hcl 5 Mg Tablet) 5 mg PO BEDTIME [facility] Last Admin: 10/05/24 19:55 Dose: 5 mg Furosemide (Furosemide 20 Mg Tablet) 20 mg PO DAILY [facility]; Protocol Last Admin: 10/06/24 08:30 Dose: 20 mg Loperamide HCl (Loperamide Hcl 2 Mg Capsule) 2 mg PO Q4H PRN PRN Reason: Diarrhea Magnesium Hydroxide (Milk Of Magnesia 30 Ml Oral.Susp) 30 ml PO DAILY PRN PRN Reason: Constipation Memantine (Memantine Hcl 5 Mg Tablet) 5 mg PO DAILY [facility] Last Admin: 10/06/24 08:30 Dose: 5 mg Quetiapine Fumarate (Quetiapine Fumarate 50 Mg Tablet) 50 mg PO Q6H PRN PRN Reason: agitation Last Admin: 07/27/24 00:24 Dose: 50 mg Quetiapine Fumarate (Quetiapine Fumarate 50 Mg Tablet) 50 mg PO BID@1200,2100 [facility] Last Admin: 10/06/24 11:46 Dose: 50 mg Trazodone HCl (Trazodone Hcl 50 Mg Tablet) 50 mg PO BEDTIME PRN PRN Reason: Insomnia Last Admin: 09/29/24 19:58 Dose: 50 mg Allergies Allergies Allergy/AdvReac Type Severity Reaction Status Date / Time No Known Allergies Allergy Verified 07/18/24 21:28 Assessment & Plan Assessment & Plan (1) Major neurocognitive disorder: Status: Acute Code(s): F03.90 - Unspecified dementia, unspecified severity, without behavioral disturbance, psychotic disturbance, mood disturbance, and anxiety Plan 09/12 continue tx. 09/13 continue tx. 09/15 continue tx. 2: stable presentation. continue current mgmt. 3: stable presentation. incontinent of bowel in the [place] today. continue current mgmt. 09/18 continue tx. 09/19: incontinent of stool while ambulating. severely demented. continue current mgmt. 6: no change. 09/21: no change. continue current mgmt. awaiting placement. 09/22: stable presentation. continue current mgmt. 09/23: severely demented. awaiting placement. stable. 09/25 continue current treatment plan 09/26 continue current treatment plan 09/27 Today nursing report that patient had an odd moment where he expressed a delusional thought and looked as if he was off balance however this was momentary and fully resolved. On approach patient presents at baseline. -although patient quickly returned to baseline, ordered UA/labs which are unremarkable; vitals WNL 09/28 continue tx. 09/29 continue tx. 09/30 continue tx. 10/01 continue tx. 10/02 continue tx. VS stable, taking medications as prescribed. 10/04 team is seeing a status change with BLE edema, focused on left side, increase in confusion and decline. Will ask hospitalist to evaluate. EKG 10/05 continue tx. 10/06 continue tx. Reason for continued inpatient stay Substantial Risk for: inability to function Time Spent With Patient Time: Total time managing care of this patient today ____ minutes.
[2024-10-06 20:20] VITALS: BP 140/77; PULSE 68; RESP 16; TEMP 2.3; TEMP 36.2; O2SAT 97
[2024-10-07 08:47] VITALS: BP 116/57; PULSE 68; RESP 18; TEMP 2.5; TEMP 36.5; O2SAT 98
--- NOTE | 2024-10-07 09:49 | P.PNPSI_ITS ---
Subjective Subjective Date of Service: 10/07/24 Reason For Visit: dementia w/ behavioral disturbance Subjective Notes: Conditional Voluntary Healthcare Proxy: Yes Interim History: Pt slept through the night. Pt minimally engaged Not overly agitated Mental Status Exam Mental Status Exam Narrative: Appearance: wearing own attire, fair hygiene, in NAD Behavior: calm Psychomotor: retardation noted Speech: mostly mumbling TP: poverty of thought TC: not logical Mood: Calm Affect: calm SI: none expressed HI: none expressed VH/AH: no overt signs Delusions: no overt signs Insight/judgment: impaired x 2. memory/cog: alert oriented only to person. Diagnostics Vital Signs (24Hr): Vital Signs - 24 hr 10/06/24 20:20 10/07/24 08:47 Temperature 36.2 F L 36.5 F L Pulse Rate 68 68 Respiratory Rate 16 18 Blood Pressure 140/77 H 116/57 L Pulse Oximetry 97 98 Oxygen Delivery Method Room Air Room Air BMI result Body Mass Index 24.3 Labs 10/05/24 09:23 10/05/24 09:23 Labs: Laboratory Results - last 48 hr 10/05/24 09:23 Sodium 144 Potassium 4.3 Chloride 108 Carbon Dioxide 29 Anion Gap 11 L BUN 18 H Creatinine 1.10 Estim Creat Clear Calc 62.7 Estimated GFR > 60 Random Glucose 114 Calcium 8.9 Magnesium 2.3 Total Bilirubin 0.4 AST 18 ALT 17 Alkaline Phosphatase 68 Total Protein 6.4 L Albumin 3.8 Medications Medications Current Medications Acetaminophen (Acetaminophen 325 Mg Tablet) 650 mg PO Q6H PRN PRN Reason: Headache/Pain, Scale 1-10 Last Admin: 09/02/24 09:08 Dose: 650 mg Al Hydroxide/Mg Hydroxide (Magnesium Hydrox/Alum Hydrox 30 Ml Oral.Susp) 30 ml PO Q6H PRN PRN Reason: Heartburn/Nausea Last Admin: 08/05/24 12:28 Dose: 30 ml Donepezil HCl (Donepezil Hcl 5 Mg Tablet) 5 mg PO BEDTIME [facility] Last Admin: 10/06/24 20:21 Dose: 5 mg Furosemide (Furosemide 20 Mg Tablet) 20 mg PO DAILY [facility]; Protocol Last Admin: 10/07/24 08:51 Dose: 20 mg Loperamide HCl (Loperamide Hcl 2 Mg Capsule) 2 mg PO Q4H PRN PRN Reason: Diarrhea Magnesium Hydroxide (Milk Of Magnesia 30 Ml Oral.Susp) 30 ml PO DAILY PRN PRN Reason: Constipation Memantine (Memantine Hcl 5 Mg Tablet) 5 mg PO DAILY [facility] Last Admin: 10/07/24 08:51 Dose: 5 mg Quetiapine Fumarate (Quetiapine Fumarate 50 Mg Tablet) 50 mg PO Q6H PRN PRN Reason: agitation Last Admin: 07/27/24 00:24 Dose: 50 mg Quetiapine Fumarate (Quetiapine Fumarate 50 Mg Tablet) 50 mg PO BID@1200,2100 [facility] Last Admin: 10/06/24 20:22 Dose: 50 mg Trazodone HCl (Trazodone Hcl 50 Mg Tablet) 50 mg PO BEDTIME PRN PRN Reason: Insomnia Last Admin: 09/29/24 19:58 Dose: 50 mg Allergies Allergies Allergy/AdvReac Type Severity Reaction Status Date / Time No Known Allergies Allergy Verified 07/18/24 21:28 Assessment & Plan Assessment & Plan (1) Major neurocognitive disorder: Status: Acute Code(s): F03.90 - Unspecified dementia, unspecified severity, without behavioral disturbance, psychotic disturbance, mood disturbance, and anxiety Plan 09/12 continue tx. 09/13 continue tx. 09/15 continue tx. 09/16: stable presentation. continue current mgmt. 09/17: stable presentation. incontinent of bowel in the [place]arte today. continue current mgmt. 09/18 continue tx. 09/19: incontinent of stool while ambulating. severely demented. continue current mgmt. 09/20: no change. 09/21: no change. continue current mgmt. awaiting placement. 09/22: stable presentation. continue current mgmt. 09/23: severely demented. awaiting placement. stable. 09/25 continue current treatment plan 09/26 continue current treatment plan 09/27 Today nursing report that patient had an odd moment where he expressed a delusional thought and looked as if he was off balance however this was momentary and fully resolved. On approach patient presents at baseline. -although patient quickly returned to baseline, ordered UA/labs which are unremarkable; vitals WNL 09/28 continue tx. 09/29 continue tx. 09/30 continue tx. 10/01 continue tx. 10/02 continue tx. VS stable, taking medications as prescribed. 10/04 team is seeing a status change with BLE edema, focused on left side, increase in confusion and decline. Will ask hospitalist to evaluate. EKg 10/05 continue tx. 10/07/24 Cont plan of care Reason for continued inpatient stay Substantial Risk for: inability to function and rapid decompensation Time Spent With Patient Time: Total time managing care of this patient today ____ minutes.
[2024-10-07 20:00] VITALS: BP 122/77; PULSE 68; RESP 18; TEMP 36.3; O2SAT 96
--- NOTE | 2024-10-08 | ECG_ITS ---
Test Reason : SYNCOPE Blood Pressure : */* mmHG Vent. Rate : 63 BPM Atrial Rate : 63 BPM P-R Int : 148 ms QRS Dur : 90 ms QT Int : 396 ms P-R-T Axes : 4 -39 50 degrees QTcB Int : 405 ms Normal sinus rhythm Left axis deviation Abnormal ECG When compared to the previous EKG of No significant changes seen Referred By: Rafael Mclaughlin Electronically Signed By: Saqib Ledesma
[2024-10-08 08:24] VITALS: BP 139/69; PULSE 68; RESP 16; TEMP 36.6; O2SAT 97
[2024-10-08 08:29] VITALS: BMI 25.0
[2024-10-08 12:50] VITALS: BP 127/68; PULSE 78; RESP 18; O2SAT 97
--- NOTE | 2024-10-08 13:10 | PM.EVENT ---
Event Note Date of Service: 10/08/24 Event Note: Rapid response called to patient's bedside due to patient reporting a ?pinch and touching his chest. His vitals are stable. On arrival he is awake and alert, denying any shortness of breath, chest pain, dizziness, lightheadedness or any other concerning symptoms. EKG performed at bedside with no ischemic changes, no change from previous EKGs. His skin is warm and dry, no diaphoresis. Nursing reports that he ate and drank, appears at his baseline. No hypoxia, no tachycardia, no fever. Time Spent With Patient Time: Total time managing care of this patient today ____ minutes. Chest Pain Frequency: none Pain radiation: none Exam Const Constitutional General: cooperative, healthy appearing, comfortable, no acute distress and well developed Orientation/consciousness: oriented to person Resp Effort & Inspection: normal respiratory effort and able to speak in complete sentences Auscultation: clear to auscultation bilaterally Cardio Jugular venous distension: no JVD Rate: regular rate Rhythm: regular rhythm Heart sounds: S1 normal heart sound present and S2 normal heart sound present GI Inspection (GI): normal to inspection Auscultation: normal bowel sounds Skin General skin exam: no rashes or lesions noted Lesions: no lesions Rashes: no rashes Neuro General: Yes oriented to person Cranial nerves: Yes CN's II-XII intact bilaterally Extrem General: normal to inspection and pedal edema on the left Location: of the foot and of the ankle Other: Trace non pitting Psych Other: At baseline Assessment & Plan Assessment & Plan (1) Major neurocognitive disorder: Code(s): F03.90 - Unspecified dementia, unspecified severity, without behavioral disturbance, psychotic disturbance, mood disturbance, and anxiety Category: Medical Plan Rapid response called due to patient reporting a pinch and clutching his chest per nursing. Per nursing patient is behavior and affect is at baseline On arrival patient awake and alert, EKG within normal limits when compared to previous EKGs We will draw CBC, BMP, BNP and troponins. Patient with normal lab work on 10/05
[2024-10-08 13:32] LABS: MANUAL DIFF FLAG NO
[2024-10-08 13:34] LABS: Hematocrit 38.5 % (42.0-52.0); Hemoglobin 12.6 g/dl (14.0-18.0); Imm Gran Abs Auto 0.01 X10*3/uL (0.00-0.03); Imm Gran Pct Auto 0.2 % (0.0-0.4); Lymphocytes Absolute Auto 1.2 X10*3/uL (1.2-4.9); Mean Corpuscular HGB Conc 32.7 g/dl (31.0-36.0); Mean Corpuscular Hemoglobin 28.9 pg (27.0-33.0); Mean Corpuscular Volume 88.3 fL (80.0-98.0); NRBC Abs Auto 0.000 X10*3/uL (0.0-0.012); NRBC Pct Auto 0.0 /100WBC (0.0-0.2); Platelet Count 238 X10*3/uL (160-400); Red Blood Count 4.36 X10*6/uL (4.60-5.80); White Blood Count 6.4 X10*3/uL (4.8-10.8)
[2024-10-08 13:47] LABS: Anion Gap 12 (12-20); Blood Urea Nitrogen 21 mg/dL (9-16); Calcium 9.1 mg/dL (8.4-10.2); Carbon Dioxide 29 mmol/L (22-29); Chloride 103 mmol/L (96-108); Creatinine Clr Calc Pharmacy 58.4; Estimated Glomerular Filt Rate > 60; Potassium 4.7 mmol/L (3.3-5.1); Sodium 139 mmol/L (135-145)
[2024-10-08 13:52] LABS: B Type Natriuretic Peptide 35 pg/mL (<100)
[2024-10-08 13:53] LABS: Troponin-I High Sensitivity < 2.7 ng/L (<3.5-35.0)
[2024-10-08 14:30] VITALS: BP 129/70; PULSE 71
[2024-10-08 14:35] VITALS: BP 127/65; PULSE 80
--- NOTE | 2024-10-08 14:49 | P.PNPSI_ITS ---
Subjective Subjective Date of Service: 10/08/24 Reason For Visit: dementia w/ behavioral disturbance Subjective Notes: Conditional Voluntary Healthcare Proxy: Yes Interim History: Pt seen in f/u had episode today with ? syncope rapid response called ekg troponin ok no orthostatics had been irriable earler labs ok no dvt Mental Status Exam Mental Status Exam Narrative: pt seen cooperative somewhat sedated responds to name asking about going home denies pain no sob not agiated s/p ultrasound Diagnostics Vital Signs (24Hr): Vital Signs - 24 hr 10/07/24 20:00 10/08/24 08:24 Temperature 97.3 F 97.8 F Pulse Rate 68 68 Respiratory Rate 18 16 Blood Pressure 122/77 139/69 Pulse Oximetry 96 97 Oxygen Delivery Method Room Air Room Air BMI result Body Mass Index 25.0 Labs 10/08/24 13:27 10/08/24 13:27 Labs: Laboratory Results - last 48 hr 10/08/24 13:27 WBC 6.4 RBC 4.36 L Hgb 12.6 L Hct 38.5 L MCV 88.3 MCH 28.9 MCHC 32.7 RDW 14.1 Plt Count 238 MPV 9.1 L Immature Gran % (Auto) 0.2 Neut % (Auto) 68.0 Lymph % (Auto) 18.4 L [place] % (Auto) 10.7 Eos % (Auto) 1.9 Baso % (Auto) 0.8 Lymph # (Auto) 1.2 [place] # (Auto) 0.7 Eos # (Auto) 0.1 Baso # (Auto) 0.1 Abs Immat Gran (auto) 0.01 Absolute Neuts (auto) 4.3 Absolute Nucleated RBC 0.000 Nucleated RBC % (auto) 0.0 Sodium 139 Potassium 4.7 Chloride 103 Carbon Dioxide 29 Anion Gap 12 BUN 21 H Creatinine 1.18 Estim Creat Clear Calc 58.4 Estimated GFR > 60 Random Glucose 131 H Calcium 9.1 Troponin I High Sens < 2.7 B-Natriuretic Peptide 35 Medications Medications Current Medications Acetaminophen (Acetaminophen 325 Mg Tablet) 650 mg PO Q6H PRN PRN Reason: Headache/Pain, Scale 1-10 Last Admin: 09/02/24 09:08 Dose: 650 mg Al Hydroxide/Mg Hydroxide (Magnesium Hydrox/Alum Hydrox 30 Ml Oral.Susp) 30 ml PO Q6H PRN PRN Reason: Heartburn/Nausea Last Admin: 08/05/24 12:28 Dose: 30 ml Donepezil HCl (Donepezil Hcl 5 Mg Tablet) 5 mg PO BEDTIME ADITYA Last Admin: 10/07/24 19:35 Dose: 5 mg Furosemide (Furosemide 20 Mg Tablet) 20 mg PO DAILY [facility]; Protocol Last Admin: 10/08/24 08:26 Dose: 20 mg Loperamide HCl (Loperamide Hcl 2 Mg Capsule) 2 mg PO Q4H PRN PRN Reason: Diarrhea Magnesium Hydroxide (Milk Of Magnesia 30 Ml Oral.Susp) 30 ml PO DAILY PRN PRN Reason: Constipation Memantine (Memantine Hcl 5 Mg Tablet) 5 mg PO DAILY [facility] Last Admin: 10/08/24 08:26 Dose: 5 mg Quetiapine Fumarate (Quetiapine Fumarate 50 Mg Tablet) 50 mg PO Q6H PRN PRN Reason: agitation Last Admin: 07/27/24 00:24 Dose: 50 mg Quetiapine Fumarate (Quetiapine Fumarate 50 Mg Tablet) 50 mg PO BID@1200,2100 [facility] Last Admin: 10/08/24 12:31 Dose: 50 mg Trazodone HCl (Trazodone Hcl 50 Mg Tablet) 50 mg PO BEDTIME PRN PRN Reason: Insomnia Last Admin: 09/29/24 19:58 Dose: 50 mg Allergies Allergies Allergy/AdvReac Type Severity Reaction Status Date / Time No Known Allergies Allergy Verified 07/18/24 21:28 Assessment & Plan Assessment & Plan (1) Major neurocognitive disorder: Status: Acute Code(s): F03.90 - Unspecified dementia, unspecified severity, without behavioral disturbance, psychotic disturbance, mood disturbance, and anxiety Plan 09/12 continue tx. 09/13 continue tx. 09/15 continue tx. 2: stable presentation. continue current mgmt. /3: stable presentation. incontinent of bowel in the [place]arte today. continue current mgmt. /4 continue tx. 5: incontinent of stool while ambulating. severely demented. continue current mgmt. /: no change. 09/21: no change. continue current mgmt. awaiting placement. 09/22: stable presentation. continue current mgmt. /: severely demented. awaiting placement. stable. 09/25 continue current treatment plan 09/26 continue current treatment plan 09/27 Today nursing report that patient had an odd moment where he expressed a delusional thought and looked as if he was off balance however this was momentary and fully resolved. On approach patient presents at baseline. -although patient quickly returned to baseline, ordered UA/labs which are unremarkable; vitals WNL 09/28 continue tx. 09/29 continue tx. 09/30 continue tx. 10/01 continue tx. 10/02 continue tx. VS stable, taking medications as prescribed. 10/04 team is seeing a status change with BLE edema, focused on left side, increase in confusion and decline. Will ask hospitalist to evaluate. EKg 10/05 continue tx. 10/07/24 Cont plan of care 10/08/24 labs ekg ok ck eeg monitor vs on 1.1 Reason for continued inpatient stay Substantial Risk for: inability to function, rapid decompensation and med/psych decompensation Time Spent With Patient Time: Total time managing care of this patient today ____ minutes.
--- NOTE | 2024-10-08 14:52 | PM.EVENT ---
Event Note Date of Service: 10/08/24 Event Note: Reviewed labs, troponins are negative, no electrolyte abnormalities, no anemia. We will order ultrasound to rule out DVT, also order an EEG to rule out any concerning event. Continue to monitor patient and notify medicine with any changes. Time Spent With Patient Time: Total time managing care of this patient today ____ minutes.
--- NOTE | 2024-10-08 15:25 | PM.EVENT ---
Event Note Date of Service: 10/08/24 Event Note: No evidence of deep vein thrombosis in bilateral legs. Recommend [place] stockings Time Spent With Patient Time: Total time managing care of this patient today ____ minutes.
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
[2024-10-08 20:05] LABS: Appearance Urine Clear; Glucose Urine UA Negative (Negative); PH 7.0 (5.0-9.0); Specific Gravity - Urine 1.015 (1.005-1.025)
[2024-10-08 20:11] VITALS: BP 129/72; PULSE 66; RESP 17; TEMP 37; O2SAT 97
[2024-10-09 07:58] VITALS: BP 111/61; PULSE 64; RESP 16; TEMP 36.6; O2SAT 96
[2024-10-09 08:00] VITALS: BP 111/61; PULSE 64; RESP 16; TEMP 36.6; O2SAT 96
--- NOTE | 2024-10-09 14:23 | HO.PSYCHPN ---
Subjective Subjective Date of Service: 10/09/24 Reason For Visit: dementia w/ behavioral disturbance Subjective Notes: Conditional Voluntary Interim History: Patient seen psychiatric follow-up. The patient's somewhat more alert no abnormal episodes today. The patient's on one-to-one Not of aggressive some irritability Medication Compliance: Yes Mental Status Exam Mental Status Exam Narrative: Patient pacing answer questions briefly minimally linear denies current pain shortness breath some irritability reactivity some unsteadiness Diagnostics Vital Signs (24Hr): Vital Signs - 24 hr 10/08/24 14:30 10/08/24 14:35 10/08/24 20:11 Temperature 98.6 F Pulse Rate 71 80 66 Respiratory Rate 17 Blood Pressure 129/70 127/65 129/72 Pulse Oximetry 97 Oxygen Delivery Method Room Air 10/09/24 07:58 10/09/24 08:00 Temperature 97.9 F 97.9 F Pulse Rate 64 64 Respiratory Rate 16 16 Blood Pressure 111/61 111/61 Pulse Oximetry 96 96 Oxygen Delivery Method Room Air Room Air BMI result Body Mass Index 25.0 Labs 10/08/24 13:27 10/08/24 13:27 Labs: Laboratory Results - last 48 hr 10/08/24 10/08/24 13:27 14:05 WBC 6.4 RBC 4.36 L Hgb 12.6 L Hct 38.5 L MCV 88.3 MCH 28.9 MCHC 32.7 RDW 14.1 Plt Count 238 MPV 9.1 L Immature Gran % (Auto) 0.2 Neut % (Auto) 68.0 Lymph % (Auto) 18.4 L [place] % (Auto) 10.7 Eos % (Auto) 1.9 Baso % (Auto) 0.8 Lymph # (Auto) 1.2 [place] # (Auto) 0.7 Eos # (Auto) 0.1 Baso # (Auto) 0.1 Abs Immat Gran (auto) 0.01 Absolute Neuts (auto) 4.3 Absolute Nucleated RBC 0.000 Nucleated RBC % (auto) 0.0 Sodium 139 Potassium 4.7 Chloride 103 Carbon Dioxide 29 Anion Gap 12 BUN 21 H Creatinine 1.18 Estim Creat Clear Calc 58.4 Estimated GFR > 60 Random Glucose 131 H Calcium 9.1 Troponin I High Sens < 2.7 B-Natriuretic Peptide 35 Urine Color Yellow Urine Appearance Clear Urine pH 7.0 Ur Specific [place] 1.015 Urine Protein Negative Urine Glucose (UA) Negative Urine Ketones Negative Urine Blood Negative Urine Nitrite Negative Ur Leukocyte Esterase Negative Imaging Radiology Impressions: ITS Impressions Venous Duplex 10/08/24 14:57 IMPRESSION: No evidence of deep venous thrombosis involving the bilateral lower extremities. Electronically signed by: Mason Lorenzo MD 10/08/2024 03:21 PM EDT RP Medications Medications Current Medications Acetaminophen (Acetaminophen 325 Mg Tablet) 650 mg PO Q6H PRN PRN Reason: Headache/Pain, Scale 1-10 Last Admin: 09/02/24 09:08 Dose: 650 mg Al Hydroxide/Mg Hydroxide (Magnesium Hydrox/Alum Hydrox 30 Ml Oral.Susp) 30 ml PO Q6H PRN PRN Reason: Heartburn/Nausea Last Admin: 08/05/24 12:28 Dose: 30 ml Donepezil HCl (Donepezil Hcl 5 Mg Tablet) 5 mg PO BEDTIME ADITYA Last Admin: 10/08/24 20:13 Dose: 5 mg Furosemide (Furosemide 20 Mg Tablet) 20 mg PO DAILY [facility] [place]; Protocol Last Admin: 10/09/24 08:03 Dose: 20 mg Loperamide HCl (Loperamide Hcl 2 Mg Capsule) 2 mg PO Q4H PRN PRN Reason: Diarrhea Magnesium Hydroxide (Milk Of Magnesia 30 Ml Oral.Susp) 30 ml PO DAILY PRN PRN Reason: Constipation Memantine (Memantine Hcl 5 Mg Tablet) 5 mg PO DAILY [facility] [place] Last Admin: 10/09/24 08:04 Dose: 5 mg Quetiapine Fumarate (Quetiapine Fumarate 50 Mg Tablet) 50 mg PO Q6H PRN PRN Reason: agitation Last Admin: 07/27/24 00:24 Dose: 50 mg Quetiapine Fumarate (Quetiapine Fumarate 50 Mg Tablet) 50 mg PO BID@1200,2100 [facility] [place] Last Admin: 10/09/24 11:30 Dose: 50 mg Trazodone HCl (Trazodone Hcl 50 Mg Tablet) 50 mg PO BEDTIME PRN PRN Reason: Insomnia Last Admin: 09/29/24 19:58 Dose: 50 mg Allergies Allergies Allergy/AdvReac Type Severity Reaction Status Date / Time No Known Allergies Allergy Verified 07/18/24 21:28 Assessment & Plan Assessment & Plan (1) Major neurocognitive disorder: Status: Acute Code(s): F03.90 - Unspecified dementia, unspecified severity, without behavioral disturbance, psychotic disturbance, mood disturbance, and anxiety Plan 09/12 continue tx. 09/13 continue tx. 09/15 continue tx. 09/16: stable presentation. continue current mgmt. 09/17: stable presentation. incontinent of bowel in the [place] today. continue current mgmt. / continue tx. 5: incontinent of stool while ambulating. severely demented. continue current mgmt. 09/20: no change. 09/21: no change. continue current mgmt. awaiting placement. 09/22: stable presentation. continue current mgmt. 09/23: severely demented. awaiting placement. stable. 09/25 continue current treatment plan 09/26 continue current treatment plan 09/27 Today nursing report that patient had an odd moment where he expressed a delusional thought and looked as if he was off balance however this was momentary and fully resolved. On approach patient presents at baseline. -although patient quickly returned to baseline, ordered UA/labs which are unremarkable; vitals WNL 09/28 continue tx. 09/29 continue tx. 09/30 continue tx. 10/01 continue tx. 10/02 continue tx. VS stable, taking medications as prescribed. 10/04 team is seeing a status change with BLE edema, focused on left side, increase in confusion and decline. Will ask hospitalist to evaluate. EKg 10/05 continue tx. 10/07/24 Cont plan of care 10/08/24 labs ekg ok ck eeg monitor vs on 1.1 10/09/2024 Continue one-to-one continue Seroquel would avoid increase dose monitor for altered mental status had ? unclear event the othe other day unable to complete the eeg Reason for continued inpatient stay Substantial Risk for: inability to function, rapid decompensation and med/psych decompensation Time Spent With Patient Time: Total time managing care of this patient today ____ minutes.
[2024-10-09 19:48] VITALS: BP 103/53; PULSE 65; RESP 16; TEMP 36.6; O2SAT 94
[2024-10-10 08:50] VITALS: BP 117/64; PULSE 68; RESP 18; TEMP 36.3; O2SAT 97
--- NOTE | 2024-10-10 16:45 | P.PNPSI_ITS ---
Subjective Subjective Date of Service: 10/10/24 Reason For Visit: dementia w/ behavioral disturbance Interim History: Patient seen psychiatric follow-up. No abnormal episodes. Continues on 1:1 for confusion and syncopal episodes. Not aggressive. No agitation noted. Wandering and pacing the unit. Described as cheerful. Intrusive. Review of Systems Review of Systems as noted Yes Unobtainable due to mental status and Other (Dementia) Mental Status Exam Mental Status Exam Narrative: Patient pacing answer questions briefly minimally linear denies current pain shortness breath some irritability reactivity some unsteadiness Patient Appearance: Fatigued Patient Orientation: Person Level of Consciousness: Alert Patient Behavior: Cooperative Mood Description: Calm and Withdrawn Affect Description: Calm Patient Cognition Impaired: Yes Ability to Follow Directions: Fair Speech Pattern: Impoverished Memory Description: Remote Impaired, Immediate Impaired, Intermediate Impaired, Recent Impaired, Working Impaired and Semantic Impaired Diagnostics Vital Signs (24Hr): Vital Signs - 24 hr 10/09/24 19:48 10/10/24 08:50 Temperature 97.9 F 97.4 F Pulse Rate 65 68 Respiratory Rate 16 18 Blood Pressure 103/53 L 117/64 Pulse Oximetry 94 97 Oxygen Delivery Method Room Air Room Air BMI result Body Mass Index 25.0 Labs 10/08/24 13:27 10/08/24 13:27 Labs: Laboratory Results - last 48 hr 10/08/24 14:05 Urine Color Yellow Urine Appearance Clear Urine pH 7.0 Ur Specific [place] 1.015 Urine Protein Negative Urine Glucose (UA) Negative Urine Ketones Negative Urine Blood Negative Urine Nitrite Negative Ur Leukocyte Esterase Negative Imaging Radiology Impressions: ITS Impressions Venous Duplex 10/08/24 14:57 IMPRESSION: No evidence of deep venous thrombosis involving the bilateral lower extremities. Electronically signed by: Mason Lorenzo MD 10/08/2024 03:21 PM EDT RP Medications Medications Current Medications Acetaminophen (Acetaminophen 325 Mg Tablet) 650 mg PO Q6H PRN PRN Reason: Headache/Pain, Scale 1-10 Last Admin: 09/02/24 09:08 Dose: 650 mg Al Hydroxide/Mg Hydroxide (Magnesium Hydrox/Alum Hydrox 30 Ml Oral.Susp) 30 ml PO Q6H PRN PRN Reason: Heartburn/Nausea Last Admin: 08/05/24 12:28 Dose: 30 ml Donepezil HCl (Donepezil Hcl 5 Mg Tablet) 5 mg PO BEDTIME [facility] Last Admin: 10/09/24 19:51 Dose: 5 mg Furosemide (Furosemide 20 Mg Tablet) 20 mg PO DAILY [facility]; Protocol Last Admin: 10/10/24 08:57 Dose: 20 mg Loperamide HCl (Loperamide Hcl 2 Mg Capsule) 2 mg PO Q4H PRN PRN Reason: Diarrhea Magnesium Hydroxide (Milk Of Magnesia 30 Ml Oral.Susp) 30 ml PO DAILY PRN PRN Reason: Constipation Memantine (Memantine Hcl 5 Mg Tablet) 5 mg PO DAILY [facility] Last Admin: 10/10/24 08:57 Dose: 5 mg Quetiapine Fumarate (Quetiapine Fumarate 50 Mg Tablet) 50 mg PO Q6H PRN PRN Reason: agitation Last Admin: 07/27/24 00:24 Dose: 50 mg Quetiapine Fumarate (Quetiapine Fumarate 50 Mg Tablet) 50 mg PO BID@1200,2100 [facility] Last Admin: 10/10/24 12:38 Dose: 50 mg Trazodone HCl (Trazodone Hcl 50 Mg Tablet) 50 mg PO BEDTIME PRN PRN Reason: Insomnia Last Admin: 09/29/24 19:58 Dose: 50 mg Allergies Allergies Allergy/AdvReac Type Severity Reaction Status Date / Time No Known Allergies Allergy Verified 07/18/24 21:28 Assessment & Plan Assessment & Plan (1) Major neurocognitive disorder: Status: Acute Code(s): F03.90 - Unspecified dementia, unspecified severity, without behavioral disturbance, psychotic disturbance, mood disturbance, and anxiety Plan 09/12 continue tx. 09/13 continue tx. 09/15 continue tx. 09/16: stable presentation. continue current mgmt. /3: stable presentation. incontinent of bowel in the [place] today. continue current mgmt. / continue tx. 5: incontinent of stool while ambulating. severely demented. continue current mgmt. 7/6: no change. 09/21: no change. continue current mgmt. awaiting placement. 09/22: stable presentation. continue current mgmt. /: severely demented. awaiting placement. stable. 09/25 continue current treatment plan 09/26 continue current treatment plan 09/27 Today nursing report that patient had an odd moment where he expressed a delusional thought and looked as if he was off balance however this was momentary and fully resolved. On approach patient presents at baseline. -although patient quickly returned to baseline, ordered UA/labs which are unremarkable; vitals WNL 09/28 continue tx. 09/29 continue tx. 09/30 continue tx. 10/01 continue tx. 10/02 continue tx. VS stable, taking medications as prescribed. 10/04 team is seeing a status change with BLE edema, focused on left side, increase in confusion and decline. Will ask hospitalist to evaluate. EKg 10/05 continue tx. 10/07/24 Cont plan of care 10/08/24 labs ekg ok ck eeg monitor vs on 1.1 10/09/2024 Continue one-to-one continue Seroquel would avoid increase dose monitor for altered mental status had ? unclear event the othe other day unable to complete the eeg 10/10: Continue current management and treatment plan. Reason for continued inpatient stay Substantial Risk for: inability to function, rapid decompensation and med/psych decompensation Time Spent With Patient Time: Total time managing care of this patient today ____ minutes.
[2024-10-10 19:47] VITALS: BP 122/61; PULSE 64; RESP 16; TEMP 36.9; O2SAT 95
[2024-10-11 09:29] VITALS: BP 132/72; PULSE 95; RESP 16; TEMP 36.5; O2SAT 95
--- NOTE | 2024-10-11 16:11 | P.PNPSI_ITS ---
Subjective Subjective Date of Service: 10/11/24 Reason For Visit: dementia w/ behavioral disturbance Interim History: Patient seen psychiatric follow-up. No abnormal episodes. Continues on 1:1 for confusion and syncopal episodes. Not aggressive. No agitation noted. Wandering and pacing the unit. Described as cheerful. Intrusive. Review of Systems Review of Systems as noted Yes Unobtainable due to mental status and Other (Dementia) Mental Status Exam Mental Status Exam Narrative: Patient pacing answer questions briefly minimally linear denies current pain shortness breath some irritability reactivity some unsteadiness Patient Appearance: Fatigued Patient Orientation: Person Level of Consciousness: Alert Patient Behavior: Cooperative Mood Description: Calm and Withdrawn Affect Description: Calm Patient Cognition Impaired: Yes Ability to Follow Directions: Fair Speech Pattern: Impoverished Memory Description: Remote Impaired, Immediate Impaired, Prison Impaired, Recent Impaired, Working Impaired and Semantic Impaired Diagnostics Vital Signs (24Hr): Vital Signs - 24 hr 10/10/24 19:47 10/11/24 09:29 Temperature 98.4 F 97.7 F Pulse Rate 64 95 Respiratory Rate 16 16 Blood Pressure 122/61 132/72 Pulse Oximetry 95 95 Oxygen Delivery Method Room Air Room Air BMI result Body Mass Index 25.0 Labs 10/08/24 13:27 10/08/24 13:27 Imaging Radiology Impressions: ITS Impressions Venous Duplex 10/08/24 14:57 IMPRESSION: No evidence of deep venous thrombosis involving the bilateral lower extremities. Electronically signed by: Mason Lorenzo MD 10/08/2024 03:21 PM EDT RP Medications Medications Current Medications Acetaminophen (Acetaminophen 325 Mg Tablet) 650 mg PO Q6H PRN PRN Reason: Headache/Pain, Scale 1-10 Last Admin: 09/02/24 09:08 Dose: 650 mg Al Hydroxide/Mg Hydroxide (Magnesium Hydrox/Alum Hydrox 30 Ml Oral.Susp) 30 ml PO Q6H PRN PRN Reason: Heartburn/Nausea Last Admin: 08/05/24 12:28 Dose: 30 ml Donepezil HCl (Donepezil Hcl 5 Mg Tablet) 5 mg PO BEDTIME [facility] Last Admin: 10/10/24 19:54 Dose: 5 mg Furosemide (Furosemide 20 Mg Tablet) 20 mg PO DAILY [facility]; Protocol Last Admin: 10/11/24 09:45 Dose: 20 mg Loperamide HCl (Loperamide Hcl 2 Mg Capsule) 2 mg PO Q4H PRN PRN Reason: Diarrhea Magnesium Hydroxide (Milk Of Magnesia 30 Ml Oral.Susp) 30 ml PO DAILY PRN PRN Reason: Constipation Memantine (Memantine Hcl 5 Mg Tablet) 5 mg PO DAILY [facility] Last Admin: 10/11/24 09:45 Dose: 5 mg Quetiapine Fumarate (Quetiapine Fumarate 50 Mg Tablet) 50 mg PO Q6H PRN PRN Reason: agitation Last Admin: 07/27/24 00:24 Dose: 50 mg Quetiapine Fumarate (Quetiapine Fumarate 50 Mg Tablet) 50 mg PO BID@1200,2100 [facility] Last Admin: 10/11/24 12:29 Dose: 50 mg Trazodone HCl (Trazodone Hcl 50 Mg Tablet) 50 mg PO BEDTIME PRN PRN Reason: Insomnia Last Admin: 09/29/24 19:58 Dose: 50 mg Allergies Allergies Allergy/AdvReac Type Severity Reaction Status Date / Time No Known Allergies Allergy Verified 07/18/24 21:28 Assessment & Plan Assessment & Plan (1) Major neurocognitive disorder: Status: Acute Code(s): F03.90 - Unspecified dementia, unspecified severity, without behavioral disturbance, psychotic disturbance, mood disturbance, and anxiety Plan 09/12 continue tx. 09/13 continue tx. 09/15 continue tx. 09/16: stable presentation. continue current mgmt. 3: stable presentation. incontinent of bowel in the duarte today. continue current mgmt. / continue tx. 5: incontinent of stool while ambulating. severely demented. continue current mgmt. 09/20: no change. 09/21: no change. continue current mgmt. awaiting placement. 09/22: stable presentation. continue current mgmt. /: severely demented. awaiting placement. stable. 09/25 continue current treatment plan 09/26 continue current treatment plan 09/27 Today nursing report that patient had an odd moment where he expressed a delusional thought and looked as if he was off balance however this was momentary and fully resolved. On approach patient presents at baseline. -although patient quickly returned to baseline, ordered UA/labs which are unremarkable; vitals WNL 09/28 continue tx. 09/29 continue tx. 09/30 continue tx. 10/01 continue tx. 10/02 continue tx. VS stable, taking medications as prescribed. 10/04 team is seeing a status change with BLE edema, focused on left side, increase in confusion and decline. Will ask hospitalist to evaluate. EKg 10/05 continue tx. 10/07/24 Cont plan of care 10/08/24 labs ekg ok ck eeg monitor vs on 1.1 10/09/2024 Continue one-to-one continue Seroquel would avoid increase dose monitor for altered mental status had ? unclear event the othe other day unable to complete the eeg 10/10: Continue current management and treatment plan. 10/11: continue current management and treatment plan. Reason for continued inpatient stay Substantial Risk for: inability to function and rapid decompensation Time Spent With Patient Time: Total time managing care of this patient today ____ minutes.
[2024-10-11 20:00] VITALS: BP 133/93; PULSE 68; RESP 16; TEMP 36.8; O2SAT 95
[2024-10-12 08:00] VITALS: BP 128/70; PULSE 69; TEMP 36.9; O2SAT 95
[2024-10-12 09:11] VITALS: BP 105/68
[2024-10-12 20:00] VITALS: BP 142/68; PULSE 73; RESP 17; TEMP 36.6; O2SAT 95
--- NOTE | 2024-10-12 20:47 | P.PNPSI_ITS ---
Subjective Subjective Date of Service: 10/12/24 Reason For Visit: dementia w/ behavioral disturbance Subjective Notes: Section 7 Medical Problems Affecting Mental Status: No Interim History: Medical record and nursing notes reviewed; case discussed during rounds with team/nursing staff, and met with patient for supportive therapy/psychoeducation, as well as medication management. No record of sleep per chart review from night nurse on duty. Patient was medication compliant. Remain on one-to-one. He is alert to self only. Not able to answer questions appropriately. Distracted himself while being asked, looking around in his room. Per nursing, patient take meds with no problem but put in yogurt. He is cooperative with care. He held hands up one-to-one staff. No ADLs issues. When asked how he is doing he says pretty good in her very soft mumbling sounds. Medication Compliance: Yes Side effects from medications: No Attending Groups: No Review of Systems Acute medical concerns: No Medical Review of Systems: unchanged Review of Systems Review of Systems Yes Unobtainable due to mental status Mental Status Exam Mental Status Exam Narrative: Patient is in his room, sit down in bed, appeared to be distracted, looking around, occasionally answer the question, mostly not appropriate in soft mumbling sounds, alert to self only. Remain on one-to-one due to history of falls with last fall wa on 10/08. Not able to comprehensive impressions. Appear calm and relaxed, no angry or irritable mood. Judgement and Insight: impaired Diagnostics Vital Signs (24Hr): Vital Signs - 24 hr 10/12/24 08:00 10/12/24 09:11 Temperature 98.4 F Pulse Rate 69 Blood Pressure 128/70 105/68 Pulse Oximetry 95 Oxygen Delivery Method Room Air BMI result Body Mass Index 25.0 Labs 10/08/24 13:27 10/08/24 13:27 Imaging Radiology Impressions: ITS Impressions Venous Duplex 10/08/24 14:57 IMPRESSION: No evidence of deep venous thrombosis involving the bilateral lower extremities. Electronically signed by: Mason Lorenzo MD 10/08/2024 03:21 PM EDT Medications Medications Current Medications Acetaminophen (Acetaminophen 325 Mg Tablet) 650 mg PO Q6H PRN PRN Reason: Headache/Pain, Scale 1-10 Last Admin: 09/02/24 09:08 Dose: 650 mg Al Hydroxide/Mg Hydroxide (Magnesium Hydrox/Alum Hydrox 30 Ml Oral.Susp) 30 ml PO Q6H PRN PRN Reason: Heartburn/Nausea Last Admin: 08/05/24 12:28 Dose: 30 ml Donepezil HCl (Donepezil Hcl 5 Mg Tablet) 5 mg PO BEDTIME [facility] Last Admin: 10/11/24 20:48 Dose: 5 mg Furosemide (Furosemide 20 Mg Tablet) 20 mg PO DAILY [facility]; Protocol Last Admin: 10/12/24 09:11 Dose: 20 mg Loperamide HCl (Loperamide Hcl 2 Mg Capsule) 2 mg PO Q4H PRN PRN Reason: Diarrhea Magnesium Hydroxide (Milk Of Magnesia 30 Ml Oral.Susp) 30 ml PO DAILY PRN PRN Reason: Constipation Memantine (Memantine Hcl 5 Mg Tablet) 5 mg PO DAILY [facility] Last Admin: 10/12/24 08:38 Dose: 5 mg Quetiapine Fumarate (Quetiapine Fumarate 50 Mg Tablet) 50 mg PO Q6H PRN PRN Reason: agitation Last Admin: 07/27/24 00:24 Dose: 50 mg Quetiapine Fumarate (Quetiapine Fumarate 50 Mg Tablet) 50 mg PO BID@1200,2100 [facility] Last Admin: 10/12/24 12:04 Dose: 50 mg Trazodone HCl (Trazodone Hcl 50 Mg Tablet) 50 mg PO BEDTIME PRN PRN Reason: Insomnia Last Admin: 10/11/24 20:48 Dose: 50 mg Allergies Allergies Allergy/AdvReac Type Severity Reaction Status Date / Time No Known Allergies Allergy Verified 07/18/24 21:28 Assessment & Plan Assessment & Plan (1) Major neurocognitive disorder: Status: Acute Code(s): F03.90 - Unspecified dementia, unspecified severity, without behavioral disturbance, psychotic disturbance, mood disturbance, and anxiety Plan 09/12 continue tx. 09/13 continue tx. 09/15 continue tx. 09/16: stable presentation. continue current mgmt. 09/17: stable presentation. incontinent of bowel in the duarte today. continue current mgmt. / continue tx. 09/19: incontinent of stool while ambulating. severely demented. continue current mgmt. 09/20: no change. 09/21: no change. continue current mgmt. awaiting placement. 09/22: stable presentation. continue current mgmt. 09/23: severely demented. awaiting placement. stable. 09/25 continue current treatment plan 09/26 continue current treatment plan 09/27 Today nursing report that patient had an odd moment where he expressed a delusional thought and looked as if he was off balance however this was momentary and fully resolved. On approach patient presents at baseline. -although patient quickly returned to baseline, ordered UA/labs which are unremarkable; vitals WNL 09/28 continue tx. 09/29 continue tx. 09/30 continue tx. 10/01 continue tx. 10/02 continue tx. VS stable, taking medications as prescribed. 10/04 team is seeing a status change with BLE edema, focused on left side, increase in confusion and decline. Will ask hospitalist to evaluate. EKg 10/05 continue tx. 10/07/24 Cont plan of care 10/08/24 labs ekg ok ck eeg monitor vs on 1.1 10/09/2024 Continue one-to-one continue Seroquel would avoid increase dose monitor for altered mental status had ? unclear event the othe other day unable to complete the eeg 10/10: Continue current management and treatment plan. 10/11: continue current management and treatment plan. 10/12/24: No medication change. Continued to be on one-to-one d/t fall risk. Alert to self only. Took medication with no problems. He had KING socks on to prevent edema. He lets staff put in on even though he told staff he already has a pair of regular socks on. Patient educated on: medication risk/benefits and therapeutic strategies Informed Consent: further education needed Reason for continued inpatient stay Substantial Risk for: inability to function and med/psych decompensation Time Spent With Patient Time: Total time managing care of this patient today ____ minutes.
[2024-10-13 07:55] VITALS: BP 121/71; PULSE 76; RESP 18; TEMP 36.6; O2SAT 96
--- NOTE | 2024-10-13 08:59 | P.PNPSI_ITS ---
Subjective Subjective Date of Service: 10/13/24 Reason For Visit: dementia w/ behavioral disturbance Subjective Notes: Section 7 Medical Problems Affecting Mental Status: No Interim History: Medical record and nursing notes reviewed; case discussed during rounds with team/nursing staff, and met with patient for supportive therapy/psychoeducation, as well as medication management. Patient slept all night, appetite good, was medication compliant. Not much change on him in terms of behavior and mental status. Trying to take him off from one-to-one this morning, but have to put him back on one-to-one observation, and he is not steady on his feet. Patient is not giving any answers during assessment which could be the time that he was in bed trying to take nap. He is quiet, alert to self only as usual baseline. No other behavior. Medication Compliance: Yes Side effects from medications: No Attending Groups: No Review of Systems Acute medical concerns: No Medical Review of Systems: unchanged Review of Systems Review of Systems Yes Unobtainable due to mental status Mental Status Exam Mental Status Exam Narrative: Patient is in his room, appeared to be sleepy as he tried to take a nap, not engaged in conversation, alert alert and awake but only to self. Remain on one-to-one due to history of falls with last fall was on 10/08. Attempted to take him off one-to-one, but due to unsteady gait, put him back on one-to-one Not able to comprehensive. Appear calm and relaxed, no angry or irritable mood. Judgement and Insight: impaired Diagnostics Vital Signs (24Hr): Vital Signs - 24 hr 10/12/24 09:11 10/12/24 20:00 10/13/24 07:55 Temperature 97.8 F 97.9 F Pulse Rate 73 76 Respiratory Rate 17 18 Blood Pressure 105/68 142/68 H 121/71 Pulse Oximetry 95 96 Oxygen Delivery Method Room Air Room Air BMI result Body Mass Index 25.0 Labs 10/08/24 13:27 10/08/24 13:27 Imaging Radiology Impressions: ITS Impressions Venous Duplex 10/08/24 14:57 IMPRESSION: No evidence of deep venous thrombosis involving the bilateral lower extremities. Electronically signed by: Mason Lorenzo MD 10/08/2024 03:21 PM EDT Medications Medications Current Medications Acetaminophen (Acetaminophen 325 Mg Tablet) 650 mg PO Q6H PRN PRN Reason: Headache/Pain, Scale 1-10 Last Admin: 09/02/24 09:08 Dose: 650 mg Al Hydroxide/Mg Hydroxide (Magnesium Hydrox/Alum Hydrox 30 Ml Oral.Susp) 30 ml PO Q6H PRN PRN Reason: Heartburn/Nausea Last Admin: 08/05/24 12:28 Dose: 30 ml Donepezil HCl (Donepezil Hcl 5 Mg Tablet) 5 mg PO BEDTIME [facility] Last Admin: 10/12/24 21:30 Dose: 5 mg Furosemide (Furosemide 20 Mg Tablet) 20 mg PO DAILY [facility]; Protocol Last Admin: 10/13/24 08:22 Dose: 20 mg Loperamide HCl (Loperamide Hcl 2 Mg Capsule) 2 mg PO Q4H PRN PRN Reason: Diarrhea Magnesium Hydroxide (Milk Of Magnesia 30 Ml Oral.Susp) 30 ml PO DAILY PRN PRN Reason: Constipation Memantine (Memantine Hcl 5 Mg Tablet) 5 mg PO DAILY [facility] Last Admin: 10/13/24 08:22 Dose: 5 mg Quetiapine Fumarate (Quetiapine Fumarate 50 Mg Tablet) 50 mg PO Q6H PRN PRN Reason: agitation Last Admin: 07/27/24 00:24 Dose: 50 mg Quetiapine Fumarate (Quetiapine Fumarate 50 Mg Tablet) 50 mg PO BID@1200,2100 [facility] Last Admin: 10/12/24 21:30 Dose: 50 mg Trazodone HCl (Trazodone Hcl 50 Mg Tablet) 50 mg PO BEDTIME PRN PRN Reason: Insomnia Last Admin: 10/12/24 21:30 Dose: 50 mg Allergies Allergies Allergy/AdvReac Type Severity Reaction Status Date / Time No Known Allergies Allergy Verified 07/18/24 21:28 Assessment & Plan Assessment & Plan (1) Major neurocognitive disorder: Status: Acute Code(s): F03.90 - Unspecified dementia, unspecified severity, without behavioral disturbance, psychotic disturbance, mood disturbance, and anxiety Plan 09/12 continue tx. 09/13 continue tx. 09/15 continue tx. 7/2: stable presentation. continue current mgmt. 7/3: stable presentation. incontinent of bowel in the [place]arte today. continue current mgmt. 7/4 continue tx. 7/5: incontinent of stool while ambulating. severely demented. continue current mgmt. 7/6: no change. 09/21: no change. continue current mgmt. awaiting placement. 09/22: stable presentation. continue current mgmt. 09/23: severely demented. awaiting placement. stable. 09/25 continue current treatment plan 09/26 continue current treatment plan 09/27 Today nursing report that patient had an odd moment where he expressed a delusional thought and looked as if he was off balance however this was momentary and fully resolved. On approach patient presents at baseline. -although patient quickly returned to baseline, ordered UA/labs which are unremarkable; vitals WNL 09/28 continue tx. 09/29 continue tx. 09/30 continue tx. 10/01 continue tx. 10/02 continue tx. VS stable, taking medications as prescribed. 10/04 team is seeing a status change with BLE edema, focused on left side, increase in confusion and decline. Will ask hospitalist to evaluate. EKg 10/05 continue tx. 10/07/24 Cont plan of care 10/08/24 labs ekg ok ck eeg monitor vs on 1.1 10/09/2024 Continue one-to-one continue Seroquel would avoid increase dose monitor for altered mental status had ? unclear event the othe other day unable to complete the eeg 10/10: Continue current management and treatment plan. 10/11: continue current management and treatment plan. 10/12/24: No medication change. Continued to be on one-to-one d/t fall risk. Alert to self only. Took medication with no problems. He had KING socks on to prevent edema. He lets staff put in on even though he told staff he already has a pair of regular socks on. 10/13/24: No change. Attempted to take him off on one-to-one observation, not successful due to unsteady gait. Remain on high fall risk precautions. Continue with current treatment plan. Observed in bed resting and tried to take a nap. No aggressive behavior. Patient educated on: medication risk/benefits Informed Consent: does not understand and further education needed Reason for continued inpatient stay Substantial Risk for: med/psych decompensation Time Spent With Patient Time: Total time managing care of this patient today ____ minutes.
[2024-10-13 20:00] VITALS: BP 128/68; PULSE 68; RESP 18; TEMP 36.7; O2SAT 95
[2024-10-14 07:55] VITALS: BP 110/66; PULSE 72; RESP 18; TEMP 36.8; O2SAT 98
--- NOTE | 2024-10-14 15:35 | PC.NURSE ---
pt is unsteady gait and having near syncope episodes, does not loose consciousness. Increased agitation noted. Providers aware, VSS,
--- NOTE | 2024-10-14 16:48 | P.PNPSI_ITS ---
Subjective Subjective Date of Service: 10/14/24 Reason For Visit: dementia w/ behavioral disturbance Subjective Notes: Section 7 Healthcare Proxy: Yes Medical Problems Affecting Mental Status: No Interim History: Medical record and nursing notes reviewed; case discussed during rounds with team/nursing staff, and met with patient for supportive therapy/psychoeducation, as well as medication management. Patient slept all night, appetite good, was medication compliant. Not much change on him in terms of behavior and mental status. Trying to take him off from one-to-one this morning, but have to put him back on one-to-one observation, and he is not steady on his feet. Patient is not giving any answers during assessment which could be the time that he was in bed trying to take nap. He is quiet, alert to self only as usual baseline. No other behavior. 10/14/2024 Patient continues on one-to-one some periods of irritability at times seems to fall back was seen by hospitalist service last week regarding this. No the static changes no evidence of stroke no clear seizure EEG had been ordered but not completed Medication Compliance: Yes Side effects from medications: No Attending Groups: No Review of Systems Acute medical concerns: No Medical Review of Systems: unchanged Mental Status Exam Mental Status Exam Narrative: Patient casually dressed unsteady gait mostly at limited engagement minimally verbal some periods of irritability no SI or HI No noted involuntary movement Diagnostics Vital Signs (24Hr): Vital Signs - 24 hr 10/13/24 20:00 10/14/24 07:55 Temperature 98.0 F 98.2 F Pulse Rate 68 72 Respiratory Rate 18 18 Blood Pressure 128/68 110/66 Pulse Oximetry 95 98 Oxygen Delivery Method Room Air Room Air BMI result Body Mass Index 25.0 Labs 10/08/24 13:27 10/08/24 13:27 Imaging Radiology Impressions: ITS Impressions Venous Duplex 10/08/24 14:57 IMPRESSION: No evidence of deep venous thrombosis involving the bilateral lower extremities. Electronically signed by: Mason Lorenzo MD 10/08/2024 03:21 PM EDT Medications Medications Current Medications Acetaminophen (Acetaminophen 325 Mg Tablet) 650 mg PO Q6H PRN PRN Reason: Headache/Pain, Scale 1-10 Last Admin: 09/02/24 09:08 Dose: 650 mg Al Hydroxide/Mg Hydroxide (Magnesium Hydrox/Alum Hydrox 30 Ml Oral.Susp) 30 ml PO Q6H PRN PRN Reason: Heartburn/Nausea Last Admin: 08/05/24 12:28 Dose: 30 ml Donepezil HCl (Donepezil Hcl 5 Mg Tablet) 5 mg PO BEDTIME [facility] Last Admin: 10/13/24 20:18 Dose: 5 mg Furosemide (Furosemide 20 Mg Tablet) 20 mg PO DAILY [facility]; Protocol Last Admin: 10/14/24 08:05 Dose: 20 mg Loperamide HCl (Loperamide Hcl 2 Mg Capsule) 2 mg PO Q4H PRN PRN Reason: Diarrhea Magnesium Hydroxide (Milk Of Magnesia 30 Ml Oral.Susp) 30 ml PO DAILY PRN PRN Reason: Constipation Memantine (Memantine Hcl 5 Mg Tablet) 5 mg PO DAILY [facility] Last Admin: 10/14/24 08:06 Dose: 5 mg Quetiapine Fumarate (Quetiapine Fumarate 50 Mg Tablet) 50 mg PO Q6H PRN PRN Reason: agitation Last Admin: 07/27/24 00:24 Dose: 50 mg Quetiapine Fumarate (Quetiapine Fumarate 50 Mg Tablet) 50 mg PO BID@1200,2100 [facility] Last Admin: 10/14/24 11:35 Dose: 50 mg Trazodone HCl (Trazodone Hcl 50 Mg Tablet) 50 mg PO BEDTIME PRN PRN Reason: Insomnia Last Admin: 10/12/24 21:30 Dose: 50 mg Allergies Allergies Allergy/AdvReac Type Severity Reaction Status Date / Time No Known Allergies Allergy Verified 07/18/24 21:28 Assessment & Plan Assessment & Plan (1) Major neurocognitive disorder: Status: Acute Code(s): F03.90 - Unspecified dementia, unspecified severity, without behavioral disturbance, psychotic disturbance, mood disturbance, and anxiety Plan 09/12 continue tx. 09/13 continue tx. 09/15 continue tx. 09/16: stable presentation. continue current mgmt. 7/3: stable presentation. incontinent of bowel in the [place] today. continue current mgmt. 7/ continue tx. 5: incontinent of stool while ambulating. severely demented. continue current mgmt. 7/6: no change. 09/21: no change. continue current mgmt. awaiting placement. 09/22: stable presentation. continue current mgmt. 09/23: severely demented. awaiting placement. stable. 09/25 continue current treatment plan 09/26 continue current treatment plan 09/27 Today nursing report that patient had an odd moment where he expressed a delusional thought and looked as if he was off balance however this was momentary and fully resolved. On approach patient presents at baseline. -although patient quickly returned to baseline, ordered UA/labs which are unremarkable; vitals WNL 09/28 continue tx. 09/29 continue tx. 09/30 continue tx. 10/01 continue tx. 10/02 continue tx. VS stable, taking medications as prescribed. 10/04 team is seeing a status change with BLE edema, focused on left side, increase in confusion and decline. Will ask hospitalist to evaluate. EKg 10/05 continue tx. 10/07/24 Cont plan of care 10/08/24 labs ekg ok ck eeg monitor vs on 1.1 10/09/2024 Continue one-to-one continue Seroquel would avoid increase dose monitor for altered mental status had ? unclear event the othe other day unable to complete the eeg 10/10: Continue current management and treatment plan. 10/11: continue current management and treatment plan. 10/12/24: No medication change. Continued to be on one-to-one d/t fall risk. Alert to self only. Took medication with no problems. He had KING socks on to prevent edema. He lets staff put in on even though he told staff he already has a pair of regular socks on. 10/13/24: No change. Attempted to take him off on one-to-one observation, not successful due to unsteady gait. Remain on high fall risk precautions. Continue with current treatment plan. Observed in bed resting and tried to take a nap. No aggressive behavior. 10/14/2024 Patient continues with significant gait some irritability. Has has had a gradual period of time continue Seroquel. Hospitalist intervention as see if we can try again to get an EEG Informed Consent: does not understand Reason for continued inpatient stay Substantial Risk for: inability to function, rapid decompensation and med/psych decompensation Time Spent With Patient Time: Total time managing care of this patient today ____ minutes.
[2024-10-14 19:43] VITALS: BP 128/66; PULSE 63; RESP 16; TEMP 36.2; O2SAT 97
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
[2024-10-15 08:00] VITALS: BP 104/63; PULSE 65; RESP 16; TEMP 36; O2SAT 98
[2024-10-15 09:13] VITALS: BP 104/63
--- NOTE | 2024-10-15 11:08 | PM.NEUROCN ---
History of Present Illness Data of Consult Service Date: 10/15/24 Primary Care Provider: Unknown Physician HPI Reason for consult: Dementia 74 years old man admitted on psychiatric floor for diagnosis of dementia and behavioral symptoms. He was unable to provide any meaningful history and history was obtained from chart. Apparently he was admitted with aggressive behavior. Prior to admission, he probably has been taking or has been tried on memantine and Seroquel without success. Review of Systems Review of Systems: Could not be done with a [facility] Past Medical History Medical History (Updated 08/05/24 @ 13:31 by Renetta Ken DNP) Acute deep vein thrombosis (DVT) Alzheimer's dementia Social History Social History Household Members: Spouse Housing: House Do you presently have visiting nurse or other home services: No Comment: close observation Patient Tobacco Use Status: Tobacco use Unknown Use of substances other than those prescribed or required for medical reasons: Unknown Currently Displaying Signs/Symptoms of Drug Intoxication Withdrawal: No Any prior treatment program specific to substance use: No Is there a partner from a previous relationship who is making you feel unsafe now?: No Advance Directives: No Advance Directives Information Provided: No Do you have thoughts of harming others: None Do you have a plan to hurt others: No Plan Recently lost weight without trying: Unsure Eating poorly because of decreased appetite: No Nutrition Risks: No Nutritional Risk Poor oral hygiene: Yes (Needs assistance.) service: No Sexual orientation: Straight/Heterosexual Meds Allergies Allergy/AdvReac Type Severity Reaction Status Date / Time No Known Allergies Allergy Verified 07/18/24 21:28 Active Medications: Current Medications Acetaminophen (Acetaminophen 325 Mg Tablet) 650 mg PO Q6H PRN PRN Reason: Headache/Pain, Scale 1-10 Last Admin: 09/02/24 09:08 Dose: 650 mg Al Hydroxide/Mg Hydroxide (Magnesium Hydrox/Alum Hydrox 30 Ml Oral.Susp) 30 ml PO Q6H PRN PRN Reason: Heartburn/Nausea Last Admin: 08/05/24 12:28 Dose: 30 ml Donepezil HCl (Donepezil Hcl 5 Mg Tablet) 5 mg PO BEDTIME [facility]A Last Admin: 10/14/24 19:45 Dose: 5 mg Furosemide (Furosemide 20 Mg Tablet) 20 mg PO DAILY [facility]; Protocol Last Admin: 10/15/24 09:13 Dose: 20 mg Loperamide HCl (Loperamide Hcl 2 Mg Capsule) 2 mg PO Q4H PRN PRN Reason: Diarrhea Magnesium Hydroxide (Milk Of Magnesia 30 Ml Oral.Susp) 30 ml PO DAILY PRN PRN Reason: Constipation Memantine (Memantine Hcl 5 Mg Tablet) 5 mg PO DAILY [facility] Last Admin: 10/15/24 09:16 Dose: 5 mg Quetiapine Fumarate (Quetiapine Fumarate 50 Mg Tablet) 50 mg PO Q6H PRN PRN Reason: agitation Last Admin: 10/14/24 21:30 Dose: 50 mg Quetiapine Fumarate (Quetiapine Fumarate 50 Mg Tablet) 50 mg PO BID@1200,2100 [facility] Last Admin: 10/14/24 19:45 Dose: 50 mg Trazodone HCl (Trazodone Hcl 50 Mg Tablet) 50 mg PO BEDTIME PRN PRN Reason: Insomnia Last Admin: 10/12/24 21:30 Dose: 50 mg Home Medications ?Medication ?Instructions ?Recorded ?Confirmed ?Last Taken ?Type donepezil 10 mg tablet 10 mg PO DAILY 07/18/24 07/18/24 Unknown History olanzapine 5 mg disintegrating 5 mg PO BID 07/18/24 07/18/24 Unknown History tablet Physical Exam Vital Signs: Vital Signs: Last Vital Signs Temp 96.8 F 10/15/24 08:00 Pulse 65 10/15/24 08:00 Resp 16 10/15/24 08:00 BP 104/63 10/15/24 09:13 Pulse Ox 98 10/15/24 08:00 O2 Del Method Room Air 10/15/24 08:00 BMI result Body Mass Index 25.0 Neuro: Other: He is alert and awake though sitting quietly with decreased facial expression blinking and flat affect. He was talking softly and when I tried to talk to him he said he wanted to go home. It told me that he lived and had field and had children. He was not sure where he was at this time. He followed some one-step commands. Face otherwise was symmetrical. There was no gaze deviation. Visual hearn seem to be okay. There was generalized bradykinesia. He has significant difficulty getting out of chair but holding my hands he was able to get up and walked in small steps gait with stooped posture. Results Labs 10/08/24 13:27 10/08/24 13:27 Labs: CTA of brain revealed mild generalized atrophy for his age. Microbiology Microbiology Results: Microbiology 10/08/24 14:05 Urine clean catch - Clean Catch Midstream Urine Culture - Final No growth. 10/04/24 16:12 Urine clean catch - Clean Catch Midstream Urine Culture - Final No growth. 09/27/24 12:40 Urine clean catch - Clean Catch Midstream Urine Culture - Final No growth. Assessment and Plan (1) Major neurocognitive disorder: Status: Acute 74 years old man with significant cognitive dysfunction, behavioral symptoms, and gait disorder. Differential diagnosis is broad but more commonly, with relatively benign CAT scan of brain, dementia with Lewy body disease is more likely. If this is a relatively quickly progressive condition, an EEG and MRI of brain without contrast is recommended, which can help to rule out multiple other etiologies. Treatment is supportive when conservative. Gait disorder might partly be due to his underlying condition and partly due to treatment with neuroleptics. Serum B12, folate, and Lyme serology or also recommended, if not done before Procedures Date of Service Date of Service: 10/15/24
[2024-10-15 19:55] VITALS: BP 128/81; PULSE 76; RESP 16; TEMP 36.6; O2SAT 96
--- NOTE | 2024-10-15 22:41 | HO.PSYCHPN ---
Subjective Subjective Date of Service: 10/15/24 Reason For Visit: dementia w/ behavioral disturbance Interim History: Pt case reviewed tx team chart reviewed pt seen Pt casually dressed on 1.1 impaired gait has been eating well vital sx stble slept ok Medication Compliance: Yes Review of Systems gait disturbance Medical Review of Systems: unchanged Mental Status Exam Mental Status Exam Narrative: Patient casually dressed unsteady gait mostly at limited engagement minimally verbal some periods of irritability no SI or HI No noted involuntary movement pleasant in interaction flat perplexed Diagnostics Vital Signs (24Hr): Vital Signs - 24 hr 10/15/24 08:00 10/15/24 09:13 10/15/24 19:55 Temperature 96.8 F 97.9 F Pulse Rate 65 76 Respiratory Rate 16 16 Blood Pressure 104/63 104/63 128/81 Pulse Oximetry 98 96 Oxygen Delivery Method Room Air Room Air BMI result Body Mass Index 25.0 Labs 10/08/24 13:27 10/08/24 13:27 Imaging Radiology Impressions: ITS Impressions Venous Duplex 10/08/24 14:57 IMPRESSION: No evidence of deep venous thrombosis involving the bilateral lower extremities. Electronically signed by: Mason Lorenzo MD 10/08/2024 03:21 PM EDT RP Medications Medications Current Medications Acetaminophen (Acetaminophen 325 Mg Tablet) 650 mg PO Q6H PRN PRN Reason: Headache/Pain, Scale 1-10 Last Admin: 09/02/24 09:08 Dose: 650 mg Al Hydroxide/Mg Hydroxide (Magnesium Hydrox/Alum Hydrox 30 Ml Oral.Susp) 30 ml PO Q6H PRN PRN Reason: Heartburn/Nausea Last Admin: 08/05/24 12:28 Dose: 30 ml Donepezil HCl (Donepezil Hcl 5 Mg Tablet) 5 mg PO BEDTIME ADITYA Last Admin: 10/15/24 19:57 Dose: 5 mg Furosemide (Furosemide 20 Mg Tablet) 20 mg PO DAILY [facility]; Protocol Last Admin: 10/15/24 09:13 Dose: 20 mg Loperamide HCl (Loperamide Hcl 2 Mg Capsule) 2 mg PO Q4H PRN PRN Reason: Diarrhea Magnesium Hydroxide (Milk Of Magnesia 30 Ml Oral.Susp) 30 ml PO DAILY PRN PRN Reason: Constipation Memantine (Memantine Hcl 5 Mg Tablet) 5 mg PO DAILY [facility] Last Admin: 10/15/24 09:16 Dose: 5 mg Quetiapine Fumarate (Quetiapine Fumarate 50 Mg Tablet) 50 mg PO Q6H PRN PRN Reason: agitation Last Admin: 10/14/24 21:30 Dose: 50 mg Quetiapine Fumarate (Quetiapine Fumarate 50 Mg Tablet) 50 mg PO BID@1200,2100 [facility] Last Admin: 10/15/24 19:56 Dose: 50 mg Trazodone HCl (Trazodone Hcl 50 Mg Tablet) 50 mg PO BEDTIME PRN PRN Reason: Insomnia Last Admin: 10/12/24 21:30 Dose: 50 mg Allergies Allergies Allergy/AdvReac Type Severity Reaction Status Date / Time No Known Allergies Allergy Verified 07/18/24 21:28 Assessment & Plan Assessment & Plan (1) Major neurocognitive disorder: Status: Acute Code(s): F03.90 - Unspecified dementia, unspecified severity, without behavioral disturbance, psychotic disturbance, mood disturbance, and anxiety Assessment and Plan: 74 years old man with significant cognitive dysfunction, behavioral symptoms, and gait disorder. Differential diagnosis is broad but more commonly, with relatively benign CAT scan of brain, dementia with Lewy body disease is more likely. If this is a relatively quickly progressive condition, an EEG and MRI of brain without contrast is recommended, which can help to rule out multiple other etiologies. Treatment is supportive when conservative. Gait disorder might partly be due to his underlying condition and partly due to treatment with neuroleptics. Serum B12, folate, and Lyme serology or also recommended, if not done before Plan 09/12 continue tx. 09/13 continue tx. 09/15 continue tx. 09/16: stable presentation. continue current mgmt. 09/17: stable presentation. incontinent of bowel in the duarte today. continue current mgmt. 09/18 continue tx. 09/19: incontinent of stool while ambulating. severely demented. continue current mgmt. 09/20: no change. 09/21: no change. continue current mgmt. awaiting placement. 09/22: stable presentation. continue current mgmt. 09/23: severely demented. awaiting placement. stable. 09/25 continue current treatment plan 09/26 continue current treatment plan 09/27 Today nursing report that patient had an odd moment where he expressed a delusional thought and looked as if he was off balance however this was momentary and fully resolved. On approach patient presents at baseline. -although patient quickly returned to baseline, ordered UA/labs which are unremarkable; vitals WNL 09/28 continue tx. 09/29 continue tx. 09/30 continue tx. 10/01 continue tx. 10/02 continue tx. VS stable, taking medications as prescribed. 10/04 team is seeing a status change with BLE edema, focused on left side, increase in confusion and decline. Will ask hospitalist to evaluate. EKg 10/05 continue tx. 10/07/24 Cont plan of care 10/08/24 labs ekg ok ck eeg monitor vs on 1.1 10/09/2024 Continue one-to-one continue Seroquel would avoid increase dose monitor for altered mental status had ? unclear event the othe other day unable to complete the eeg 10/10: Continue current management and treatment plan. 10/11: continue current management and treatment plan. 10/12/24: No medication change. Continued to be on one-to-one d/t fall risk. Alert to self only. Took medication with no problems. He had KING socks on to prevent edema. He lets staff put in on even though he told staff he already has a pair of regular socks on. 10/13/24: No change. Attempted to take him off on one-to-one observation, not successful due to unsteady gait. Remain on high fall risk precautions. Continue with current treatment plan. Observed in bed resting and tried to take a nap. No aggressive behavior. 10/14/2024 Patient continues with significant gait some irritability. Has has had a gradual period of time continue Seroquel. Hospitalist intervention as see if we can try again to get an EEG 10/15/24 retry eeg on 1.1 for fall risk not overly aggressive Informed Consent: does not understand Reason for continued inpatient stay Substantial Risk for: inability to function, rapid decompensation and med/psych decompensation Time Spent With Patient Time: Total time managing care of this patient today _25___ minutes.
[2024-10-16 08:00] VITALS: BP 125/60; PULSE 60; RESP 16; TEMP 36.6; O2SAT 98
[2024-10-16 09:07] VITALS: BP 125/60
--- NOTE | 2024-10-16 09:45 | P.PNPSI_ITS ---
Subjective Subjective Date of Service: 10/16/24 Reason For Visit: dementia w/ behavioral disturbance Interim History: Pt case reviewed tx team chart reviewed pt seen. Patient essentially unchanged pacing on one-to-one generally not combative has been a fall risk. Very limited verbal engagement Mental Status Exam Mental Status Exam Narrative: Appearance: wearing own attire, fair hygiene, in NAD Behavior: calm Psychomotor: retardation noted Speech: mostly mumbling, soft tone, minimally spontaneous TP: poverty of thought TC: unclear Mood: fine Affect: calm SI: none expressed HI: none expressed VH/AH: no overt signs Delusions: no overt signs Insight/judgment: impaired x 2. memory/cog: alert oriented only to person. Diagnostics Vital Signs (24Hr): Vital Signs - 24 hr 10/15/24 19:55 10/16/24 09:07 Temperature 97.9 F Pulse Rate 76 Respiratory Rate 16 Blood Pressure 128/81 125/60 Pulse Oximetry 96 Oxygen Delivery Method Room Air BMI result Body Mass Index 25.0 Labs 10/23/24 14:41 10/23/24 14:41 Imaging Radiology Impressions: ITS Impressions Venous Duplex 10/08/24 14:57 IMPRESSION: No evidence of deep venous thrombosis involving the bilateral lower extremities. Electronically signed by: Mason Lorenzo MD 10/08/2024 03:21 PM EDT Medications Medications Current Medications Acetaminophen (Acetaminophen 325 Mg Tablet) 650 mg PO Q6H PRN PRN Reason: Headache/Pain, Scale 1-10 Last Admin: 09/02/24 09:08 Dose: 650 mg Al Hydroxide/Mg Hydroxide (Magnesium Hydrox/Alum Hydrox 30 Ml Oral.Susp) 30 ml PO Q6H PRN PRN Reason: Heartburn/Nausea Last Admin: 08/05/24 12:28 Dose: 30 ml Donepezil HCl (Donepezil Hcl 5 Mg Tablet) 5 mg PO BEDTIME [facility]A Last Admin: 10/15/24 19:57 Dose: 5 mg Furosemide (Furosemide 20 Mg Tablet) 20 mg PO DAILY [facility]; Protocol Last Admin: 10/16/24 09:07 Dose: 20 mg Loperamide HCl (Loperamide Hcl 2 Mg Capsule) 2 mg PO Q4H PRN PRN Reason: Diarrhea Magnesium Hydroxide (Milk Of Magnesia 30 Ml Oral.Susp) 30 ml PO DAILY PRN PRN Reason: Constipation Memantine (Memantine Hcl 5 Mg Tablet) 5 mg PO DAILY [facility] Last Admin: 10/16/24 09:08 Dose: 5 mg Quetiapine Fumarate (Quetiapine Fumarate 50 Mg Tablet) 50 mg PO Q6H PRN PRN Reason: agitation Last Admin: 10/14/24 21:30 Dose: 50 mg Quetiapine Fumarate (Quetiapine Fumarate 50 Mg Tablet) 50 mg PO BID@1200,2100 [facility] Last Admin: 10/15/24 19:56 Dose: 50 mg Trazodone HCl (Trazodone Hcl 50 Mg Tablet) 50 mg PO BEDTIME PRN PRN Reason: Insomnia Last Admin: 10/12/24 21:30 Dose: 50 mg Allergies Allergies Allergy/AdvReac Type Severity Reaction Status Date / Time No Known Allergies Allergy Verified 07/18/24 21:28 Assessment & Plan Assessment & Plan (1) Major neurocognitive disorder: Status: Acute Code(s): F03.90 - Unspecified dementia, unspecified severity, without behavioral disturbance, psychotic disturbance, mood disturbance, and anxiety Assessment and Plan: 74 years old man with significant cognitive dysfunction, behavioral symptoms, and gait disorder. Differential diagnosis is broad but more commonly, with relatively benign CAT scan of brain, dementia with Lewy body disease is more likely. If this is a relatively quickly progressive condition, an EEG and MRI of brain without contrast is recommended, which can help to rule out multiple other etiologies. Treatment is supportive when conservative. Gait disorder might partly be due to his underlying condition and partly due to treatment with neuroleptics. Serum B12, folate, and Lyme serology or also recommended, if not done before Plan 09/12 continue tx. 09/13 continue tx. 09/15 continue tx. 09/16: stable presentation. continue current mgmt. 09/17: stable presentation. incontinent of bowel in the [place]arte today. continue current mgmt. 09/18 continue tx. 09/19: incontinent of stool while ambulating. severely demented. continue current mgmt. 09/20: no change. 09/21: no change. continue current mgmt. awaiting placement. 09/22: stable presentation. continue current mgmt. 09/23: severely demented. awaiting placement. stable. 09/25 continue current treatment plan 09/26 continue current treatment plan 09/27 Today nursing report that patient had an odd moment where he expressed a delusional thought and looked as if he was off balance however this was momentary and fully resolved. On approach patient presents at baseline. -although patient quickly returned to baseline, ordered UA/labs which are unremarkable; vitals WNL 09/28 continue tx. 09/29 continue tx. 09/30 continue tx. 10/01 continue tx. 10/02 continue tx. VS stable, taking medications as prescribed. 10/04 team is seeing a status change with BLE edema, focused on left side, increase in confusion and decline. Will ask hospitalist to evaluate. EKg 10/05 continue tx. 10/07/24 Cont plan of care 10/08/24 labs ekg ok ck eeg monitor vs on 1.1 10/09/2024 Continue one-to-one continue Seroquel would avoid increase dose monitor for altered mental status had ? unclear event the othe other day unable to complete the eeg 10/10: Continue current management and treatment plan. 10/11: continue current management and treatment plan. 10/12/24: No medication change. Continued to be on one-to-one d/t fall risk. Alert to self only. Took medication with no problems. He had KING socks on to prevent edema. He lets staff put in on even though he told staff he already has a pair of regular socks on. 10/13/24: No change. Attempted to take him off on one-to-one observation, not successful due to unsteady gait. Remain on high fall risk precautions. Continue with current treatment plan. Observed in bed resting and tried to take a nap. No aggressive behavior. 10/14/2024 Patient continues with significant gait some irritability. Has has had a gradual period of time continue Seroquel. Hospitalist intervention as see if we can try again to get an EEG 10/15/24 retry eeg on 1.1 for fall risk not overly aggressive 10/16/2024 Continue plan of care no change indicated at this time continue one-to-one discharge planning will need a SNF level of care not currently available no less restrictive setting available Reason for continued inpatient stay Substantial Risk for: inability to function, rapid decompensation and med/psych decompensation Time Spent With Patient Time: Total time managing care of this patient today ____ minutes.
[2024-10-16 20:00] VITALS: BP 137/68; PULSE 61; RESP 16; TEMP 37; O2SAT 95
--- NOTE | 2024-10-17 08:46 | HO.PSYCHPN ---
Subjective Subjective Date of Service: 10/17/24 Reason For Visit: dementia w/ behavioral disturbance Subjective Notes: Section 7 Medical Problems Affecting Mental Status: Yes (severe dementia) Interim History: 74 yo mostly non verbal on 1:1 for fall risk - and support through his day Delayed response to provider but aide got down on his level and inhis face and he was more responsive to her- Medication Compliance: Yes Side effects from medications: No Attending Groups: No Review of Systems Acute medical concerns: No Medical Review of Systems: unchanged Mental Status Exam Mental Status Exam Narrative: lying in bed - under blanket- needs assist to move- Diagnostics Vital Signs (24Hr): Vital Signs - 24 hr 10/16/24 09:07 10/16/24 20:00 Temperature 98.6 F Pulse Rate 61 Respiratory Rate 16 Blood Pressure 125/60 137/68 Pulse Oximetry 95 Oxygen Delivery Method Room Air BMI result Body Mass Index 25.0 Labs 10/08/24 13:27 10/08/24 13:27 Imaging Radiology Impressions: ITS Impressions Venous Duplex 10/08/24 14:57 IMPRESSION: No evidence of deep venous thrombosis involving the bilateral lower extremities. Electronically signed by: Mason Lorenzo MD 10/08/2024 03:21 PM EDT RP Medications Medications Current Medications Acetaminophen (Acetaminophen 325 Mg Tablet) 650 mg PO Q6H PRN PRN Reason: Headache/Pain, Scale 1-10 Last Admin: 09/02/24 09:08 Dose: 650 mg Al Hydroxide/Mg Hydroxide (Magnesium Hydrox/Alum Hydrox 30 Ml Oral.Susp) 30 ml PO Q6H PRN PRN Reason: Heartburn/Nausea Last Admin: 08/05/24 12:28 Dose: 30 ml Donepezil HCl (Donepezil Hcl 5 Mg Tablet) 5 mg PO BEDTIME [facility] Last Admin: 10/16/24 20:57 Dose: 5 mg Furosemide (Furosemide 20 Mg Tablet) 20 mg PO DAILY [facility]; Protocol Last Admin: 10/16/24 09:07 Dose: 20 mg Loperamide HCl (Loperamide Hcl 2 Mg Capsule) 2 mg PO Q4H PRN PRN Reason: Diarrhea Magnesium Hydroxide (Milk Of Magnesia 30 Ml Oral.Susp) 30 ml PO DAILY PRN PRN Reason: Constipation Memantine (Memantine Hcl 5 Mg Tablet) 5 mg PO DAILY [facility] Last Admin: 10/16/24 09:08 Dose: 5 mg Quetiapine Fumarate (Quetiapine Fumarate 50 Mg Tablet) 50 mg PO Q6H PRN PRN Reason: agitation Last Admin: 10/14/24 21:30 Dose: 50 mg Quetiapine Fumarate (Quetiapine Fumarate 50 Mg Tablet) 50 mg PO BID@1200,2100 [facility] Last Admin: 10/16/24 20:57 Dose: 50 mg Trazodone HCl (Trazodone Hcl 50 Mg Tablet) 50 mg PO BEDTIME PRN PRN Reason: Insomnia Last Admin: 10/12/24 21:30 Dose: 50 mg Allergies Allergies Allergy/AdvReac Type Severity Reaction Status Date / Time No Known Allergies Allergy Verified 07/18/24 21:28 Assessment & Plan Assessment & Plan (1) Major neurocognitive disorder: Status: Acute Code(s): F03.90 - Unspecified dementia, unspecified severity, without behavioral disturbance, psychotic disturbance, mood disturbance, and anxiety Assessment and Plan: 74 years old man with significant cognitive dysfunction, behavioral symptoms, and gait disorder. Differential diagnosis is broad but more commonly, with relatively benign CAT scan of brain, dementia with Lewy body disease is more likely. If this is a relatively quickly progressive condition, an EEG and MRI of brain without contrast is recommended, which can help to rule out multiple other etiologies. Treatment is supportive when conservative. Gait disorder might partly be due to his underlying condition and partly due to treatment with neuroleptics. Serum B12, folate, and Lyme serology or also recommended, if not done before Plan 09/12 continue tx. 09/13 continue tx. 09/15 continue tx. 09/16: stable presentation. continue current mgmt. 09/17: stable presentation. incontinent of bowel in the [place] today. continue current mgmt. 09/18 continue tx. 09/19: incontinent of stool while ambulating. severely demented. continue current mgmt. 09/20: no change. 09/21: no change. continue current mgmt. awaiting placement. 09/22: stable presentation. continue current mgmt. 09/23: severely demented. awaiting placement. stable. 09/25 continue current treatment plan 09/26 continue current treatment plan 09/27 Today nursing report that patient had an odd moment where he expressed a delusional thought and looked as if he was off balance however this was momentary and fully resolved. On approach patient presents at baseline. -although patient quickly returned to baseline, ordered UA/labs which are unremarkable; vitals WNL 09/28 continue tx. 09/29 continue tx. 09/30 continue tx. 10/01 continue tx. 10/02 continue tx. VS stable, taking medications as prescribed. 10/04 team is seeing a status change with BLE edema, focused on left side, increase in confusion and decline. Will ask hospitalist to evaluate. EKg 10/05 continue tx. 10/07/24 Cont plan of care 10/08/24 labs ekg ok ck eeg monitor vs on 1.1 10/09/2024 Continue one-to-one continue Seroquel would avoid increase dose monitor for altered mental status had ? unclear event the othe other day unable to complete the eeg 10/10: Continue current management and treatment plan. 10/11: continue current management and treatment plan. 10/12/24: No medication change. Continued to be on one-to-one d/t fall risk. Alert to self only. Took medication with no problems. He had KING socks on to prevent edema. He lets staff put in on even though he told staff he already has a pair of regular socks on. 10/13/24: No change. Attempted to take him off on one-to-one observation, not successful due to unsteady gait. Remain on high fall risk precautions. Continue with current treatment plan. Observed in bed resting and tried to take a nap. No aggressive behavior. 10/14/2024 Patient continues with significant gait some irritability. Has has had a gradual period of time continue Seroquel. Hospitalist intervention as see if we can try again to get an EEG 10/15/24 retry eeg on 1.1 for fall risk not overly aggressive 10/17/24- calm today coopeative with 1:1 Informed Consent: does not understand Reason for continued inpatient stay Substantial Risk for: inability to function, rapid decompensation and med/psych decompensation Time Spent With Patient Time: Total time managing care of this patient today ____ minutes.
[2024-10-17 09:50] VITALS: BP 107/59; PULSE 61; RESP 17; TEMP 35.7; O2SAT 97
[2024-10-17 15:25] VITALS: BP 125/95; PULSE 109; RESP 18; TEMP 36.7; O2SAT 97
--- NOTE | 2024-10-17 15:55 | PC.NURSE ---
Patient having occasional episodes where he appears to pass out but is easily awoken. Vital signs [id number]/95 and O2 Sat 97% on room air. Patient is able to follow directions to squeeze my hands but is unable to follow any other directions due to usual confusion. He also has increased anxiety and , Wants to go home. Mary Andersen updated, will try Clonazepam 0.25mg for anxiety.
[2024-10-17] MEDS: clonazePAM ODT 0.125 MG TAB.RAPDIS 0.25 MG PO (16:12)
[2024-10-17 20:00] VITALS: BP 111/67; PULSE 69; RESP 18; TEMP 36.6; O2SAT 95
[2024-10-18 08:45] VITALS: BP 112/68; PULSE 62; RESP 18; TEMP 36.2; O2SAT 99
--- NOTE | 2024-10-18 12:53 | P.PNPSI_ITS ---
Subjective Subjective Date of Service: 10/18/24 Reason For Visit: dementia w/ behavioral disturbance Subjective Notes: Section 7 Medical Problems Affecting Mental Status: Yes (severity of cog decline) Interim History: Nursing report patient had another incident yesterday of pt freezing in position then pointing then ok- at baseline patient with severe dementia 0x1 only- not really clear that should be too concerned about this given this. However edema better with lasix and king stockings - Pt responded to provider with one work fine when asked how he is today- Medication Compliance: Yes Side effects from medications: No Attending Groups: No Review of Systems ? odd neuro behavior- wonder if worth differentiating from underlying ongoing severe cog decline- unless plan is to change treatment- could always try empiric anticonvulsant- trileptal- watch sodium? but not sure benefit given potential s/e and trouble monitoring with lack of reliable reporting of s/e Mental Status Exam Mental Status Exam Narrative: lying in bed 0x1 , said fine which was appropriate response to ? of how he felt! Patient Appearance: Appropriate Patient Orientation: Person Level of Consciousness: Awake and Alert Patient Behavior: Dependent and Passive Mood Description: Apathetic Affect Description: Blunted Patient Cognition Impaired: Yes Ability to Follow Directions: Poor Speech Pattern: Impoverished Judgement: Poor Diagnostics Vital Signs (24Hr): Vital Signs - 24 hr 10/17/24 15:25 10/17/24 20:00 10/18/24 08:45 Temperature 98.1 F 97.9 F 97.2 F Pulse Rate 109 H 69 62 Respiratory Rate 18 18 18 Blood Pressure 125/95 H 111/67 112/68 Pulse Oximetry 97 95 99 Oxygen Delivery Method Room Air Room Air Room Air BMI result Body Mass Index 25.0 Labs 10/08/24 13:27 10/08/24 13:27 Imaging Radiology Impressions: ITS Impressions Venous Duplex 10/08/24 14:57 IMPRESSION: No evidence of deep venous thrombosis involving the bilateral lower extremities. Electronically signed by: Mason Loernzo MD 10/08/2024 03:21 PM EDT Medications Medications Current Medications Acetaminophen (Acetaminophen 325 Mg Tablet) 650 mg PO Q6H PRN PRN Reason: Headache/Pain, Scale 1-10 Last Admin: 09/02/24 09:08 Dose: 650 mg Al Hydroxide/Mg Hydroxide (Magnesium Hydrox/Alum Hydrox 30 Ml Oral.Susp) 30 ml PO Q6H PRN PRN Reason: Heartburn/Nausea Last Admin: 08/05/24 12:28 Dose: 30 ml Clonazepam (Clonazepam Odt 0.125 Mg Tab.Rapdis) 0.25 mg PO BID PRN PRN Reason: anxiety/restlessness Last Admin: 10/17/24 16:12 Dose: 0.25 mg Donepezil HCl (Donepezil Hcl 5 Mg Tablet) 5 mg PO BEDTIME ON LICENSE OF [facility] Last Admin: 10/17/24 20:43 Dose: 5 mg Furosemide (Furosemide 20 Mg Tablet) 20 mg PO DAILY ON LICENSE OF [facility]; Protocol Last Admin: 10/18/24 09:19 Dose: 20 mg Loperamide HCl (Loperamide Hcl 2 Mg Capsule) 2 mg PO Q4H PRN PRN Reason: Diarrhea Magnesium Hydroxide (Milk Of Magnesia 30 Ml Oral.Susp) 30 ml PO DAILY PRN PRN Reason: Constipation Memantine (Memantine Hcl 5 Mg Tablet) 5 mg PO DAILY ON LICENSE OF [facility] Last Admin: 10/18/24 09:19 Dose: 5 mg Quetiapine Fumarate (Quetiapine Fumarate 50 Mg Tablet) 50 mg PO Q6H PRN PRN Reason: agitation Last Admin: 10/14/24 21:30 Dose: 50 mg Quetiapine Fumarate (Quetiapine Fumarate 50 Mg Tablet) 50 mg PO BID@1200,2100 ON LICENSE OF [facility] Last Admin: 10/18/24 12:37 Dose: 50 mg Trazodone HCl (Trazodone Hcl 50 Mg Tablet) 50 mg PO BEDTIME PRN PRN Reason: Insomnia Last Admin: 10/17/24 21:28 Dose: 50 mg Allergies Allergies Allergy/AdvReac Type Severity Reaction Status Date / Time No Known Allergies Allergy Verified 07/18/24 21:28 Assessment & Plan Assessment & Plan (1) Major neurocognitive disorder: Status: Acute Code(s): F03.90 - Unspecified dementia, unspecified severity, without behavioral disturbance, psychotic disturbance, mood disturbance, and anxiety Assessment and Plan: 74 years old man with significant cognitive dysfunction, behavioral symptoms, and gait disorder. Differential diagnosis is broad but more commonly, with relatively benign CAT scan of brain, dementia with Lewy body disease is more likely. If this is a relatively quickly progressive condition, an EEG and MRI of brain without contrast is recommended, which can help to rule out multiple other etiologies. Treatment is supportive when conservative. Gait disorder might partly be due to his underlying condition and partly due to treatment with neuroleptics. Serum B12, folate, and Lyme serology or also recommended, if not done before Plan 09/12 continue tx. 09/13 continue tx. 09/15 continue tx. 09/16: stable presentation. continue current mgmt. 3: stable presentation. incontinent of bowel in the duarte today. continue current mgmt. / continue tx. 09/19: incontinent of stool while ambulating. severely demented. continue current mgmt. 09/20: no change. 09/21: no change. continue current mgmt. awaiting placement. 09/22: stable presentation. continue current mgmt. 09/23: severely demented. awaiting placement. stable. 09/25 continue current treatment plan 09/26 continue current treatment plan 09/27 Today nursing report that patient had an odd moment where he expressed a delusional thought and looked as if he was off balance however this was momentary and fully resolved. On approach patient presents at baseline. -although patient quickly returned to baseline, ordered UA/labs which are unremarkable; vitals WNL 09/28 continue tx. 09/29 continue tx. 09/30 continue tx. 10/01 continue tx. 10/02 continue tx. VS stable, taking medications as prescribed. 10/04 team is seeing a status change with BLE edema, focused on left side, increase in confusion and decline. Will ask hospitalist to evaluate. EKg 10/05 continue tx. 10/07/24 Cont plan of care 10/08/24 labs ekg ok ck eeg monitor vs on 1.1 10/09/2024 Continue one-to-one continue Seroquel would avoid increase dose monitor for altered mental status had ? unclear event the othe other day unable to complete the eeg 10/10: Continue current management and treatment plan. 10/11: continue current management and treatment plan. 10/12/24: No medication change. Continued to be on one-to-one d/t fall risk. Alert to self only. Took medication with no problems. He had KING socks on to prevent edema. He lets staff put in on even though he told staff he already has a pair of regular socks on. 10/13/24: No change. Attempted to take him off on one-to-one observation, not successful due to unsteady gait. Remain on high fall risk precautions. Continue with current treatment plan. Observed in bed resting and tried to take a nap. No aggressive behavior. 10/14/2024 Patient continues with significant gait some irritability. Has has had a gradual period of time continue Seroquel. Hospitalist intervention as see if we can try again to get an EEG 10/15/24 retry eeg on 1.1 for fall risk not overly aggressive 10/17/24- calm today coopeative with 1:1 10/18/24- intermittent odd mannerisms/lack of response breif no harm, no irritability last 2 days reported- CTP Reason for continued inpatient stay Substantial Risk for: inability to function, rapid decompensation and med/psych decompensation Time Spent With Patient Time: Total time managing care of this patient today ____ minutes.
[2024-10-18 20:00] VITALS: BP 134/68; PULSE 75; RESP 16; TEMP 36.7; O2SAT 96
[2024-10-18] MEDS: clonazePAM ODT 0.125 MG TAB.RAPDIS 0.25 MG PO (20:56)
[2024-10-19 08:00] VITALS: BP 124/75; PULSE 70; RESP 18; TEMP 36.5; O2SAT 95
[2024-10-19 08:33] VITALS: BP 124/75
--- NOTE | 2024-10-19 15:15 | HO.PSYCHPN ---
Subjective Subjective Date of Service: 10/19/24 Reason For Visit: dementia w/ behavioral disturbance Interim History: lying in bed. paucity of thought. pleasant, cooperative. no complaints or requests. per staff, no change in presentation. Mental Status Exam Mental Status Exam Narrative: Appearance: wearing own attire, fair hygiene, in NAD Behavior: calm Psychomotor: retardation noted Speech: mostly mumbling, regular rate/rhythm, soft tone, minimally spontaneous TP: poverty of thought TC: unclear Mood: not assessed Affect: calm SI: none expressed HI: none expressed VH/AH: no overt signs Delusions: no overt signs Insight/judgment: impaired x 2. memory/cog: alert oriented only to person. Diagnostics Vital Signs (24Hr): Vital Signs - 24 hr 10/18/24 20:00 10/19/24 08:00 10/19/24 08:33 Temperature 98.1 F 97.7 F Pulse Rate 75 70 Respiratory Rate 16 18 Blood Pressure 134/68 124/75 124/75 Pulse Oximetry 96 95 Oxygen Delivery Method Room Air Room Air BMI result Body Mass Index 25.0 Labs 10/08/24 13:27 10/08/24 13:27 Imaging Radiology Impressions: ITS Impressions Venous Duplex 10/08/24 14:57 IMPRESSION: No evidence of deep venous thrombosis involving the bilateral lower extremities. Electronically signed by: Mason Lorenzo MD 10/08/2024 03:21 PM EDT Medications Medications Current Medications Acetaminophen (Acetaminophen 325 Mg Tablet) 650 mg PO Q6H PRN PRN Reason: Headache/Pain, Scale 1-10 Last Admin: 09/02/24 09:08 Dose: 650 mg Al Hydroxide/Mg Hydroxide (Magnesium Hydrox/Alum Hydrox 30 Ml Oral.Susp) 30 ml PO Q6H PRN PRN Reason: Heartburn/Nausea Last Admin: 08/05/24 12:28 Dose: 30 ml Clonazepam (Clonazepam Odt 0.125 Mg Tab.Rapdis) 0.25 mg PO BID PRN PRN Reason: anxiety/restlessness Last Admin: 10/18/24 20:56 Dose: 0.25 mg Donepezil HCl (Donepezil Hcl 5 Mg Tablet) 5 mg PO BEDTIME [facility] Last Admin: 10/18/24 20:56 Dose: 5 mg Furosemide (Furosemide 20 Mg Tablet) 20 mg PO DAILY [facility]; Protocol Last Admin: 10/19/24 08:33 Dose: 20 mg Loperamide HCl (Loperamide Hcl 2 Mg Capsule) 2 mg PO Q4H PRN PRN Reason: Diarrhea Magnesium Hydroxide (Milk Of Magnesia 30 Ml Oral.Susp) 30 ml PO DAILY PRN PRN Reason: Constipation Memantine (Memantine Hcl 5 Mg Tablet) 5 mg PO DAILY [facility] Last Admin: 10/19/24 08:38 Dose: 5 mg Quetiapine Fumarate (Quetiapine Fumarate 50 Mg Tablet) 50 mg PO Q6H PRN PRN Reason: agitation Last Admin: 10/14/24 21:30 Dose: 50 mg Quetiapine Fumarate (Quetiapine Fumarate 50 Mg Tablet) 50 mg PO BID@1200,2100 [facility] Last Admin: 10/19/24 11:56 Dose: 50 mg Trazodone HCl (Trazodone Hcl 50 Mg Tablet) 50 mg PO BEDTIME PRN PRN Reason: Insomnia Last Admin: 10/18/24 20:55 Dose: 50 mg Allergies Allergies Allergy/AdvReac Type Severity Reaction Status Date / Time No Known Allergies Allergy Verified 07/18/24 21:28 Assessment & Plan Assessment & Plan (1) Major neurocognitive disorder: Status: Acute Code(s): F03.90 - Unspecified dementia, unspecified severity, without behavioral disturbance, psychotic disturbance, mood disturbance, and anxiety Assessment and Plan: 74 years old man with significant cognitive dysfunction, behavioral symptoms, and gait disorder. Differential diagnosis is broad but more commonly, with relatively benign CAT scan of brain, dementia with Lewy body disease is more likely. If this is a relatively quickly progressive condition, an EEG and MRI of brain without contrast is recommended, which can help to rule out multiple other etiologies. Treatment is supportive when conservative. Gait disorder might partly be due to his underlying condition and partly due to treatment with neuroleptics. Serum B12, folate, and Lyme serology or also recommended, if not done before Plan 09/12 continue tx. 09/13 continue tx. 09/15 continue tx. 09/16: stable presentation. continue current mgmt. /3: stable presentation. incontinent of bowel in the duarte today. continue current mgmt. 7/4 continue tx. 5: incontinent of stool while ambulating. severely demented. continue current mgmt. 7/6: no change. 09/21: no change. continue current mgmt. awaiting placement. 09/22: stable presentation. continue current mgmt. 09/23: severely demented. awaiting placement. stable. 09/25 continue current treatment plan 09/26 continue current treatment plan 09/27 Today nursing report that patient had an odd moment where he expressed a delusional thought and looked as if he was off balance however this was momentary and fully resolved. On approach patient presents at baseline. -although patient quickly returned to baseline, ordered UA/labs which are unremarkable; vitals WNL 09/28 continue tx. 09/29 continue tx. 09/30 continue tx. 10/01 continue tx. 10/02 continue tx. VS stable, taking medications as prescribed. 10/04 team is seeing a status change with BLE edema, focused on left side, increase in confusion and decline. Will ask hospitalist to evaluate. EKg 10/05 continue tx. 10/07/24 Cont plan of care 10/08/24 labs ekg ok ck eeg monitor vs on 1.1 10/09/2024 Continue one-to-one continue Seroquel would avoid increase dose monitor for altered mental status had ? unclear event the othe other day unable to complete the eeg 10/10: Continue current management and treatment plan. 10/11: continue current management and treatment plan. 10/12/24: No medication change. Continued to be on one-to-one d/t fall risk. Alert to self only. Took medication with no problems. He had KING socks on to prevent edema. He lets staff put in on even though he told staff he already has a pair of regular socks on. 10/13/24: No change. Attempted to take him off on one-to-one observation, not successful due to unsteady gait. Remain on high fall risk precautions. Continue with current treatment plan. Observed in bed resting and tried to take a nap. No aggressive behavior. 10/14/2024 Patient continues with significant gait some irritability. Has has had a gradual period of time continue Seroquel. Hospitalist intervention as see if we can try again to get an EEG 10/15/24 retry eeg on 1.1 for fall risk not overly aggressive 10/17/24- calm today coopeative with 1:1 10/18/24- intermittent odd mannerisms/lack of response breif no harm, no irritability last 2 days reported- CTP 10/19: no change in presentation. continue current mgmt. Reason for continued inpatient stay Substantial Risk for: inability to function Time Spent With Patient Time: Total time managing care of this patient today ____ minutes.
[2024-10-19 20:00] VITALS: RESP 16; O2SAT 96
[2024-10-19] MEDS: clonazePAM ODT 0.125 MG TAB.RAPDIS 0.25 MG PO (20:10)
[2024-10-20 08:00] VITALS: BP 163/86; PULSE 77; RESP 16; TEMP 36.2; O2SAT 94
[2024-10-20 09:17] VITALS: BP 163/86
--- NOTE | 2024-10-20 15:09 | P.PNPSI_ITS ---
Subjective Subjective Date of Service: 10/20/24 Reason For Visit: dementia w/ behavioral disturbance Interim History: no change in presentation. Mental Status Exam Mental Status Exam Narrative: Appearance: wearing own attire, fair hygiene, in NAD Behavior: calm Psychomotor: retardation noted Speech: mostly mumbling, regular rate/rhythm, soft tone, minimally spontaneous TP: poverty of thought TC: unclear Mood: not assessed Affect: calm SI: none expressed HI: none expressed VH/AH: no overt signs Delusions: no overt signs Insight/judgment: impaired x 2. memory/cog: alert oriented only to person. Diagnostics Vital Signs (24Hr): Vital Signs - 24 hr 10/19/24 20:00 10/20/24 08:00 10/20/24 09:17 Temperature 97.2 F Pulse Rate 77 Respiratory Rate 16 16 Blood Pressure 163/86 H 163/86 H Pulse Oximetry 96 94 Oxygen Delivery Method Room Air Room Air BMI result Body Mass Index 25.0 Labs 10/08/24 13:27 10/08/24 13:27 Imaging Radiology Impressions: ITS Impressions Venous Duplex 10/08/24 14:57 IMPRESSION: No evidence of deep venous thrombosis involving the bilateral lower extremities. Electronically signed by: Mason Lorenzo MD 10/08/2024 03:21 PM EDT RP Medications Medications Current Medications Acetaminophen (Acetaminophen 325 Mg Tablet) 650 mg PO Q6H PRN PRN Reason: Headache/Pain, Scale 1-10 Last Admin: 09/02/24 09:08 Dose: 650 mg Al Hydroxide/Mg Hydroxide (Magnesium Hydrox/Alum Hydrox 30 Ml Oral.Susp) 30 ml PO Q6H PRN PRN Reason: Heartburn/Nausea Last Admin: 08/05/24 12:28 Dose: 30 ml Clonazepam (Clonazepam Odt 0.125 Mg Tab.Rapdis) 0.25 mg PO BID PRN PRN Reason: anxiety/restlessness Last Admin: 10/19/24 20:10 Dose: 0.25 mg Donepezil HCl (Donepezil Hcl 5 Mg Tablet) 5 mg PO BEDTIME [facility] Last Admin: 10/19/24 20:10 Dose: 5 mg Furosemide (Furosemide 20 Mg Tablet) 20 mg PO DAILY [facility]; Protocol Last Admin: 10/20/24 09:17 Dose: 20 mg Loperamide HCl (Loperamide Hcl 2 Mg Capsule) 2 mg PO Q4H PRN PRN Reason: Diarrhea Magnesium Hydroxide (Milk Of Magnesia 30 Ml Oral.Susp) 30 ml PO DAILY PRN PRN Reason: Constipation Memantine (Memantine Hcl 5 Mg Tablet) 5 mg PO DAILY [facility] Last Admin: 10/20/24 09:17 Dose: 5 mg Quetiapine Fumarate (Quetiapine Fumarate 50 Mg Tablet) 50 mg PO Q6H PRN PRN Reason: agitation Last Admin: 10/14/24 21:30 Dose: 50 mg Quetiapine Fumarate (Quetiapine Fumarate 50 Mg Tablet) 50 mg PO BID@1200,2100 [facility] Last Admin: 10/20/24 11:29 Dose: 50 mg Trazodone HCl (Trazodone Hcl 50 Mg Tablet) 50 mg PO BEDTIME PRN PRN Reason: Insomnia Last Admin: 10/19/24 20:10 Dose: 50 mg Allergies Allergies Allergy/AdvReac Type Severity Reaction Status Date / Time No Known Allergies Allergy Verified 07/18/24 21:28 Assessment & Plan Assessment & Plan (1) Major neurocognitive disorder: Status: Acute Code(s): F03.90 - Unspecified dementia, unspecified severity, without behavioral disturbance, psychotic disturbance, mood disturbance, and anxiety Assessment and Plan: 74 years old man with significant cognitive dysfunction, behavioral symptoms, and gait disorder. Differential diagnosis is broad but more commonly, with relatively benign CAT scan of brain, dementia with Lewy body disease is more likely. If this is a relatively quickly progressive condition, an EEG and MRI of brain without contrast is recommended, which can help to rule out multiple other etiologies. Treatment is supportive when conservative. Gait disorder might partly be due to his underlying condition and partly due to treatment with neuroleptics. Serum B12, folate, and Lyme serology or also recommended, if not done before Plan 09/12 continue tx. 09/13 continue tx. 09/15 continue tx. 09/16: stable presentation. continue current mgmt. 09/17: stable presentation. incontinent of bowel in the duarte today. continue current mgmt. 09/18 continue tx. 09/19: incontinent of stool while ambulating. severely demented. continue current mgmt. 7/6: no change. 09/21: no change. continue current mgmt. awaiting placement. 09/22: stable presentation. continue current mgmt. 09/23: severely demented. awaiting placement. stable. 09/25 continue current treatment plan 09/26 continue current treatment plan 09/27 Today nursing report that patient had an odd moment where he expressed a delusional thought and looked as if he was off balance however this was momentary and fully resolved. On approach patient presents at baseline. -although patient quickly returned to baseline, ordered UA/labs which are unremarkable; vitals WNL 09/28 continue tx. 09/29 continue tx. 09/30 continue tx. 10/01 continue tx. 10/02 continue tx. VS stable, taking medications as prescribed. 10/04 team is seeing a status change with BLE edema, focused on left side, increase in confusion and decline. Will ask hospitalist to evaluate. EKg 10/05 continue tx. 10/07/24 Cont plan of care 10/08/24 labs ekg ok ck eeg monitor vs on 1.1 10/09/2024 Continue one-to-one continue Seroquel would avoid increase dose monitor for altered mental status had ? unclear event the othe other day unable to complete the eeg 10/10: Continue current management and treatment plan. 10/11: continue current management and treatment plan. 10/12/24: No medication change. Continued to be on one-to-one d/t fall risk. Alert to self only. Took medication with no problems. He had KING socks on to prevent edema. He lets staff put in on even though he told staff he already has a pair of regular socks on. 10/13/24: No change. Attempted to take him off on one-to-one observation, not successful due to unsteady gait. Remain on high fall risk precautions. Continue with current treatment plan. Observed in bed resting and tried to take a nap. No aggressive behavior. 10/14/2024 Patient continues with significant gait some irritability. Has has had a gradual period of time continue Seroquel. Hospitalist intervention as see if we can try again to get an EEG 10/15/24 retry eeg on 1.1 for fall risk not overly aggressive 10/17/24- calm today coopeative with 1:1 10/18/24- intermittent odd mannerisms/lack of response breif no harm, no irritability last 2 days reported- CTP 10/19: no change in presentation. continue current mgmt. 10/20: no change in presentation. continue current mgmt. Reason for continued inpatient stay Substantial Risk for: inability to function Time Spent With Patient Time: Total time managing care of this patient today ____ minutes.
[2024-10-20 20:00] VITALS: BP 139/69; PULSE 68; RESP 16; TEMP 37; O2SAT 96
[2024-10-20] MEDS: clonazePAM ODT 0.125 MG TAB.RAPDIS 0.25 MG PO (20:45)
[2024-10-21 11:19] VITALS: BP 130/71; PULSE 63; RESP 14; TEMP 36.5; O2SAT 95
[2024-10-21 20:00] VITALS: BP 121/64; PULSE 74; RESP 16; TEMP 36.8; O2SAT 95
--- NOTE | 2024-10-21 21:33 | HO.PSYCHPN ---
Subjective Subjective Date of Service: 10/21/24 Reason For Visit: dementia w/ behavioral disturbance Subjective Notes: Conditional Voluntary Interim History: Pt slept through the night. He appears weaker when ambulating. He is eating well. He is taking medications as prescribed. VS stable. Medication Compliance: Yes Review of Systems Review of Systems Could not be done with a Yes Unobtainable due to mental status and Other (Dementia) Mental Status Exam Mental Status Exam Narrative: Appearance: wearing own attire, fair hygiene, in NAD Behavior: calm Psychomotor: retardation noted Speech: mostly mumbling, regular rate/rhythm, soft tone, minimally spontaneous TP: poverty of thought TC: unclear Mood: not assessed Affect: calm SI: none expressed HI: none expressed VH/AH: no overt signs Delusions: no overt signs Insight/judgment: impaired x 2. memory/cog: alert oriented only to person. Diagnostics Vital Signs (24Hr): Vital Signs - 24 hr 10/21/24 11:19 Temperature 97.7 F Pulse Rate 63 Respiratory Rate 14 Blood Pressure 130/71 Pulse Oximetry 95 Oxygen Delivery Method Room Air BMI result Body Mass Index 25.0 Labs 10/08/24 13:27 10/08/24 13:27 Imaging Radiology Impressions: ITS Impressions Venous Duplex 10/08/24 14:57 IMPRESSION: No evidence of deep venous thrombosis involving the bilateral lower extremities. Electronically signed by: Mason Lorenzo MD 10/08/2024 03:21 PM EDT RP Medications Medications Current Medications Acetaminophen (Acetaminophen 325 Mg Tablet) 650 mg PO Q6H PRN PRN Reason: Headache/Pain, Scale 1-10 Last Admin: 09/02/24 09:08 Dose: 650 mg Al Hydroxide/Mg Hydroxide (Magnesium Hydrox/Alum Hydrox 30 Ml Oral.Susp) 30 ml PO Q6H PRN PRN Reason: Heartburn/Nausea Last Admin: 08/05/24 12:28 Dose: 30 ml Clonazepam (Clonazepam Odt 0.125 Mg Tab.Rapdis) 0.25 mg PO BID PRN PRN Reason: anxiety/restlessness Last Admin: 10/20/24 20:45 Dose: 0.25 mg Donepezil HCl (Donepezil Hcl 5 Mg Tablet) 5 mg PO BEDTIME ADITYA Last Admin: 10/21/24 20:28 Dose: 5 mg Furosemide (Furosemide 20 Mg Tablet) 20 mg PO DAILY ADITYA; Protocol Last Admin: 10/21/24 11:22 Dose: 20 mg Loperamide HCl (Loperamide Hcl 2 Mg Capsule) 2 mg PO Q4H PRN PRN Reason: Diarrhea Magnesium Hydroxide (Milk Of Magnesia 30 Ml Oral.Susp) 30 ml PO DAILY PRN PRN Reason: Constipation Memantine (Memantine Hcl 5 Mg Tablet) 5 mg PO DAILY ADITYA Last Admin: 10/21/24 11:25 Dose: 5 mg Quetiapine Fumarate (Quetiapine Fumarate 50 Mg Tablet) 50 mg PO Q6H PRN PRN Reason: agitation Last Admin: 10/14/24 21:30 Dose: 50 mg Quetiapine Fumarate (Quetiapine Fumarate 50 Mg Tablet) 50 mg PO BID@1200,2100 [facility] Last Admin: 10/21/24 20:28 Dose: 50 mg Trazodone HCl (Trazodone Hcl 50 Mg Tablet) 50 mg PO BEDTIME PRN PRN Reason: Insomnia Last Admin: 10/20/24 20:46 Dose: 50 mg Allergies Allergies Allergy/AdvReac Type Severity Reaction Status Date / Time No Known Allergies Allergy Verified 07/18/24 21:28 Assessment & Plan Assessment & Plan (1) Major neurocognitive disorder: Status: Acute Code(s): F03.90 - Unspecified dementia, unspecified severity, without behavioral disturbance, psychotic disturbance, mood disturbance, and anxiety Assessment and Plan: 74 years old man with significant cognitive dysfunction, behavioral symptoms, and gait disorder. Differential diagnosis is broad but more commonly, with relatively benign CAT scan of brain, dementia with Lewy body disease is more likely. If this is a relatively quickly progressive condition, an EEG and MRI of brain without contrast is recommended, which can help to rule out multiple other etiologies. Treatment is supportive when conservative. Gait disorder might partly be due to his underlying condition and partly due to treatment with neuroleptics. Serum B12, folate, and Lyme serology or also recommended, if not done before Plan 09/12 continue tx. 09/13 continue tx. 09/15 continue tx. 09/16: stable presentation. continue current mgmt. 09/17: stable presentation. incontinent of bowel in the duarte today. continue current mgmt. 7/4 continue tx. 5: incontinent of stool while ambulating. severely demented. continue current mgmt. 7/: no change. 09/21: no change. continue current mgmt. awaiting placement. 09/22: stable presentation. continue current mgmt. 09/23: severely demented. awaiting placement. stable. 09/25 continue current treatment plan 09/26 continue current treatment plan 09/27 Today nursing report that patient had an odd moment where he expressed a delusional thought and looked as if he was off balance however this was momentary and fully resolved. On approach patient presents at baseline. -although patient quickly returned to baseline, ordered UA/labs which are unremarkable; vitals WNL 09/28 continue tx. 09/29 continue tx. 09/30 continue tx. 10/01 continue tx. 10/02 continue tx. VS stable, taking medications as prescribed. 10/04 team is seeing a status change with BLE edema, focused on left side, increase in confusion and decline. Will ask hospitalist to evaluate. EKg 10/05 continue tx. 10/07/24 Cont plan of care 10/08/24 labs ekg ok ck eeg monitor vs on 1.1 10/09/2024 Continue one-to-one continue Seroquel would avoid increase dose monitor for altered mental status had ? unclear event the othe other day unable to complete the eeg 10/10: Continue current management and treatment plan. 10/11: continue current management and treatment plan. 10/12/24: No medication change. Continued to be on one-to-one d/t fall risk. Alert to self only. Took medication with no problems. He had KING socks on to prevent edema. He lets staff put in on even though he told staff he already has a pair of regular socks on. 10/13/24: No change. Attempted to take him off on one-to-one observation, not successful due to unsteady gait. Remain on high fall risk precautions. Continue with current treatment plan. Observed in bed resting and tried to take a nap. No aggressive behavior. 10/14/2024 Patient continues with significant gait some irritability. Has has had a gradual period of time continue Seroquel. Hospitalist intervention as see if we can try again to get an EEG 10/15/24 retry eeg on 1.1 for fall risk not overly aggressive 10/17/24- calm today cooperative with 1:1 10/18/24- intermittent odd mannerisms/lack of response breif no harm, no irritability last 2 days reported- CTP 10/19: no change in presentation. continue current mgmt. 10/20: no change in presentation. continue current mgmt. 10/21 continue tx. Reason for continued inpatient stay Substantial Risk for: inability to function Time Spent With Patient Time: Total time managing care of this patient today ____ minutes.
[2024-10-22 08:00] VITALS: BP 117/75; PULSE 70; RESP 12; TEMP 36.8; O2SAT 96
--- NOTE | 2024-10-22 13:11 | P.PNPSI_ITS ---
Subjective Subjective Date of Service: 10/22/24 Reason For Visit: dementia w/ behavioral disturbance Interim History: paucity of thought. denies any problems, no requests. Mental Status Exam Mental Status Exam Narrative: Appearance: wearing own attire, fair hygiene, in NAD Behavior: calm Psychomotor: retardation noted Speech: mostly mumbling, regular rate/rhythm, soft tone, minimally spontaneous TP: poverty of thought TC: unclear Mood: not assessed Affect: calm SI: none expressed HI: none expressed VH/AH: no overt signs Delusions: no overt signs Insight/judgment: impaired x 2. memory/cog: alert oriented only to person. Diagnostics Vital Signs (24Hr): Vital Signs - 24 hr 10/21/24 20:00 10/22/24 08:00 Temperature 98.2 F 98.2 F Pulse Rate 74 70 Respiratory Rate 16 12 Blood Pressure 121/64 117/75 Pulse Oximetry 95 96 Oxygen Delivery Method Room Air Room Air BMI result Body Mass Index 25.0 Labs 10/08/24 13:27 10/08/24 13:27 Imaging Radiology Impressions: ITS Impressions Venous Duplex 10/08/24 14:57 IMPRESSION: No evidence of deep venous thrombosis involving the bilateral lower extremities. Electronically signed by: Mason Lorenzo MD 10/08/2024 03:21 PM EDT RP Medications Medications Current Medications Acetaminophen (Acetaminophen 325 Mg Tablet) 650 mg PO Q6H PRN PRN Reason: Headache/Pain, Scale 1-10 Last Admin: 09/02/24 09:08 Dose: 650 mg Al Hydroxide/Mg Hydroxide (Magnesium Hydrox/Alum Hydrox 30 Ml Oral.Susp) 30 ml PO Q6H PRN PRN Reason: Heartburn/Nausea Last Admin: 08/05/24 12:28 Dose: 30 ml Clonazepam (Clonazepam Odt 0.125 Mg Tab.Rapdis) 0.25 mg PO BID PRN PRN Reason: anxiety/restlessness Last Admin: 10/20/24 20:45 Dose: 0.25 mg Donepezil HCl (Donepezil Hcl 5 Mg Tablet) 5 mg PO BEDTIME ADITYA Last Admin: 10/21/24 20:28 Dose: 5 mg Furosemide (Furosemide 20 Mg Tablet) 20 mg PO DAILY [facility]; Protocol Last Admin: 10/22/24 08:57 Dose: Not Given Loperamide HCl (Loperamide Hcl 2 Mg Capsule) 2 mg PO Q4H PRN PRN Reason: Diarrhea Magnesium Hydroxide (Milk Of Magnesia 30 Ml Oral.Susp) 30 ml PO DAILY PRN PRN Reason: Constipation Memantine (Memantine Hcl 5 Mg Tablet) 5 mg PO DAILY [facility] Last Admin: 10/22/24 08:57 Dose: Not Given Quetiapine Fumarate (Quetiapine Fumarate 50 Mg Tablet) 50 mg PO Q6H PRN PRN Reason: agitation Last Admin: 10/14/24 21:30 Dose: 50 mg Quetiapine Fumarate (Quetiapine Fumarate 50 Mg Tablet) 50 mg PO BID@1200,2100 [facility] Last Admin: 10/22/24 11:45 Dose: 50 mg Trazodone HCl (Trazodone Hcl 50 Mg Tablet) 50 mg PO BEDTIME PRN PRN Reason: Insomnia Last Admin: 10/20/24 20:46 Dose: 50 mg Allergies Allergies Allergy/AdvReac Type Severity Reaction Status Date / Time No Known Allergies Allergy Verified 07/18/24 21:28 Assessment & Plan Assessment & Plan (1) Major neurocognitive disorder: Status: Acute Code(s): F03.90 - Unspecified dementia, unspecified severity, without behavioral disturbance, psychotic disturbance, mood disturbance, and anxiety Assessment and Plan: 74 years old man with significant cognitive dysfunction, behavioral symptoms, and gait disorder. Differential diagnosis is broad but more commonly, with relatively benign CAT scan of brain, dementia with Lewy body disease is more likely. If this is a relatively quickly progressive condition, an EEG and MRI of brain without contrast is recommended, which can help to rule out multiple other etiologies. Treatment is supportive when conservative. Gait disorder might partly be due to his underlying condition and partly due to treatment with neuroleptics. Serum B12, folate, and Lyme serology or also recommended, if not done before Plan 09/12 continue tx. 09/13 continue tx. 09/15 continue tx. 09/16: stable presentation. continue current mgmt. 09/17: stable presentation. incontinent of bowel in the [place] today. continue current mgmt. / continue tx. 09/19: incontinent of stool while ambulating. severely demented. continue current mgmt. 7/6: no change. 09/21: no change. continue current mgmt. awaiting placement. 09/22: stable presentation. continue current mgmt. 09/23: severely demented. awaiting placement. stable. 09/25 continue current treatment plan 09/26 continue current treatment plan 09/27 Today nursing report that patient had an odd moment where he expressed a delusional thought and looked as if he was off balance however this was momentary and fully resolved. On approach patient presents at baseline. -although patient quickly returned to baseline, ordered UA/labs which are unremarkable; vitals WNL 09/28 continue tx. 09/29 continue tx. 09/30 continue tx. 10/01 continue tx. 10/02 continue tx. VS stable, taking medications as prescribed. 10/04 team is seeing a status change with BLE edema, focused on left side, increase in confusion and decline. Will ask hospitalist to evaluate. EKg 10/05 continue tx. 10/07/24 Cont plan of care 10/08/24 labs ekg ok ck eeg monitor vs on 1.1 10/09/2024 Continue one-to-one continue Seroquel would avoid increase dose monitor for altered mental status had ? unclear event the othe other day unable to complete the eeg 10/10: Continue current management and treatment plan. 10/11: continue current management and treatment plan. 10/12/24: No medication change. Continued to be on one-to-one d/t fall risk. Alert to self only. Took medication with no problems. He had KING socks on to prevent edema. He lets staff put in on even though he told staff he already has a pair of regular socks on. 10/13/24: No change. Attempted to take him off on one-to-one observation, not successful due to unsteady gait. Remain on high fall risk precautions. Continue with current treatment plan. Observed in bed resting and tried to take a nap. No aggressive behavior. 10/14/2024 Patient continues with significant gait some irritability. Has has had a gradual period of time continue Seroquel. Hospitalist intervention as see if we can try again to get an EEG 10/15/24 retry eeg on 1.1 for fall risk not overly aggressive 10/17/24- calm today coopeative with 1:1 10/18/24- intermittent odd mannerisms/lack of response breif no harm, no irritability last 2 days reported- CTP 8: no change in presentation. continue current mgmt. 10/20: no change in presentation. continue current mgmt. 10/22: no change in presentation. continue current mgmt. Reason for continued inpatient stay Substantial Risk for: inability to function Time Spent With Patient Time: Total time managing care of this patient today ____ minutes.
[2024-10-22 15:34] VITALS: BMI 25.1
[2024-10-22 20:00] VITALS: BP 139/78; PULSE 67; RESP 16; TEMP 36.8; O2SAT 94
[2024-10-22] MEDS: clonazePAM ODT 0.125 MG TAB.RAPDIS 0.25 MG PO (21:41)
--- NOTE | 2024-10-23 04:26 | PC.NURSE ---
Pt combative, restless during incontinence care. 0.25mg Klonopin and Trazodone 50mg administered.
[2024-10-23 08:16] VITALS: BP 131/66; PULSE 75; RESP 18; TEMP 36.1; O2SAT 98
--- NOTE | 2024-10-23 14:20 | P.PNPSI_ITS ---
Subjective Subjective Date of Service: 10/23/24 Reason For Visit: dementia w/ behavioral disturbance Interim History: seated in common area watching TV. very impaired, poor concentration. unable to reliably answer questions intelligibly. per staff, havinbg staring and weakness episodes. remains on 1:1. confused. eating a lot. irritable and combative last NOC, got klonopin and trazodone, which was helpful. Mental Status Exam Mental Status Exam Narrative: Appearance: wearing own attire, fair hygiene, in NAD Behavior: calm Psychomotor: retardation noted Speech: mostly mumbling, regular rate/rhythm, soft tone, minimally spontaneous TP: poverty of thought TC: unclear Mood: not assessed Affect: calm SI: none expressed HI: none expressed VH/AH: no overt signs Delusions: no overt signs Insight/judgment: impaired x 2. memory/cog: alert oriented only to person. Diagnostics Vital Signs (24Hr): Vital Signs - 24 hr 10/22/24 20:00 10/23/24 08:16 Temperature 98.3 F 97.0 F Pulse Rate 67 75 Respiratory Rate 16 18 Blood Pressure 139/78 131/66 Pulse Oximetry 94 98 Oxygen Delivery Method Room Air Room Air BMI result Body Mass Index 25.1 Labs 10/08/24 13:27 10/08/24 13:27 Imaging Radiology Impressions: ITS Impressions Venous Duplex 10/08/24 14:57 IMPRESSION: No evidence of deep venous thrombosis involving the bilateral lower extremities. Electronically signed by: Mason Lorenzo MD 10/08/2024 03:21 PM EDT RP Medications Medications Current Medications Acetaminophen (Acetaminophen 325 Mg Tablet) 650 mg PO Q6H PRN PRN Reason: Headache/Pain, Scale 1-10 Last Admin: 09/02/24 09:08 Dose: 650 mg Al Hydroxide/Mg Hydroxide (Magnesium Hydrox/Alum Hydrox 30 Ml Oral.Susp) 30 ml PO Q6H PRN PRN Reason: Heartburn/Nausea Last Admin: 08/05/24 12:28 Dose: 30 ml Clonazepam (Clonazepam Odt 0.125 Mg Tab.Rapdis) 0.125 mg PO BID PRN PRN Reason: anxiety/restlessness Donepezil HCl (Donepezil Hcl 5 Mg Tablet) 5 mg PO BEDTIME ADITYA Last Admin: 10/22/24 20:27 Dose: 5 mg Furosemide (Furosemide 20 Mg Tablet) 20 mg PO DAILY [facility]; Protocol Last Admin: 10/23/24 08:19 Dose: 20 mg Loperamide HCl (Loperamide Hcl 2 Mg Capsule) 2 mg PO Q4H PRN PRN Reason: Diarrhea Magnesium Hydroxide (Milk Of Magnesia 30 Ml Oral.Susp) 30 ml PO DAILY PRN PRN Reason: Constipation Memantine (Memantine Hcl 5 Mg Tablet) 5 mg PO DAILY [facility] Last Admin: 10/23/24 08:19 Dose: 5 mg Quetiapine Fumarate (Quetiapine Fumarate 50 Mg Tablet) 50 mg PO Q6H PRN PRN Reason: agitation Last Admin: 10/14/24 21:30 Dose: 50 mg Quetiapine Fumarate (Quetiapine Fumarate 50 Mg Tablet) 50 mg PO BID@1200,2100 [facility] Last Admin: 10/23/24 11:22 Dose: 50 mg Trazodone HCl (Trazodone Hcl 50 Mg Tablet) 50 mg PO BEDTIME PRN PRN Reason: Insomnia Last Admin: 10/22/24 21:41 Dose: 50 mg Allergies Allergies Allergy/AdvReac Type Severity Reaction Status Date / Time No Known Allergies Allergy Verified 07/18/24 21:28 Assessment & Plan Assessment & Plan (1) Major neurocognitive disorder: Status: Acute Code(s): F03.90 - Unspecified dementia, unspecified severity, without behavioral disturbance, psychotic disturbance, mood disturbance, and anxiety Assessment and Plan: 74 years old man with significant cognitive dysfunction, behavioral symptoms, and gait disorder. Differential diagnosis is broad but more commonly, with relatively benign CAT scan of brain, dementia with Lewy body disease is more likely. If this is a relatively quickly progressive condition, an EEG and MRI of brain without contrast is recommended, which can help to rule out multiple other etiologies. Treatment is supportive when conservative. Gait disorder might partly be due to his underlying condition and partly due to treatment with neuroleptics. Serum B12, folate, and Lyme serology or also recommended, if not done before Plan 09/12 continue tx. 09/13 continue tx. 09/15 continue tx. 09/16: stable presentation. continue current mgmt. 7/3: stable presentation. incontinent of bowel in the [place] today. continue current mgmt. 7/4 continue tx. 5: incontinent of stool while ambulating. severely demented. continue current mgmt. 7/6: no change. 09/21: no change. continue current mgmt. awaiting placement. 09/22: stable presentation. continue current mgmt. 09/23: severely demented. awaiting placement. stable. 09/25 continue current treatment plan 09/26 continue current treatment plan 09/27 Today nursing report that patient had an odd moment where he expressed a delusional thought and looked as if he was off balance however this was momentary and fully resolved. On approach patient presents at baseline. -although patient quickly returned to baseline, ordered UA/labs which are unremarkable; vitals WNL 09/28 continue tx. 09/29 continue tx. 09/30 continue tx. 10/01 continue tx. 10/02 continue tx. VS stable, taking medications as prescribed. 10/04 team is seeing a status change with BLE edema, focused on left side, increase in confusion and decline. Will ask hospitalist to evaluate. EKg 10/05 continue tx. 10/07/24 Cont plan of care 10/08/24 labs ekg ok ck eeg monitor vs on 1.1 10/09/2024 Continue one-to-one continue Seroquel would avoid increase dose monitor for altered mental status had ? unclear event the othe other day unable to complete the eeg 10/10: Continue current management and treatment plan. 10/11: continue current management and treatment plan. 10/12/24: No medication change. Continued to be on one-to-one d/t fall risk. Alert to self only. Took medication with no problems. He had KING socks on to prevent edema. He lets staff put in on even though he told staff he already has a pair of regular socks on. 10/13/24: No change. Attempted to take him off on one-to-one observation, not successful due to unsteady gait. Remain on high fall risk precautions. Continue with current treatment plan. Observed in bed resting and tried to take a nap. No aggressive behavior. 10/14/2024 Patient continues with significant gait some irritability. Has has had a gradual period of time continue Seroquel. Hospitalist intervention as see if we can try again to get an EEG 10/15/24 retry eeg on 1.1 for fall risk not overly aggressive 10/17/24- calm today cooperative with 1:1 10/18/24- intermittent odd mannerisms/lack of response breif no harm, no irritability last 2 days reported- CTP 10/19: no change in presentation. continue current mgmt. 10/20: no change in presentation. continue current mgmt. 10/21 continue tx. 10/23: some episodes of blank staring and weakness. check BMP, CBC, UA. decrease klonopin PRNs to 0.125 mg each. otherwise continue current mgmt. Reason for continued inpatient stay Substantial Risk for: inability to function Time Spent With Patient Time: Total time managing care of this patient today ____ minutes.
[2024-10-23 14:45] LABS: MANUAL DIFF FLAG NO
[2024-10-23 14:48] LABS: Hematocrit 39.3 % (42.0-52.0); Hemoglobin 12.8 g/dl (14.0-18.0); Imm Gran Abs Auto 0.01 X10*3/uL (0.00-0.03); Imm Gran Pct Auto 0.2 % (0.0-0.4); Lymphocytes Absolute Auto 1.1 X10*3/uL (1.2-4.9); Mean Corpuscular HGB Conc 32.6 g/dl (31.0-36.0); Mean Corpuscular Hemoglobin 28.6 pg (27.0-33.0); Mean Corpuscular Volume 87.7 fL (80.0-98.0); NRBC Abs Auto 0.000 X10*3/uL (0.0-0.012); NRBC Pct Auto 0.0 /100WBC (0.0-0.2); Platelet Count 200 X10*3/uL (160-400); Red Blood Count 4.48 X10*6/uL (4.60-5.80); White Blood Count 5.4 X10*3/uL (4.8-10.8)
[2024-10-23 15:01] LABS: Anion Gap 10 (12-20); Blood Urea Nitrogen 17 mg/dL (9-16); Calcium 8.8 mg/dL (8.4-10.2); Carbon Dioxide 31 mmol/L (22-29); Chloride 105 mmol/L (96-108); Creatinine Clr Calc Pharmacy 65.6; Estimated Glomerular Filt Rate > 60; Potassium 4.2 mmol/L (3.3-5.1); Sodium 142 mmol/L (135-145)
[2024-10-23 16:04] LABS: Appearance Urine Clear; Glucose Urine UA Negative (Negative); PH 7.5 (5.0-9.0); Specific Gravity - Urine 1.010 (1.005-1.025)
[2024-10-23 20:00] VITALS: RESP 16; TEMP 36.4
[2024-10-23] MEDS: clonazePAM ODT 0.125 MG TAB.RAPDIS PO (20:59)
[2024-10-24 08:38] VITALS: BP 113/62; PULSE 75; RESP 16; TEMP 36.9; O2SAT 94
--- NOTE | 2024-10-24 12:45 | HO.PSYCHPN ---
Subjective Subjective Date of Service: 10/24/24 Reason For Visit: dementia w/ behavioral disturbance Interim History: Patient cognitively impaired. 1:1 reports he has been in behavioral control. Disoriented. Mumbles his answers but says he feels good. Denies pain. Review of Systems Review of Systems Could not be done with a Yes Unobtainable due to mental status and Other (Dementia) Mental Status Exam Mental Status Exam Narrative: Appearance: wearing own attire, fair hygiene, in NAD Behavior: calm Psychomotor: retardation noted Speech: mostly mumbling, regular rate/rhythm, soft tone, minimally spontaneous TP: poverty of thought TC: unclear Mood: not assessed Affect: calm SI: none expressed HI: none expressed VH/AH: no overt signs Delusions: no overt signs Insight/judgment: impaired x 2. memory/cog: alert oriented only to person. Patient Appearance: Appropriate Patient Orientation: Person Level of Consciousness: Awake and Alert Patient Behavior: Dependent and Passive Mood Description: Apathetic Affect Description: Blunted Patient Cognition Impaired: Yes Ability to Follow Directions: Poor Speech Pattern: Impoverished Memory Description: Remote Impaired, Immediate Impaired, Fact Checker Impaired, Recent Impaired, Working Impaired and Semantic Impaired Diagnostics Vital Signs (24Hr): Vital Signs - 24 hr 10/23/24 20:00 10/24/24 08:38 Temperature 97.5 F 98.4 F Pulse Rate 75 Respiratory Rate 16 16 Blood Pressure 113/62 Pulse Oximetry 94 Oxygen Delivery Method Room Air BMI result Body Mass Index 25.1 Labs 10/23/24 14:41 10/23/24 14:41 Labs: Laboratory Results - last 48 hr 10/23/24 10/23/24 14:41 15:05 WBC 5.4 RBC 4.48 L Hgb 12.8 L Hct 39.3 L MCV 87.7 MCH 28.6 MCHC 32.6 RDW 13.5 Plt Count 200 MPV 9.2 L Immature Gran % (Auto) 0.2 Neut % (Auto) 62.6 Lymph % (Auto) 20.6 [place] % (Auto) 12.9 H Eos % (Auto) 3.0 Baso % (Auto) 0.7 Lymph # (Auto) 1.1 L [place] # (Auto) 0.7 Eos # (Auto) 0.2 Baso # (Auto) 0.0 Abs Immat Gran (auto) 0.01 Absolute Neuts (auto) 3.4 Absolute Nucleated RBC 0.000 Nucleated RBC % (auto) 0.0 Sodium 142 Potassium 4.2 Chloride 105 Carbon Dioxide 31 H Anion Gap 10 L BUN 17 H Creatinine 1.05 Estim Creat Clear Calc 65.6 Estimated GFR > 60 Random Glucose 87 Calcium 8.8 Urine Color Yellow Urine Appearance Clear Urine pH 7.5 Ur Specific [place] 1.010 Urine Protein Negative Urine Glucose (UA) Negative Urine Ketones Negative Urine Blood Negative Urine Nitrite Negative Ur Leukocyte Esterase Negative Imaging Radiology Impressions: ITS Impressions Venous Duplex 10/08/24 14:57 IMPRESSION: No evidence of deep venous thrombosis involving the bilateral lower extremities. Electronically signed by: Mason Lorenzo MD 10/08/2024 03:21 PM EDT RP Medications Medications Current Medications Acetaminophen (Acetaminophen 325 Mg Tablet) 650 mg PO Q6H PRN PRN Reason: Headache/Pain, Scale 1-10 Last Admin: 10/23/24 20:59 Dose: 650 mg Al Hydroxide/Mg Hydroxide (Magnesium Hydrox/Alum Hydrox 30 Ml Oral.Susp) 30 ml PO Q6H PRN PRN Reason: Heartburn/Nausea Last Admin: 08/05/24 12:28 Dose: 30 ml Clonazepam (Clonazepam Odt 0.125 Mg Tab.Rapdis) 0.125 mg PO BID PRN PRN Reason: anxiety/restlessness Last Admin: 10/23/24 20:59 Dose: 0.125 mg Donepezil HCl (Donepezil Hcl 5 Mg Tablet) 5 mg PO BEDTIME ADITYA Last Admin: 10/23/24 20:59 Dose: 5 mg Furosemide (Furosemide 20 Mg Tablet) 20 mg PO DAILY ADITYA; Protocol Last Admin: 10/24/24 08:40 Dose: 20 mg Loperamide HCl (Loperamide Hcl 2 Mg Capsule) 2 mg PO Q4H PRN PRN Reason: Diarrhea Magnesium Hydroxide (Milk Of Magnesia 30 Ml Oral.Susp) 30 ml PO DAILY PRN PRN Reason: Constipation Memantine (Memantine Hcl 5 Mg Tablet) 5 mg PO DAILY ADITYA Last Admin: 10/24/24 08:40 Dose: 5 mg Quetiapine Fumarate (Quetiapine Fumarate 50 Mg Tablet) 50 mg PO Q6H PRN PRN Reason: agitation Last Admin: 10/14/24 21:30 Dose: 50 mg Quetiapine Fumarate (Quetiapine Fumarate 50 Mg Tablet) 50 mg PO BID@1200,2100 AD[facility]A Last Admin: 10/23/24 20:59 Dose: 50 mg Trazodone HCl (Trazodone Hcl 50 Mg Tablet) 50 mg PO BEDTIME PRN PRN Reason: Insomnia Last Admin: 10/23/24 20:59 Dose: 50 mg Allergies Allergies Allergy/AdvReac Type Severity Reaction Status Date / Time No Known Allergies Allergy Verified 07/18/24 21:28 Assessment & Plan Assessment & Plan (1) Major neurocognitive disorder: Status: Acute Code(s): F03.90 - Unspecified dementia, unspecified severity, without behavioral disturbance, psychotic disturbance, mood disturbance, and anxiety Assessment and Plan: 74 years old man with significant cognitive dysfunction, behavioral symptoms, and gait disorder. Differential diagnosis is broad but more commonly, with relatively benign CAT scan of brain, dementia with Lewy body disease is more likely. If this is a relatively quickly progressive condition, an EEG and MRI of brain without contrast is recommended, which can help to rule out multiple other etiologies. Treatment is supportive when conservative. Gait disorder might partly be due to his underlying condition and partly due to treatment with neuroleptics. Serum B12, folate, and Lyme serology or also recommended, if not done before Plan 09/12 continue tx. 09/13 continue tx. 09/15 continue tx. 09/16: stable presentation. continue current mgmt. 09/17: stable presentation. incontinent of bowel in the [place] today. continue current mgmt. 09/18 continue tx. 09/19: incontinent of stool while ambulating. severely demented. continue current mgmt. 09/20: no change. 09/21: no change. continue current mgmt. awaiting placement. 09/22: stable presentation. continue current mgmt. 09/23: severely demented. awaiting placement. stable. 09/25 continue current treatment plan 09/26 continue current treatment plan 09/27 Today nursing report that patient had an odd moment where he expressed a delusional thought and looked as if he was off balance however this was momentary and fully resolved. On approach patient presents at baseline. -although patient quickly returned to baseline, ordered UA/labs which are unremarkable; vitals WNL 09/28 continue tx. 09/29 continue tx. 09/30 continue tx. 10/01 continue tx. 10/02 continue tx. VS stable, taking medications as prescribed. 10/04 team is seeing a status change with BLE edema, focused on left side, increase in confusion and decline. Will ask hospitalist to evaluate. EKg 10/05 continue tx. 10/07/24 Cont plan of care 10/08/24 labs ekg ok ck eeg monitor vs on 1.1 10/09/2024 Continue one-to-one continue Seroquel would avoid increase dose monitor for altered mental status had ? unclear event the othe other day unable to complete the eeg 10/10: Continue current management and treatment plan. 10/11: continue current management and treatment plan. 10/12/24: No medication change. Continued to be on one-to-one d/t fall risk. Alert to self only. Took medication with no problems. He had KING socks on to prevent edema. He lets staff put in on even though he told staff he already has a pair of regular socks on. 10/13/24: No change. Attempted to take him off on one-to-one observation, not successful due to unsteady gait. Remain on high fall risk precautions. Continue with current treatment plan. Observed in bed resting and tried to take a nap. No aggressive behavior. 10/14/2024 Patient continues with significant gait some irritability. Has has had a gradual period of time continue Seroquel. Hospitalist intervention as see if we can try again to get an EEG 10/15/24 retry eeg on 1.1 for fall risk not overly aggressive 10/17/24- calm today cooperative with 1:1 10/18/24- intermittent odd mannerisms/lack of response breif no harm, no irritability last 2 days reported- CTP 10/19: no change in presentation. continue current mgmt. /5: no change in presentation. continue current mgmt. 8/6 continue tx. 10/23: some episodes of blank staring and weakness. check BMP, CBC, UA. decrease klonopin PRNs to 0.125 mg each. otherwise continue current mgmt. /: labs reviewed. continue current management and treatment plan. Reason for continued inpatient stay Substantial Risk for: inability to function, rapid decompensation and med/psych decompensation Time Spent With Patient Time: Total time managing care of this patient today ____ minutes.
[2024-10-24 20:00] VITALS: RESP 16
[2024-10-25 09:15] VITALS: BP 131/70; PULSE 82; RESP 18; TEMP 36.8; O2SAT 98
--- NOTE | 2024-10-25 09:24 | P.PNPSI_ITS ---
Subjective Subjective Date of Service: 10/25/24 Reason For Visit: dementia w/ behavioral disturbance Interim History: Patient cognitively very impaired. 1:1 reports he has been in behavioral control but resistant to toileting and is incontinent. Disoriented. Mumbles his answers but says he feels good. Denies pain. No change from yesterday. Review of Systems Review of Systems Could not be done with a Yes Unobtainable due to mental status and Other (Dementia) Mental Status Exam Mental Status Exam Narrative: Appearance: wearing own attire, fair hygiene, in NAD Behavior: calm Psychomotor: retardation noted Speech: mostly mumbling, regular rate/rhythm, soft tone, minimally spontaneous TP: poverty of thought TC: unclear Mood: not assessed Affect: calm SI: none expressed HI: none expressed VH/AH: no overt signs Delusions: no overt signs Insight/judgment: impaired x 2. memory/cog: alert oriented only to person. Patient Appearance: Appropriate Patient Orientation: Person Level of Consciousness: Awake and Alert Patient Behavior: Dependent and Passive Mood Description: Apathetic Affect Description: Blunted Patient Cognition Impaired: Yes Ability to Follow Directions: Poor Speech Pattern: Impoverished Memory Description: Remote Impaired, Immediate Impaired, Marketing Area Manager Impaired, Recent Impaired, Working Impaired and Semantic Impaired Diagnostics Vital Signs (24Hr): Vital Signs - 24 hr 10/24/24 20:00 10/25/24 09:15 Temperature 98.2 F Pulse Rate 82 Respiratory Rate 16 18 Blood Pressure 131/70 Pulse Oximetry 98 Oxygen Delivery Method Room Air BMI result Body Mass Index 25.1 Labs 10/23/24 14:41 10/23/24 14:41 Labs: Laboratory Results - last 48 hr 10/23/24 10/23/24 14:41 15:05 WBC 5.4 RBC 4.48 L Hgb 12.8 L Hct 39.3 L MCV 87.7 MCH 28.6 MCHC 32.6 RDW 13.5 Plt Count 200 MPV 9.2 L Immature Gran % (Auto) 0.2 Neut % (Auto) 62.6 Lymph % (Auto) 20.6 [place] % (Auto) 12.9 H Eos % (Auto) 3.0 Baso % (Auto) 0.7 Lymph # (Auto) 1.1 L [place] # (Auto) 0.7 Eos # (Auto) 0.2 Baso # (Auto) 0.0 Abs Immat Gran (auto) 0.01 Absolute Neuts (auto) 3.4 Absolute Nucleated RBC 0.000 Nucleated RBC % (auto) 0.0 Sodium 142 Potassium 4.2 Chloride 105 Carbon Dioxide 31 H Anion Gap 10 L BUN 17 H Creatinine 1.05 Estim Creat Clear Calc 65.6 Estimated GFR > 60 Random Glucose 87 Calcium 8.8 Urine Color Yellow Urine Appearance Clear Urine pH 7.5 Ur Specific [place] 1.010 Urine Protein Negative Urine Glucose (UA) Negative Urine Ketones Negative Urine Blood Negative Urine Nitrite Negative Ur Leukocyte Esterase Negative Imaging Radiology Impressions: ITS Impressions Venous Duplex 10/08/24 14:57 IMPRESSION: No evidence of deep venous thrombosis involving the bilateral lower extremities. Electronically signed by: Mason Lorenzo MD 10/08/2024 03:21 PM EDT RP Medications Medications Current Medications Acetaminophen (Acetaminophen 325 Mg Tablet) 650 mg PO Q6H PRN PRN Reason: Headache/Pain, Scale 1-10 Last Admin: 10/23/24 20:59 Dose: 650 mg Al Hydroxide/Mg Hydroxide (Magnesium Hydrox/Alum Hydrox 30 Ml Oral.Susp) 30 ml PO Q6H PRN PRN Reason: Heartburn/Nausea Last Admin: 08/05/24 12:28 Dose: 30 ml Clonazepam (Clonazepam Odt 0.125 Mg Tab.Rapdis) 0.125 mg PO BID PRN PRN Reason: anxiety/restlessness Last Admin: 10/23/24 20:59 Dose: 0.125 mg Donepezil HCl (Donepezil Hcl 5 Mg Tablet) 5 mg PO BEDTIME ADITYA Last Admin: 10/24/24 20:44 Dose: 5 mg Furosemide (Furosemide 20 Mg Tablet) 20 mg PO DAILY ADITYA; Protocol Last Admin: 10/25/24 09:17 Dose: 20 mg Loperamide HCl (Loperamide Hcl 2 Mg Capsule) 2 mg PO Q4H PRN PRN Reason: Diarrhea Magnesium Hydroxide (Milk Of Magnesia 30 Ml Oral.Susp) 30 ml PO DAILY PRN PRN Reason: Constipation Memantine (Memantine Hcl 5 Mg Tablet) 5 mg PO DAILY ADITYA Last Admin: 10/25/24 09:17 Dose: 5 mg Quetiapine Fumarate (Quetiapine Fumarate 50 Mg Tablet) 50 mg PO Q6H PRN PRN Reason: agitation Last Admin: 10/14/24 21:30 Dose: 50 mg Quetiapine Fumarate (Quetiapine Fumarate 50 Mg Tablet) 50 mg PO BID@1200,2100 ADITYA Last Admin: 10/24/24 20:44 Dose: 50 mg Trazodone HCl (Trazodone Hcl 50 Mg Tablet) 50 mg PO BEDTIME PRN PRN Reason: Insomnia Last Admin: 10/24/24 20:44 Dose: 50 mg Allergies Allergies Allergy/AdvReac Type Severity Reaction Status Date / Time No Known Allergies Allergy Verified 07/18/24 21:28 Assessment & Plan Assessment & Plan (1) Major neurocognitive disorder: Status: Acute Code(s): F03.90 - Unspecified dementia, unspecified severity, without behavioral disturbance, psychotic disturbance, mood disturbance, and anxiety Assessment and Plan: 74 years old man with significant cognitive dysfunction, behavioral symptoms, and gait disorder. Differential diagnosis is broad but more commonly, with relatively benign CAT scan of brain, dementia with Lewy body disease is more likely. If this is a relatively quickly progressive condition, an EEG and MRI of brain without contrast is recommended, which can help to rule out multiple other etiologies. Treatment is supportive when conservative. Gait disorder might partly be due to his underlying condition and partly due to treatment with neuroleptics. Serum B12, folate, and Lyme serology or also recommended, if not done before Plan 09/12 continue tx. 09/13 continue tx. 09/15 continue tx. 09/16: stable presentation. continue current mgmt. 09/17: stable presentation. incontinent of bowel in the [place] today. continue current mgmt. 09/18 continue tx. 09/19: incontinent of stool while ambulating. severely demented. continue current mgmt. 09/20: no change. 09/21: no change. continue current mgmt. awaiting placement. 09/22: stable presentation. continue current mgmt. 09/23: severely demented. awaiting placement. stable. 09/25 continue current treatment plan 09/26 continue current treatment plan 09/27 Today nursing report that patient had an odd moment where he expressed a delusional thought and looked as if he was off balance however this was momentary and fully resolved. On approach patient presents at baseline. -although patient quickly returned to baseline, ordered UA/labs which are unremarkable; vitals WNL 09/28 continue tx. 09/29 continue tx. 09/30 continue tx. 10/01 continue tx. 10/02 continue tx. VS stable, taking medications as prescribed. 10/04 team is seeing a status change with BLE edema, focused on left side, increase in confusion and decline. Will ask hospitalist to evaluate. EKg 10/05 continue tx. 10/07/24 Cont plan of care 10/08/24 labs ekg ok ck eeg monitor vs on 1.1 10/09/2024 Continue one-to-one continue Seroquel would avoid increase dose monitor for altered mental status had ? unclear event the othe other day unable to complete the eeg 10/10: Continue current management and treatment plan. 10/11: continue current management and treatment plan. 10/12/24: No medication change. Continued to be on one-to-one d/t fall risk. Alert to self only. Took medication with no problems. He had KING socks on to prevent edema. He lets staff put in on even though he told staff he already has a pair of regular socks on. 10/13/24: No change. Attempted to take him off on one-to-one observation, not successful due to unsteady gait. Remain on high fall risk precautions. Continue with current treatment plan. Observed in bed resting and tried to take a nap. No aggressive behavior. 10/14/2024 Patient continues with significant gait some irritability. Has has had a gradual period of time continue Seroquel. Hospitalist intervention as see if we can try again to get an EEG 10/15/24 retry eeg on 1.1 for fall risk not overly aggressive 10/17/24- calm today cooperative with 1:1 10/18/24- intermittent odd mannerisms/lack of response breif no harm, no irritability last 2 days reported- CTP 10/19: no change in presentation. continue current mgmt. 10/20: no change in presentation. continue current mgmt. 10/21 continue tx. 10/23: some episodes of blank staring and weakness. check BMP, CBC, UA. decrease klonopin PRNs to 0.125 mg each. otherwise continue current mgmt. 10/24: labs reviewed. continue current management and treatment plan. 10/25: continue current management and treatment plan. Reason for continued inpatient stay Substantial Risk for: inability to function, rapid decompensation and med/psych decompensation Time Spent With Patient Time: Total time managing care of this patient today ____ minutes.
[2024-10-25 19:43] VITALS: BP 149/74; PULSE 70; RESP 16; TEMP 36.1; O2SAT 96
[2024-10-26 08:40] VITALS: BP 118/71; PULSE 72; RESP 18; TEMP 35.8; O2SAT 96
--- NOTE | 2024-10-26 15:27 | HO.PSYCHPN ---
Subjective Subjective Date of Service: 10/26/24 Reason For Visit: dementia w/ behavioral disturbance Interim History: minimally verbal. denies physical pain, states he is doing OK. per staff, eating well. on 1:1. cheerful. difficulty using bathroom, lots of urine and fecal incontinence. slept 8 hours. Mental Status Exam Mental Status Exam Narrative: Appearance: wearing own attire, fair hygiene, in NAD Behavior: calm Psychomotor: retardation noted Speech: mostly mumbling, regular rate/rhythm, soft tone, minimally spontaneous TP: poverty of thought TC: unclear Mood: not assessed Affect: calm SI: none expressed HI: none expressed VH/AH: no overt signs Delusions: no overt signs Insight/judgment: impaired x 2. memory/cog: alert oriented only to person. Diagnostics Vital Signs (24Hr): Vital Signs - 24 hr 10/25/24 19:43 10/26/24 08:40 Temperature 97.0 F 96.5 F L Pulse Rate 70 72 Respiratory Rate 16 18 Blood Pressure 149/74 H 118/71 Pulse Oximetry 96 96 Oxygen Delivery Method Room Air Room Air BMI result Body Mass Index 25.1 Labs 10/23/24 14:41 10/23/24 14:41 Imaging Radiology Impressions: ITS Impressions Venous Duplex 10/08/24 14:57 IMPRESSION: No evidence of deep venous thrombosis involving the bilateral lower extremities. Electronically signed by: Mason Lorenzo MD 10/08/2024 03:21 PM EDT Medications Medications Current Medications Acetaminophen (Acetaminophen 325 Mg Tablet) 650 mg PO Q6H PRN PRN Reason: Headache/Pain, Scale 1-10 Last Admin: 10/23/24 20:59 Dose: 650 mg Al Hydroxide/Mg Hydroxide (Magnesium Hydrox/Alum Hydrox 30 Ml Oral.Susp) 30 ml PO Q6H PRN PRN Reason: Heartburn/Nausea Last Admin: 08/05/24 12:28 Dose: 30 ml Clonazepam (Clonazepam Odt 0.125 Mg Tab.Rapdis) 0.125 mg PO BID PRN PRN Reason: anxiety/restlessness Last Admin: 10/23/24 20:59 Dose: 0.125 mg Donepezil HCl (Donepezil Hcl 5 Mg Tablet) 5 mg PO BEDTIME ADITYA Last Admin: 10/25/24 20:42 Dose: 5 mg Furosemide (Furosemide 20 Mg Tablet) 20 mg PO DAILY [facility]; Protocol Last Admin: 10/26/24 09:11 Dose: 20 mg Loperamide HCl (Loperamide Hcl 2 Mg Capsule) 2 mg PO Q4H PRN PRN Reason: Diarrhea Magnesium Hydroxide (Milk Of Magnesia 30 Ml Oral.Susp) 30 ml PO DAILY PRN PRN Reason: Constipation Memantine (Memantine Hcl 5 Mg Tablet) 5 mg PO DAILY [facility] Last Admin: 10/26/24 09:11 Dose: 5 mg Quetiapine Fumarate (Quetiapine Fumarate 50 Mg Tablet) 50 mg PO Q6H PRN PRN Reason: agitation Last Admin: 10/14/24 21:30 Dose: 50 mg Quetiapine Fumarate (Quetiapine Fumarate 50 Mg Tablet) 50 mg PO BID@1200,2100 [facility] Last Admin: 10/26/24 11:39 Dose: 50 mg Trazodone HCl (Trazodone Hcl 50 Mg Tablet) 50 mg PO BEDTIME PRN PRN Reason: Insomnia Last Admin: 10/25/24 20:42 Dose: 50 mg Allergies Allergies Allergy/AdvReac Type Severity Reaction Status Date / Time No Known Allergies Allergy Verified 07/18/24 21:28 Assessment & Plan Assessment & Plan (1) Major neurocognitive disorder: Status: Acute Code(s): F03.90 - Unspecified dementia, unspecified severity, without behavioral disturbance, psychotic disturbance, mood disturbance, and anxiety Assessment and Plan: 74 years old man with significant cognitive dysfunction, behavioral symptoms, and gait disorder. Differential diagnosis is broad but more commonly, with relatively benign CAT scan of brain, dementia with Lewy body disease is more likely. If this is a relatively quickly progressive condition, an EEG and MRI of brain without contrast is recommended, which can help to rule out multiple other etiologies. Treatment is supportive when conservative. Gait disorder might partly be due to his underlying condition and partly due to treatment with neuroleptics. Serum B12, folate, and Lyme serology or also recommended, if not done before Plan 09/12 continue tx. 09/13 continue tx. 09/15 continue tx. 09/16: stable presentation. continue current mgmt. /3: stable presentation. incontinent of bowel in the [place] today. continue current mgmt. 7/ continue tx. 5: incontinent of stool while ambulating. severely demented. continue current mgmt. 7/6: no change. 09/21: no change. continue current mgmt. awaiting placement. 09/22: stable presentation. continue current mgmt. 09/23: severely demented. awaiting placement. stable. 09/25 continue current treatment plan 09/26 continue current treatment plan 09/27 Today nursing report that patient had an odd moment where he expressed a delusional thought and looked as if he was off balance however this was momentary and fully resolved. On approach patient presents at baseline. -although patient quickly returned to baseline, ordered UA/labs which are unremarkable; vitals WNL 09/28 continue tx. 09/29 continue tx. 09/30 continue tx. 10/01 continue tx. 10/02 continue tx. VS stable, taking medications as prescribed. 10/04 team is seeing a status change with BLE edema, focused on left side, increase in confusion and decline. Will ask hospitalist to evaluate. EKg 10/05 continue tx. 10/07/24 Cont plan of care 10/08/24 labs ekg ok ck eeg monitor vs on 1.1 10/09/2024 Continue one-to-one continue Seroquel would avoid increase dose monitor for altered mental status had ? unclear event the othe other day unable to complete the eeg 10/10: Continue current management and treatment plan. 10/11: continue current management and treatment plan. 10/12/24: No medication change. Continued to be on one-to-one d/t fall risk. Alert to self only. Took medication with no problems. He had KNIG socks on to prevent edema. He lets staff put in on even though he told staff he already has a pair of regular socks on. 10/13/24: No change. Attempted to take him off on one-to-one observation, not successful due to unsteady gait. Remain on high fall risk precautions. Continue with current treatment plan. Observed in bed resting and tried to take a nap. No aggressive behavior. 10/14/2024 Patient continues with significant gait some irritability. Has has had a gradual period of time continue Seroquel. Hospitalist intervention as see if we can try again to get an EEG 10/15/24 retry eeg on 1.1 for fall risk not overly aggressive 10/17/24- calm today cooperative with 1:1 10/18/24- intermittent odd mannerisms/lack of response breif no harm, no irritability last 2 days reported- CTP 10/19: no change in presentation. continue current mgmt. 10/20: no change in presentation. continue current mgmt. 10/21 continue tx. 10/23: some episodes of blank staring and weakness. check BMP, CBC, UA. decrease klonopin PRNs to 0.125 mg each. otherwise continue current mgmt. 10/24: labs reviewed. continue current management and treatment plan. 10/25: continue current management and treatment plan. 10/26: no change in presentation. continue current mgmt. Reason for continued inpatient stay Substantial Risk for: inability to function and rapid decompensation Time Spent With Patient Time: Total time managing care of this patient today ____ minutes.
[2024-10-26 20:00] VITALS: BP 108/56; PULSE 75; RESP 16; TEMP 36.3; O2SAT 94
[2024-10-27 08:42] VITALS: BP 138/79; PULSE 82; RESP 18; TEMP 36.1; O2SAT 95
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
[2024-10-27] MEDS: clonazePAM ODT 0.125 MG TAB.RAPDIS PO (18:49)
[2024-10-27 20:00] VITALS: BP 125/67; PULSE 90; RESP 18; TEMP 36.7; O2SAT 95
[2024-10-28 08:00] VITALS: BP 137/79; PULSE 73
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
[2024-10-28] MEDS: Divalproex Sodium Sprinkles 125 MG CAP.DR.SPR PO ×2 (15:43→20:39)
[2024-10-28 17:16] LABS: Folate 12.9 ng/mL (> or = 4.0); Vitamin B12 536 pg/mL (200-900)
[2024-10-28 20:00] VITALS: BP 148/67; PULSE 80; RESP 16; TEMP 37.3; O2SAT 96
[2024-10-29 08:00] VITALS: BP 105/59; PULSE 78; RESP 16; TEMP 37; O2SAT 93
[2024-10-29] MEDS: Divalproex Sodium Sprinkles 125 MG CAP.DR.SPR PO ×3 (08:42→20:06)
[2024-10-29 09:19] LABS: Lyme Abs Screen <0.90 index
--- NOTE | 2024-10-29 13:58 | P.PNPSI_ITS ---
Subjective Subjective Date of Service: 10/29/24 Reason For Visit: dementia w/ behavioral disturbance Interim History: you're a doctor, aren't you? more interactive today, actually spontaneously produced thought and language. denies problems. per staff, started VPA yesterday. eating. flat. not cooperative. combative when incontinent. slept well overnight. Mental Status Exam Mental Status Exam Narrative: Appearance: wearing own attire, fair hygiene, in NAD Behavior: calm Psychomotor: retardation noted Speech: mostly mumbling, soft tone, more spontaneous TP: poverty of thought TC: asks if MD is a doctor, denies pain Mood: fine Affect: calm SI: none expressed HI: none expressed VH/AH: no overt signs Delusions: no overt signs Insight/judgment: impaired x 2. memory/cog: alert oriented only to person. Diagnostics Vital Signs (24Hr): Vital Signs - 24 hr 10/28/24 20:00 10/29/24 08:00 Temperature 99.1 F 98.6 F Pulse Rate 80 78 Respiratory Rate 16 16 Blood Pressure 148/67 H 105/59 L Pulse Oximetry 96 93 Oxygen Delivery Method Room Air Room Air BMI result Body Mass Index 25.1 Labs 10/23/24 14:41 10/23/24 14:41 Labs: Laboratory Results - last 48 hr 10/28/24 16:14 Vitamin B12 536 Folate 12.9 Lyme Screen IgG & IgM <0.90 Imaging Radiology Impressions: ITS Impressions Venous Duplex 10/08/24 14:57 IMPRESSION: No evidence of deep venous thrombosis involving the bilateral lower extremities. Electronically signed by: Mason Lorenzo MD 10/08/2024 03:21 PM EDT Medications Medications Current Medications Acetaminophen (Acetaminophen 325 Mg Tablet) 650 mg PO Q6H PRN PRN Reason: Headache/Pain, Scale 1-10 Last Admin: 10/26/24 17:54 Dose: 650 mg Al Hydroxide/Mg Hydroxide (Magnesium Hydrox/Alum Hydrox 30 Ml Oral.Susp) 30 ml PO Q6H PRN PRN Reason: Heartburn/Nausea Last Admin: 08/05/24 12:28 Dose: 30 ml Clonazepam (Clonazepam Odt 0.125 Mg Tab.Rapdis) 0.125 mg PO BID PRN PRN Reason: anxiety/restlessness Last Admin: 10/27/24 18:49 Dose: 0.125 mg Divalproex Sodium (Divalproex Sodium Sprinkles 125 Mg ) 125 mg PO TID [facility] Last Admin: 10/29/24 08:42 Dose: 125 mg Donepezil HCl (Donepezil Hcl 5 Mg Tablet) 5 mg PO BEDTIME [facility] Last Admin: 10/28/24 20:39 Dose: 5 mg Furosemide (Furosemide 20 Mg Tablet) 20 mg PO DAILY [facility]; Protocol Last Admin: 10/29/24 08:41 Dose: 20 mg Loperamide HCl (Loperamide Hcl 2 Mg Capsule) 2 mg PO Q4H PRN PRN Reason: Diarrhea Magnesium Hydroxide (Milk Of Magnesia 30 Ml Oral.Susp) 30 ml PO DAILY PRN PRN Reason: Constipation Memantine (Memantine Hcl 5 Mg Tablet) 5 mg PO DAILY [facility] Last Admin: 10/29/24 08:42 Dose: 5 mg Quetiapine Fumarate (Quetiapine Fumarate 50 Mg Tablet) 50 mg PO Q6H PRN PRN Reason: agitation Last Admin: 10/27/24 08:44 Dose: 50 mg Quetiapine Fumarate (Quetiapine Fumarate 50 Mg Tablet) 50 mg PO BID@1200,2100 [facility] Last Admin: 10/29/24 12:30 Dose: 50 mg Trazodone HCl (Trazodone Hcl 50 Mg Tablet) 50 mg PO BEDTIME PRN PRN Reason: Insomnia Last Admin: 10/27/24 20:59 Dose: 50 mg Allergies Allergies Allergy/AdvReac Type Severity Reaction Status Date / Time No Known Allergies Allergy Verified 07/18/24 21:28 Assessment & Plan Assessment & Plan (1) Major neurocognitive disorder: Status: Acute Code(s): F03.90 - Unspecified dementia, unspecified severity, without behavioral disturbance, psychotic disturbance, mood disturbance, and anxiety Assessment and Plan: 74 years old man with significant cognitive dysfunction, behavioral symptoms, and gait disorder. Differential diagnosis is broad but more commonly, with relatively benign CAT scan of brain, dementia with Lewy body disease is more likely. If this is a relatively quickly progressive condition, an EEG and MRI of brain without contrast is recommended, which can help to rule out multiple other etiologies. Treatment is supportive when conservative. Gait disorder might partly be due to his underlying condition and partly due to treatment with neuroleptics. Serum B12, folate, and Lyme serology or also recommended, if not done before Plan 09/12 continue tx. 09/13 continue tx. 09/15 continue tx. 09/16: stable presentation. continue current mgmt. 3: stable presentation. incontinent of bowel in the [place] today. continue current mgmt. / continue tx. 5: incontinent of stool while ambulating. severely demented. continue current mgmt. 09/20: no change. 09/21: no change. continue current mgmt. awaiting placement. 09/22: stable presentation. continue current mgmt. 09/23: severely demented. awaiting placement. stable. 09/25 continue current treatment plan 09/26 continue current treatment plan 09/27 Today nursing report that patient had an odd moment where he expressed a delusional thought and looked as if he was off balance however this was momentary and fully resolved. On approach patient presents at baseline. -although patient quickly returned to baseline, ordered UA/labs which are unremarkable; vitals WNL 09/28 continue tx. 09/29 continue tx. 09/30 continue tx. 10/01 continue tx. 10/02 continue tx. VS stable, taking medications as prescribed. 10/04 team is seeing a status change with BLE edema, focused on left side, increase in confusion and decline. Will ask hospitalist to evaluate. EKg 10/05 continue tx. 10/07/24 Cont plan of care 10/08/24 labs ekg ok ck eeg monitor vs on 1.1 10/09/2024 Continue one-to-one continue Seroquel would avoid increase dose monitor for altered mental status had ? unclear event the othe other day unable to complete the eeg 10/10: Continue current management and treatment plan. 10/11: continue current management and treatment plan. 10/12/24: No medication change. Continued to be on one-to-one d/t fall risk. Alert to self only. Took medication with no problems. He had KING socks on to prevent edema. He lets staff put in on even though he told staff he already has a pair of regular socks on. 10/13/24: No change. Attempted to take him off on one-to-one observation, not successful due to unsteady gait. Remain on high fall risk precautions. Continue with current treatment plan. Observed in bed resting and tried to take a nap. No aggressive behavior. 10/14/2024 Patient continues with significant gait some irritability. Has has had a gradual period of time continue Seroquel. Hospitalist intervention as see if we can try again to get an EEG 10/15/24 retry eeg on 1.1 for fall risk not overly aggressive 10/17/24- calm today cooperative with 1:1 10/18/24- intermittent odd mannerisms/lack of response breif no harm, no irritability last 2 days reported- CTP 10/19: no change in presentation. continue current mgmt. 10/20: no change in presentation. continue current mgmt. 10/21 continue tx. 10/23: some episodes of blank staring and weakness. check BMP, CBC, UA. decrease klonopin PRNs to 0.125 mg each. otherwise continue current mgmt. 10/24: labs reviewed. continue current management and treatment plan. 10/25: continue current management and treatment plan. 10/26: no change in presentation. continue current mgmt. 10/27: review neuro recs. T/C trying EEG again, versus empiric Tx with VPA. 10/28: start empiric Tx with low-dose VPA for periods of absence. check B12, folate, lyme, as per neuro rec. pt not currently able to tolerate head imaging (non-contrast MRI and EEG recommended by neuro). T/C sedating pt for MRI. medical cert for guardianship completed. 10/29: spontaneously asks, you're a doctor, aren't you? of MD, which is unfathomable. apparently, VPA addition was helpful. more responsive and intelligible today. B12, lyme, folate WNL. consider revisiting head imaging in coming days if pt remains improved and pliable. Reason for continued inpatient stay Substantial Risk for: harm to self, harm to others and inability to function Time Spent With Patient Time: Total time managing care of this patient today __25__ minutes.
[2024-10-29 20:00] VITALS: BP 140/78; PULSE 73; RESP 16; TEMP 37.3; O2SAT 95
[2024-10-30 10:00] VITALS: BP 130/64; PULSE 68; RESP 17; TEMP 36.8; O2SAT 97
[2024-10-30 10:14] VITALS: BP 130/64
[2024-10-30] MEDS: Divalproex Sodium Sprinkles 125 MG CAP.DR.SPR PO ×3 (10:14→20:57)
--- NOTE | 2024-10-30 13:01 | HO.PSYCHPN ---
Subjective Subjective Date of Service: 10/30/24 Reason For Visit: dementia w/ behavioral disturbance Interim History: in bed, awake. continues more interactive today than in recent weeks, but no spontaneous questions. reports feeling fine and denies somatic problems. otherwise unintelligible. per staff, more somnolent afternoon after VPA. 1440 yesterday lost his balance and sat down hard. more cooperative with care when supine. Mental Status Exam Mental Status Exam Narrative: Appearance: wearing own attire, fair hygiene, in NAD Behavior: calm Psychomotor: retardation noted Speech: mostly mumbling, soft tone, more spontaneous TP: poverty of thought TC: denies pain, feeling fine Mood: fine Affect: calm SI: none expressed HI: none expressed VH/AH: no overt signs Delusions: no overt signs Insight/judgment: impaired x 2. memory/cog: alert oriented only to person. Diagnostics Vital Signs (24Hr): Vital Signs - 24 hr 10/29/24 20:00 10/30/24 10:00 10/30/24 10:14 Temperature 99.1 F 98.2 F Pulse Rate 73 68 Respiratory Rate 16 17 Blood Pressure 140/78 H 130/64 130/64 Pulse Oximetry 95 97 Oxygen Delivery Method Room Air Room Air BMI result Body Mass Index 25.1 Labs 10/23/24 14:41 10/23/24 14:41 Labs: Laboratory Results - last 48 hr 10/28/24 16:14 Vitamin B12 536 Folate 12.9 Lyme Screen IgG & IgM <0.90 Lyme Progressive Test TNP Imaging Radiology Impressions: ITS Impressions Venous Duplex 10/08/24 14:57 IMPRESSION: No evidence of deep venous thrombosis involving the bilateral lower extremities. Electronically signed by: Mason Lorenzo MD 10/08/2024 03:21 PM EDT Medications Medications Current Medications Acetaminophen (Acetaminophen 325 Mg Tablet) 650 mg PO Q6H PRN PRN Reason: Headache/Pain, Scale 1-10 Last Admin: 10/26/24 17:54 Dose: 650 mg Al Hydroxide/Mg Hydroxide (Magnesium Hydrox/Alum Hydrox 30 Ml Oral.Susp) 30 ml PO Q6H PRN PRN Reason: Heartburn/Nausea Last Admin: 08/05/24 12:28 Dose: 30 ml Clonazepam (Clonazepam Odt 0.125 Mg Tab.Rapdis) 0.125 mg PO BID PRN PRN Reason: anxiety/restlessness Last Admin: 10/27/24 18:49 Dose: 0.125 mg Divalproex Sodium (Divalproex Sodium Sprinkles 125 Mg ) 125 mg PO TID [facility] Last Admin: 10/30/24 10:14 Dose: 125 mg Donepezil HCl (Donepezil Hcl 5 Mg Tablet) 5 mg PO BEDTIME ADITYA Last Admin: 10/29/24 20:07 Dose: 5 mg Furosemide (Furosemide 20 Mg Tablet) 20 mg PO DAILY ADITYA; Protocol Last Admin: 10/30/24 10:14 Dose: 20 mg Loperamide HCl (Loperamide Hcl 2 Mg Capsule) 2 mg PO Q4H PRN PRN Reason: Diarrhea Magnesium Hydroxide (Milk Of Magnesia 30 Ml Oral.Susp) 30 ml PO DAILY PRN PRN Reason: Constipation Memantine (Memantine Hcl 5 Mg Tablet) 5 mg PO DAILY [facility] Last Admin: 10/30/24 10:15 Dose: 5 mg Nystatin (Nystatin Cream 15 Gm Tube) 1 appl TOPICAL BID ADITYA; Protocol Last Admin: 10/30/24 10:15 Dose: 1 appl Quetiapine Fumarate (Quetiapine Fumarate 50 Mg Tablet) 50 mg PO Q6H PRN PRN Reason: agitation Last Admin: 10/27/24 08:44 Dose: 50 mg Quetiapine Fumarate (Quetiapine Fumarate 50 Mg Tablet) 50 mg PO BID@1200,2100 [facility] Last Admin: 10/30/24 11:58 Dose: 50 mg Trazodone HCl (Trazodone Hcl 50 Mg Tablet) 50 mg PO BEDTIME PRN PRN Reason: Insomnia Last Admin: 10/27/24 20:59 Dose: 50 mg Allergies Allergies Allergy/AdvReac Type Severity Reaction Status Date / Time No Known Allergies Allergy Verified 07/18/24 21:28 Assessment & Plan Assessment & Plan (1) Major neurocognitive disorder: Status: Acute Code(s): F03.90 - Unspecified dementia, unspecified severity, without behavioral disturbance, psychotic disturbance, mood disturbance, and anxiety Assessment and Plan: 74 years old man with significant cognitive dysfunction, behavioral symptoms, and gait disorder. Differential diagnosis is broad but more commonly, with relatively benign CAT scan of brain, dementia with Lewy body disease is more likely. If this is a relatively quickly progressive condition, an EEG and MRI of brain without contrast is recommended, which can help to rule out multiple other etiologies. Treatment is supportive when conservative. Gait disorder might partly be due to his underlying condition and partly due to treatment with neuroleptics. Serum B12, folate, and Lyme serology or also recommended, if not done before Plan 09/12 continue tx. 09/13 continue tx. 09/15 continue tx. 09/16: stable presentation. continue current mgmt. 3: stable presentation. incontinent of bowel in the [place] today. continue current mgmt. 09/18 continue tx. 09/19: incontinent of stool while ambulating. severely demented. continue current mgmt. 09/20: no change. 09/21: no change. continue current mgmt. awaiting placement. 09/22: stable presentation. continue current mgmt. 09/23: severely demented. awaiting placement. stable. 09/25 continue current treatment plan 09/26 continue current treatment plan 09/27 Today nursing report that patient had an odd moment where he expressed a delusional thought and looked as if he was off balance however this was momentary and fully resolved. On approach patient presents at baseline. -although patient quickly returned to baseline, ordered UA/labs which are unremarkable; vitals WNL 09/28 continue tx. 09/29 continue tx. 09/30 continue tx. 10/01 continue tx. 10/02 continue tx. VS stable, taking medications as prescribed. 10/04 team is seeing a status change with BLE edema, focused on left side, increase in confusion and decline. Will ask hospitalist to evaluate. EKg 10/05 continue tx. 10/07/24 Cont plan of care 10/08/24 labs ekg ok ck eeg monitor vs on 1.1 10/09/2024 Continue one-to-one continue Seroquel would avoid increase dose monitor for altered mental status had ? unclear event the othe other day unable to complete the eeg 10/10: Continue current management and treatment plan. 10/11: continue current management and treatment plan. 10/12/24: No medication change. Continued to be on one-to-one d/t fall risk. Alert to self only. Took medication with no problems. He had KING socks on to prevent edema. He lets staff put in on even though he told staff he already has a pair of regular socks on. 10/13/24: No change. Attempted to take him off on one-to-one observation, not successful due to unsteady gait. Remain on high fall risk precautions. Continue with current treatment plan. Observed in bed resting and tried to take a nap. No aggressive behavior. 10/14/2024 Patient continues with significant gait some irritability. Has has had a gradual period of time continue Seroquel. Hospitalist intervention as see if we can try again to get an EEG 10/15/24 retry eeg on 1.1 for fall risk not overly aggressive 10/17/24- calm today cooperative with 1:1 10/18/24- intermittent odd mannerisms/lack of response breif no harm, no irritability last 2 days reported- CTP 10/19: no change in presentation. continue current mgmt. 10/20: no change in presentation. continue current mgmt. 10/21 continue tx. 10/23: some episodes of blank staring and weakness. check BMP, CBC, UA. decrease klonopin PRNs to 0.125 mg each. otherwise continue current mgmt. 10/24: labs reviewed. continue current management and treatment plan. 10/25: continue current management and treatment plan. 10/26: no change in presentation. continue current mgmt. 10/27: review neuro recs. T/C trying EEG again, versus empiric Tx with VPA. 10/28: start empiric Tx with low-dose VPA for periods of absence. check B12, folate, lyme, as per neuro rec. pt not currently able to tolerate head imaging (non-contrast MRI and EEG recommended by neuro). T/C sedating pt for MRI. medical cert for guardianship completed. 10/29: spontaneously asks, you're a doctor, aren't you? of , which is unfathomable. apparently, VPA addition was helpful. more responsive and intelligible today. B12, lyme, folate WNL. consider revisiting head imaging in coming days if pt remains improved and pliable. 10/30: continues more responsive, but no spontaneous questions today. stable presentation. continue current mgmt. Reason for continued inpatient stay Substantial Risk for: harm to self, harm to others and inability to function Time Spent With Patient Time: Total time managing care of this patient today ____ minutes.
[2024-10-30 20:00] VITALS: BP 124/62; PULSE 73; RESP 16; TEMP 36.8; O2SAT 96
[2024-10-31 08:48] VITALS: BP 133/78; PULSE 94; RESP 18; TEMP 36.5; O2SAT 95
[2024-10-31] MEDS: Divalproex Sodium Sprinkles 125 MG CAP.DR.SPR PO ×3 (08:51→20:13)
--- NOTE | 2024-10-31 10:38 | HO.PSYCHPN ---
Subjective Subjective Date of Service: 10/31/24 Reason For Visit: dementia w/ behavioral disturbance Interim History: no change in presentation. per staff, incontinent, resistive to care. not hitting, however. Mental Status Exam Mental Status Exam Narrative: Appearance: wearing own attire, fair hygiene, in NAD Behavior: calm Psychomotor: retardation noted Speech: mostly mumbling, soft tone, more spontaneous TP: poverty of thought TC: denies pain, feeling fine Mood: fine Affect: calm SI: none expressed HI: none expressed VH/AH: no overt signs Delusions: no overt signs Insight/judgment: impaired x 2. memory/cog: alert oriented only to person. Diagnostics Vital Signs (24Hr): Vital Signs - 24 hr 10/30/24 20:00 10/31/24 08:48 Temperature 98.2 F 97.7 F Pulse Rate 73 94 Respiratory Rate 16 18 Blood Pressure 124/62 133/78 Pulse Oximetry 96 95 Oxygen Delivery Method Room Air Room Air BMI result Body Mass Index 25.1 Labs 10/23/24 14:41 10/23/24 14:41 Labs: Laboratory Results - last 48 hr 10/28/24 16:14 Lyme Progressive Test TNP Imaging Radiology Impressions: ITS Impressions Venous Duplex 10/08/24 14:57 IMPRESSION: No evidence of deep venous thrombosis involving the bilateral lower extremities. Electronically signed by: Mason Lorenzo MD 10/08/2024 03:21 PM EDT Medications Medications Current Medications Acetaminophen (Acetaminophen 325 Mg Tablet) 650 mg PO Q6H PRN PRN Reason: Headache/Pain, Scale 1-10 Last Admin: 10/26/24 17:54 Dose: 650 mg Al Hydroxide/Mg Hydroxide (Magnesium Hydrox/Alum Hydrox 30 Ml Oral.Susp) 30 ml PO Q6H PRN PRN Reason: Heartburn/Nausea Last Admin: 08/05/24 12:28 Dose: 30 ml Clonazepam (Clonazepam Odt 0.125 Mg Tab.Rapdis) 0.125 mg PO BID PRN PRN Reason: anxiety/restlessness Last Admin: 10/27/24 18:49 Dose: 0.125 mg Divalproex Sodium (Divalproex Sodium Sprinkles 125 Mg ) 125 mg PO TID ADITYA Last Admin: 10/31/24 08:51 Dose: 125 mg Donepezil HCl (Donepezil Hcl 5 Mg Tablet) 5 mg PO BEDTIME ADITYA Last Admin: 10/30/24 20:57 Dose: 5 mg Furosemide (Furosemide 20 Mg Tablet) 20 mg PO DAILY ADITYA; Protocol Last Admin: 10/31/24 08:50 Dose: 20 mg Loperamide HCl (Loperamide Hcl 2 Mg Capsule) 2 mg PO Q4H PRN PRN Reason: Diarrhea Magnesium Hydroxide (Milk Of Magnesia 30 Ml Oral.Susp) 30 ml PO DAILY PRN PRN Reason: Constipation Memantine (Memantine Hcl 5 Mg Tablet) 5 mg PO DAILY ADITYA Last Admin: 10/31/24 08:50 Dose: 5 mg Nystatin (Nystatin Cream 15 Gm Tube) 1 appl TOPICAL BID ADITYA; Protocol Last Admin: 10/31/24 08:49 Dose: 1 appl Quetiapine Fumarate (Quetiapine Fumarate 50 Mg Tablet) 50 mg PO Q6H PRN PRN Reason: agitation Last Admin: 10/27/24 08:44 Dose: 50 mg Quetiapine Fumarate (Quetiapine Fumarate 50 Mg Tablet) 50 mg PO BID@1200,2100 [facility] Last Admin: 10/30/24 20:57 Dose: 50 mg Trazodone HCl (Trazodone Hcl 50 Mg Tablet) 50 mg PO BEDTIME PRN PRN Reason: Insomnia Last Admin: 10/30/24 20:57 Dose: 50 mg Allergies Allergies Allergy/AdvReac Type Severity Reaction Status Date / Time No Known Allergies Allergy Verified 07/18/24 21:28 Assessment & Plan Assessment & Plan (1) Major neurocognitive disorder: Status: Acute Code(s): F03.90 - Unspecified dementia, unspecified severity, without behavioral disturbance, psychotic disturbance, mood disturbance, and anxiety Assessment and Plan: 74 years old man with significant cognitive dysfunction, behavioral symptoms, and gait disorder. Differential diagnosis is broad but more commonly, with relatively benign CAT scan of brain, dementia with Lewy body disease is more likely. If this is a relatively quickly progressive condition, an EEG and MRI of brain without contrast is recommended, which can help to rule out multiple other etiologies. Treatment is supportive when conservative. Gait disorder might partly be due to his underlying condition and partly due to treatment with neuroleptics. Serum B12, folate, and Lyme serology or also recommended, if not done before Plan 09/12 continue tx. 09/13 continue tx. 09/15 continue tx. 2: stable presentation. continue current mgmt. 3: stable presentation. incontinent of bowel in the [place] today. continue current mgmt. 09/18 continue tx. 5: incontinent of stool while ambulating. severely demented. continue current mgmt. 6: no change. 09/21: no change. continue current mgmt. awaiting placement. 09/22: stable presentation. continue current mgmt. 09/23: severely demented. awaiting placement. stable. 09/25 continue current treatment plan 09/26 continue current treatment plan 09/27 Today nursing report that patient had an odd moment where he expressed a delusional thought and looked as if he was off balance however this was momentary and fully resolved. On approach patient presents at baseline. -although patient quickly returned to baseline, ordered UA/labs which are unremarkable; vitals WNL 09/28 continue tx. 09/29 continue tx. 09/30 continue tx. 10/01 continue tx. 10/02 continue tx. VS stable, taking medications as prescribed. 10/04 team is seeing a status change with BLE edema, focused on left side, increase in confusion and decline. Will ask hospitalist to evaluate. EKg 10/05 continue tx. 10/07/24 Cont plan of care 10/08/24 labs ekg ok ck eeg monitor vs on 1.1 10/09/2024 Continue one-to-one continue Seroquel would avoid increase dose monitor for altered mental status had ? unclear event the othe other day unable to complete the eeg 10/10: Continue current management and treatment plan. 10/11: continue current management and treatment plan. 10/12/24: No medication change. Continued to be on one-to-one d/t fall risk. Alert to self only. Took medication with no problems. He had KING socks on to prevent edema. He lets staff put in on even though he told staff he already has a pair of regular socks on. 10/13/24: No change. Attempted to take him off on one-to-one observation, not successful due to unsteady gait. Remain on high fall risk precautions. Continue with current treatment plan. Observed in bed resting and tried to take a nap. No aggressive behavior. 10/14/2024 Patient continues with significant gait some irritability. Has has had a gradual period of time continue Seroquel. Hospitalist intervention as see if we can try again to get an EEG 10/15/24 retry eeg on 1.1 for fall risk not overly aggressive 10/17/24- calm today cooperative with 1:1 10/18/24- intermittent odd mannerisms/lack of response breif no harm, no irritability last 2 days reported- CTP 10/19: no change in presentation. continue current mgmt. 10/20: no change in presentation. continue current mgmt. 10/21 continue tx. 10/23: some episodes of blank staring and weakness. check BMP, CBC, UA. decrease klonopin PRNs to 0.125 mg each. otherwise continue current mgmt. 10/24: labs reviewed. continue current management and treatment plan. 10/25: continue current management and treatment plan. 10/26: no change in presentation. continue current mgmt. 10/27: review neuro recs. T/C trying EEG again, versus empiric Tx with VPA. 10/28: start empiric Tx with low-dose VPA for periods of absence. check B12, folate, lyme, as per neuro rec. pt not currently able to tolerate head imaging (non-contrast MRI and EEG recommended by neuro). T/C sedating pt for MRI. medical cert for guardianship completed. 10/29: spontaneously asks, you're a doctor, aren't you? of [place], which is unfathomable. apparently, VPA addition was helpful. more responsive and intelligible today. B12, lyme, folate WNL. consider revisiting head imaging in coming days if pt remains improved and pliable. 10/30: continues more responsive, but no spontaneous questions today. stable presentation. continue current mgmt. 10/31: stable, no aggression or violence. continue current mgmt. Reason for continued inpatient stay Substantial Risk for: harm to others and inability to function Time Spent With Patient Time: Total time managing care of this patient today ____ minutes.
[2024-10-31 20:00] VITALS: BP 112/83; PULSE 86; RESP 16; TEMP 36.2; O2SAT 96
[2024-11-01 08:05] VITALS: BP 141/87; PULSE 80; RESP 16; TEMP 36.5; O2SAT 96
[2024-11-01] MEDS: Divalproex Sodium Sprinkles 125 MG CAP.DR.SPR PO ×2 (08:54→15:31)
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
[2024-11-01 19:35] VITALS: BP 150/82; PULSE 70; RESP 18; TEMP 36.2; O2SAT 95
[2024-11-01] MEDS: Divalproex Sodium Sprinkles 125 MG CAP.DR.SPR 250 MG PO (19:37)
[2024-11-02 08:34] VITALS: BP 126/72; PULSE 83; RESP 16; TEMP 36.6; O2SAT 94
[2024-11-02] MEDS: Divalproex Sodium Sprinkles 125 MG CAP.DR.SPR PO ×2 (09:08→15:00)
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
[2024-11-02 19:43] VITALS: BP 130/63; PULSE 74; RESP 16; TEMP 36.6; O2SAT 94
[2024-11-02] MEDS: Divalproex Sodium Sprinkles 125 MG CAP.DR.SPR 250 MG PO (19:47)
[2024-11-03 08:30] VITALS: BP 132/67; PULSE 78; RESP 16; TEMP 36.6; O2SAT 94
[2024-11-03] MEDS: Divalproex Sodium Sprinkles 125 MG CAP.DR.SPR PO ×2 (09:19→14:22)
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
[2024-11-03 20:00] VITALS: BP 137/71; PULSE 70; RESP 16; TEMP 36.6; O2SAT 94
[2024-11-03] MEDS: Divalproex Sodium Sprinkles 125 MG CAP.DR.SPR 250 MG PO (20:23)
[2024-11-04 08:35] VITALS: BP 119/69; PULSE 59; RESP 14; TEMP 36.6; O2SAT 96
[2024-11-04] MEDS: Divalproex Sodium Sprinkles 125 MG CAP.DR.SPR PO ×2 (09:31→14:50)
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
[2024-11-04 20:00] VITALS: BP 123/66; PULSE 123; RESP 16; TEMP 37.1; O2SAT 96
[2024-11-04] MEDS: Divalproex Sodium Sprinkles 125 MG CAP.DR.SPR 250 MG PO (20:40)
[2024-11-04] MEDS: clonazePAM ODT 0.125 MG TAB.RAPDIS PO (20:40)
[2024-11-05 09:05] VITALS: BP 121/79; PULSE 78; RESP 16; TEMP 36.5; O2SAT 97
[2024-11-05] MEDS: Divalproex Sodium Sprinkles 125 MG CAP.DR.SPR PO ×2 (09:13→15:12)
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
[2024-11-05 20:00] VITALS: BP 166/89; PULSE 69; TEMP 36.9; O2SAT 95
[2024-11-05] MEDS: Divalproex Sodium Sprinkles 125 MG CAP.DR.SPR 250 MG PO (20:37)
[2024-11-06 08:24] VITALS: BP 119/70; PULSE 78; RESP 16; TEMP 35.9; O2SAT 100
[2024-11-06] MEDS: Divalproex Sodium Sprinkles 125 MG CAP.DR.SPR PO ×2 (08:26→14:56)
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
[2024-11-06 20:00] VITALS: BP 116/70; PULSE 84; RESP 16; TEMP 37.1; O2SAT 95
[2024-11-06] MEDS: Divalproex Sodium Sprinkles 125 MG CAP.DR.SPR 250 MG PO (20:05)
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
[2024-11-07 08:00] VITALS: BP 112/73; PULSE 86; RESP 16; TEMP 36.5
[2024-11-07] MEDS: Divalproex Sodium Sprinkles 125 MG CAP.DR.SPR PO ×2 (08:19→15:20)
[2024-11-07 19:57] VITALS: BP 135/72; PULSE 81; RESP 16; TEMP 36.4; O2SAT 95
[2024-11-07] MEDS: Divalproex Sodium Sprinkles 125 MG CAP.DR.SPR 250 MG PO (20:02)
[2024-11-08 08:35] VITALS: BP 118/75; PULSE 79; RESP 16; TEMP 36.7; O2SAT 96
[2024-11-08] MEDS: Divalproex Sodium Sprinkles 125 MG CAP.DR.SPR PO ×2 (08:42→17:23)
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
[2024-11-08 20:00] VITALS: BP 153/84; PULSE 68; RESP 16; TEMP 37; O2SAT 97
[2024-11-08] MEDS: Divalproex Sodium Sprinkles 125 MG CAP.DR.SPR 250 MG PO (20:53)
[2024-11-09 08:45] VITALS: BP 131/83; PULSE 73; RESP 18; TEMP 36.6; O2SAT 96
[2024-11-09] MEDS: Divalproex Sodium Sprinkles 125 MG CAP.DR.SPR PO ×2 (08:47→14:33)
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
[2024-11-09 20:00] VITALS: BP 116/63; PULSE 79; TEMP 37; O2SAT 94
[2024-11-09] MEDS: Divalproex Sodium Sprinkles 125 MG CAP.DR.SPR 250 MG PO (20:44)
[2024-11-10 08:22] VITALS: BP 113/75; PULSE 74; RESP 18; TEMP 35.8; O2SAT 98
[2024-11-10] MEDS: Divalproex Sodium Sprinkles 125 MG CAP.DR.SPR PO ×2 (08:24→15:03)
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
[2024-11-10 20:00] VITALS: BP 133/57; PULSE 74; RESP 17; TEMP 37.1; O2SAT 97
[2024-11-10] MEDS: Divalproex Sodium Sprinkles 125 MG CAP.DR.SPR 250 MG PO (20:03)
[2024-11-11 08:00] VITALS: BP 141/79; PULSE 80; TEMP 36.9
[2024-11-11] MEDS: Divalproex Sodium Sprinkles 125 MG CAP.DR.SPR PO ×2 (08:06→16:45)
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
[2024-11-11 19:38] VITALS: BP 165/79; PULSE 79; RESP 16; TEMP 36.1; O2SAT 94
[2024-11-11] MEDS: Divalproex Sodium Sprinkles 125 MG CAP.DR.SPR 250 MG PO (19:38)
[2024-11-12 08:00] VITALS: BP 130/69
[2024-11-12] MEDS: Divalproex Sodium Sprinkles 125 MG CAP.DR.SPR PO ×2 (09:08→15:14)
[2024-11-12 20:00] VITALS: BP 114/58; PULSE 73; RESP 16; TEMP 37; O2SAT 93
[2024-11-12] MEDS: Divalproex Sodium Sprinkles 125 MG CAP.DR.SPR 250 MG PO (21:35)
[2024-11-13 08:20] VITALS: BP 116/66; PULSE 76; RESP 16; TEMP 36.8; O2SAT 96
[2024-11-13] MEDS: Divalproex Sodium Sprinkles 125 MG CAP.DR.SPR PO ×2 (08:53→15:21)
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
[2024-11-13 20:00] VITALS: BP 139/78; PULSE 71; RESP 16; TEMP 36.4; O2SAT 96
[2024-11-13] MEDS: Divalproex Sodium Sprinkles 125 MG CAP.DR.SPR 250 MG PO (21:45)
[2024-11-14 09:02] VITALS: BP 112/67; PULSE 73; RESP 16; TEMP 36.4; O2SAT 96
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
[2024-11-14] MEDS: Divalproex Sodium Sprinkles 125 MG CAP.DR.SPR PO ×2 (09:17→14:40)
[2024-11-14 20:00] VITALS: BP 117/64; PULSE 74; RESP 20; TEMP 36.3; O2SAT 94
[2024-11-14] MEDS: Divalproex Sodium Sprinkles 125 MG CAP.DR.SPR 250 MG PO (20:35)
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
[2024-11-15 09:00] VITALS: BP 118/77; PULSE 72; RESP 16; TEMP 36.6; O2SAT 96
[2024-11-15] MEDS: Divalproex Sodium Sprinkles 125 MG CAP.DR.SPR PO ×2 (09:48→14:46)
[2024-11-15 20:00] VITALS: BP 119/56; PULSE 78; RESP 16; TEMP 36.5; O2SAT 96
[2024-11-15] MEDS: Divalproex Sodium Sprinkles 125 MG CAP.DR.SPR 250 MG PO (21:25)
[2024-11-15] MEDS: clonazePAM ODT 0.125 MG TAB.RAPDIS PO (21:25)
[2024-11-16 08:00] VITALS: BP 136/61; PULSE 80; RESP 14; TEMP 36.1; O2SAT 97
[2024-11-16 08:17] VITALS: BP 136/61
[2024-11-16] MEDS: Divalproex Sodium Sprinkles 125 MG CAP.DR.SPR PO ×2 (08:18→14:51)
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
[2024-11-16 20:15] VITALS: BP 132/63; PULSE 80; RESP 16; TEMP 36.6; O2SAT 94
[2024-11-16] MEDS: Divalproex Sodium Sprinkles 125 MG CAP.DR.SPR 250 MG PO (20:20)
[2024-11-17 09:20] VITALS: BP 122/74; PULSE 84; RESP 16; TEMP 36.9; O2SAT 95
[2024-11-17] MEDS: Divalproex Sodium Sprinkles 125 MG CAP.DR.SPR PO ×2 (10:15→15:09)
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
[2024-11-17 20:00] VITALS: BP 137/79; PULSE 73; RESP 16; TEMP 37; O2SAT 95
[2024-11-17] MEDS: Divalproex Sodium Sprinkles 125 MG CAP.DR.SPR 250 MG PO (20:19)
[2024-11-18 08:40] VITALS: BP 119/75; PULSE 80; RESP 16; TEMP 36.9; O2SAT 95
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
[2024-11-18] MEDS: Divalproex Sodium Sprinkles 125 MG CAP.DR.SPR PO ×2 (09:32→14:38)
[2024-11-18 20:00] VITALS: BP 110/63; PULSE 81; RESP 15; TEMP 36.7; O2SAT 94
[2024-11-18] MEDS: Divalproex Sodium Sprinkles 125 MG CAP.DR.SPR 250 MG PO (20:06)
[2024-11-19 08:37] VITALS: BP 116/69; PULSE 76; RESP 18; TEMP 36.4; O2SAT 95
[2024-11-19] MEDS: Divalproex Sodium Sprinkles 125 MG CAP.DR.SPR PO ×2 (08:39→14:35)
[2024-11-19 13:40] VITALS: BMI 25.7
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
[2024-11-19 20:00] VITALS: BP 136/71; PULSE 68; RESP 16; TEMP 35.9; O2SAT 95
[2024-11-19] MEDS: Divalproex Sodium Sprinkles 125 MG CAP.DR.SPR 250 MG PO (20:27)
[2024-11-20 08:38] VITALS: BP 143/67; PULSE 80; RESP 16; TEMP 36.3; O2SAT 97
[2024-11-20] MEDS: Divalproex Sodium Sprinkles 125 MG CAP.DR.SPR PO ×2 (08:44→14:54)
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
[2024-11-20] MEDS: Divalproex Sodium Sprinkles 125 MG CAP.DR.SPR 250 MG PO (19:49)
[2024-11-20 20:09] VITALS: BP 136/70; PULSE 79; RESP 17; TEMP 36.6; O2SAT 94
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
[2024-11-21 10:10] VITALS: BP 138/71
[2024-11-21] MEDS: Divalproex Sodium Sprinkles 125 MG CAP.DR.SPR PO ×2 (10:10→15:15)
[2024-11-21 10:16] VITALS: BP 138/71; RESP 16; TEMP 36.6; O2SAT 95
[2024-11-21 20:00] VITALS: BP 142/80; PULSE 73; RESP 16; TEMP 36.5; O2SAT 97
[2024-11-21] MEDS: Divalproex Sodium Sprinkles 125 MG CAP.DR.SPR 250 MG PO (20:07)
[2024-11-22] MEDS: Divalproex Sodium Sprinkles 125 MG CAP.DR.SPR PO ×2 (09:15→15:13)
[2024-11-22 09:16] VITALS: BP 168/93; PULSE 68; RESP 16; TEMP 36.6; O2SAT 99
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
[2024-11-22 20:00] VITALS: BP 110/55; PULSE 74; RESP 16; TEMP 36.9; O2SAT 94
[2024-11-22] MEDS: Divalproex Sodium Sprinkles 125 MG CAP.DR.SPR 250 MG PO (20:31)
[2024-11-23 08:17] VITALS: BP 141/79; PULSE 79; RESP 18; TEMP 36.4; O2SAT 95
[2024-11-23] MEDS: Divalproex Sodium Sprinkles 125 MG CAP.DR.SPR PO ×2 (09:31→14:45)
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
[2024-11-23 20:00] VITALS: BP 132/63; PULSE 76; RESP 17; TEMP 36.5; O2SAT 98
[2024-11-23] MEDS: Divalproex Sodium Sprinkles 125 MG CAP.DR.SPR 250 MG PO (20:58)
[2024-11-24 08:20] VITALS: BP 124/73; PULSE 79; RESP 18; TEMP 36.6; O2SAT 96
[2024-11-24] MEDS: Divalproex Sodium Sprinkles 125 MG CAP.DR.SPR PO ×2 (08:44→15:03)
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
[2024-11-24 20:00] VITALS: BP 128/78; PULSE 85; RESP 16; TEMP 36.1; O2SAT 96
[2024-11-24] MEDS: Divalproex Sodium Sprinkles 125 MG CAP.DR.SPR 250 MG PO (20:58)
[2024-11-25 08:00] VITALS: BP 109/61; PULSE 81; RESP 16; TEMP 35.9; O2SAT 98
[2024-11-25] MEDS: Divalproex Sodium Sprinkles 125 MG CAP.DR.SPR PO ×2 (09:27→14:59)
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
[2024-11-25 20:00] VITALS: BP 134/65; PULSE 72; RESP 16; TEMP 36.9; O2SAT 94
[2024-11-25] MEDS: Divalproex Sodium Sprinkles 125 MG CAP.DR.SPR 250 MG PO (23:40)
[2024-11-26 08:00] VITALS: BP 140/94; PULSE 70; RESP 16; TEMP 36.4; O2SAT 96
[2024-11-26 09:19] VITALS: BP 140/94
[2024-11-26] MEDS: Divalproex Sodium Sprinkles 125 MG CAP.DR.SPR PO ×2 (09:19→15:52)
[2024-11-26 13:00] VITALS: BMI 26.2
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
[2024-11-26 20:00] VITALS: BP 126/55; PULSE 80; RESP 16; TEMP 36.1; O2SAT 96
[2024-11-26] MEDS: Divalproex Sodium Sprinkles 125 MG CAP.DR.SPR 250 MG PO (21:01)
[2024-11-27 08:00] VITALS: BP 146/73; PULSE 86; RESP 16; TEMP 36.4; O2SAT 95
[2024-11-27 08:52] VITALS: BP 146/73
[2024-11-27] MEDS: Divalproex Sodium Sprinkles 125 MG CAP.DR.SPR PO ×2 (08:52→15:10)
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
[2024-11-27 20:00] VITALS: BP 146/73; PULSE 81; RESP 16; TEMP 36.8; O2SAT 96
[2024-11-27] MEDS: Divalproex Sodium Sprinkles 125 MG CAP.DR.SPR 250 MG PO (21:10)
[2024-11-28 08:48] VITALS: BP 133/77; PULSE 74; RESP 18; TEMP 35.9; O2SAT 98
[2024-11-28] MEDS: Divalproex Sodium Sprinkles 125 MG CAP.DR.SPR PO ×2 (09:19→14:30)
[2024-11-28 17:02] VITALS: BP 138/74; PULSE 132; RESP 20; TEMP 39.2; O2SAT 96
[2024-11-28 17:06] LABS: Glucose, Whole Blood 113 mg/dL (60-115)
--- NOTE | 2024-11-28 17:08 | PC.NURSE ---
During supper time the patient needed to be changed and then taken out to the dining area.Patient was unable to stand and was lowered to his knees by 2 staff at 1645. Patient then put back to bed with assist of 2. He had obvious MSC, babbling with tremors and grabbing at things in the air. Skin hot to touch. Vital signs T102.5, P132, R20 B/P 138/74 and O2 Sat 96% on room air. Dr. Laci Mills updated and new order for STAT hospitalist consult ordered. Cynthia ECKERT notified at 1708. Dr. Mills would support a transfer to medicine with his high temperature and MSE.
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
[2024-11-28 17:30] VITALS: BP 140/85; PULSE 126; RESP 20; TEMP 39.2; O2SAT 93
--- NOTE | 2024-11-28 17:39 | PM.EVENT ---
Event Note Date of Service: 11/28/24 Event Note: Pt is a 74-year-old man admitted to [facility] stat hospitalist consult for fever of 102.5 and tachycardia of 132. No tachypnea, BP normotensive at 138/74. Pt with advanced dementia with behavioral disturbances at baseline, unable to provide any meaningful hx. Nursing reports the pt is perhaps slightly altered from baseline. Had a slight cough earlier in the day, but nothing productive. No noticeable vomiting or diarrhea. Physical exam relatively unrevealing. Abdominal exam benign. Difficult to assess breathing as pt is constantly mumbling and not following commands. Will get chest x-ray, CBC, CMP, lactic acid, COVID/RSV/flu swab, UA, and draw blood cultures. Time Spent With Patient Time: Total time managing care of this patient today ____ minutes.
[2024-11-28 17:53] LABS: Hematocrit 38.3 % (42.0-52.0); Hemoglobin 12.9 g/dl (14.0-18.0); Imm Gran Abs Auto 0.03 X10*3/uL (0.00-0.03); Imm Gran Pct Auto 0.3 % (0.0-0.4); Lymphocytes Absolute Auto 0.8 X10*3/uL (1.2-4.9); MANUAL DIFF FLAG NO; Mean Corpuscular HGB Conc 33.7 g/dl (31.0-36.0); Mean Corpuscular Hemoglobin 28.5 pg (27.0-33.0); Mean Corpuscular Volume 84.5 fL (80.0-98.0); NRBC Abs Auto 0.000 X10*3/uL (0.0-0.012); NRBC Pct Auto 0.0 /100WBC (0.0-0.2); Platelet Count 179 X10*3/uL (160-400); Red Blood Count 4.53 X10*6/uL (4.60-5.80); White Blood Count 11.7 X10*3/uL (4.8-10.8)
[2024-11-28 18:06] LABS: Alanine Aminotransferase 18 U/L (0-40); Albumin Level 4.1 g/dL (3.5-5.0); Alkaline Phosphatase 65 U/L (39-117); Anion Gap 16 (12-20); Aspartate Amino Transferase 19 U/L (5-37); Blood Urea Nitrogen 21 mg/dL (9-16); Calcium 9.0 mg/dL (8.4-10.2); Carbon Dioxide 24 mmol/L (22-29); Chloride 102 mmol/L (96-108); Creatinine Clr Calc Pharmacy 63.2; Estimated Glomerular Filt Rate > 60; Potassium 4.1 mmol/L (3.3-5.1); Sodium 138 mmol/L (135-145); Total Protein 6.8 g/dL (6.5-8.0)
--- NOTE | 2024-11-28 18:08 | PC.NURSE ---
Patient seen by Cynthia ECKERT. Cool compress to patient's forehead. Several new orders obtained. Labs, nasal swab and urine via straight catheter obtained and sent to lab. Tylenol 650mg PO given at 1808. Patient continues to babble, resting in bed. 1:1 supervision continues.
--- NOTE | 2024-11-28 18:23 | PC.NURSE ---
Critical lactic acid 2.5 sent priority message to Cynthia ECKERT today upon receiving the value from the lab at 181.
[2024-11-28 18:24] LABS: Appearance Urine Clear; Glucose Urine UA Negative (Negative); PH 8.5 (5.0-9.0); Specific Gravity - Urine 1.015 (1.005-1.025); UMIC TRIGGER UACC YES
[2024-11-28 18:26] LABS: UACC Culture Trigger YES
[2024-11-28 18:59] LABS: Resp Syncy Virus RNA Qual PCR NEGATIVE (Negative); SARS COV2 PCR INHOUSE NEGATIVE (Negative)
[2024-11-28 19:50] LABS: Reflex Lactate? Lactic Acid Added
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
== END 2024-11-28 20:45 | disposition short-term general hospital (02) | DRG 56 ==
LOC: HO.ED 22:42 → HO.PGERI 07-19 13:41
PROVIDERS: Nurse Practitioner Family; Psychiatry & Neurology Psychiatry; Social Worker; Student in an Organized Health Care Education/Training Program; Admitting Provider Psychiatry & Neurology Psychiatry; Emergency Provider Emergency Medicine; Visit Provider Psychiatry & Neurology Psychiatry
DX: G30.1 Alzheimer's disease with late onset (principal); G93.41 Metabolic encephalopathy; F02.C11 Dementia in other diseases classified elsewhere, severe, with agitation; N39.0 Urinary tract infection, site not specified; E87.21 Acute metabolic acidosis; Z20.822 Contact with and (suspected) exposure to COVID-19; Z79.899 Other long term (current) drug therapy
CPT/HCPCS: 36415; 70450; 71045; 80048; 80053; 80061; 81001; 81003; 82140; 82607; 82746; 82947; 83036; 83605; 83735; 83880; 84439; 84443; 84484; 85025; 86617; 86618; 87040; 87086; 87088; 87186; 87637; 93005; 93970; 99284; S9485

== ENCOUNTER → 2024-07-18 23:16 | Outpatient (BNV) | payer MEDICARE, SELFPAY | PROVIDERS: Emergency Provider Emergency Medicine; Visit Provider Radiology Diagnostic Radiology | DX: R41.82 Altered mental status, unspecified (principal); R26.81 Unsteadiness on feet | CPT/HCPCS: 70450 ==

== ENCOUNTER → 2024-07-19 11:20 | Outpatient (BNV) | payer MEDICARE, SELFPAY | PROVIDERS: Admitting Provider Psychiatry & Neurology Psychiatry; Emergency Provider Emergency Medicine; Visit Provider Internal Medicine | DX: R00.1 Bradycardia, unspecified (principal) | CPT/HCPCS: 93010 ==

== ENCOUNTER 2024-07-19 13:39 | Outpatient (BNV) | payer MEDICARE, SELFPAY | END 2024-11-28 18:45 | PROVIDERS: Admitting Provider Psychiatry & Neurology Psychiatry; Emergency Provider Emergency Medicine; Visit Provider Radiology Diagnostic Radiology | DX: R65.10 Systemic inflammatory response syndrome (SIRS) of non-infectious origin without acute organ dysfunction (principal) | CPT/HCPCS: 71045 ==

== ENCOUNTER 2024-07-19 13:39 | Outpatient (BNV) | payer MEDICARE, SELFPAY | END 2024-10-08 14:57 | PROVIDERS: Admitting Provider Psychiatry & Neurology Psychiatry; Emergency Provider Emergency Medicine; Visit Provider Radiology Diagnostic Radiology | DX: R41.82 Altered mental status, unspecified (principal) | CPT/HCPCS: 93970 ==

== ENCOUNTER 2024-07-19 13:39 | Outpatient (BNV) | payer MEDICARE, SELFPAY | END 2024-10-08 12:46 | PROVIDERS: Admitting Provider Psychiatry & Neurology Psychiatry; Emergency Provider Emergency Medicine; Visit Provider Internal Medicine Cardiovascular Disease | DX: R94.31 Abnormal electrocardiogram [ECG] [EKG] (principal); R55 Syncope and collapse | CPT/HCPCS: 93010 ==

== ENCOUNTER 2024-07-19 13:39 | Outpatient (BNV) | payer MEDICARE, SELFPAY | END 2024-10-04 14:24 | PROVIDERS: Admitting Provider Psychiatry & Neurology Psychiatry; Emergency Provider Emergency Medicine; Visit Provider Internal Medicine Cardiovascular Disease | DX: I44.7 Left bundle-branch block, unspecified (principal) | CPT/HCPCS: 93010 ==

== ENCOUNTER → 2024-07-19 13:39 | Outpatient (BNV) | payer MEDICARE, SELFPAY | PROVIDERS: Admitting Provider Psychiatry & Neurology Psychiatry; Emergency Provider Emergency Medicine; Visit Provider Nurse Practitioner Family | DX: Z00.8 Encounter for other general examination (principal) | CPT/HCPCS: 99429 ==

== ENCOUNTER → 2024-07-19 13:39 | Outpatient (BNV) | payer MEDICARE, SELFPAY | PROVIDERS: Admitting Provider Psychiatry & Neurology Psychiatry; Emergency Provider Emergency Medicine; Visit Provider Psychiatry & Neurology Psychiatry | DX: F03.90 Unspecified dementia, unspecified severity, without behavioral disturbance, psychotic disturbance, mood disturbance, and anxiety (principal) | CPT/HCPCS: 99231 ==

== ENCOUNTER → 2024-07-19 13:39 | Outpatient (BNV) | payer MEDICARE, SELFPAY | PROVIDERS: Admitting Provider Psychiatry & Neurology Psychiatry; Emergency Provider Emergency Medicine; Visit Provider Psychiatry & Neurology Neurology | DX: F03.918 Unspecified dementia, unspecified severity, with other behavioral disturbance (principal) | CPT/HCPCS: 99222 ==

== ENCOUNTER → 2024-07-19 13:39 | Outpatient (BNV) | payer MEDICARE, SELFPAY | PROVIDERS: Admitting Provider Psychiatry & Neurology Psychiatry; Emergency Provider Emergency Medicine; Visit Provider Social Worker | DX: F03.90 Unspecified dementia, unspecified severity, without behavioral disturbance, psychotic disturbance, mood disturbance, and anxiety (principal) | CPT/HCPCS: 90792; 99231; 99232 ==

== ENCOUNTER 2024-11-28 20:49 | Inpatient (IN) | payer MEDICARE, SELFPAY ==
--- OUTSIDE RECORDS SUMMARY | 2024-08-18 06:30 | XMS_ITS ---
Author Organization [facility] Address [address] [place] [address] Care Team Providers Care Baggagemaster Name Role Phone Candido Mcwilliams Primary Care Provider Yessenia Pepper Unavailable [phone] Encounters Encounter Location Date Provider Diagnosis [facility] [address] [place] [address] 08/18/2024 Yessenia Stewart Plan Of Treatment No Information Progress Notes * Luan SEGURADOB:1950 (74 yo M)Acc No.[id number]:08/18/2024 Progress Notes Patient: Luan ORTIZ Provider: Rasta Stewart DPM :1950 A ge:73 Y S ex:Male Date:08/18/2024 Address:[address] [place], [place] [id number] Pcp:Candido Mcwilliams Subjective: * Chief Complaints: * * Medical History: Objective: * Vitals: Assessment: Plan: * Treatment: * Images: * The named appointment provid er may or may not be the originator of this progress note, and it is not deemed complete until electronically signed by the appointment provider. Sign off status: Pending * Provider: Rasta Stewart DPM Date: 0 08/18/2024 Generated for Trino farooq/Kyleigh/Yumikoitting on: 0 11/28/2024 08:54 PM EDT
--- NOTE | 2024-11-28 20:32 | P.HPHOSP_ITS ---
History of Present Illness Date of Service: 11/28/24 Attending physician on admission: Chuck Higuera Chief Complaint: fever Patient is a 74-year-old male with a past medical history significant for dementia with aggressive behaviors and history DVT, transferred [facility] due to fever of 102.5 and tachycardia of 132, pt found to have sepsis UTI. pt is unable to provide a history due to dementia with acute metabolic encephalopathy. Review of Systems Review of Systems: Yes Unobtainable due to mental condition and Unobtainable due to mental status [facility] Medical History Acute deep vein thrombosis (DVT) Alzheimer's dementia Social History Household Members: Spouse Housing: House Do you presently have visiting nurse or other home services: No Comment: close observation Patient Tobacco Use Status: Tobacco use Unknown service: No Sexual orientation: Straight/Heterosexual Meds Allergies Allergy/AdvReac Type Severity Reaction Status Date / Time No Known Allergies Allergy Verified 07/18/24 21:28 Active Medications: Current Medications Calcium Carbonate (Calcium Carbonate 750 Mg Tab.Chew) 750 mg PO Q4H PRN PRN Reason: Heartburn Divalproex Sodium (Divalproex Sodium Sprinkles 125 Mg Cap.Spr) 125 mg PO BID@0900,1500 ADITYA Divalproex Sodium (Divalproex Sodium Sprinkles 125 Mg Broderick.Spr) 250 mg PO BEDTIME ADITYA Donepezil HCl (Donepezil Hcl 5 Mg Tablet) 5 mg PO BEDTIME ADITYA Furosemide (Furosemide 20 Mg Tablet) 20 mg PO DAILY ADITYA; Protocol Heparin Sodium (Porcine) (Heparin Sodium,Porcine 5,000 Unit/Ml Vial) 5,000 unit SUBCUT Q12H ADITYA Acetaminophen (Ofirmev) 1,000 mg in 100 mls @ 400 mls/hr IV Q6H ADITYA Magnesium Hydroxide (Milk Of Magnesia 30 Ml Oral.Susp) 30 ml PO DAILY PRN PRN Reason: Constipation Melatonin (Melatonin 3 Mg Tablet) 6 mg PO BEDTIME PRN PRN Reason: Insomnia Memantine (Memantine Hcl 5 Mg Tablet) 5 mg PO DAILY ADITYA Ondansetron HCl (Ondansetron Hcl 4 Mg/2 Ml Vial) 4 mg IVPUSH Q8H PRN PRN Reason: Nausea and Vomiting Oxycodone HCl (Oxycodone Hcl Immed Release 5 Mg Tablet) 5 mg PO Q6H PRN PRN Reason: Pain, Severe (Pain Scale 7-10) Quetiapine Fumarate (Quetiapine Fumarate 50 Mg Tablet) 50 mg PO BID@1200,2100 ADITYA Quetiapine Fumarate (Quetiapine Fumarate 50 Mg Tablet) 50 mg PO Q6H PRN PRN Reason: agitation Sodium Chloride (0.9 % Sodium Chloride Flush 3 Ml Syringe) 3 ml IVFLUSH QSHIFT ADITYA Tramadol HCl (Tramadol Hcl 50 Mg Tablet) 50 mg PO Q6H PRN PRN Reason: Pain, Moderate(Pain Scale 4-6) Trazodone HCl (Trazodone Hcl 50 Mg Tablet) 50 mg PO BEDTIME PRN PRN Reason: Insomnia Home Medications ?Medication ?Instructions ?Recorded ?Confirmed ?Last Taken ?Type olanzapine 5 mg disintegrating 5 mg PO BID 07/18/24 Unknown History tablet Physical Exam Vital Signs and Narrative: General: Alert not oriented to palce or time, no acute distress Resp: CTA bilaterally CVS: S1, S2, regular rhythm, tachy GI: +BS, NT, no distention Skin: Warm, dry Neuro: Cranial nerves II-XII grossly intact bilaterally. Motor grossly intact bilaterally Extremities: No pitting edema Psych: dementia, confused Assessment and Plan (1) Acute metabolic encephalopathy: Status: Acute (2) Sepsis: Status: Acute (3) Acute UTI: Status: Acute (4) Acute lactic acidosis: Status: Acute Plan Patient is a 74-year-old male with a past medical history significant for dementia with aggressive behaviors and history DVT, transferred from [facility] due to fever of 102.5 and tachycardia of 132, pt found to have sepsis UTI. acute metabolic encephalopathy with sepsis secondary to UTI - WBC 11.7, febrile at 102.5, tachycardic and tachypneic, lactic acid 2.5, blood cultures x2 pending - CXR negative - COVID/flu/RSV negative - UA +, culture pending - normotensive - pt started on ceftriaxone, continue - given 1L IVF - repeat lactic due, add d-dimer due to hx DVT and tachycardia - follow CBC and BMP acute lactic acidosis - lactic acid 2.5, repeat ordered - given 1L IVF - BPs normal - trend lactic dementia with aggressive behaviors - 1 to 1 sitter - continue Depakote, donepezil, memantine, olanzapine, quetiapine, trazodone - psych consult for continuation of care hx DVT - doppler US in 10/09 negative for DVT - d-dimer pending - no hypoxia - no unilateral LE edema chronic LE edema - hold lasix x24 hours in the setting of sepsis full code VTE prophy: heparin Patient with acute metabolic encephalopathy with sepsis secondary to UTI, requiring admission for at least 2 midnight stay for IV antibiotics and monitoring. Quality Stroke Does the patient have a stroke diagnosis?: No VTE Prior VTE?: Yes VTE Risk Level:: Medical - moderate - high VTE Device Contraindication: Treatment Not Indicated VTE Drug Contraindication: N/A - Med Ordered
--- OUTSIDE RECORDS SUMMARY | 2024-11-28 20:54 | XMS_ITS | Encounter Summary ---
Author Organization [facility] Address [address] [place] [address] Phone Care Team Providers Care Package Designer Name Role Phone Candido Mcwilliams MD Primary Care Provider [phone] Encounter Details Date Type Department Care Team (Late st Contact Info) Description 03/20/2024 Procedure Pass [facility], Ct Scan - [facility] [address] [place] [address] Social History Tobacco Use Types Packs/Day Years Used Date Smoking Tobacco: Never Smokeless Tobacco: Never Child or Family Care Answer Date Record ed Do you have problems with on e of the following making it difficult for you to work, study, or receive health care? No 02/18/2024 Education Answer Date Recorded Are you interested in more education? Not on maryuri e 07/13/2022 Are you concerned about learning? Not on file 07/13/2022 No 07/13/2022 No 07/13/2022 Food Answer Date Recorded Within the past 6 months we worried whether our food would run out before we got money to buy more. Sometimes True 024 Within the past 6 months the food we bought just didn't last and we didn't have enough money to get more. Never True 05/2023 Residential Stability Answer Date Recor ded What is your housing situation today? I have solo sing 02/18/2024 How many times have you move d in the past 12 months? Zero (I did not move) 02/18/2024 Paying for Meds Answer Date Recorded Do you have trouble paying for medicines? No 02/18/2024 Paying Utility Bills Answer Date Record ed Do you have trouble paying your heating or elect ricity bill? No 02/18/2024 Transportation Answer Date Recorded Has the lack of transportati on kept you from medical appointments or from getting medications? No 02/18/2024 Digital Access Answer Date Recorded Yes 02/18/2024 No 02/18/2024 Do you have reliable internet access at home? No 02/18/2024 Do you have a device (e.g., phone, tablet, computer) with a working camera? No 02/18/2024 Intimate Partner Violence Answer Date R ecorded Are you denied basic needs s uch as food, clothing, or medical care? Patient unable to respond 03/20/2024 In the past 12 months have y ou been in a relationship with a person who hurts, threatens, or tries to control you? Patient unable to respond 03/20/2024 Are you denied basic needs s uch as food, clothing, or medical care? Patient unable to respond 03/20/2024 In the past 12 months have y ou been in a relationship with a person who hurts, threatens, or tries to control you? Patient unable to respond 03/20/2024 Sex and Gender Information Value Date Recorded Sex Assigned at Male 06/09/2023 2:35 PM EDT Legal Sex Male 10:04 PM EDT Gender Identity Male 06/09/2023 2:35 PM EDT Sexual Orientation Straight 06/09/2023 2: 35 PM EDT documented as of this encounter Plan of Treatment Not on file documented as of this encounter Visit Diagnoses Not on filedocumented in this encounter Additional Health Concerns Infection Onset Date Last Indicated Resolved Time CoV-Exposed Comment:Positive COVID-19 03/20/2024 03/20/2024 03/20/2024 8:1 9 PM EST CoV-Risk 03/20/2024 03/20/2024 03/20/2024 8:19 PM EST COVID-19 03/20/2024 03/20/2024 04/10/2024 1:23 AM EST Assessment Noted Time PHQ-2 Depression Total Score: 0 02/18/20 1:37 PM EST documented as of this encounter Care Teams Package Designer Relationship Specialty Start Date End Date Candido Mcwilliams MD [address] [place] [address], [address] [place] [address] [email or web address] PCP - General Family Medicine 02/18/24 documented as of this encounter Additional Source Comments The information contained in this document represents components of the legal health record. It is not the complete legal health record.[facility]
--- OUTSIDE RECORDS SUMMARY | 2024-11-28 20:54 | XMS_ITS | Encounter Summary ---
Author Organization [facility] Address [address] [place] [address] Phone Care Team Providers Care Lower In Supervisor Name Role Phone Candido Mcwilliams MD Primary Care Provider [phone] Encounter Details Date Type Department Care Team (Late st Contact Info) Description 03/20/2024 Procedure Pass [facility], Ct Scan - [facility] [address] [place] [address] Social History Tobacco Use Types Packs/Day Years [...] documented as of this encounter Care Teams Lower In Supervisor Relationship Specialty Start Date End Date Candido Mcwilliams MD [address] [place] [address], [address] [place] [address] [email or web address] PCP - General Family Medicine 02/18/24 documented as of this encounter Additional Source Comments The information contained in this document represents components of the legal health record. It is not the complete legal health record.[facility]
--- OUTSIDE RECORDS SUMMARY | 2024-11-28 20:55 | XMS_ITS | Encounter Summary ---
Author Organization [facility] Address [address] [place] [address] Phone Care Team Providers Care Rewards Consultant Name Role Phone Hayes Taylor Primary Care Provider [phone] Candido Mcwilliams MD Primary Care Provider [phone] Reason for Referral * MRI/CAT Scan - Closed Specialty Diagnoses / Procedures Referred By Lidia montez Referred To Contact Radiology Diagnoses Memory loss Procedures CT Head Laci Oneill MD Phone: tel: fax: [email or web address] Referral ID Status Reason Start Date Expiration Date Visits Re quested Visits Authorized [id number] Closed 01/21/2020 01/20/2021 1 1 Encounter Details Date Type Department Care Team (Latest Contact Info) Description 01/21/2020 Transcribe Orders Virtual Department [address] [place] [address] Laci Oneill MD [address] [place] [address], [address] [place] [address] [email or web address] Memory loss (Primary Dx) Social History Tobacco Use Types Packs/Day Years Used Date Smoking Tobacco: Never Smokeless Tobacco: Never Sex and Gender Information Value Date Recorded Sex Assigned at Male 06/09/2023 2:35 PM EDT Legal Sex Male 10:04 PM EDT Gender Identity Male 06/09/2023 2:35 PM EDT Sexual Orientation Straight 06/09/2023 2: 35 PM EDT documented as of this encounter Plan of Treatment Not on file documented as of this encounter Results * CT HEAD WITHOUT CONTRAST (01/28/2020 1:58 PM EST) Anatomical Region Laterality Modality Head Computed Tomogra phy 01/28/2020 2:57 PM EST Impressions 01/28/2020 2:59 PM EST Grossly age-appropriate cortical atrophy without evidence of mass-effect or other acute process demonstrated on this non-contrast study. TOTAL CTDIvol: mGy POS - [id number] Narrative 01/28/2020 2:59 PM EST COMPARISON: None TECHNIQUE: Helical scanning was performed from the skull base through the convexities without intravenous ministration of contrast material. Sagittal and coronal reformats were generated and reviewed. Automated exposure control was utilized. FINDINGS: There is no evidence of acute intracranial hemorrhage or transcortical infarct. Ventricles and cerebral sulci are mildly prominent consistent with age- appropriate cortical atrophy. No shift of the intra-axial structures or pathologic extra- axial fluid collections are demonstrated. No calvarial defect. Visualized paranasal sinuses and mastoid air cells are grossly clear. Procedure Note Gomez Saunders MD - 01/28/2020 COMPARISON: None TECHNIQUE: Helical scanning was performed from the skull base through theconvexities without intravenous ministration of contrast material.Sagittal and coronal reformats were generated and reviewed. Automatedexposure control was utilized. FINDINGS: There is no evidence of acute intracranial hemorrhage or transcorticalinfarct. Ventricles and cerebral sulci are mildly prominent consistentwith age- appropriate cortical atrophy. No shift of the intra-axialstructures or pathologic extra- axial fluid collections are demonstrated.No calvarial defect. Visualized paranasal sinuses and mastoid air cellsare grossly clear. IMPRESSION: Grossly age-appropriate cortical atrophy without evidence of mass-effector other acute process demonstrated on this non-contrast study. TOTAL CTDIvol: mGy POS - [id number] us Laci Oneill MD IMG CT HEAD/NECK Final Resul t documented in this encounter Visit Diagnoses Diagnosis Memory loss- Primary Memory loss documented in this encounter Additional Health Concerns Infection Onset Date Last Indicated Resolved Time CoV-Exposed Comment:Positive COVID-19 03/20/2024 03/20/2024 03/20/2024 8:1 9 PM EST CoV-Risk 03/20/2024 03/20/2024 03/20/2024 8:19 PM EST COVID-19 03/20/2024 03/20/2024 04/10/2024 1:23 AM EST documented as of this encounter Care Teams Rewards Consultant Relationship Specialty Start Date End Date Hayes Taylor DO [email or web address] PCP - General 03/21/17 02/17/24 Candido Mcwilliams MD [address] [place] [address], [facility] [address] [place] [address] [email or web address] PCP - General Family Medicine 02/18/24 documented as of this encounter Additional Source Comments The information contained in this document represents components of the legal health record. It is not the complete legal health record.[facility]
--- OUTSIDE RECORDS SUMMARY | 2024-11-28 20:55 | XMS_ITS | Clinical Summary ---
Author Organization [facility] Address [address] [place] [address] Phone Care Team Providers Care Consulting Practice Director Name Role Phone Candido Mcwilliams MD Primary Care Provider [phone] Allergies No known active allergies Medications MULTIVITAMIN ORAL Take by mouth. Active b complex vitamins capsule Take 1 capsule by mouth daily. Active ascorbic acid (VITAMIN C ORAL) Take by mouth. Active donepeziL (ARICEPT) 10 MG tabletIndications:M oderate dementia with agitation, unspecified dementia type Take 1 tablet (10 mg total) by mouth daily. 30 tablet 5 5 Active aspirin 81 MG EC tabletIndications:L ower leg DVT (deep venous thromboembolism), acute, right Take 1 tablet (81 mg total) by mouth daily. 90 tablet 3 5 Active OLANZapine (ZYPREXA ZYDIS) 5 MG disintegrating tabletIndications:M oderate dementia with agitation, unspecified dementia type Take 1 tablet (5 mg total) by mouth 2 (two) times a day. Give at 2pm and 9 pm 180 tablet 1 5 Active Active Problems Problem Noted Date Diagnosed Date Hypothermia 07/02/2024 Assessment & Plan (07/03/2024 4:28 PM EDT): Resolved. Secondary to exposure Patient eloped from his home ~10:30pm 07/01. called 911 ~6am when she woke up and found him missing. Patient was found awake in a car in a neighbor's driveway. On EMS arrival: tympanic temp 86.9F, heart rate in the 50s, POC glucose at 104, BP of 143/80. Rewarmed successfully with warm fluids, Pravin Hugger, and warm blankets. Temp improved to 98.2 F. No signs of systemic infection; chest x-ray is clear, and no leukocytosis noted. Likely etiology is prolonged environmental exposure. Continue to monitor for rebound hypothermia. Assessment & Plan (07/02/2024 3:08 PM EDT): Patient eloped from his home ~10:30pm 07/01. called 911 ~6am when she woke up and found him missing. Patient was found awake in a car in a neighbor's driveway. On EMS arrival: tympanic temp 86.9F, heart rate in the 50s, POC glucose at 104, BP of 143/80. Rewarmed successfully with warm fluids, Pravin Hugger, and warm blankets. Temp improved to 98.2 F. No signs of systemic infection; chest x-ray is clear, and no leukocytosis noted. Likely etiology is prolonged environmental exposure. Continue to monitor for rebound hypothermia. -UA pending -TSH pending -Telemetry monitoring Lower leg DVT (deep venous thromboembolism), acu te, right 02/18/2024 Assessment & Plan (07/03/2024 4:28 PM EDT): History of DVT 01/2024. states he used to take Eliquis but was switched to baby aspirin by outpatient provider. -Continue ASA 81mg -Lovenox Assessment & Plan (07/02/2024 3:08 PM EDT): History of DVT 01/2024. states he used to take Eliquis but was switched to baby aspirin by outpatient provider. -Continue ASA 81mg -Lovenox Moderate dementia with agitation 02/18/2024 Assessment & Plan (07/03/2024 4:28 PM EDT): 5 year history of dementia. Patient is currently at his baseline dementia according to daughter Arminda. This has been his baseline for about 1 year. Donepezil started 1 month ago. -Continue donepezil -Support orientation and cognitive functioning -PT/OT -Delirium precautions -Fall precautions, had a fall 03/2024 which prompted admission -Social work/case management consult: possible need for additional support, increased supervision or memory care evaluation. Will ask for psych recommendations for medications to try to improve safety at home Assessment & Plan (07/02/2024 3:08 PM EDT): 5 year history of dementia. Patient is currently at his baseline dementia according to daughter Arminda. This has been his baseline for about 1 year. Donepezil started 1 month ago. -Continue donepezil -Support orientation and cognitive functioning -PT/OT -Delirium precautions -Fall precautions, had a fall 03/2024 which prompted admission -Social work/case management consult: possible need for additional support, increased supervision or memory care evaluation. Encounters Date Type Department Care Team Description 09/02/2024 Telephone [facility] [address] [place] [address] Barbara Graves RN from Last 3 Months Immunizations Immunization Administration Dates Next Due Influenza High-Dose Quadrivalent Preservative Fr ee IM 12/05/2021 Influenza High-Dose Trivalent Preservative Free IM 02/18/2024 Influenza Quadrivalent Adjuvanted Preservative F ree IM 02/21/2021 RSV Vaccine (monovalent, adjuvanted) 02/16/2023 Tdap 10/19/2019,11/28/2014 Social History Tobacco Use Types Packs/Day Years Used Date Smoking Tobacco: Never Smokeless Tobacco: Never Tobacco Cessation:Counseling Given: Not Answered Child or Family Care Answer Date Record [...] before we got money to buy more. Never True 07/02/2024 Within the past 6 months the food we bought just didn't last and we didn't have enough money to get more. Never True Residential Stability Answer Date Recor ded What is your housing situation today? I have solo [place] 07/02/2024 How many times have you move d in the past 12 months? Zero (I did not move) 07/02/2024 Paying for Meds Answer Date Recorded Do you have trouble paying for medicines? No 07/02/2024 Paying Utility Bills Answer Date Record ed Do you have trouble paying your heating or elect ricity bill? No 07/02/2024 Transportation Answer Date Recorded Has the lack of transportati on kept you from medical appointments or from getting medications? No 07/02/2024 Digital Access Answer Date Recorded No 07/02/2024 Yes 07/02/2024 Do you have reliable internet access at home? Ye s 07/02/2024 Do you have a device (e.g., phone, tablet, computer) with a working camera? Yes 07/02/2024 Intimate Partner Violence Answer Date R ecorded Are you denied basic needs s uch as food, clothing, or medical care? No 07/02/2024 In the past 12 months have y ou been in a relationship with a person who hurts, threatens, or tries to control you? No 07/02/2024 Are you denied basic needs s uch as food, clothing, or medical care? No 07/02/2024 In the past 12 months have y ou been in a relationship with a person who hurts, threatens, or tries to control you? No 07/02/2024 Sex and Gender Information Value Date Recorded Sex Assigned at Male 06/09/2023 2:35 PM EDT Legal Sex Male 10:04 PM EDT Gender Identity Male 06/09/2023 2:35 PM EDT Sexual Orientation Straight 06/09/2023 2: 35 PM EDT Last Filed Vital Signs Vital Sign Reading Time Taken Comments Blood Pressure 120/72 07/16/2024 3:16 PM EDT Pulse 72 07/16/2024 3:16 PM EDT Temperature 36.2 C (97.2 F) 07/04/2024 8:10 AM EDT Respiratory Rate 16 07/04/2024 8:10 AM EDT Oxygen Saturation 98% 07/16/2024 3:16 PM EDT Inhaled Oxygen Concentration - - Weight 70.3 kg (155 lb) 07/16/2024 3:16 PM EDT Height 182.9 cm (6') 07/16/2024 3:16 PM EDT Body Mass Index 21.02 07/16/2024 3:16 PM EDT Plan of Treatment Health Maintenance Due Date Last Done Comments LIPID PANEL 1948 HEPATITIS C SCREENING 1966 PNEUMOCOCCAL VACCINES (50+ years) (1 of 1 - PCV) 1998 ZOSTER VACCINES (1 of 2) 1998 INFLUENZA VACCINE (#1) 2024 , 12/05/2021, 02/21/2021 COVID-19 VACCINE ( - 2024- season) 2024 02/16/2023, 01/11/2021, 06/15/2020, Additional history exists DEPRESSION SCREENING 02/17/2025 02/18/2024 Adult Td,Tdap Booster 10/18/2029 10/19/2019, 015 RSV VACCINE Completed 02/16/2023 SMOKING STATUS SCREENING (Once After 26 Yrs) Completed 07/16/2024 HEPATITIS A VACCINES Aged Out No long er eligible based on patient's age to complete this topic HIB VACCINES Aged Out No longer eligi ble based on patient's age to complete this topic MENINGOCOCCAL VACCINES (ACWY) Aged Out No longer eligible based on patient's age to complete this topic MENINGOCOCCAL VACCINES (B) Aged Out N o longer eligible based on patient's age to complete this topic Medical Devices Not on file Insurance [employer] MEDICARE PART A & B [employer] MEDICARE PART A & B [employer] RE[employer] MEDICARE PART A & B [employer] RE[employer] MEDICARE PART A & B [employer] MEDICARE PREFERRED HMO REPLACEMENT MEDICARE PART A & B [employer]AC[employer] MEDICARE PART A & B Care Teams Consulting Practice Director Relationship Specialty Start Date End Date Candido Mcwilliams MD [address] [place] [address], [address] [place] [address] [email or web address] PCP - General Family Medicine 02/18/24 Additional Source Comments The information contained in this document represents components of the legal health record. It is not the complete legal health record.[facility]
--- OUTSIDE RECORDS SUMMARY | 2024-11-28 20:55 | XMS_ITS | Encounter Summary ---
Author Organization [facility] Address [address] [place] [address] Phone Care Team Providers Care Cosmetic Consultant Name Role Phone Hayes Taylor DO Primary Care Provider [phone] Candido Mcwilliams MD Primary Care Provider [phone] Encounter Details Date Type Department Care Team (Late st Contact Info) Description 01/21/2020 Procedure Pass [facility], Ct Scan - [facility] [address] [place] [address] Social History Tobacco Use Types Packs/Day Years [...] documented as of this encounter Care Teams Cosmetic Consultant Relationship Specialty Start Date End Date Hayes Taylor DO [email or web address] PCP - General 03/21/17 02/17/24 Candido Mcwilliams MD [address] [place] [address] [address] [place] [address] [email or web address] PCP - General Family Medicine 02/18/24 documented as of this encounter Additional Source Comments The information contained in this document represents components of the legal health record. It is not the complete legal health record.[facility]
--- OUTSIDE RECORDS SUMMARY | 2024-11-28 20:55 | XMS_ITS | Encounter Summary ---
Author Organization [facility] Address [address] [place] [address] Phone Care Team Providers Care Carton Filler Name Role Phone Hayes Taylor Primary Care Provider [phone] Candido Mcwilliams MD Primary Care Provider [phone] Encounter Details Date Type Department Care Team (Late st Contact Info) Description 06/09/2023 Procedure Pass [facility], Ct Scan - [facility] [address] [place] [address] Social History Tobacco Use Types Packs/Day Years Used Date Smoking Tobacco: Never Smokeless Tobacco: Never Education Answer Date Recorded Are you interested in more education? Not on maryuri e 07/13/2022 Are you concerned about learning? Not on file 07/13/2022 No 07/13/2022 No 07/13/2022 Digital Access Answer Date Recorded No 08/11/2022 No 08/11/2022 Reliable internet access at home? Not on file 08/11/2022 Device with a working camera? Not on file Sex and Gender Information Value Date Recorded Sex Assigned at Male 06/09/2023 2:35 PM EDT Legal Sex Male 10:04 PM EDT Gender Identity Male 06/09/2023 2:35 PM EDT Sexual Orientation Straight 06/09/2023 2: 35 PM EDT documented as of this encounter Functional Status * Calculated C-SSRS Risk Score (Lifetime/Recent) Answer Date of Assessment Author No Risk Indicated 06/09/2023 2:35 PM EDT John Warner RN * [place] Suicide Severity Rating Scale (Screener/Recent Self-Report) Question Answer Date of Assessment Author 1. Wish to be (Past 1 Month) No 024 2:35 PM EDT John Barbosa RN 2. Non-Specific Active Suici denise Thoughts (Past 1 Month) No 06/09/2023 2:35 PM EDT David Barbosa RN 6. Suicidal Behavior (Lifetime) No 2:35 PM EDT John Barbosa RN documented as of this encounter Plan of [...] documented as of this encounter Care Teams Carton Filler Relationship Specialty Start Date End Date Hayes Taylor DO [email or web address] PCP - General 03/21/17 02/17/24 Candido Mcwilliams MD [address] [place] [address], [facility] [address] [place] [address] [email or web address] PCP - General Family Medicine 02/18/24 documented as of this encounter Additional Source Comments The information contained in this document represents components of the legal health record. It is not the complete legal health record.[facility]
--- OUTSIDE RECORDS SUMMARY | 2024-11-28 20:55 | XMS_ITS | Patient Health Record ---
Author Organization [facility] Address [address] [place] [address] Care Team Providers Care Histology Assistant Name Role Phone [email or web address] Primary Care Provider Yessenia Pepper Unavailable [phone] Leodan Galloway Unavailable [phone] Reason For Referral No Information Encounters Encounter Location Date Provider Diagnosis [address] [address] 05/27/2024 Leodan Galloway [facility] [address] [place] [address] 06/10/2024 Yessenia Stewart Plan Of Treatment No Information Insurance Providers Payer Name Payer Address Payer Phone Subscriber Number Group Number Insured Name Patient Relationship to Insured Coverage Start Date Coverage End Date [employer] [address] [place] [address] [id number] Luan Segura Self - patient is the insured
--- OUTSIDE RECORDS SUMMARY | 2024-11-28 20:55 | XMS_ITS | Encounter Summary ---
Author Organization [facility] Address [address] [facility] [address] [place] [address] Phone Care Team Providers Care Patient Intake Representative Name Role Phone Hayes Taylor DO Primary Care Provider [phone] Candido Mcwilliams MD Primary Care Provider [phone] Encounter Details Date Type Department Care Team (Late st Contact Info) Description 09/23/2017 Transcribe Orders [facility] [address] [place] [address] Hayes Taylor DO [address] [facility] [address] [place], [place] [id number] Abnormal lead level in blood (Primary Dx) Social History Tobacco Use Types Packs/Day Years Used Date Smoking Tobacco: Never Assessed Sex and Gender Information Value Date Recorded Sex Assigned at Male 06/09/2023 2:35 PM EDT Legal Sex Male 10:04 PM EDT Gender Identity Male 06/09/2023 2:35 PM EDT Sexual Orientation Straight 06/09/2023 2: 35 PM EDT documented as of this encounter Plan of Treatment Not on file documented as of this encounter Visit Diagnoses Diagnosis Abnormal lead level in blood- Primary Other abnormal blood chemistry documented in this encounter Additional Health Concerns Infection Onset Date Last Indicated Resolved Time CoV-Exposed Comment:Positive COVID-19 03/20/2024 03/20/2024 03/20/2024 8:1 9 PM EST CoV-Risk 03/20/2024 03/20/202403/20/2024 8:19 PM EST COVID-19 03/20/2024 03/20/2024 04/10/2024 1:23 AM EST documented as of this encounter Care Teams Patient Intake Representative Relationship Specialty Start Date End Date [email or web address] DO [email or web address] PCP - General 03/21/17 02/17/24 Candido Mcwilliams MD [address] [place] [address], [address] [place] [address] [email or web address] PCP - General Family Medicine 02/18/24 documented as of this encounter Additional Source Comments The information contained in this document represents components of the legal health record. It is not the complete legal health record.[facility]
[2024-11-28 21:59] VITALS: BMI 27.8
[2024-11-28 22:00] VITALS: BP 112/59; PULSE 81; RESP 16; TEMP 37.9; O2SAT 92
[2024-11-28] MEDS: Divalproex Sodium Sprinkles 125 MG CAP.DR.SPR 250 MG PO ×2 (22:14→22:27)
[2024-11-28 22:15] LABS: D Dimer High Sensitivity 249 NG/ML
--- NOTE | 2024-11-28 22:43 | PC.NURSE ---
Pt discharged from @ 2044 to [facility], day shift reported that Pt was tremulous, babbling with T- of 102.5, P 132, R 20, O2SAT OF 96, BP 138/74, urine and nasal swab collected, lactic acid critical high 2.5, priority sent to Christine Gonsalez. Pt at the time of transfer VS 99.8-104/64-91-93, IV line on right forearm with bolus normal saline.
[2024-11-28 22:55] VITALS: BP 107/58; PULSE 77; RESP 12; TEMP 37.1; O2SAT 94
[2024-11-28 23:37] VITALS: BP 123/60; PULSE 78; RESP 18; TEMP 36.3; O2SAT 95
[2024-11-29] VITALS (8 sets, daily range): BP systolic 108–163; BP diastolic 50–79; PULSE 68–99; RESP 16–20; TEMP 36.4–38.9; O2SAT 92–97; BMI 27.8
[2024-11-29] MEDS: Lactated Ringers 1,000 ML 75 ML IVCONT (04:28)
[2024-11-29 08:05] LABS: MANUAL DIFF FLAG NO
[2024-11-29 08:25] LABS: Anion Gap 11 (12-20); Blood Urea Nitrogen 17 mg/dL (9-16); Calcium 8.5 mg/dL (8.4-10.2); Carbon Dioxide 27 mmol/L (22-29); Chloride 108 mmol/L (96-108); Creatinine Clr Calc Pharmacy 71.8; Estimated Glomerular Filt Rate > 60; Potassium 4.1 mmol/L (3.3-5.1); Sodium 142 mmol/L (135-145)
[2024-11-29 08:26] LABS: Hematocrit 37.0 % (42.0-52.0); Hemoglobin 12.1 g/dl (14.0-18.0); Imm Gran Abs Auto 0.02 X10*3/uL (0.00-0.03); Imm Gran Pct Auto 0.2 % (0.0-0.4); Lymphocytes Absolute Auto 1.1 X10*3/uL (1.2-4.9); Mean Corpuscular HGB Conc 32.7 g/dl (31.0-36.0); Mean Corpuscular Hemoglobin 28.2 pg (27.0-33.0); Mean Corpuscular Volume 86.2 fL (80.0-98.0); NRBC Abs Auto 0.000 X10*3/uL (0.0-0.012); NRBC Pct Auto 0.0 /100WBC (0.0-0.2); Platelet Count 165 X10*3/uL (160-400); Red Blood Count 4.29 X10*6/uL (4.60-5.80); White Blood Count 9.8 X10*3/uL (4.8-10.8)
[2024-11-29] MEDS: Divalproex Sodium Sprinkles 125 MG CAP.DR.SPR PO ×2 (09:07→15:27)
--- NOTE | 2024-11-29 10:46 | HO.PM.IMPN ---
Subjective Subjective Date of Service: 11/29/24 Interval History: No fever overnight Less agitated this morning Calm, no complaints AOx1 Review of Systems Review of Systems: Yes Unobtainable due to mental status Physical Exam Exam: Exam: General: AOx1, no acute distress Resp: CTA bilaterally CVS: S1, S2, RRR GI: +BS, NT, no distention Skin: Warm, dry Neuro: Motor grossly intact bilaterally Extremities: No edema Psych: Confused, but calm Vital Signs: Vital Signs: Last Vital Signs Temp 97.6 F 11/29/24 07:38 Pulse 72 11/29/24 07:38 Resp 20 11/29/24 07:38 BP 123/65 11/29/24 07:38 Pulse Ox 97 11/29/24 07:38 O2 Del Method Room Air 11/29/24 07:38 BMI result Body Mass Index 27.8 Objective Data Active Medications Calcium Carbonate (Calcium Carbonate 750 Mg Tab.Chew) 750 mg PO Q4H PRN PRN Reason: Heartburn Ceftriaxone Sodium (Ceftriaxone Sodium 2 Gm Vial) 2 gm IVPUSH Q24H [facility] Last Admin: 11/28/24 22:14 Dose: 2 gm Documented By: ELIZABETH Divalproex Sodium (Divalproex Sodium Sprinkles 125 Mg Broderick.Spr) 125 mg PO BID@0900,1500 [facility] Last Admin: 11/29/24 09:07 Dose: 125 mg Documented By: HENRY Divalproex Sodium (Divalproex Sodium Sprinkles 125 Mg Spr) 250 mg PO BEDTIME [facility] Last Admin: 11/28/24 22:27 Dose: 250 mg Documented By: ELIZABETH Donepezil HCl (Donepezil Hcl 5 Mg Tablet) 5 mg PO BEDTIME [facility] Last Admin: 11/28/24 22:51 Dose: 5 mg Documented By: ELIZABETH Furosemide (Furosemide 20 Mg Tablet) 20 mg PO DAILY [facility]; Protocol Heparin Sodium (Porcine) (Heparin Sodium,Porcine 5,000 Unit/Ml Vial) 5,000 unit SUBCUT Q12H [facility] Last Admin: 11/29/24 09:07 Dose: 5,000 unit Documented By: HENRY Acetaminophen (Ofirmev) 1,000 mg in 100 mls @ 400 mls/hr IV Q6H [facility] Last Infusion: 11/29/24 09:21 Dose: Infused Documented By: HENRY Lactated Ringer's (Lr) 1,000 mls @ 75 mls/hr IVCONT .[id number] [facility] Last Admin: 11/29/24 04:28 Dose: 75 mls/hr Documented By: ELIZABETH Magnesium Hydroxide (Milk Of Magnesia 30 Ml Oral.Susp) 30 ml PO DAILY PRN PRN Reason: Constipation Melatonin (Melatonin 3 Mg Tablet) 6 mg PO BEDTIME PRN PRN Reason: Insomnia Memantine (Memantine Hcl 5 Mg Tablet) 5 mg PO DAILY [facility] Last Admin: 11/29/24 09:07 Dose: 5 mg Documented By: HENRY Ondansetron HCl (Ondansetron Hcl 4 Mg/2 Ml Vial) 4 mg IVPUSH Q8H PRN PRN Reason: Nausea and Vomiting Oxycodone HCl (Oxycodone Hcl Immed Release 5 Mg Tablet) 5 mg PO Q6H PRN PRN Reason: Pain, Severe (Pain Scale 7-10) Quetiapine Fumarate (Quetiapine Fumarate 50 Mg Tablet) 50 mg PO BID@1200,2100 [facility] Last Admin: 11/28/24 22:28 Dose: 50 mg Documented By: ELIZABETH Quetiapine Fumarate (Quetiapine Fumarate 50 Mg Tablet) 50 mg PO Q6H PRN PRN Reason: agitation Sodium Chloride (0.9 % Sodium Chloride Flush 3 Ml Syringe) 3 ml IVFLUSH QSHIFT [facility] Last Admin: 11/29/24 09:08 Dose: Not Given Documented By: HENRY Non-Admin Reason: IV Running Tramadol HCl (Tramadol Hcl 50 Mg Tablet) 50 mg PO Q6H PRN PRN Reason: Pain, Moderate(Pain Scale 4-6) Trazodone HCl (Trazodone Hcl 50 Mg Tablet) 50 mg PO BEDTIME PRN PRN Reason: Insomnia Labs 11/29/24 07:50 11/29/24 07:50 Labs: Laboratory Results - last 24 hr 11/28/24 11/29/24 21:50 07:50 MCV 86.2 MCH 28.2 MCHC 32.7 RDW 14.0 Plt Count 165 MPV 9.5 Immature Gran % (Auto) 0.2 Neut % (Auto) 76.2 H Lymph % (Auto) 11.4 L Andrew % (Auto) 11.0 Eos % (Auto) 0.7 Baso % (Auto) 0.5 Lymph # (Auto) 1.1 L Andrew # (Auto) 1.1 Eos # (Auto) 0.1 Baso # (Auto) 0.1 Abs Immat Gran (auto) 0.02 Absolute Neuts (auto) 7.5 Absolute Nucleated RBC 0.000 Nucleated RBC % (auto) 0.0 D-Dimer High Sensitivty 249 Anion Gap 11 L Estim Creat Clear Calc 71.8 Estimated GFR > 60 Random Glucose 95 Lactic Acid 2.0 Calcium 8.5 Assessment and Plan (1) Acute lactic acidosis: Status: Acute (2) Acute metabolic encephalopathy: Status: Acute (3) Sepsis: Status: Acute Plan Patient is a 74-year-old male with a past medical history significant for dementia with aggressive behaviors and history DVT, transferred from [facility] due to fever of 102.5 and tachycardia of 132, pt found to have sepsis UTI. acute metabolic encephalopathy with sepsis secondary to likely UTI - Met sepsis with severe features with fever 102.5, tachycardic and tachypneic, lactic acid 2.5 - UA concerning for UTI, culture pending; CXR negative, COVID/flu/RSV negative, no N/V/D or abd pain - continue ceftriaxone, started 11/28 - given 1L IVF, maintenance fluids - repeat lactic due, add d-dimer due to hx DVT and tachycardia - follow CBC and BMP acute lactic acidosis, resolved - lactic acid 2.5, repeat WNL - given 1L IVF - BPs normal dementia with aggressive behaviors - 1 to 1 sitter - continue Depakote, donepezil, memantine, olanzapine, quetiapine, trazodone - psych consult for continuation of care - will be transferred back to [facility] once medically cleared hx DVT - doppler US in 10/09 negative for DVT - d-dimer 249, no hypoxia, no unilateral LE edema - no indication for CTA of chest chronic LE edema - hold lasix x24 hours in the setting of sepsis full code VTE prophy: heparin Pt requires continued hospitalization for IV antibiotics for acute encephalopathy in the setting of UTI with sepsis. We will continue IV antibiotics pending urine cultures.. Quality Stroke Does the patient have a stroke diagnosis?: No VTE Prior VTE?: Yes VTE Risk Level:: Medical - moderate - high VTE Device Contraindication: Treatment Not Indicated VTE Drug Contraindication: N/A - Med Ordered
--- NOTE | 2024-11-29 11:11 | PHA.MEDREC ---
Addendum entered by Kvng Saini 11/29/24 11:12: patient on olanzapine outpatient, but has not been used inpatient for the last few months. Original Note: Pharmacy Consult ? Medication Reconciliation Pharmacy has completed the medication reconciliation. Confirmed medication list with medication record. Continued medications from S1.
[2024-11-29] MEDS: Divalproex Sodium Sprinkles 125 MG CAP.DR.SPR 250 MG PO (19:33)
[2024-11-29] MEDS: 0.9 % Sodium Chloride Flush 3 ML SYRINGE IVFLUSH (19:35)
--- NOTE | 2024-11-29 20:51 | PM.PSYDC ---
DS: Providers Provider Date of Service: 07/19/24 Date of admission: 07/19/2024 Date of discharge: 11/28/24 Primary care physician: Unknown Physician Attending physician on admission: Edu Briggs Consults: 11/28/24 22:05 Consult to Psychiatry Routine Consulting Provider: [facility] Reason for consultation: pt transferred from [facility], continuation of care Attending physician on discharge: [facility] DS: Diagnosis Discharge Diagnosis (1) Acute lactic acidosis: Status: Acute (2) Acute metabolic encephalopathy: Status: Acute (3) Sepsis: Status: Acute DS: Medications Discharge Medications Home Medications: Home Medications ?Medication ?Instructions ?Recorded ?Confirmed Ceftriaxone Sodium, Lidocane Hcl 1 g IM Q24H 11/29/24 11/29/24 acetaminophen 325 mg tablet 650 mg PO Q6H PRN Pain (Scale 11/29/24 11/29/24 Score 4-6) Previous Rx's ?Medication ?Instructions ?Recorded divalproex 125 mg capsule,delayed 125 mg PO BID@0900,1500 #1 cap 11/28/24 release sprinkle divalproex 125 mg capsule,delayed 250 mg (2 x 125 mg) PO BEDTIME #1 11/28/24 release sprinkle cap donepezil 5 mg tablet 5 mg PO BEDTIME #1 tab 11/28/24 furosemide 20 mg tablet 20 mg PO DAILY #1 tab 11/28/24 loperamide 2 mg capsule 2 mg PO Q4H PRN Diarrhea #1 cap 11/28/24 memantine 5 mg tablet 5 mg PO DAILY #1 tab 11/28/24 quetiapine 50 mg tablet 50 mg PO BID@1200,2100 #1 tab 11/28/24 quetiapine 50 mg tablet 50 mg PO Q6H PRN agitation #1 tab 11/28/24 trazodone 50 mg tablet 50 mg PO BEDTIME PRN Insomnia #1 11/28/24 tab Mental Status Exam Mental Status Exam Narrative: Mental Status Exam Patient Appearance: Disheveled Level of Consciousness: Disoriented and Restless Patient Behavior: Passive, Confused and Poor Eye Contact Affect Description: Blunted (unable to answer questions about mood) Patient Cognition Impaired: Yes Ability to Follow Directions: Poor Speech Pattern: Garbled, Mumbled and Poor Articulation Memory Description: Episodic Impaired (unable to fully assess) Hallucinations: None (unable to assess) Thought Process: Disoriented and Confusion Thought Content: positive for Poverty of Content Abnormal Motor Activity Signs and Symptoms: Aggression and Restlessness Judgement: Poor Data Data Completed and Pending Completed studies during hospitalization [Text1]: 11/28/24 11/29/24 21:50 07:50 WBC 9.8 RBC 4.29 L Hgb 12.1 L Hct 37.0 L MCV 86.2 MCH 28.2 MCHC 32.7 RDW 14.0 Plt Count 165 MPV 9.5 Immature Gran % (Auto) 0.2 Neut % (Auto) 76.2 H Lymph % (Auto) 11.4 L [place] % (Auto) 11.0 Eos % (Auto) 0.7 Baso % (Auto) 0.5 Lymph # (Auto) 1.1 L [place] # (Auto) 1.1 Eos # (Auto) 0.1 Baso # (Auto) 0.1 Abs Immat Gran (auto) 0.02 Absolute Neuts (auto) 7.5 Absolute Nucleated RBC 0.000 Nucleated RBC % (auto) 0.0 D-Dimer High Sensitivty 249 Sodium 142 Potassium 4.1 Chloride 108 Carbon Dioxide 27 Anion Gap 11 L BUN 17 H Creatinine 0.96 Estim Creat Clear Calc 71.8 Estimated GFR > 60 Random Glucose 95 Lactic Acid 2.0 Calcium 8.5 DS: Summary Hospital Course Hospital Course: On 11/28/2024, patient developed a temperature of 102.5, R20 P132 O2Sat 96% was tremulous and grabbing at unseen items in the air. STAT Hospitalist consult was performed. Decision was made to transfer patient to inpatient medical floor for sepsis workup. Status at Discharge Cognitive/behavioral status at discharge: On 11/28/2024, patient was noted to be visibly interacting with unseen others, grabbing Functional status at discharge: bed bound Overall status at discharge: patient is not back to baseline Time Spent with Patient Time attestation: Total time managing care of this patient today _65___ minutes. Time spent: Greater than 30 minutes Specific discharge activities: evaluation of patient, order placement; coordination of care Discharge Plan Discharge Anticipated Discharge Date/Time: 11/29/24 18:33 Patient Disposition: er Acute Care Hospital Discharge Diagnosis: sepsis Referrals: Physician,Unknown J [Primary Care Provider, Medical] - 1 Week Discharge Medications: No Action donepezil 5 mg Tablet 5 mg PO BEDTIME Qty: 1 0RF loperamide 2 mg Capsule 2 mg PO Q4H PRN (Reason: Diarrhea) Qty: 1 0RF trazodone 50 mg Tablet 50 mg PO BEDTIME PRN (Reason: Insomnia) Qty: 1 0RF furosemide 20 mg Tablet 20 mg PO DAILY Qty: 1 0RF Protocol: Hold for SBP< HOLD for SBP < : 90 divalproex 125 mg Capsule, Delayed Rel Sprinkle 250 mg PO BEDTIME Qty: 1 0RF divalproex 125 mg Capsule, Delayed Rel Sprinkle 125 mg PO BID@0900,1500 Qty: 1 0RF memantine 5 mg Tablet 5 mg PO DAILY Qty: 1 0RF quetiapine 50 mg Tablet 50 mg PO BID@1200,2100 Qty: 1 0RF quetiapine 50 mg Tablet 50 mg PO Q6H PRN (Reason: agitation) Qty: 1 0RF acetaminophen 325 mg Tablet 650 mg PO Q6H PRN (Reason: Pain (Scale Score 4-6)) Ceftriaxone Sodium, Lidocane Hcl 1 g IM Q24H Discharge Orders: Discharge Order (Routine); Ordered 11/28/24 Ordered By: [facility] Stand Alone Forms: Patient Portal Discharge page Print Language: Unable To Collect Care Plan Goals: n/a Health Concerns: n/a Plan of Treatment: inpatient medical stabilization Assessment: n/a
[2024-11-29] MEDS: Dextrose 5 % and Lactated Ring 1,000 ML 80 ML IVCONT (21:36)
--- NOTE | 2024-11-29 21:51 | PC.NURSE ---
Patient developed fever 102.1 Dr Higuera notified. One dose of Ibuprofen , IVF and lactic acid ordered. Will cont. to monitor.
[2024-11-30 03:48] VITALS: BP 114/58; PULSE 56; RESP 18; TEMP 36.6; O2SAT 96
[2024-11-30 05:43] LABS: MANUAL DIFF FLAG NO
[2024-11-30 05:46] LABS: Hematocrit 37.1 % (42.0-52.0); Hemoglobin 12.4 g/dl (14.0-18.0); Imm Gran Abs Auto 0.04 X10*3/uL (0.00-0.03); Imm Gran Pct Auto 0.5 % (0.0-0.4); Lymphocytes Absolute Auto 1.1 X10*3/uL (1.2-4.9); Mean Corpuscular HGB Conc 33.4 g/dl (31.0-36.0); Mean Corpuscular Hemoglobin 28.7 pg (27.0-33.0); Mean Corpuscular Volume 85.9 fL (80.0-98.0); NRBC Abs Auto 0.000 X10*3/uL (0.0-0.012); NRBC Pct Auto 0.0 /100WBC (0.0-0.2); Platelet Count 142 X10*3/uL (160-400); Red Blood Count 4.32 X10*6/uL (4.60-5.80); White Blood Count 7.7 X10*3/uL (4.8-10.8)
[2024-11-30 05:58] LABS: Anion Gap 11 (12-20); Blood Urea Nitrogen 15 mg/dL (9-16); Calcium 8.5 mg/dL (8.4-10.2); Carbon Dioxide 26 mmol/L (22-29); Chloride 109 mmol/L (96-108); Creatinine Clr Calc Pharmacy 74.1; Estimated Glomerular Filt Rate > 60; Potassium 3.7 mmol/L (3.3-5.1); Sodium 142 mmol/L (135-145)
--- NOTE | 2024-11-30 07:19 | P.PNIM_ITS ---
Subjective Subjective Date of Service: 11/30/24 Interval History: Pt noted to be febrile overnight UA growing Klebsiella pneumoniae susceptible to ceftriaxone Pt only able to state name, unable to participate meaningfully in interview or exam Review of Systems Review of Systems: Yes Unobtainable due to mental status Physical Exam 2 Exam: Exam: General: AOx1, no acute distress Resp: CTA bilaterally CVS: S1, S2, RRR GI: +BS, NT, no distention Skin: Warm, dry Neuro: Motor grossly intact bilaterally. Unable to follow commands Extremities: No edema Psych: Confused, but calm Vital Signs: Vital Signs: Last Vital Signs Temp 97.8 F 11/30/24 03:48 Pulse 56 11/30/24 03:48 Resp 18 11/30/24 03:48 BP 114/58 L 11/30/24 03:48 Pulse Ox 96 11/30/24 03:48 O2 Del Method Room Air 11/30/24 03:48 BMI result Body Mass Index 27.8 Objective Data Active Medications Calcium Carbonate (Calcium Carbonate 750 Mg Tab.Chew) 750 mg PO Q4H PRN PRN Reason: Heartburn Ceftriaxone Sodium (Ceftriaxone Sodium 2 Gm Vial) 2 gm IVPUSH Q24H [facility] Last Admin: 11/29/24 19:32 Dose: 2 gm Documented By: JUAN CARLOS Divalproex Sodium (Divalproex Sodium Sprinkles 125 Mg Broderick.Spr) 125 mg PO BID@0900,1500 [facility] Last Admin: 11/29/24 15:27 Dose: 125 mg Documented By: GISEL Divalproex Sodium (Divalproex Sodium Sprinkles 125 Mg Spr) 250 mg PO BEDTIME [facility] Last Admin: 11/29/24 19:33 Dose: 250 mg Documented By: JUAN CARLOS Donepezil HCl (Donepezil Hcl 5 Mg Tablet) 5 mg PO BEDTIME [facility] Last Admin: 11/29/24 19:33 Dose: 5 mg Documented By: JUAN CARLOS Furosemide (Furosemide 20 Mg Tablet) 20 mg PO DAILY [facility]; Protocol Heparin Sodium (Porcine) (Heparin Sodium,Porcine 5,000 Unit/Ml Vial) 5,000 unit SUBCUT Q12H [facility] Last Admin: 11/29/24 19:32 Dose: 5,000 unit Documented By: JUAN CARLOS Acetaminophen (Ofirmev) 1,000 mg in 100 mls @ 400 mls/hr IV Q6H [facility] Last Admin: 11/30/24 03:21 Dose: Not Given Documented By: JUAN CARLOS Non-Admin Reason: pt sleeping, no discomfort Dextrose/Lactated Ringer's (D5lr) 1,000 mls @ 80 mls/hr IVCONT .[id number] [facility] Last Admin: 11/29/24 21:36 Dose: 80 mls/hr Documented By: JUAN CARLOS Magnesium Hydroxide (Milk Of Magnesia 30 Ml Oral.Susp) 30 ml PO DAILY PRN PRN Reason: Constipation Melatonin (Melatonin 3 Mg Tablet) 6 mg PO BEDTIME PRN PRN Reason: Insomnia Last Admin: 11/29/24 19:33 Dose: 6 mg Documented By: JUAN CARLOS Memantine (Memantine Hcl 5 Mg Tablet) 5 mg PO DAILY [facility] Last Admin: 11/29/24 09:07 Dose: 5 mg Documented By: HENRY Ondansetron HCl (Ondansetron Hcl 4 Mg/2 Ml Vial) 4 mg IVPUSH Q8H PRN PRN Reason: Nausea and Vomiting Oxycodone HCl (Oxycodone Hcl Immed Release 5 Mg Tablet) 5 mg PO Q6H PRN PRN Reason: Pain, Severe (Pain Scale 7-10) Quetiapine Fumarate (Quetiapine Fumarate 50 Mg Tablet) 50 mg PO BID@1200,2100 [facility] Last Admin: 11/29/24 19:33 Dose: 50 mg Documented By: JUAN CARLOS Quetiapine Fumarate (Quetiapine Fumarate 50 Mg Tablet) 50 mg PO Q6H PRN PRN Reason: agitation Last Admin: 11/29/24 15:59 Dose: 50 mg Documented By: GISEL Sodium Chloride (0.9 % Sodium Chloride Flush 3 Ml Syringe) 3 ml IVFLUSH QSHIFT [facility] Last Admin: 11/29/24 19:35 Dose: 3 ml Documented By: JUAN CARLOS Tramadol HCl (Tramadol Hcl 50 Mg Tablet) 50 mg PO Q6H PRN PRN Reason: Pain, Moderate(Pain Scale 4-6) Trazodone HCl (Trazodone Hcl 50 Mg Tablet) 50 mg PO BEDTIME PRN PRN Reason: Insomnia Labs 11/30/24 05:24 11/30/24 05:24 Labs: Laboratory Results - last 24 hr 11/29/24 11/29/24 11/30/24 07:50 21:38 05:24 MCV 86.2 85.9 MCH 28.2 28.7 MCHC 32.7 33.4 RDW 14.0 13.9 Plt Count 165 142 L MPV 9.5 9.5 Immature Gran % (Auto) 0.2 0.5 H Neut % (Auto) 76.2 H 75.0 H Lymph % (Auto) 11.4 L 14.5 L [place] % (Auto) 11.0 8.2 Eos % (Auto) 0.7 1.4 Baso % (Auto) 0.5 0.4 Lymph # (Auto) 1.1 L 1.1 L [place] # (Auto) 1.1 0.6 Eos # (Auto) 0.1 0.1 Baso # (Auto) 0.1 0.0 Abs Immat Gran (auto) 0.02 0.04 H Absolute Neuts (auto) 7.5 5.7 Absolute Nucleated RBC 0.000 0.000 Nucleated RBC % (auto) 0.0 0.0 Anion Gap 11 L 11 L Estim Creat Clear Calc 71.8 74.1 Estimated GFR > 60 > 60 Random Glucose 95 115 Lactic Acid 1.3 Calcium 8.5 8.5 Assessment and Plan (1) Acute UTI: Status: Acute (2) Sepsis: Status: Acute Plan Patient is a 74-year-old male with a past medical history significant for dementia with aggressive behaviors and history DVT, transferred from [facility] due to fever of 102.5 and tachycardia of 132, pt found to have sepsis UTI. acute metabolic encephalopathy with sepsis secondary to UTI - Met sepsis with severe features with fever 102.5, tachycardic and tachypneic, lactic acid 2.5, repeat WNL - UA+ growing Klebsiella pneumoniae susceptible to ceftriaxone - continue ceftriaxone, started 11/28 - given 1L IVF and placed on maintenance fluids - pt with end stage dementia, appears back to baseline acute lactic acidosis, resolved - lactic acid 2.5, repeat WNL - given 1L IVF - BPs normal dementia with aggressive behaviors - continue Depakote, donepezil, memantine, olanzapine, quetiapine, trazodone - camera in room; 1:1 sitter d/c - psych thinks pt should not be transferred back to [facility] once medically cleared but placed from medical floor hx DVT - doppler US in 10/09 negative for DVT - d-dimer 249, no hypoxia, no unilateral LE edema - no indication for CTA of chest chronic LE edema - continue Lasix once BP allows full code VTE prophy: heparin Pt requires continued hospitalization for IV antibiotics for UTI with sepsis. Pt will need placement once medically cleared. Quality Stroke Does the patient have a stroke diagnosis?: No VTE Prior VTE?: Yes VTE Risk Level:: Medical - moderate - high VTE Device Contraindication: Treatment Not Indicated VTE Drug Contraindication: N/A - Med Ordered
[2024-11-30 07:41] VITALS: BP 144/77; PULSE 99; RESP 18; TEMP 36.4; O2SAT 92
[2024-11-30] MEDS: Divalproex Sodium Sprinkles 125 MG CAP.DR.SPR PO ×2 (09:36→15:40)
[2024-11-30] MEDS: 0.9 % Sodium Chloride Flush 3 ML SYRINGE IVFLUSH ×2 (09:37→15:40)
[2024-11-30] MEDS: Dextrose 5 % and Lactated Ring 1,000 ML 80 ML IVCONT ×2 (09:39→18:02)
--- NOTE | 2024-11-30 12:28 | MHC.CM.PN ---
CM assessment completed w/ son/guardian Jaquan [phone]. IMM delivered. Patient w/ dx dementia, hx aggressive behaviors, elopement. Patient was transferred to [facility] from [facility], where he has been since July 2024. [employer] patient was living at home w/ . and other family taking shifts providing care. PCP Candido Mcwilliams MD Guardianship on file. DP: Will need CARE eval once medically cleared. Per son, goal is LTC. [facility] mirtha in process w/ financial services. Documents due to [facility] by 12/09 per last psych SW note. Copy requested from FS. Son is aware placement may not be found in this area. Hx behaviors and [facility] pending are barriers. If patient cleared by medical and psychiatric providers may consider home w/ services & family support if safe to do so. Will send referrals when [facility] mirtha is obtained. CM will continue to follow.
[2024-11-30 15:53] VITALS: BP 95/50; PULSE 65; RESP 18; TEMP 36.2; O2SAT 94
[2024-11-30 17:39] VITALS: BP 98/54; PULSE 61; RESP 18; O2SAT 95
--- NOTE | 2024-11-30 19:03 | PC.NURSE ---
BP 95/50, 98/54. IV fluids d/c'd. Hospitalist notified. IV fluids ordered LR@80. Encouraging IV fluids. Eating 100% of meals. Pt drowsy, resistant to care at times. Did swing at this RN when attempting to place IV, but otherwise cooperative throughout day.
[2024-11-30 20:00] VITALS: BP 121/59; PULSE 68; RESP 19; TEMP 36.1; O2SAT 96
[2024-11-30] MEDS: Divalproex Sodium Sprinkles 125 MG CAP.DR.SPR 250 MG PO (20:01)
[2024-11-30] MEDS: Lactated Ringers 1,000 ML 80 ML IVCONT (23:04)
[2024-12-01 04:00] VITALS: BP 119/62; PULSE 63; RESP 19; TEMP 36.2; O2SAT 94
[2024-12-01 06:20] LABS: MANUAL DIFF FLAG NO
[2024-12-01 06:34] LABS: Hematocrit 34.7 % (42.0-52.0); Hemoglobin 11.5 g/dl (14.0-18.0); Imm Gran Abs Auto 0.04 X10*3/uL (0.00-0.03); Imm Gran Pct Auto 0.5 % (0.0-0.4); Lymphocytes Absolute Auto 1.4 X10*3/uL (1.2-4.9); Mean Corpuscular HGB Conc 33.1 g/dl (31.0-36.0); Mean Corpuscular Hemoglobin 28.3 pg (27.0-33.0); Mean Corpuscular Volume 85.3 fL (80.0-98.0); NRBC Abs Auto 0.000 X10*3/uL (0.0-0.012); NRBC Pct Auto 0.0 /100WBC (0.0-0.2); Platelet Count 145 X10*3/uL (160-400); Red Blood Count 4.07 X10*6/uL (4.60-5.80); White Blood Count 8.9 X10*3/uL (4.8-10.8)
[2024-12-01 06:51] LABS: Anion Gap 9 (12-20); Blood Urea Nitrogen 18 mg/dL (9-16); Calcium 8.5 mg/dL (8.4-10.2); Carbon Dioxide 30 mmol/L (22-29); Chloride 108 mmol/L (96-108); Creatinine Clr Calc Pharmacy 66.9; Estimated Glomerular Filt Rate > 60; Potassium 3.6 mmol/L (3.3-5.1); Sodium 143 mmol/L (135-145)
[2024-12-01 07:08] VITALS: BP 116/65; PULSE 56; RESP 20; TEMP 36.1; O2SAT 95
[2024-12-01 07:39] VITALS: BP 130/95; PULSE 75; RESP 16; TEMP 36.2; O2SAT 96
[2024-12-01] MEDS: Divalproex Sodium Sprinkles 125 MG CAP.DR.SPR PO (08:24)
--- NOTE | 2024-12-01 11:33 | P.DS_ITS ---
DS: Providers Provider Date of Service: 12/01/24 Date of admission: 11/28/24 20:49 Date of discharge: 12/01/24 Primary care physician: Candido Mcwilliams MD Consults: 11/28/24 22:05 Consult to Psychiatry Routine Consulting Provider: [facility] Julio Covering Reason for consultation: pt transferred from [facility], continuation of care 12/01/24 10:50 Inpt CARE Team Crisis Consult Stat Comment: Reason for consultation: S1 Placement Has provider been notified: Yes DS: Diagnosis Discharge Diagnosis (1) Acute UTI: Status: Acute (2) Sepsis: Status: Acute DS: Summary Hospital Course Hospital Course: On 11/28/2024, patient developed a temperature of 102.5, R20 P132 O2Sat 96% was tremulous and grabbing at unseen items in the air. STAT Hospitalist consult was performed. Decision was made to transfer patient to inpatient medical floor for sepsis workup. Medical workup consistent with sepsis secondary to UTI. Patient started on empiric ceftriaxone; urine culture ultimately grew out Klebsiella sensitive to ceftriaxone. At this point in time he is medically stable and can be transferred back to [facility] on oral Ceftin to complete a 7 day therapy Time Attestation Discharge Coordination Time (in mins): 35 Quality: Safe Use of Opioids Does Pt have an Active Cancer Diagnosis on the Problem List?: No Quality: Stroke Does the patient have a stroke diagnosis?: No Physical Exam Vital Signs: Vital Signs: Last Vital Signs Temp 97.1 F 12/01/24 07:39 Pulse 75 12/01/24 07:39 Resp 16 12/01/24 07:39 BP 130/95 H 12/01/24 07:39 Pulse Ox 96 12/01/24 07:39 O2 Del Method Room Air 12/01/24 07:39 BMI result Body Mass Index 27.8 Const: Other: Awake minimally verbal Resp: Other: Clear to auscultation bilaterally no rales rhonchi or wheezes Cardio: Other: No S4; positive S1-S2; no S3 murmurs rubs or gallops GI: Other: Soft nontender nondistended normoactive bowel sounds Extrem: Other: No edema bilaterally DS: Data Data Completed and Pending Labs on day of discharge: Laboratory Results - last 24 hr 12/01/24 06:04 WBC 8.9 RBC 4.07 L Hgb 11.5 L Hct 34.7 L MCV 85.3 MCH 28.3 MCHC 33.1 RDW 14.0 Plt Count 145 L MPV 10.1 Immature Gran % (Auto) 0.5 H Neut % (Auto) 68.0 Lymph % (Auto) 15.3 L [place] % (Auto) 12.3 H Eos % (Auto) 3.3 Baso % (Auto) 0.6 Lymph # (Auto) 1.4 [place] # (Auto) 1.1 Eos # (Auto) 0.3 Baso # (Auto) 0.1 Abs Immat Gran (auto) 0.04 H Absolute Neuts (auto) 6.0 Absolute Nucleated RBC 0.000 Nucleated RBC % (auto) 0.0 Sodium 143 Potassium 3.6 Chloride 108 Carbon Dioxide 30 H Anion Gap 9 L BUN 18 H Creatinine 1.03 Estim Creat Clear Calc 66.9 Estimated GFR > 60 Random Glucose 92 Calcium 8.5 Discharge Plan Discharge Anticipated Discharge Date/Time: 12/01/24 11:28 [facility] Diagnosis: sepsis Referrals: Physician,Unknown J [Physician, Medical] - 1 Week Discharge Medications: New cefuroxime axetil 250 mg tablet 500 mg PO Q12H 7 Days Qty: 28 0RF Continued donepezil 5 mg Tablet 5 mg PO BEDTIME Qty: 1 0RF loperamide 2 mg Capsule 2 mg PO Q4H PRN (Reason: Diarrhea) Qty: 1 0RF trazodone 50 mg Tablet 50 mg PO BEDTIME PRN (Reason: Insomnia) Qty: 1 0RF furosemide 20 mg Tablet 20 mg PO DAILY Qty: 1 0RF Protocol: Hold for SBP< HOLD for SBP < : 90 divalproex 125 mg Capsule, Delayed Rel Sprinkle 250 mg PO BEDTIME Qty: 1 0RF divalproex 125 mg Capsule, Delayed Rel Sprinkle 125 mg PO BID@0900,1500 Qty: 1 0RF memantine 5 mg Tablet 5 mg PO DAILY Qty: 1 0RF quetiapine 50 mg Tablet 50 mg PO BID@1200,2100 Qty: 1 0RF quetiapine 50 mg Tablet 50 mg PO Q6H PRN (Reason: agitation) Qty: 1 0RF acetaminophen 325 mg Tablet 650 mg PO Q6H PRN (Reason: Pain (Scale Score 4-6)) Discontinued Ceftriaxone Sodium, Lidocane Hcl 1 g IM Q24H Discharge Orders: Discharge Order (Routine); Ordered 12/01/24 Ordered By: Austen Bird Diet: Advance to usual diet Activity on Discharge: As tolerated Stand Alone Forms: Patient Portal Discharge page Print Language: Unable To Collect Care Plan Goals: n/a Health Concerns: n/a Plan of Treatment: inpatient medical stabilization Assessment: n/a
--- NOTE | 2024-12-01 11:44 | MHC.CM.PN ---
Patient medically cleared for dc and has been accepted to return to [facility]. Son/Guardian Jaquan has been udpated.
== END 2024-12-01 13:16 | DRG 871 ==
LOC: HO.IMC 11-29 06:51 → HO.S3 11-29 12:34
PROVIDERS: Hospitalist; Admitting Provider Physician Assistant; PCP Family Medicine; Visit Provider Hospitalist
DX: A41.9 Sepsis, unspecified organism (principal); G93.41 Metabolic encephalopathy; E87.21 Acute metabolic acidosis; F02.811 Dementia in other diseases classified elsewhere, unspecified severity, with agitation; N39.0 Urinary tract infection, site not specified; B96.1 Klebsiella pneumoniae [K. pneumoniae] as the cause of diseases classified elsewhere; G30.9 Alzheimer's disease, unspecified; Z86.718 Personal history of other venous thrombosis and embolism; Z79.899 Other long term (current) drug therapy
CPT/HCPCS: 36415; 80048; 83605; 85025; 85379; J0131; J0696; J1644; J7120; S9485

== ENCOUNTER → 2024-11-28 20:49 | Outpatient (BNV) | payer MEDICARE, SELFPAY | PROVIDERS: Admitting Provider Physician Assistant; Visit Provider Student in an Organized Health Care Education/Training Program | DX: N39.0 Urinary tract infection, site not specified (principal); A41.9 Sepsis, unspecified organism | CPT/HCPCS: 99223; 99233; 99239 ==

== ENCOUNTER 2024-12-01 13:37 | Outpatient (BNV) | payer MEDICARE, SELFPAY | END 2024-12-03 18:07 | PROVIDERS: Admitting Provider Social Worker; Visit Provider Radiology Diagnostic Radiology | DX: R07.89 Other chest pain (principal) | CPT/HCPCS: 71101 ==

== ENCOUNTER → 2024-12-01 13:37 | Outpatient (BNV) | payer MEDICARE, SELFPAY | PROVIDERS: Admitting Provider Social Worker; Visit Provider Psychiatry & Neurology Psychiatry | DX: F03.90 Unspecified dementia, unspecified severity, without behavioral disturbance, psychotic disturbance, mood disturbance, and anxiety (principal) | CPT/HCPCS: 99231 ==

== ENCOUNTER → 2024-12-01 13:37 | Outpatient (BNV) | payer MEDICARE, SELFPAY | PROVIDERS: Admitting Provider Social Worker; Visit Provider Nurse Practitioner Family | DX: N39.0 Urinary tract infection, site not specified (principal); F03.90 Unspecified dementia, unspecified severity, without behavioral disturbance, psychotic disturbance, mood disturbance, and anxiety; Z02.2 Encounter for examination for admission to residential institution | CPT/HCPCS: 99429 ==

== ENCOUNTER → 2024-12-01 13:37 | Outpatient (BNV) | payer MEDICARE, SELFPAY | PROVIDERS: Admitting Provider Social Worker; Visit Provider Student in an Organized Health Care Education/Training Program | DX: F03.918 Unspecified dementia, unspecified severity, with other behavioral disturbance (principal); L60.2 Onychogryphosis | CPT/HCPCS: 11721; 99221 ==

== ENCOUNTER → 2024-12-01 13:37 | Outpatient (BNV) | payer MEDICARE, SELFPAY | PROVIDERS: Admitting Provider Social Worker; Visit Provider Social Worker | DX: F03.90 Unspecified dementia, unspecified severity, without behavioral disturbance, psychotic disturbance, mood disturbance, and anxiety (principal) | CPT/HCPCS: 90792; 99231; 99232 ==